=== PATIENT | male | born 1950 | race Caucasian/White ===

== ENCOUNTER 2022-12-23 10:35 | Outpatient (OUT) | payer OTHER, SELFPAY ==
--- NOTE | 2022-12-23 10:49 | XR_ITS ---
The [address] [address] Patient Name: PEDRO MENON MRN: [id number] date: 1950 Sex: M Assigned Patient Location: RAD Current Patient Location: [facility] Accession/Order Number: [id number] Exam Date: 12/23/2022 10:55 Report Date: 12/23/2022 15:23 At the request of: BILLY MILTON Procedure: XR lumbar spine 6V w bending EXAMINATION: XR lumbar spine 6V w bending HISTORY: Frequent falls R29.6, Leg weakness R29.898 COMPARISON: No relevant comparison available. FINDINGS: BONES: No fracture, bone lesion, or significant listhesis. Mild degenerative facet arthropathy L3-4 through L5-S1. No significant change in alignment during flexion and extension. DISC SPACES: Mild narrowing L3-4, L4-5, L5-S1. PARASPINOUS: Negative. No paraspinous abnormality is seen. OTHER: Negative. IMPRESSION: 1. Mild degenerative disc disease and degenerative facet arthropathy of lower lumbar spine. 2. No appreciable acute abnormality. Electronically authenticated by: BRAULIO GUZMAN Date: 12/23/2022 15:23
== END 2022-12-23 10:36 ==
LOC: RAD 10:41
PROVIDERS: PCP Physician Assistant; Visit Provider Physician Assistant
DX: R29.6 Repeated falls (principal); R29.898 Other symptoms and signs involving the musculoskeletal system; M51.36 Other intervertebral disc degeneration, lumbar region
CPT/HCPCS: 72114

== ENCOUNTER 2024-06-04 09:00 | Outpatient (OUT) | payer OTHER, SELFPAY ==
[2024-06-04 09:33] LABS: Basophils Absolute Auto 0.1 10^3/uL (0.0-0.1); Basophils Percent Auto 1.7 % (0.2-2.0); Eosinophils Absolute Auto 0.6 10^3/uL (0.0-0.7); Eosinophils Percent Auto 8.2 % (0.9-7.0); Hematocrit 35.7 % (42.0-54.0); Hemoglobin 12.3 g/dL (14.0-18.0); Immature Granulocytes Abs Auto 0.02 10^3/uL (0.00-0.03); Immature Granulocytes Pct Auto 0.3 % (0.0-0.5); Lymphocytes Absolute Auto 1.7 10^3/uL (1.2-3.8); Lymphocytes Percent Auto 24.7 % (20.5-60.0); Mean Corpuscular HGB Conc 34.5 g/dL (29.9-35.2); Mean Corpuscular Hemoglobin 30.3 pg (25.9-34.0); Mean Corpuscular Volume 87.9 fL (80.0-94.0); Mean Platelet Volume 10.7 fL (9.5-13.5); Monocytes Absolute Auto 0.6 10^3/uL (0.3-0.8); Monocytes Percent Auto 8.2 % (1.7-12.0); Neutrophils Percent Auto 56.9 % (43.0-75.0); Platelet Count 228 10^3/uL (150-450); Red Blood Count 4.06 10^6/uL (4.70-6.10); Red Cell Distribution Width 12.2 % (11.0-15.0)
[2024-06-04 10:05] LABS: Creatinine Urine Random 125.08 mg/dL (20.00-300.00); Microalbum Creatinine Ratio Ur 10.3 mg/g (0.0-29.9); Microalbumin Urine Random <1.3 mg/dL (<=30.0)
[2024-06-04 11:48] LABS: Alanine Aminotransferase 24 U/L (16-63); Alkaline Phosphatase 74 U/L (46-116); Anion Gap 17.8; Aspartate Amino Transferase 30 U/L (15-37); BUN Creatinine Ratio 15.6; Bilirubin Total 0.7 mg/dL (0.2-1.0); Calcium 8.2 mg/dL (8.5-10.1); Carbon Dioxide 19.8 mmol/L (21.0-32.0); Chloride 104 mmol/L (98-107); Chol HDL Ratio 2.1; Cholesterol 141 mg/dL (<=200); Estimated GFR (African America 57 (>=60 mL/min/1.73m^2); Estimated GFR (Non-African Ame 47 (>=60 mL/min/1.73m^2); Globulin 3.1 g/dL; Glucose 164 mg/dL (74-106); HDL Cholesterol 67 mg/dL (40-60); Sodium 137 mmol/L (136-145); Total Protein 6.1 g/dL (6.4-8.2); Triglycerides 113 mg/dL (<=150); VLDL CHOLESTEROL 22.6 mg/dL
[2024-06-04 11:59] LABS: Prostate Specific Antigen Scrn 0.96 ng/mL (<=4.00)
[2024-06-04 12:10] LABS: Potassium 4.6 mmol/L (3.5-5.1)
== END 2024-06-04 09:01 | disposition home or self-care (01) ==
LOC: LAB 06-07 11:08
PROVIDERS: PCP Nurse Practitioner Family; Visit Provider Nurse Practitioner Family
DX: E78.5 Hyperlipidemia, unspecified (principal); I10 Essential (primary) hypertension; E11.9 Type 2 diabetes mellitus without complications; Z12.5 Encounter for screening for malignant neoplasm of prostate
CPT/HCPCS: 36415; 80053; 80061; 82043; 82570; 85025; G0103

== ENCOUNTER 2024-09-01 19:46 | Emergency (ER) | payer OTHER, SELFPAY ==
[2024-09-01] VITALS (12 sets, daily range): BP systolic 189–220; BP diastolic 79–113; PULSE 67–73; TEMP 36.8; O2SAT 94–98; BMI 29.1
--- NOTE | 2024-09-01 20:00 | XR_ITS ---
The [address] [address] Patient Name: PEDRO MENON MRN: [id number] date: 1950 Sex: M Assigned Patient Location: ER Current Patient Location: ED.MAIN Accession/Order Number: [id number] Exam Date: 09/01/2024 20:15 Report Date: 09/01/2024 21:58 At the request of: GANESH MARQUEZ Procedure: XR chest 1V PORTABLE CHEST X-RAY. CLINICAL HISTORY: fell on ice onto left side COMPARISON: None. TECHNIQUE: Single AP portable chest radiograph. FINDINGS: TUBES AND LINES: None. LUNGS: Lungs are clear. PLEURA: No effusions or pneumothorax. HEART AND MEDIASTINUM: Within normal limits for portable technique. OSSEOUS STRUCTURES: No acute abnormality. XR/XR chest 1V IMPRESSION: No acute findings. Electronically authenticated by: PASTORA LEUNG Date: 09/01/2024 21:58
--- OUTSIDE RECORDS SUMMARY | 2024-09-01 20:00 | XMS_ITS | CCD ---
Author Organization [facility] Care Team Providers Care Security Architect Name Role Phone AIMEE, DR DOWLING Primary Care Unavailable AIMEE, DR BELKIS Orlando Attending Unavailable CHELSEA, DR ROEL Gomez Consulting Unavailable NADERER, DR BELKIS Orlando Admitting Unavailable NADERER, DR BELKIS Orlando Consulting Unavailable TAYLOR, DR ANTUNEZ Consulting Unavailable AIMEE, DR DOWLING Attending Unavailable AIMEE, DR DOWLING Consulting Unavailable AIMEE, DR DOWLING Primary Care Unavailable AIMEE, DR DOWLING Admitting Unavailable MD Jonathon Isbell Primary Care Provider MD Christian Montana Attending Provider Unavailable Primary Care Provider Unavailabl e PROVIDER, UNKNOWN Attending Unavailable PROVIDER, UNKNOWN Admitting Unavailable Christian Montana Attending Unavailable Jonathon Isbell Primary Care Unavailable Christian Montana Admitting Unavailable Christian Montana Attending Unavailable Jonathon Isbell Primary Care Unavailable Christian Montana Admitting Unavailable Ulisses Yu MD Primary Care Provider Jonathon Isbell MD Unavailable [phone] KAELA MILTON Attending Unavailable KAELA MILTON Attending Unavailable KAELA MILTON Attending Unavailable Ulisses Yu MD Unavailable Unavailable Primary Care Provider Unavailabl e Allergies Allergy Classification Reported Allergen(s) Allergy Type Date of Onset Reaction(s) Facility (4 sources) gabapentin Drug Allergy 06-24-2023 Diarrhea [facility] Work Phone: Medications Current Medications Medication Drug Class(es) Dates Sig (Normalized) Sig (Original) acetaminophen 325 mg / HYDROcodone bitartrate 5 mg oral tablet (2 sources) Opioid Agonist Start: 05-01-2021 take 1 tablet by mouth every six hours Hydrocodone-Acet aminophen Active 1 TAB PO Q6H 28 7 May 01, 2021 aspirin 81 mg delayed release oral tablet (6 sources) Platelet Aggregation Inhibitor, Nonsteroidal Anti-inflammatory Drug Start: 05-27-2023 End: 06-30-2024 take 1 tablet by mouth once daily aspirin 81 MG EC tablet Indications: Type 2 diabetes mellitus with diabetic neuropathy, without long-term current use of insulin (CMS/HCC) Take 1 tablet (81 mg) by mouth 1 (one) time each day at the same time. 100 tablet 3 05/27/2023 06/30/2024 Active Start: 03-28-2021 take 81 mg by mouth once daily Aspirin Active 81 MG PO Daily 365 365 March 28, 2021 12:00am atorvastatin 80 mg oral tablet (6 sources) HMG-CoA Reductase Inhibitor Start: 10-28-2023 take 1 tablet by mouth at bedtime atorvastatin (Lipitor) 80 MG tablet Indications: Mixed hyperlipidemia (CMS/HCC) Take 1 tablet (80 mg) by mouth at bedtime 100 tablet 3 10/28/2023 Active Start: 03-28-2021 take 80 mg by mouth once daily Atorvastatin Active 80 MG PO Daily March 28, 2021 12:00am carvedilol 12.5 mg oral tablet (6 sources) alpha-Adrenergic Elio, beta-Adrenergic Elio Start: 10-28-2023 take 1 tablet by mouth in the morning carvedilol (Coreg) 12.5 MG tablet Indications: Benign hypertension (CMS/HCC) Take 1 tablet (12.5 mg) by mouth in the morning and 1 tablet (12.5 mg) in the evening. Take with meals. 200 tablet 3 10/28/2023 Active Start: 03-28-2021 take 12.5 mg by mout h twice daily Carvedilol Active 12.5 MG PO Twice daily March 28, 2021 12:00am clopidogrel 75 mg oral tablet (6 sources) P2Y12 Platelet Inhibitor Start: 11-19-2023 take 1 tablet by mouth once daily clopidogrel (Plavix) 75 MG tablet Indications: Peripheral vascular disease, unspecified (CMS/HCC) TAKE 1 TABLET BY MOUTH EVERY DAY FOR 90 DAYS 90 tablet 3 11/19/2023 Active Start: 08-11-2023 take 1 tablet by mau th once daily clopidogrel (Plavix) 75 MG tablet Indications: Peripheral vascular disease, unspecified (CMS/HCC) TAKE 1 TABLET BY MOUTH EVERY DAY FOR 90 DAYS 90 tablet 3 08/11/2023 Active Start: 03-28-2021 take 75 mg by mouth once daily Clopidogrel Active 75 MG PO Daily 90 180 March 28, 2021 12:00am gabapentin 600 mg oral tablet (2 sources) Anti-epileptic Agent Start: 03-28-2021 take 600 mg by mouth three times daily Gabapentin Active 600 MG PO Three times daily March 28, 2021 12:00am glipiZIDE 10 mg oral tablet (6 sources) Sulfonylurea Start: 10-28-2023 take 1 tablet by mouth once daily glipiZIDE (Glucotrol) 10 MG tablet Indications: Type 2 diabetes mellitus with diabetic neuropathy, without long-term current use of insulin ([facility]) Take 1 tablet (10 mg) by mouth Daily 100 tablet 3 10/28/2023 Active Start: 03-28-2021 take 1 tablet by mau th in the morning glipiZIDE (Glucotrol) 10 MG tablet Indications: Type 2 diabetes mellitus with diabetic neuropathy, without long-term current use of insulin ([facility]) Take 1 tablet (10 mg) by mouth in the morning. 100 tablet 3 2023 Active 3 ml insulin glargine 100 unt/ml pen injector (2 sources) Insulin Analog Start: 10-28-2023 insulin glargi ne (Basaglar KwikPen) 100 UNIT/ML pen Indications: Type 2 diabetes mellitus with diabetic neuropathy, without long-term current use of insulin ([facility]) Inject 20 Units under the skin at bedtime 10/28/2023 Active insulin, regular, human 100 unt/ml injectable solution (2 sources) Insulin Start: 11-14-2023 End: 11-13-2024 insulin regular (NovoLIN R) 100 UNIT/ML injection Indications: Type 2 diabetes mellitus with other specified complication, without long-term current use of insulin ([facility]) Inject 0.1 mL (10 Units) under the skin in the morning and 0.1 mL (10 Units) at noon and 0.1 mL (10 Units) in the evening. Inject with meals. 27 mL 3 11/14/2023 11/13/2024 Active lisinopril 5 mg oral tablet (6 sources) Angiotensin Converting Enzyme Inhibitor Start: 05-27-2023 End: 06-30-2024 take 1 tablet by mouth in the morning lisinopril 5 MG tablet Indications: Benign hypertension (CMS/HCC) Take 1 tablet (5 mg) by mouth in the morning. 100 tablet 3 05/27/2023 06/30/2024 Active Start: 08-02-2021 take 1 tablet by mau th once daily Lisinopril (Zestril) 5 mg Tablet Active 5 MG PO Daily August 02, 2021 1:00am omeprazole 40 mg delayed release oral capsule (4 sources) Proton Pump Inhibitor Start: 03-28-2021 take 40 mg by mouth once daily Omeprazole Active 40 MG PO Daily March 28, 2021 12:00am ondansetron 8 mg oral tablet (2 sources) Serotonin-3 Receptor Antagonist Start: 07-04-2021 take 8 mg by mouth every eight hours Ondansetron Hcl Active 8 MG PO Q8H July 04, 2021 4:18pm pantoprazole 40 mg delayed release oral tablet (2 sources) Proton Pump Inhibitor Start: 10-28-2023 take 1 tablet by mouth before mealtime pantoprazole (Protonix) 40 MG EC tablet Indications: Gastroesophageal reflux disease without esophagitis Take 1 tablet (40 mg) by mouth in the morning. Take before meals. Do not crush, chew, or split.. 100 tablet 3 10/28/2023 Active pioglitazone 15 mg oral tablet (4 sources) Peroxisome Proliferator Receptor alpha Agonist, Peroxisome Proliferator Receptor gamma Agonist, Thiazolidinedione Start: 10-28-2023 take 1 tablet by mouth once daily pioglitazone (Actos) 15 MG tablet Indications: Type 2 diabetes mellitus with diabetic neuropathy, without long-term current use of insulin (CMS/HCC) Take 1 tablet (15 mg) by mouth Daily 100 tablet 3 10/28/2023 Active Start: 02-05-2023 take 1 tablet by mau th in the morning pioglitazone (Actos) 15 MG tablet Indications: Type 2 diabetes mellitus with diabetic neuropathy, without long-term current use of insulin (CMS/HCC) Take 1 tablet (15 mg) by mouth in the morning. 90 tablet 3 02/05/2023 Active SITagliptin 100 mg oral tablet (2 sources) Dipeptidyl Peptidase 4 Inhibitor Start: 03-28-2021 take 1 tablet by mouth once daily Sitagliptin Phosphate (Januvia) 100 mg Tablet Active 100 MG PO Daily March 28, 2021 12:00am Completed/Discontinued Medications Medication Drug Class(es) Dates Sig (Normalized) Sig (Original) capecitabine 500 mg oral tablet (6 sources) Nucleoside Metabolic Inhibitor Start: 05-31-2021 End: 01-31-2022 take 1 tablet by mouth twice daily Capecitabine (Xeloda) 500 mg Tablet Discontinued 2000 MG PO Twice daily 80 September 26, 2021 4:27pm January 31, 2022 10:08am Take only on M-F 2 weeks on one week off Problems Active Problems Problem Classification Problem Date Documented Da te Episodic/Chronic Acquired foot deformities (4 sources) Hammer toe; Translations: [Other hammer toe(s) (acquired), unspecified foot] Onset: 12-19-2022 12-19-2022 Chronic Alcohol-related disorders (8 sources) Nondependent alcohol abuse, continuous; Translations: [Alcohol abuse, uncomplicated] Onset: 12-19-2022 07-12-2021 Chronic Anxiety disorders (4 sources) Anxiety disorder; Translations: [Other specified anxiety disorders] Onset: 02-24-2020 01-28-2023 Chronic Cancer of colon (6 sources) Malignant tumor of sigmoid colon; Translations: [Malignant neoplasm of sigmoid colon] Onset: 12-19-2022 07-12-2021 Chronic Conditions associated with dizziness or vertigo (1 source) Dizziness; Translations: [Dizziness and giddiness] Episodic Diabetes mellitus with complications (17 sources) Type 2 diabetes mellitus with hyperglycemia; Translations: [Type 2 diabetes mellitus with diabetic neuropathy, unspecified] Onset: 02-21-2021 Resolved: 10-28-2023 12-19-2022 Chronic Diabetes mellitus without complication (2 sources) Diabetes mellitus; Translations: [Type 2 diabetes mellitus without complications] 05-12-2021 Chronic Diabetes mellitus without complication (1 source) Hyperglycemia; Translations: [Hyperglycemia, unspecified] Episodic Disorders of lipid metabolism (5 sources) Hyperlipidemia, unspecified; Translations: [Hyperlipidemia] Onset: 02-24-2020 01-28-2023 Chronic Esophageal disorders (5 sources) Gastro-esophageal reflux disease without esophagitis; Translations: [Gastroesophageal reflux disease] Onset: 02-06-2022 12-19-2022 Chronic Essential hypertension (7 sources) Hypertensive disorder; Translations: [Essential (primary) hypertension] Onset: 12-19-2022 09-27-2021 Chronic Intracranial injury (1 source) Personal history of traumatic brain injury; Translations: [PERSONAL HX TRAUMATIC BRAIN INJURY] Onset: 02-06-2022 Episodic Maintenance chemotherapy; radiotherapy (2 sources) Patient encounter status; Translations: [Encounter for antineoplastic chemotherapy] 07-12-2021 Chronic Osteoarthritis (8 sources) Osteoarthritis of right hip joint; Translations: [Unilateral primary osteoarthritis, right hip] Onset: 02-24-2020 Resolved: 05-12-2023 01-28-2023 Chronic Other aftercare (1 source) medical support assistant (current) use of oral hypoglycemic drugs; Translations: [STILL CLEANER TUBE USE ORAL HYPOGLYCEMIC DX] Onset: 02-06-2022 Episodic Other aftercare (1 source) Other hazardous waste material technician (current) drug therapy; Translations: [OTH STILL CLEANER TUBE CURRENT DRUG THERAPY] Onset: 02-06-2022 Episodic Other circulatory disease (1 source) Personal history of transient ischemic attack (TIA), and cerebral infarction without residual deficits; Translations: [PERS HX TIA AND CI NO RESID DEFICIT] Onset: 02-06-2022 Episodic Other connective tissue disease (4 sources) History of total hip arthroplasty; Translations: [Presence of right artificial hip joint] Onset: 12-19-2022 12-19-2022 Chronic Other male genital disorders (4 sources) Male erectile dysfunction, unspecified; Translations: [Impotence of organic origin] Onset: 12-19-2022 12-19-2022 Chronic Other nervous system disorders (4 sources) Spinal cord disease; Translations: [Disease of spinal cord, unspecified] Onset: 12-19-2022 12-19-2022 Chronic Other nervous system disorders (4 sources) Difficulty walking; Translations: [Difficulty in walking, not elsewhere classified] Onset: 02-24-2020 01-28-2023 Chronic Other screening for suspected conditions (not mental disorders or infectious disease) (1 source) Abnormal findings on diagnostic imaging of skull and head, not elsewhere classified; Translations: [ABNORM FIND DX IMAG SKULL HEAD NEC] Onset: 02-06-2022 Episodic Peripheral and visceral atherosclerosis (14 sources) Peripheral vascular disease, unspecified; Translations: [Intermittent claudication] Onset: 02-15-2021 Chronic Residual codes; unclassified (1 source) Obstructive sleep apnea (adult) (pediatric); Translations: [OBSTRUCTIVE SLEEP APNEA] Onset: 02-06-2022 Chronic Residual codes; unclassified (2 sources) Stopped drinking alcohol; Translations: [Personal history of other specified conditions] 09-12-2021 Episodic Unclassified (1 source) Encounter for follow-up examination after completed treatment for malignant neoplasm; Translations: [Encounter for follow-up examination after completed treatment for malignant neoplasm] Onset: 05-20-2022 Unclassified (1 source) Encounter for preprocedural laboratory examination; Translations: [Encounter for preprocedural laboratory examination] Onset: 05-16-2022 Viral infection (1 source) COVID-19; Translations: [COVID-19] Onset: 02-06-2022 Past or Other Problems Problem Classification Problem Date Documented Da te Episodic/Chronic Acute bronchitis (4 sources) Acute mycoplasmal bronchitis; Translations: [Acute bronchitis due to Mycoplasma pneumoniae] Onset: 02-24-2020 Resolved: 05-12-2023 05-12-2023 Episodic Administrative/social admission (4 sources) Literacy problems; Translations: [Illiteracy and low-level literacy] Onset: 02-24-2020 01-28-2023 Episodic Allergic reactions (6 sources) Acral erythema due to cytotoxic therapy; Translations: [Localized skin eruption due to drugs and medicaments taken internally] Onset: 02-24-2020 Resolved: 05-12-2023 09-12-2021 Episodic Deficiency and other anemia (4 sources) Anemia; Translations: [Anemia, unspecified] Onset: 12-19-2022 12-19-2022 Episodic Mood disorders (4 sources) Mood disorders Onset: 05-12-2023 05-12-2023 Other connective tissue disease (4 sources) Muscle weakness; Translations: [Muscle weakness (generalized)] Onset: 02-24-2020 01-28-2023 Episodic Other connective tissue disease (4 sources) Recurrent falls ; Translations: [Repeated falls] Onset: 05-01-2023 05-01-2023 Episodic Other gastrointestinal disorders (4 sources) Diarrhea due to drug; Translations: [Toxic gastroenteritis and colitis] Onset: 10-20-2023 Resolved: 10-20-2023 09-12-2021 Episodic Other gastrointestinal disorders (4 sources) Abnormal feces; Translations: [Other fecal abnormalities] Onset: 12-19-2022 3 Episodic Other gastrointestinal disorders (4 sources) Incontinence of feces; Translations: [Full incontinence of feces] Onset: 12-19-2022 12-19-2022 Episodic Other lower respiratory disease (4 sources) Solitary nodule of lung; Translations: [Solitary pulmonary nodule] Onset: 10-20-2023 07-12-2021 Episodic Other nervous system disorders (4 sources) Acute postoperative pain; Translations: [Other acute postprocedural pain] Onset: 10-20-2023 Resolved: 10-20-2023 05-11-2021 Episodic Other non-traumatic joint disorders (4 sources) Pain in right knee; Translations: [Pain in joint, lower leg] Onset: 02-22-2020 01-28-2023 Episodic Other non-traumatic joint disorders (3 sources) Pain in right hip joint; Translations: [Pain in right hip] Onset: 02-24-2020 01-28-2023 Episodic Other non-traumatic joint disorders (1 source) Hip pain; Translations: [Pain in right hip] Onset: 02-24-2020 01-28-2023 Episodic Other nutritional; endocrine; and metabolic disorders (4 sources) Overweight in adulthood with body mass index of 25 or more but less than 30; Translations: [Body mass index (BMI) 27.0-27.9, adult] Onset: 02-24-2020 Resolved: 05-12-2023 05-12-2023 Episodic Residual codes; unclassified (4 sources) History of colectomy; Translations: [Acquired absence of other specified parts of digestive tract] Onset: 10-20-2023 05-11-2021 Episodic Residual codes; unclassified (3 sources) Noncompliance with medication regimen; Translations: [Patient's other noncompliance with medication regimen] Onset: 02-24-2020 Episodic Residual codes; unclassified (4 sources) Insomnia; Translations: [Insomnia, unspecified] Onset: 02-24-2020 01-28-2023 Episodic Spondylosis; intervertebral disc disorders; other back problems (4 sources) Lumbago co-occurrent with right-side sciatica; Translations: [Lumbago with sciatica, right side] Onset: 02-24-2020 01-28-2023 Episodic Syncope (8 sources) Syncope and collapse; Translations: [Syncope and collapse] Onset: 02-24-2020 Resolved: 05-12-2023 Episodic Results Test Name Value Interpretation Reference Range Facility Progress Noteson 08-08-2022 Building Economist Authentication Interface Message Text EMERGENCY TRIAGE, TREAT AND TRANSPORT (ET3) DOCUMENTATION OF TELEHEALTH VISIT Date / Time: 08/08/2022 / 1199 Name: Mikhail Menon : 1950 SSN: (Not on file) EMS Agency: 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 Co-worker contacted 911 and requested an ambulance. Patient states by the time the ambulance arrived he was no longer dizzy he felt at his normal baseline. He states his only past medical history is diabetes, he does not take any medication including does not take any insulin. He does not check his blood sugars at home or at work. co-worker now state that the patient now appears at his normal baseline. The patient has no complaints and does not wish any further care from EMS. Patient denies any recent illness, change in medication, fall or head injury, or similar dizziness symptoms in the past. Denies any weakness or numbness in his arms or legs. Denies any change in vision. Additional pertinent PMHx, SocHx, FamHx: Past medical history: Diabetes Medications: Denies Social history: Denies tobacco. States he does drink but has not had any alcohol today Review of Systems: Denies the following: Headache, neck pain, back pain,lightheadednes s, chest pain, cough, difficulty breathing, fever, nausea/vomiting, dysuria, leg pain or swelling, weakness. No recent falls or injury. Exam: General: Awake, no distress. Patient is able to ambulate across the factory floor to the water fountain and back without any apparent difficulty. Patient denies dizziness when doing this. ENT: normocephalic, atraumatic Pulmonary: No respiratory distress Cardiovascular: Well perfused Neurologic: Oriented to person, place, time and events. Moving all extremities equally. Psychiatric: Appropriate. Good insight and judgement. Medical Decision Making: This is a pleasant 72-year-old male with transient dizziness of unclear etiology. It may be related to his hyperglycemia although it is difficult to gauge how acute or chronic his current readings are. His current glucose was 321. Patient denies any current pain, discomfort, or dizziness in his refusing any further intervention. Patient does not want to go to the hospital. I discussed potential causes of dizziness, including stroke, high blood sugar, unusual heart rate. The patient does not want to go to the hospital. I asked the patient to follow-up with his primary care doctor today and to specifically discuss how he should manage his high blood sugar. I asked patient to contact 911 if he started feeling further dizziness, chest pain, weakness, or any other things that are concerning to him. There were no further questions from the patient or the EMS team. Disposition Supported by Telehealth Assessment: ET3 transport decisions: Refused transport EMS Disposition Reported: Same ET3 Encounter Completed by: Lei Wolf MD Normal [employer] Glucose Poct Glucometerson 1 Commemt1 Glu2: Cleaned Meter Normal [facility] Comment on above: Result Comment: PERF ORMED BY: [facility] [address] [place] [address] PATHOLOGIST TRAINING DEVELOPER BULMARO HALL M.D. Performed By: #### G LULS #### Point of Care testing , Glucose [Mass/Vol] 179 mg/dL Normal [facility] Comment on above: Result Comment: [facility] Glucose Reference Range is dependent on time and content of last meal. Glucose of more than 200 mg/dL in a nonstressed, ambulatory subject supports the diagnosis of Diabetes Mellitus. Performed By: #### G LULS #### Point of Care testing , Glucose [Mass/Vol] 198 mg/dL Normal [facility] Comment on above: Result Comment: [facility] Glucose Reference Range is dependent on time and content of last meal. Glucose of more than 200 mg/dL in a nonstressed, ambulatory subject supports the diagnosis of Diabetes Mellitus. PERFORMED BY: [facility] [address] [place] [address] PATHOLOGIST TRAINING DEVELOPER BULMARO HALL M.D. Performed By: #### G BESSY #### Point of Care testing , COVID-19 Antigenon 2 COVID-19 Antigen Healthcare Worker?: N Reference Range: Negative Negative results, from patients with symptom onset beyond five days, should be treated as presumptive and confirmation with a molecular assay, if necessary, for patient management, may be performed. Negative results do not rule out COVID-19 and should not be used as the sole basis for treatment or patient management decisions, including infection control decisions. Negative results should be considered in the context of a patient's recent exposures, history and the presence of clinical signs and symptoms consistent with COVID-19. The Camila SARS Antigen DOROTHEA does not differentiate between SARS-CoV and SARS-CoV-2. This test was developed and its performance characteristic determined by [facility] and validated at [facility]. This test has not been FDA cleared or approved. This test has been authorized by FDA under an Emergency Use Authorization (EUA). This test has been validated in accordance with the FDA's Guidance Document (Policy for Diagnostics Testing in Laboratories Certified to Perform High Complexity Testing under CLIA prior to Emergency Use Authorization for Coronavirus Disease-2019 during the Public Health Emergency) issued on October 21, 2019. This test is only authorized for the duration of time the declaration that circumstances exist justifying the authorization of the emergency use of in vitro diagnostic tests for detection of SARS-CoV-2 virus and/or diagnosis of COVID-19 infection under section 564(b)(1) of the Act, 21 U.S.C. 360bbb-3(b)(1), unless the authorization is terminated or revoked sooner. SARS-CoV+SARS-CoV-2 (COVID-19) Ag [Presence] in Respiratory specimen by Rapid immunoassay Negative for SARS Antigen by DOROTHEA PERFORMED BY: [facility] [address] [place] [address] PATHOLOGIST TRAINING DEVELOPER BULMARO HALL M.D. [facility] Comment on above: Performed By: #### C OVID-19 CAMILA, SOFIANEG #### [facility] [address] COVID-19 SOFIAOrdered By: Byron Montana on 05-16-2022 SARS-CoV+SARS-CoV-2 (COVID-19) Ag IA.rapid Ql (Resp) Negative Negative [facility] Comment on above: This is a duplicate Camila SARS Antigen (DOROTHEA) result to be used for statistical tracking purpose only. No Panel InformationOrdered By: Christian Montana on 05-16-2022 SARS Antigen (LFIA) [facility] Camila Ag Negativeon 05-16-20 Camila Ag Negative Negative Normal Negative [facility] Comment on above: Result Comment: This is a duplicate Camila SARS Antigen (DOROTHEA) result to be used for statistical tracking purpose only. PERFORMED BY: [place] [address] PATHOLOGIST TRAINING DEVELOPER BULMARO HALL M.D. Performed By: #### C OVID-19 CAMILA, SOFIANEG #### [address] CBC AUTO DIFFon 02-02-2022 BASO # 0.1 103/ul Normal 0.0-0.1 [facility] Comment on above: Performed By: #### C BC #### [facility] [address] [place] [address] Dr. Bucky Gold Basophils/100 WBC (Bld) 1.3 % Normal 0.2-2.0 [facility] Comment on above: Performed By: #### C BC #### [facility] [address] [address] [address] Bucky Gold EO # 0.7 103/ul Normal 0.0-0.7 [facility] Comment on above: Performed By: #### C BC #### [facility] [address] [address] [address] Bucky Gold Eosinophils/100 WBC (Bld) 12.1 % Critically high 0.9-7.0 [facility] Comment on above: Performed By: #### C BC #### [facility] [address] [place] [address] Dr. Bucky Gold Erythrocyte distribution width (RBC) [Ratio] 12.1 % Normal 11.0-15.0 [facility] Comment on above: Performed By: #### C BC #### [facility] [address] [address] [address] Bucky Gold Hematocrit (Bld) [Volume fraction] 38.0 % Critically low 42.0-54.0 [facility] Comment on above: Performed By: #### C BC #### [facility] [address] [address] [address] Bucky Gold Hemoglobin (Bld) [Mass/Vol] 12.7 g/dL Critically low 14.0-18.0 [facility] Comment on above: Performed By: #### C BC #### [facility] [address] [place] [address] Dr. Bucky Gold IG # 0.01 10e3/ul Normal 0.00-0.03 [facility] Comment on above: Performed By: #### C BC #### [facility] [address] [place] [address] Dr. Bucky Gold IG % 0.2 % Normal 0.0-0.5 [facility] Comment on above: Performed By: #### C BC #### [facility] [address] [place] [address] Dr. Bucky Gold LYMPH # 1.0 103/ul Critically low 1.2-3.8 [facility] Comment on above: Performed By: #### C BC #### [facility] [address] [place] [address] Dr. Bucky Gold Lymphocytes/100 WBC (Bld) 18.4 % Critically low 20.5-60.0 [facility] Comment on above: Performed By: #### C BC #### [facility] [address] [address] [address] Bucky Gold MANUAL DIFF REQ NO Normal [facility] Comment on above: Performed By: #### C BC #### [facility] [address] [place] [address] Dr. Bucky Gold MCH (RBC) [Entitic mass] 32.8 pg Normal 25.9-34.0 [facility] Comment on above: Performed By: #### C BC #### [facility] [address] [address] [address] Bucky Gold MCHC (RBC) [Mass/Vol] 33.4 g/dL Normal 29.9-35.2 [facility] Comment on above: Performed By: #### C BC #### [facility] [address] [address] [address] Bucky Gold MCV (RBC) [Entitic vol] 98.2 fL Critically high 80.0-94.0 [facility] Comment on above: Performed By: #### C BC #### [facility] [address] [place] [address] Dr. Bucky Gold MONO # 0.4 103/ul Normal 0.3-0.8 [facility] Comment on above: Performed By: #### C BC #### [facility] [address] [place] [address] Dr. Bucky Gold Monocytes/100 WBC (Bld) 6.8 % Normal 1.7-12.0 [facility] Comment on above: Performed By: #### C BC #### [facility] [address] [place] [address] Dr. Bucky Gold NEUT # 3.4 103/ul Normal 1.4-6.5 [facility] Comment on above: Performed By: #### C BC #### [facility] [address] [place] [address] Dr. Bucky Gold Neutrophils/100 WBC (Bld) 61.2 % Normal 43.0-75.0 [facility] Comment on above: Performed By: #### C BC #### [facility] [address] [place] [address] Dr. Bucky Gold Platelet mean volume (Bld) [Entitic vol] 10.1 fL Normal 9.5-13.5 [facility] Comment on above: Performed By: #### C BC #### [facility] [address] [place] [address] Dr. Bucky Gold PLT 154 103/ul Normal 150-450 [facility] Comment on above: Performed By: #### C BC #### [facility] [address] [address] [address] Bucky Gold RBC 3.87 106/ul Critically low 4.70-6.10 [facility] Comment on above: Performed By: #### C BC #### [facility] [address] [address] [address] Bucky Gold WBC 5.6 103/ul Normal 4.0-11.0 [facility] Comment on above: Performed By: #### C BC #### [facility] [address] [place] [address] Dr. Bucky Gold POINT OF CARE GLUCOSEon 01-18 Glucose [Mass/Vol] 214 mg/dL Critically high 74-106 [facility] Comment on above: Performed By: #### P OCGLUC #### [facility] [address] [place] [address] Dr. Bucky Gold PROF CHEM 8 (BAS METB)on Anion gap [Moles/Vol] 10.4 mmol/L Normal [facility] Comment on above: Performed By: #### B MP #### [facility] [address] [place] [address] Dr. Bucky Gold Calcium [Mass/Vol] 8.3 mg/dL Critically low 8.5-10.1 [facility] Comment on above: Performed By: #### B MP #### [facility] [address] [place] [address] Dr. Bucky Gold Chloride [Moles/Vol] 104 mmol/L Normal 98-107 [facility] Comment on above: Performed By: #### B MP #### [facility] [address] [place] [address] Dr. Bucky Gold CO2 [Moles/Vol] 25.5 mmol/L Normal 21.0-32.0 [facility] Comment on above: Performed By: #### B MP #### [facility] [address] [place] [address] Dr. Bucky Gold Creatinine [Mass/Vol] 0.89 mg/dL Normal 0.70-1.30 [facility] Comment on above: Performed By: #### B MP #### [facility] [address] [address] [address] Bucky Gold EGFR-AF NIGERIAN >60 Normal >=60 [facility] Comment on above: Performed By: #### B MP #### [facility] [address] [address] [address] Bucky Gold EGFR-NON AF NIGERIAN >60 Normal >=60 [facility] Comment on above: Performed By: #### B MP #### [facility] [address] [address] [address] Bucky Gold Glucose [Mass/Vol] 138 mg/dL Critically high 74-106 [facility] Comment on above: Performed By: #### B MP #### [facility] [address] [address] [address] Bucky Gold Potassium [Moles/Vol] 3.9 mmol/L Normal 3.5-5.1 [facility] Comment on above: Performed By: #### B MP #### [facility] [address] [address] [address] Bucky Gold Sodium [Moles/Vol] 136 mmol/L Normal 136-145 [facility] Comment on above: Performed By: #### B MP #### [facility] [address] [address] [address] Bucky Gold Urea nitrogen [Mass/Vol] 12.0 mg/dL Normal 7.0-18.0 [facility] Comment on above: Performed By: #### B MP #### [facility] [address] [address] [address] Bucky Gold Urea nitrogen/Creatinine [Mass ratio] 13.5 mg/mg Normal [facility] Comment on above: Performed By: #### B MP #### [facility] [address] [address] [address] Bucky Gold CBC W MANUAL DIFFon 02-02-20 22 ATYPICAL LYMPH # Normal [facility] Comment on above: Performed By: #### C PRIYA #### [facility] [address] [address] [address] Bucky Gold ATYPICAL LYMPH % Normal [facility] Comment on above: Performed By: #### C BCMAN #### [facility] [address] [place] [address] Dr. Bucky Gold BAND # Normal 0.0-0.3 [facility] Comment on above: Performed By: #### C BCMAN #### [facility] [address] [place] [address] Dr. Bucky Godl BAND % Normal 0-5 [facility] Comment on above: Performed By: #### C BCMAN #### [facility] [address] [place] [address] Dr. Bucky Gold BASOM # 0.00 103/ul Normal 0.00-0.10 [facility] Comment on above: Performed By: #### C BCMAN #### [facility] [address] [place] [address] Dr. Bucky Gold BASOM % 0.0 % Critically low 0.2-2.0 [facility] Comment on above: Performed By: #### C BCJONATHAN #### [facility] [address] [place] [address] Dr. Bucky Gold BLAST # Normal [facility] Comment on above: Performed By: #### C BCMAN #### [facility] [address] [place] [address] Dr. Bucky Gold BLAST % Normal [facility] Comment on above: Performed By: #### C BCMAN #### [facility] [address] [place] [address] Dr. Bucky Gold CORRECTED WBC Normal 4.0-11.0 [facility] Comment on above: Performed By: #### C BCMAN #### [facility] [address] [place] [address] Dr. Bucky Gold EOS # 0.00 103/ul Normal 0.00-0.70 [facility] Comment on above: Performed By: #### C BCMAN #### [facility] [address] [place] [address] Dr. Bucky Gold EOS% 0.0 % Critically low 0.9-7.0 [facility] Comment on above: Performed By: #### C BCJONATHAN #### [facility] [address] [address] [address] Bucky Gold HCT 32.5 % Critically low 42.0-54.0 [facility] Comment on above: Performed By: #### C BCMAN #### [facility] [address] [address] [address] Bucky Gold HGB 10.8 g/dl Critically low 14.0-18.0 [facility] Comment on above: Performed By: #### C BCJONATHAN #### [facility] [address] [address] [address] Bucky Gold LYMPHM # 0.55 103/ul Critically low 1.20-3.80 [facility] Comment on above: Performed By: #### C PRIYA #### [facility] [address] [address] [address] Bucky Gold LYMPHM% 14.0 % Critically low 20.5-60.0 [facility] Comment on above: Performed By: #### C PRIYA #### [facility] [address] [address] [address] Bucky Gold MCH 33.0 pg Normal 25.9-34.0 [facility] Comment on above: Performed By: #### C PRIYA #### [facility] [address] [address] [address] Bucky Gold MCHC 33.2 g/dl Normal 29.9-35.2 [facility] Comment on above: Performed By: #### C BCJONATHAN #### [facility] [address] [address] [address] Bucky Gold MCV 99.4 fL Critically high 80.0-94.0 [facility] Comment on above: Performed By: #### C BCJONATHAN #### [facility] [address] [address] [address] Bucky Gold METAMYELOCYTE # Normal [facility] Comment on above: Performed By: #### C BCJONATHAN #### [facility] [address] [address] [address] Bucky Gold METAMYELOCYTE % Normal [facility] Comment on above: Performed By: #### C PRIYA #### [facility] [address] [address] [address] Bucky Gold MONOM# 0.12 103/ul Critically low 0.30-0.80 [facility] Comment on above: Performed By: #### C PRIYA #### [facility] [address] [address] [address] Bucky Gold MONOM% 3.0 % Normal 1.7-12.0 [facility] Comment on above: Performed By: #### C PRIYA #### [facility] [address] [place] [address] Dr. Bucky Gold MPV 10.5 fL Normal 9.5-13.5 [facility] Comment on above: Performed By: #### C PRIYA #### [facility] [address] [place] [address] Dr. Bucky Gold MYELOCYTE # Normal [facility] Comment on above: Performed By: #### C PRIYA #### [facility] [address] [place] [address] Dr. Bucky Gold MYELOCYTE % Normal [facility] Comment on above: Performed By: #### C PRIYA #### [facility] [address] [place] [address] Dr. Bucky Gold NRBC Normal [facility] Comment on above: Performed By: #### C PRIYA #### [facility] [address] [place] [address] Dr. Bucky Gold PLT 143 103/ul Critically low 150-450 [facility] Comment on above: Performed By: #### C PRIYA #### [facility] [address] [place] [address] Dr. Bucky Gold RBC 3.27 106/ul Critically low 4.70-6.10 [facility] Comment on above: Performed By: #### C PRIYA #### [facility] [address] [place], [place] [id number] Dr. Bucky Gold RDW 12.0 % Normal 11.0-15.0 [facility] Comment on above: Performed By: #### C PRIYA #### [facility] [address] [address] [address] Bucky Gold SEG # 3.24 103/ul Normal 1.40-6.50 [facility] Comment on above: Performed By: #### Heidi POWERS #### [facility] [address] [address] [address] Bucky Gold SEG % 83.0 % Critically high 43.0-75.0 [facility] Comment on above: Performed By: #### Heidi POWERS #### [facility] [address] [address] [address] Bucky Gold WBC 3.9 103/ul Critically low 4.0-11.0 [facility] Comment on above: Performed By: #### Heidi POWERS #### [facility] [address] [place] [address] HEAD WO CONon 02-01-2022 CT HEAD WO CON EXAMINATION: CT HEAD WO CON, 02/01/2022 10:26 AM EDT HISTORY: HEADACHE COMPARISON: None. TECHNIQUE: CT scan of the head was performed without IV contrast. CT dose reduction technique was used, including Automated Exposure Control. FINDINGS: BRAIN: 2.0 x 1.2 cm area of hypodensity in the left frontal subcortical white matter with no associated atrophy, indeterminate. Additional mild white matter hypoattenuation, chronic small vessel ischemic changes are favored no acute parenchymal hemorrhage. Mild generalized supratentorial atrophy. CSF SPACES: No hydrocephalus, subarachnoid hemorrhage, or mass. Appropriate for age. SKULL: No fracture, mass, or other significant visible lesion. SINUSES: No significant mucosal thickening or fluid on the limited views. ORBITS: No appreciable abnormality on the limited views. OTHER: Negative IMPRESSION: Indeterminate 2 cm hypodensity in the left frontal white matter, consider follow-up MRI without and with contrast for further evaluation Electronically authenticated by: ROEL TRAN Date: 2022-02-01 10:57 Normal [facility] Covid-19 PCR (CVDTBH)on 01-18 SARS-CoV-2 (COVID-19) RNA ROSIBEL+probe Ql (Unsp spec) Detected Critically abnormal NOT DETECTED [facility] Comment on above: Result Comment: This test is not yet approved or cleared by the [place] FDA. When there are no FDA-approved or cleared tests available, and other criteria are met, FDA can make tests available under an emergency access mechanism called an Emergency Use Authorization (EUA). The EUA for this test is supported by the [place] of Health and Human Service's declaration that circumstances exist to justify the emergency use of in vitro diagnostics for the detection and/or diagnosis of the virus that causes COVID-19. This EUA will remain in effect for the duration of the COVID-19 declaration justifying emergency of IVDs, unless it is terminated or revoked by the FDA (after which the test may no longer be used). Performed By: #### B MP, HSTROPN #### [facility] [address] [address] [address] Bucky Gold ECHO LIMITED STUDYon 022 ECHO LIMITED STUDY Patient: MIKHAIL MENON Exam Date: 02/01/2022 : 1950 Gender:M Ordering : DR BELKIS YU . Admission #: [id number] Family : DR ULISSES YU M.D. Order #: [id number] CLICK HERE TO VIEW EXAM ECHOCARDIOGRAM REPORT PROCEDURE: CARDIO PULMONARY ECHO LIMITED STUDY INDICATIONS: Syncope, Covid positive, hypertension, h/o TIA's, alcohol abuse, diabetes COMPARISON: None. DESCRIPTION: Limited ECHOCARDIOGRAM Real-time transthoracic echocardiography with 2D and M-mode performed. QUALITY: Technically difficult due to patients condition. Limited study preformed due to positive Covid. LEFT VENTRICLE: Normal chamber size. Mild concentric left ventricular hypertrophy. LV EF: Normal left ventricular ejection fraction, (>55%). DIASTOLIC: ATRIAL SEPTUM: Intact atrial septum. Agitated saline contrast does not reveal an intra-cardiac shunt. LEFT ATRIUM: Normal chamber size. RIGHT ATRIUM: Normal chamber size. RIGHT VENTRICLE: Normal chamber size. TRICUSPID VALVE: Normal mobility and thickness. MITRAL VALVE: Mildly thickened with normal mobility. Mild mitral annular calcification. AORTIC VALVE: No visible sclerosis. Normal leaflet mobility. AORTIC ROOT: Mildly enlarged, 3.9 cm. PULMONIC VALVE: Not well visualized. PERICARDIUM: No evidence of pericardial effusion. IVC: Not well visualized. PLEURA: CONCLUSION: 1. Normal ventricular systolic function. LVEF is 60-65%. 2. No pericardial effusion. 3. No evidence of intracardiac shunt by agitated saline study. 4. Limited study performed with no Doppler interrogation as requested. Dictated by: Ryan Amin M.D. on 02/01/2022 at 18:39 Approved by: Ryan Amin M.D. on 02/01/2022 at 18:43 Normal [facility] POINT OF CARE GLUCOSEon 01-18 Glucose [Mass/Vol] 209 mg/dL Critically high 74-106 [facility] Comment on above: Performed By: #### P OCGLUC #### [facility] [address] [address] [address] Bucky Gold PROF CHEM 8 (BAS METB)on Anion gap [Moles/Vol] 11.8 mmol/L Normal [facility] Comment on above: Performed By: #### B MP, HSTROPN #### [facility] [address] [address] [address] Bucky Gold Calcium [Mass/Vol] 7.8 mg/dL Critically low 8.5-10.1 [facility] Comment on above: Performed By: #### B MP, HSTROPN #### [facility] [address] [address] [address] Bucky Gold Chloride [Moles/Vol] 104 mmol/L Normal 98-107 [facility] Comment on above: Performed By: #### B MP, HSTROPN #### [facility] [address] [address] [address] Bucky Gold CO2 [Moles/Vol] 24.1 mmol/L Normal 21.0-32.0 [facility] Comment on above: Performed By: #### B MP, HSTROPN #### [facility] [address] [address] [address] Bucky Gold Creatinine [Mass/Vol] 1.36 mg/dL Critically high 0.70-1.30 [facility] Comment on above: Performed By: #### B MELLY, HSTROPN #### [facility] [address] [place] [address] Dr. Bucky Gold EGFR-AF NIGERIAN >60 Normal >=60 [facility] Comment on above: Performed By: #### B MELLY, HSTROPN #### [facility] [address] [address] [address] Bucky Gold EGFR-NON AF NIGERIAN 52 mL/min/1.73m2 Critically low >=60 [facility] Comment on above: Performed By: #### B MELLY, HSTROPN #### [facility] [address] [place] [address] Dr. Bucky Gold Glucose [Mass/Vol] 211 mg/dL Critically high 74-106 [facility] Comment on above: Performed By: #### B MELLY, HSTROPN #### [facility] [address] [place] [address] Dr. Bucky Gold Potassium [Moles/Vol] 3.9 mmol/L Normal 3.5-5.1 [facility] Comment on above: Performed By: #### B MELLY, HSTROPN #### [facility] [address] [place] [address] Dr. Bucky Gold Sodium [Moles/Vol] 136 mmol/L Normal 136-145 [facility] Comment on above: Performed By: #### B MELLY, HSTROPN #### [facility] [address] [place] [address] Dr. Bucky Gold Urea nitrogen [Mass/Vol] 16.0 mg/dL Normal 7.0-18.0 [facility] Comment on above: Performed By: #### B MELLY, HSTROPN #### [facility] [address] [place] [address] Dr. Bucky Gold Urea nitrogen/Creatinine [Mass ratio] 11.8 mg/mg Normal [facility] Comment on above: Performed By: #### B MELLY, HSTROPN #### [facility] [address] [place] [address] Dr. Bucky Gold TROPONIN, HIGH SENSITIVITYon 02-01-2022 HSTROP 12.5 pg/mL Normal 4.0-76.1 [facility] Comment on above: Result Comment: CUT- OFF POINTS HAVE BEEN ESTABLISHED BASED ON THE FOURTH UNIVERSAL DEFINITIONS OF MYOCARDIAL INFARCTION. THE UPPER REFERENCE LIMIT (URL) OF TROPONIN, DEFINED THE 99TH PERCENTILE OF cTnI DISTRIBUTION IN A REFERENCE POPULATION, HAS BEEN CONFIRMED THE DECISION THRESHOLD FOR MT DIAGNOSIS. Performed By: #### B MP, HSTROPN #### [facility] [address] [address] [address] Bucky Gold US CAROTID ART BILon 022 US CAROTID ART REGIS EXAMINATION: US CAROTID ART REGIS HISTORY: Syncope COMPARISON: No relevant comparison available. TECHNIQUE: Duplex Doppler ultrasound analysis of carotid and vertebral arteries. . Bilateral carotid arterial duplex examination was performed using B-mode, color flow and spectral analysis. Carotid stenosis is reported according to validated velocity parameters, similar to NASCET criteria. FINDINGS: RIGHT CAROTID ARTERY Mild to moderate atherosclerotic plaque with maximum area reduction 67% in the carotid bulb Subclavian: PSV: 232.6 cm/s cm/s EDV: 19.0 cm/s cm/s CCA: Prox: PSV: 78.8 cm/s cm/s EDV: 16.0 cm/s cm/s Mid: PSV: 77.4 cm/s cm/s EDV: 16.0 cm/s cm/s Distal: PSV: 93.5 cm/s cm/s EDV: 16.0 cm/s cm/s BULB: PSV: 101.6 cm/s cm/s EDV: 16.0 cm/s cm/s ICA: Prox: PSV: 175.3 cm/s cm/s EDV: 27.6 cm/s cm/s Mid: PSV: 125.1 cm/s cm/s EDV: 24.8 cm/s cm/s Distal: PSV: 97.2 cm/s cm/s EDV: 24.8 cm/s cm/s ECA: PSV: 127.8 cm/s cm/s EDV: 10.9 cm/s cm/s VERTEBRAL: PSV: 63.3 cm/s cm/s EDV: 15.4 cm/s cm/s ICA/CCA ratio: PSV: 1.9 EDV: 1.7 LEFT CAROTID ARTERY Mild atherosclerotic plaque Subclavian: PSV: 183.3 cm/s cm/s EDV: 16.0 cm/s CCA: Prox: PSV: 99.7 cm/s cm/s EDV: 18.4 cm/s Mid: PSV: 104.3 cm/s cm/s EDV: 18.4 cm/s Distal: PSV: 85.7 cm/s cm/s EDV: 16.0 cm/s BULB: PSV: 111.2 cm/s cm/s EDV: 9.1 cm/s ICA: Prox: PSV: 183.9 cm/s cm/s EDV: 25.5 cm/s Mid: PSV: 135.4 cm/s cm/s EDV: 19.1 cm/s Distal: PSV: 109.0 cm/s cm/s EDV: 18.4 cm/s ECA: PSV: 106.6 cm/s cm/s EDV: 11.4 cm/s VERTEBRAL: PSV: 62.0 cm/s cm/s EDV: 15.4 cm/s ICA/CCA ratio: PSV: 1.8 EDV: 1.4 IMPRESSION: 62% flow stenosis identified in the right carotid bulb 50-69% flow stenosis proximal right internal carotid artery 0-49% flow stenosis left internal carotid artery Spectral Doppler US Thresholds (Reference: Deshawn EG, et al. Radiology 2000; 214:247-252) Stenosis (%) PSV (cm/sec) VICA/VCCA 0-49 <150 <2.5 50-69 150-225 2.5-4.0 >70 >225 >4.0 Electronically authenticated by: ROEL TRAN Date: 2022-02-01 15:02 Normal [facility] Complete Blood Count with Au to Diffon 07-11-2021 Basophils (Bld) [#/Vol] 0.08 10*3/uL Normal 0.00-0.20 [facility] Comment on above: Performed By: #### C BCAD, CMP #### [facility] [address] [place], [place] [id number] Basophils/100 WBC (Bld) 1.6 % Normal [facility] Specialist Comment on above: Performed By: #### C BCAD, CMP #### [facility] [address] [place], [place] [id number] Eosinophils (Bld) [#/Vol] 0.28 10*3/uL Normal 0.02-0.50 [facility] Specialist Comment on above: Performed By: #### C BCAD, CMP #### [facility] [address], [place] [id number] Eosinophils/100 WBC (Bld) 5.8 % Normal [facility] Specialist Comment on above: Performed By: #### C BCAD, CMP #### [facility] [address], [place] [id number] Erythrocyte distribution width (RBC) [Ratio] 11.8 % Normal 11.0-15.0 [facility] Specialist Comment on above: Performed By: #### C BCAD, CMP #### [facility] [address], [place] [id number] Hematocrit (Bld) [Volume fraction] 41.4 % Normal 38.5-50.0 [facility] Specialist Comment on above: Performed By: #### C BCAD, CMP #### [facility] [address], [place] [id number] Hemoglobin (Bld) [Mass/Vol] 14.1 g/dL Normal 13.0-17.1 [facility] Specialist Comment on above: Performed By: #### C BCAD, CMP #### [facility] [address], [place] [id number] Lymphocytes (Bld) [#/Vol] 1.2 10*3/uL Normal 0.9-3.9 [facility] Specialist Comment on above: Performed By: #### C BCAD, CMP #### [facility] [address], [place] [id number] Lymphocytes/100 WBC (Bld) 24.3 % Normal [facility] Specialist Comment on above: Performed By: #### C BCAD, CMP #### [facility] [address], [place] [id number] MCH (RBC) [Entitic mass] 31.2 pg Normal 27.0-33.0 [place] [facility] Comment on above: Performed By: #### C BCAD, CMP #### [facility] [address], [place] [id number] MCHC (RBC) [Mass/Vol] 34.1 g/dL Normal 32.0-36.0 [facility] Comment on above: Performed By: #### C BCAD, CMP #### [facility] [address], [place] [id number] MCV (RBC) [Entitic vol] 92 fL Normal 80-100 [facility] Specialist Comment on above: Performed By: #### C BCAD, CMP #### [facility] [address], [place] [id number] Monocytes (Bld) [#/Vol] 0.3 10*3/uL Normal 0.2-0.9 [facility] Specialist Comment on above: Performed By: #### C BCAD, CMP #### [facility] [address], [place] [id number] Monocytes/100 WBC (Bld) 5.6 % Normal [place] Comment on above: Performed By: #### C BCAD, CMP #### [facility] [address], [place] [id number] Neutrophils (Bld) [#/Vol] 3.0 10*3/uL Normal 1.5-7.8 [place] Comment on above: Performed By: #### C BCAD, CMP #### [facility] [address], [place] [id number] Neutrophils/100 WBC (Bld) 62.5 % Normal [place] Comment on above: Performed By: #### C BCAD, CMP #### [facility] [address], [place] [id number] Platelet mean volume (Bld) [Entitic vol] 11.30 fL [facility] 7.50-12.50 [facility] Comment on above: Performed By: #### C BCAD, CMP #### [facility] [address], [place] [id number] Platelets (Bld) [#/Vol] 218 10*3/uL Normal 140-400 [facility] Specialist Comment on above: Performed By: #### C BCAD, CMP #### [facility] [address], [place] [id number] RBC (Bld) [#/Vol] 4.52 10*6/uL Normal 4.20-5.80 [facility] Specialist Comment on above: Performed By: #### C BCAD, CMP #### [facility] [address], [place] [id number] RDW-SD 39.6 fL Normal 37.0-50.0 [facility] Specialist Comment on above: Performed By: #### C BCAD, CMP #### [facility] [address], [place] [id number] WBC (Bld) [#/Vol] 4.9 10*3/uL Normal 3.8-11.0 [facility] Bob[employer]er Comment on above: Performed By: #### C BCAD, CMP #### [facility] [address], [place] [id number] Comprehensive Metabolic [facility] 07-11-2021 Albumin [Mass/Vol] 4.3 g/dL Normal 3.6-5.1 [facility] Comment on above: Performed By: #### C BCAD, CMP #### [facility] [address], [place] [id number] Albumin/Globulin [Mass ratio] 1.7 {ratio} Normal 1.0-2.5 [facility] Specialist Comment on above: Performed By: #### C BCAD, CMP #### [facility] [address], [place] [id number] ALP [Catalytic activity/Vol] 73 U/L Normal 40-129 [facility] Specialist Comment on above: Performed By: #### C BCAD, CMP #### [facility] [address], [place] [id number] ALT [Catalytic activity/Vol] 19 U/L Normal 9-46 [facility] Specialist Comment on above: Result Comment: 06/20 Female reference range changed. Performed By: #### C BCAD, CMP #### [facility] [address], [place] [id number] Anion gap [Moles/Vol] 18 mmol/L Normal 12-20 [facility] Comment on above: Result Comment: Effe ctive 07/26/2019 reference range changed. Performed By: #### C BCAD, CMP #### [facility] [address], [place] [id number] AST [Catalytic activity/Vol] 27 U/L Normal 10-40 [place] Comment on above: Result Comment: Spec imen is hemolyzed. Results may be affected. Performed By: #### C BCAD, CMP #### [facility] [address], [place] [id number] BUN/CREA 21 Ratio Normal 6-22 [place] Comment on above: Performed By: #### C BCAD, CMP #### [facility] [address], [place] [id number] Calcium [Mass/Vol] 9.4 mg/dL Normal 8.6-10.2 [facility] Comment on above: Performed By: #### C BCAD, CMP #### [facility] [address], [place] [id number] Chloride [Moles/Vol] 109 mmol/L High 98-107 [facility] Comment on above: Performed By: #### C BCAD, CMP #### [facility] [address], [place] [id number] CO2 [Moles/Vol] 18 mmol/L Low 20-31 [place] Comment on above: Performed By: #### C BCAD, CMP #### [facility] [address], [place] [id number] Creatinine [Mass/Vol] 0.9 mg/dL Normal 0.7-1.4 [facility] Comment on above: Performed By: #### C BCAD, CMP #### [facility] [address], [place] [id number] eGFRAA 96 mL/min/1.73m2 Normal >60 [facility] Specialist Comment on above: Performed By: #### C BCAD, CMP #### [facility] [address], [place] [id number] eGFRNAA 79 mL/min/1.73m2 Normal >60 [facility] Specialist Comment on above: Performed By: #### C BCAD, CMP #### [facility] [address], [place] [id number] Globulin (S) [Mass/Vol] 2.6 g/dL Normal 1.9-3.7 [facility] Specialist Comment on above: Performed By: #### C BCAD, CMP #### [facility] [address], [place] [id number] Glucose [Mass/Vol] 203 mg/dL High 65-[address] [facility] Specialist Comment on above: Result Comment: For FASTING Glucose --- ADA reference ranges: Normal 65-99 mg/dl Prediabetes 100-125 Diabetes >/= 126 Performed By: #### C BCAD, CMP #### [facility] [address], [place] [id number] Potassium [Moles/Vol] 4.5 mmol/L Normal 3.5-5.5 [facility] Comment on above: Result Comment: Spec imen is hemolyzed. Results may be affected. Performed By: #### C BCAD, CMP #### [facility] [address], [place] [id number] Protein [Mass/Vol] 6.9 g/dL Normal 6.1-8.1 [facility] Comment on above: Performed By: #### C BCAD, CMP #### [facility] [address], [place] [id number] Sodium [Moles/Vol] 140 mmol/L Normal 135-146 [facility] Comment on above: Performed By: #### C BCAD, CMP #### [facility] [address], [place] [id number] TBIL <0.3 Normal [facility] Specialist Comment on above: Performed By: #### C BCAD, CMP #### [facility] [address], [place] [id number] Urea nitrogen [Mass/Vol] 20 mg/dL Normal 7-25 [facility] Comment on above: Performed By: #### C BCAD, CMP #### [facility] [address], [place] [id number] Vital Signs Date Time Vital Sign Value Performing Clinician Faci lity 08-08-2022 12:00-0500 Diastolic blood pressure 69 mm[Hg] [facility] 08-08-2022 12:00-0500 Heart rate 91 /min [facility] 08-08-2022 12:00-0500 Respiratory rate 16 /min [facility] 08-08-2022 12:00-0500 SaO2% (BldA) [Mass fraction] 97 % [facility] 08-08-2022 12:00-0500 Systolic blood pressure 147 mm[Hg] [facility] Encounters Encounter Date Encounter Type Care Provider Facility Start: 06-12-2024 End: 06-12-2024 Refill Ulisses Yu MD Work Phone: [facility] Comment on above: Benign hypertension ([facility]) Start: 03-14-2024 End: 03-15-2024 Refill Kaela Milton PA Work Phone: [facility] Comment on above: Type 2 diabetes isaac itus with diabetic neuropathy, without long-term current use of insulin ([facility]) Start: 10-28-2023 End: 10-28-2023 ambulatory KAELA M HEMMER Not Available Start: 09-09-2023 End: 09-09-2023 ambulatory KAELA M HEMMER Not Available Start: 09-01-2023 Chart abstracting Kaela M Hemm er PA Work Phone: [facility] Start: 08-25-2023 Chart abstracting Kaela M Hemm er PA Work Phone: [facility] Start: 06-24-2023 End: 06-24-2023 ambulatory KAELA M HEMMER Not Available Start: 08-08-2022 End: 08-20-2022 ambulatory [facility] Treat [facility] Transport Start: 08-08-2022 End: 08-08-2022 Emergency department [facility] Comment on above: Arrived Start: 05-20-2022 End: 05-20-2022 ambulatory Christian Montana Facility:[facility] Start: 05-16-2022 End: 05-16-2022 ambulatory Christian Montana Facility:[facility] Start: 05-16-2022 End: 05-16-2022 ambulatory MD Jonahton Isbell Work Phone: [facility] Work Phone: Start: 05-16-2022 End: 05-16-2022 Patient encounter procedure MD Jonathon Isbell Work Phone: [facility] Start: 02-01-2022 End: 02-02-[address] ULISSES YU Facility:[facility] Start: 02-15-2021 End: 02-16-[address] ULISSES YU Facility:[facility] Procedures Date Procedure Procedure Detail Performing Clinician Start: 02-24-2020 H/O: artificial joint Aftercar e following joint replacement surgery Kaela CUTLER Work Phone: SARS Antigen (LFIA) MD Izaiah Isbell Work Phone: Plan of Treatment Date Care Activity Detail Author Start: 09-11-2025 Glaucoma screening Diabetes: R etinopathy Screening [facility] Start: 09-09-2024 Urine screening for protein Diabetes: Urine Protein Screening [facility] Start: 05-12-2024 Medicare Annual Well ness (AWV) Medicare Annual Wellness (AWV) [facility] Start: 05-12-2024 Pneumococcal Vaccine : 65+ Years (1 - PCV) Pneumococcal Vaccine: 65+ Years (1 - PCV) [facility] Comment on above: Postponed from 02/04 (Patient Refused) Start: 05-01-2024 Urine screening for protein Diabetes: Urine Protein Screening [facility] Start: 03-21-2024 Influenza vaccination Influenza Vacc ine (#1) [facility] Start: 01-18-2024 Influenza vaccination Influenza Vacc ine (#1) [facility] Comment on above: Postponed from 03/21 (Patient Refused) Start: 12-08-2023 Hemoglobin A1c measurement Diabetes: Hemoglobin A1C [facility] Start: 09-02-2023 End: 09-02-2023 Patient encounter procedure 09/02/2023 11:00 AM EST Office Visit [facility] [address] [place] [address] Kaela Milton PA [address] [facility] [address] [place] [address] [facility] Start: 08-26-2023 End: 08-26-2023 Patient encounter procedure 08/26/2023 10:30 AM EST Office Visit [facility] [address] [facility] [address] [place] [address] Kaela Milton PA [address] [facility] [address] [place] [address] [facility] Start: 08-12-2023 Hemoglobin A1c measurement Diabetes: Hemoglobin A1C [facility] Start: 04-20-2022 Influenza vaccination Influenza Vacc ine (#1) [facility] Start: 02-05-2016 Pneumococcal vaccination Pneum ococcal Vaccine(s) (65+ yrs) (1 - PCV) [facility] Start: 2001 Measurement of occul t blood in single stool specimen FIT [facility] Start: 2001 Screening for malign ant neoplasm of colon CRC Screening [facility] Start: 2001 Shingles (RZV) Vacci ne (1 of 2) Shingles (RZV) Vaccine (1 of 2) [facility] Start: 1986 [facility] Start: 1969 Hepatitis C screening Hepatitis C An tibody [facility] Start: 1969 Tetanus + diphtheria + acellular pertussis vaccine (product) Tdap Booster [facility] Start: 1961 Glaucoma screening Diabetes: R etinopathy Screening [facility] Start: 1957 Pneumococcal Vaccine : 65+ Years (1 of 2 - PCV) Pneumococcal Vaccine: 65+ Years (1 of 2 - PCV) [facility] Start: 1950 COVID-19 Vaccine (#1) COVID-19 Vacci ne (#1) [facility] Start: 1950 Screening for malign ant neoplasm of colon [facility] Payers Date Payer Category Payer Unknown [id number] 2022 Medicare (Managed Care) [employer] [id number] 2022 Unknown [employer] [facility] Cancer Genetics [id number] 2022-Present [address] [place] [id number] [id number] 2022 Self-pay [id number] 2020 Unknown [id number] 1950 Unknown [id number] 1950 Unknown [id number] 1950 Unknown [id number] 1950 Unknown [id number] 1951 Unknown [id number] [id number] 1950 Unknown [id number] Unknown HCAP/HFA/FAP Active [id number] Unknown [id number] [id number] Unknown [id number] Social History Date Type Detail Facility Start: 01-16-2022 End: 04-30-2023 Tobacco smoking status NHIS Ex-smoker (finding) [facility] Start: 1950 Sex Assigned At Male [facility] Tobacco smoking stat us [facility] Tobacco smoking consumption unknown [facility] Start: 1950 Sex Assigned At Not on file [facility] End: 07-21-2010 History of tobacco use Current smoker [facility] End: 07-21-2010 History of tobacco use Cigarette Smoker [facility] Start: 04-30-2023 Tobacco use and exposure Smokeless tobacco non-user [facility] Start: 06-24-2023 End: 10-28-2023 Alcohol intake Current drinker of alcohol (finding) [facility] Start: 04-29-2023 End: 06-24-2023 Alcohol intake [facility] Start: 04-29-2023 End: 05-12-2023 Humiliation, Afraid, Rape, and Kick questionnaire [HARK] [facility] Within the last year , have you been afraid of your partner or ex-partner? No [facility] Do you belong to any clubs or organizations such as faith groups, unions, fraternal or athletic groups, or school groups? Yes [facility] Are you now , , , , never or living with a partner? Refused [facility] How often to you hav e a drink containing alcohol? 4 or more times a week [facility] How many standard dr inks containing alcohol do you have on a typical day? 5 or 6 [facility] How often do you hav e 6 or more drinks on 1 occasion? Never [facility] How hard is it for y ou to pay for the very basics like food, housing, medical care, and heating Not hard at all [facility] Do you feel stress - tense, restless, nervous, or anxious, or unable to sleep at night because your mind is troubled all the time - these days [OSQ] Only a little [facility] (I/We) worried whelopez er (my/our) food would run out before (I/we) got money to buy more. Never true [facility] Start: 04-30-2023 Tobacco Comment Last smoked : > 10 years [facility] Start: 04-30-2023 Alcohol Comment 3 or 4 drinks 4 or more times/week. Caffeine intake : 1-2 cups per day coffee [facility] Start: 09-09-2023 Alcohol Comment Caffeine intake : 1-2 cups per day coffee [facility] Medical Equipment Procedure Code Equipment Code Equipment Origin al Text Equipment Identifier Dates Multiple periphe ral artery stent, bare-metal [id number] [facility] Start: 03-28-2021 [id number] Start: 05-16-2023 Use to inject 1- 4 times daily as directed. [id number] Start: 11-14-2023 End: 11-13-2024 Telephone encounter Note 03-15-2024 Telephone Encounter - HE Ramos - 03/15/2024 9:38 AM EDT Note Date & Type Note Facility 03-15-2024 Telephone encount er Note No longer our pt [facility] Note 03-15-2024 Telephone Encounter - HE Ramos - 03/15/2024 9:38 AM EDT Note Date & Type Note Facility 03-15-2024 Miscellaneous Notes Formattin g of this note might be different from the original. No longer our pt documented in this encounter [facility] History of Present illness Narrative 08-08-2022 Lei Wolf MD - 08/08/2022 12:24 PM EST Note Date & Type Note Facility 08-08-2022 History of Presen t illness Narrative Images from the original note were not included. EMERGENCY TRIAGE, TREAT AND TRANSPORT (ET3) DOCUMENTATION OF TELEHEALTH VISIT Date / Time: 08/08/2022 / 1199 Name: Mikhail Menon : 1950 SSN: (Not on file) EMS Agency: 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 Co-worker contacted 911 and requested an ambulance. Patient states by the time the ambulance arrived he was no longer dizzy he felt at his normal baseline. He states his only past medical history is diabetes, he does not take any medication including does not take any insulin. He does not check his blood sugars at home or at work. co-worker now state that the patient now appears at his normal baseline. The patient has no complaints and does not wish any further care from EMS. Patient denies any recent illness, change in medication, fall or head injury, or similar dizziness symptoms in the past. Denies any weakness or numbness in his arms or legs. Denies any change in vision. Additional pertinent PMHx, SocHx, FamHx: Past medical history: Diabetes Medications: Denies Social history: Denies tobacco. States he does drink but has not had any alcohol today Review of Systems: Denies the following: Headache, neck pain, back pain,lightheadedness, chest pain, cough, difficulty breathing, fever, nausea/vomiting, dysuria, leg pain or swelling, weakness. No recent falls or injury. Exam: General: Awake, no distress. Patient is able to ambulate across the factory floor to the water fountain and back without any apparent difficulty. Patient denies dizziness when doing this. ENT: normocephalic, atraumatic Pulmonary: No respiratory distress Cardiovascular: Well perfused Neurologic: Oriented to person, place, time and events. Moving all extremities equally. Psychiatric: Appropriate. Good insight and judgement. Medical Decision Making: This is a pleasant 72-year-old male with transient dizziness of unclear etiology. It may be related to his hyperglycemia although it is difficult to gauge how acute or chronic his current readings are. His current glucose was 321. Patient denies any current pain, discomfort, or dizziness in his refusing any further intervention. Patient does not want to go to the hospital. I discussed potential causes of dizziness, including stroke, high blood sugar, unusual heart rate. The patient does not want to go to the hospital. I asked the patient to follow-up with his primary care doctor today and to specifically discuss how he should manage his high blood sugar. I asked patient to contact 911 if he started feeling further dizziness, chest pain, weakness, or any other things that are concerning to him. There were no further questions from the patient or the EMS team. Disposition Supported by Telehealth Assessment: ET3 transport decisions: Refused transport EMS Disposition Reported: Same ET3 Encounter Completed by: Lei Wolf MD documented in this encounter [facility] Evaluation note Note Date & Type Note Facility Evaluation note [facility]: Evaluation note Note Date & Type Note Facility Evaluation note Diagnosis Dizziness- Primary Dizziness and giddiness Hyperglycemia Other abnormal glucose Noncompliance with medications Personal history of noncompliance with medical treatment, presenting hazards to health documented in this encounter [facility] Evaluation note Note Date & Type Note Facility Evaluation note Diagnosis Benign hypertension (CMS/HCC) Essential hypertension, benign documented in this encounter [facility] Evaluation note Note Date & Type Note Facility Evaluation note Diagnosis Type 2 diabetes mellitus with diabetic neuropathy, without long-term current use of insulin (CMS/[facility]) documented in this encounter [facility] Summary Purpose Family History Relationship Condition Age at Onset Recorded Date/T sadie Not Specified No pertinent family history Unknown Advance Directives Advance Directive Response Recorded Date/ Time Advance Directives No February 15 8:10pm Chief Complaint and Reason for Visit Chief Complaint Sigmoid Colon Cancer Additional Source Comments (unrecognized sect ion and content) No Status Records FoundNo Status Records FoundNo Status Records FoundNo Status Records FoundNo Status Records Found INFORMATION SOURCE (unrecogn ized section and content) DATE CREATED AUTHOR 07/12/2021 [facility] dical Specialist DATE CREATED AUTHOR AUTHOR'S ORGANIZ ATION 02/07/2022 [facility] DATE CREATED AUTHOR AUTHOR'S ORGANIZ ATION 08/22/2022 [employer] [facility] DATE CREATED AUTHOR AUTHOR'S ORGANIZ ATION 03/22/2023 [facility] DATE CREATED AUTHOR AUTHOR'S ORGANIZ ATION 10/29/2023 [facility] dical Specialists EPIC Care Teams (unrecognized sec tion and content) Team Status: Inactive Member Role Status Dates Jonathon Isbell MD Primary Care Provider Active Christian Montana MD Attending Provider Active Team Status: Active Member Role Status Dates Jonathon Isbell MD Primary Care Provider Active Security Architect Relationship Specialty Start Date End Date Ulisses Yu MD [address] [facility] [address] [place] [address] PCP - General Family Medicine 12/20/22 Jonathon Isbell MD [address] [place] [address] PCP - [employer] 12/19/22 Security Architect Relationship Specialty Start Date End Date Ulisses Yu MD [address] [facility] [address] [place] [address] PCP - [employer] 02/19/24 Goals (unrecognized section and content) Goals may be documented in a n alternate sectionGoals may be documented in an alternate section Reason for Visit (unrecogniz ed section and content) Reason Comments Dizziness Reason Comments Med Refill FOR RECORDS PERTAINING TO PATIENTS WHO ARE OR HAVE BEEN ENROLLED IN A CHEMICAL DEPENDENCY/SUBSTANCEABUSE PROGRAM, SOME INFORMATION MAY BE OMITTED. This clinical summary was aggregated from multiple sources. Caution should be exercised in using it in the provision of clinical care. This summary normalizes information from multiple sources, and as a consequence, information in this document may materially change the coding, format and clinical context of patient data. In addition, data may be omitted in some cases. CLINICAL DECISIONS SHOULD BE BASED ON THE PRIMARY CLINICAL RECORDS. [employer] provides no warranty or guarantee of the accuracy or completeness of information in this document.
--- NOTE | 2024-09-01 20:02 | ECG_ITS ---
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
--- NOTE | 2024-09-01 20:02 | ED_ITS ---
Review of Systems ROS Status of ROS 10 or more systems reviewed and unremark able except as noted in history and below HPI HPI - Trauma General Chief Complaint: Extremity Injury, Upper Stated Complaint: fell Time Seen by Provider: 09/01/24 19:50 Source: patient Mode of arrival: ambulance History of Present Illness HPI narrative: This 74-year-old male presents for evaluation of left anterior and lateral chest pain. The patient states he was outside going to the [employer] to have a drink when he slipped on the ice and fell onto his left chest. He denies striking his head. He has no neck pain. He has chronic back pain. This is unchanged. He has no hip pain. He was brought to the emergency department by EMS. He states he lives alone. He does not smoke. He denies any specific shortness of breath but has pain with movement of his torso. Related Data Home Medications ?Medication ?Instructions ?Recorded ?Confirmed atorvastatin 80 mg tablet 80 mg PO QPM 09/01/24 09/01/24 carvedilol 12.5 mg tablet 12.5 mg PO BID 09/01/24 09/01/24 pantoprazole 40 mg tablet,delayed 40 mg PO QAM 09/01/24 09/01/24 release pioglitazone 15 mg tablet 15 mg PO DAILY 09/01/24 09/01/24 Allergies Allergy/AdvReac Type Severity Reaction Status Date / Time No Known Drug Allergies Allergy Verified 09/01/24 19:51 Opioid HPI Opioid Management Most Recent Pain and Opioid Data: No Data to Display PFSH PFSH Social History Little interest or pleasure in doing things: not at all Feeling down, depressed, or hopeless: not at all Exam Narrative Exam Narrative: Vital signs and Nursing Notes reviewed: Patient is afebrile with a normal pulse, he is tachypneic with a respirate of 22 and blood pressure is elevated at 220/113 General: Awake, alert, oriented, mildly uncomfortable appearing adult male, GCS 15 HEENT: Normocephalic atraumatic, mucous membranes are moist and pink, eyes are clear, normal conjunctiva, vision is grossly intact Neck: Supple, no midline bony vertebral tenderness or step-off, trachea is midline Chest: Coarse breath sounds bilaterally without rhonchi or rales. Left anterior and lateral chest wall tenderness without crepitus ecchymosis or other notable abnormality CVS: Regular rate and rhythm S1-S2, no murmurs rubs or gallops, pulses are brisk and equal bilaterally ABD: Soft, nondistended, nontender, no rebound guarding or rigidity, bowel sounds are normal, no pulsatile masses appreciated Extremities: Moving all extremities, no lower extremity tenderness or swelling noted, negative Homans' sign, pulses are brisk and equal bilaterally, patient is able to flex and extend at both hips and knees Skin: Normal in appearance without rash,pallor, petechiae or purpura Neuro: No focal deficits, 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 Lower extremity strength and sensation is intact Constitutional Vital Signs, click to edit/add: Last Vital Signs Temp 98.2 F 09/01/24 19:48 Pulse 68 09/01/24 21:10 Resp 22 H 09/01/24 21:10 BP 207/86 H 09/01/24 21:30 Pulse Ox 95 09/01/24 21:50 Course Vital Signs Vital signs: Vital Signs Temperature 98.2 F 09/01/24 19:48 Pulse Rate 72 09/01/24 19:48 Respiratory Rate 22 H 09/01/24 19:48 Blood Pressure 220/113 H 09/01/24 19:48 Temperature 98.2 F 09/01/24 19:48 Pulse Rate 68 09/01/24 21:10 Respiratory Rate 22 H 09/01/24 21:10 Blood Pressure 207/86 H 09/01/24 21:30 Pulse Oximetry 95 09/01/24 21:50 MDM - Trauma MDM Narrative Medical decision making narrative: This 74-year-old male presents for evaluation of left anterior chest wall pain after falling. Unbeknownst to me the patient had locked himself out of his car while trying to go to the [employer] to have a beer and was trying to get back into his house to get his keys when he fell down approximately 2 stairs landing on his left chest. He denies striking his head. His neuroexam is normal. EKG ordered upon arrival was a normal sinus rhythm at 70 bpm with no acute changes. He is tender over his left chest wall without any ecchymosis crepitus or other notable abnormality. His lungs were clear and he denied any shortness of breath. He was medicated with a [place]. A 1 view chest x-ray was ordered to rule out pneumothorax initially which was negative for pneumothorax and otherwise did not show any acute fractures. Noncontrast CT scan of the chest shows acute nondisplaced fractures of ribs 9 and 10 with a background of COPD and no pneumothorax. His pain started to return and he was medicated with additional dose of [place]. He was given an incentive spirometer and a prescription for [place], Zofran and Colace to use at home until he can follow-up with his family physician. His blood pressure was notably elevated upon arrival but did come down somewhat. He states he takes his blood pressure medications at night. He was encouraged to take his blood pressures medications before going to bed tonight. His neighbor picked him up and agreed to help him get back into his house. Medical Records Medical records narrative: The [place] [id number] XRay Report Signed Patient: PEDRO MENON MR#: [id number] : 1950 Acct:[id number] Age/Sex: 74 / M ADM Date: 09/01/24 Loc: ER Attending Dr: Ordering Physician: Sherly Samaniego Date of Service: 09/01/24 Procedure(s): XR chest 1V Accession Number(s): [id number] cc: Sherly Samaniego; KAYLEY GUZMÁN The [address] [address] Patient Name: PEDRO MENON MRN: [id number] date: 1950 Sex: M Assigned Patient Location: ER Current Patient Location: ED.MAIN Accession/Order Number: [id number] Exam Date: 09/01/2024 20:15 Report Date: 09/01/2024 21:58 At the request of: SHERLY SAMANIEGO Procedure: XR chest 1V PORTABLE CHEST X-RAY. CLINICAL HISTORY: fell on ice onto left side COMPARISON: None. TECHNIQUE: Single AP portable chest radiograph. FINDINGS: TUBES AND LINES: None. LUNGS: Lungs are clear. PLEURA: No effusions or pneumothorax. HEART AND MEDIASTINUM: Within normal limits for portable technique. OSSEOUS STRUCTURES: No acute abnormality. XR/XR chest 1V IMPRESSION: No acute findings. Electronically authenticated by: PASTORA LEUNG Date: 09/01/2024 21:58 Lab Data Labs: The [address] [address] [address] Scan Report Signed Patient: PEDRO MENON MR#: [id number] : 1950 Acct:[id number] Age/Sex: 74 / M ADM Date: 09/01/24 Loc: ER Attending Dr: Ordering Physician: Sherly Samaniego Date of Service: 09/01/24 Procedure(s): CT chest wo con Accession Number(s): [id number] cc: KAYLEY GUZMÁN~ The [address] [address] Patient Name: PEDRO MENON MRN: [id number] date: 1950 Sex: M Assigned Patient Location: ER Current Patient Location: ER Accession/Order Number: [id number] Exam Date: 09/01/2024 20:38 Report Date: 09/01/2024 22:38 At the request of: SHERLY SAMANIEGO Procedure: CT chest wo con EXAMINATION: CT chest wo con, 09/01/2024 8:38 PM EST HISTORY: Fall onto left chest, R/O rib fx COMPARISON: Chest radiograph 09/01/2024 TECHNIQUE: Axial helical CT scan of the chest was performed without IV contrast. Coronal and sagittal reformations were generated and reviewed. CT dose reduction technique was used, including Automated Exposure Control. Tubes and lines: None. Lungs / Airways / Pleura: No focal consolidation. Mild paraseptal predominant emphysema. Patent central airways. No pneumothorax or pleural effusion. Neck base: No evidence of mass or adenopathy. Heart / Mediastinum: Normal cardiac size. Four-vessel coronary artery calcifications. No thoracic aortic aneurysm. Moderate atherosclerosis. Upper Abdomen: Moderate size hiatal hernia. Soft tissues: Infraspinatus muscle atrophy. Bones: Nondisplaced fractures of the left posterolateral ninth and 10th ribs. Healed right-sided rib fractures. Questionable regions of osteonecrosis of the humeral heads. IMPRESSIONS: 1. Nondisplaced fractures of the left posterolateral 9th and 10th ribs. No pneumothorax. 2. Moderate size hiatal hernia. 3. Coronary artery calcifications. Emphysema. Electronically authenticated by: BRAULIO HERNADEZ Date: 09/01/2024 22:38 ECG Data Attestation: I personally reviewed and interpreted this ECG as follows: (Sinus rhythm at 70 bpm, normal axis, normal intervals, no acute ST segment elevation or T wave inversion) Discharge Plan Discharge Chief Complaint: Extremity Injury, Upper Clinical Impression: Fall from standing, Left rib fracture Patient Disposition: Home, Self-Care Time of Disposition Decision: 23:26 Condition: Good Prescriptions / Home Meds: No Action carvedilol 12.5 mg tablet 12.5 mg PO BID pantoprazole 40 mg tablet,delayed release (DR/EC) 40 mg PO QAM pioglitazone 15 mg tablet 15 mg PO DAILY atorvastatin 80 mg tablet 80 mg PO QPM Print Language: Welsh Instructions: Rib Fracture (ED), Fall Prevention for Older Adults (ED) Referrals: KAYLEY GUZMÁN [Primary Care Provider] - 1 week Discharge Date/Time: 09/02/24 00:07
[2024-09-01] MEDS: HYDROCODONE/ACET 5-325 MG TABLET 1 TAB PO ×2 (20:14→23:38)
[2024-09-01] MEDS: ONDANSETRON 4 MG RAPDIS TABLET SL (20:14)
--- NOTE | 2024-09-01 20:28 | CT_ITS ---
[address] [address] Patient Name: PEDRO MENON MRN: [id number] date: 1950 Sex: M Assigned Patient Location: ER Current Patient Location: ER Accession/Order Number: [id number] Exam Date: 09/01/2024 20:38 Report Date: 09/01/2024 22:38 At the request of: GANESH MARKER Procedure: CT chest wo con EXAMINATION: CT chest wo con, 09/01/2024 8:38 PM EST HISTORY: Fall onto left chest, R/O rib fx COMPARISON: Chest radiograph 09/01/2024 TECHNIQUE: Axial helical CT scan of the chest was performed without IV contrast. Coronal and sagittal reformations were generated and reviewed. CT dose reduction technique was used, including Automated Exposure Control. Tubes and lines: None. Lungs / Airways / Pleura: No focal consolidation. Mild paraseptal predominant emphysema. Patent central airways. No pneumothorax or pleural effusion. Neck base: No evidence of mass or adenopathy. Heart / Mediastinum: Normal cardiac size. Four-vessel coronary artery calcifications. No thoracic aortic aneurysm. Moderate atherosclerosis. Upper Abdomen: Moderate size hiatal hernia. Soft tissues: Infraspinatus muscle atrophy. Bones: Nondisplaced fractures of the left posterolateral ninth and 10th ribs. Healed right-sided rib fractures. Questionable regions of osteonecrosis of the humeral heads. IMPRESSIONS: 1. Nondisplaced fractures of the left posterolateral 9th and 10th ribs. No pneumothorax. 2. Moderate size hiatal hernia. 3. Coronary artery calcifications. Emphysema. Electronically authenticated by: BRAULIO HERNADEZ Date: 09/01/2024 22:38
[2024-09-01] MEDS: HYDROCODONE/ACET 5-325 MG TABLET 2 TAB PO (23:39)
== END 2024-09-02 00:07 | disposition home or self-care (01) ==
PROVIDERS: Emergency Provider Emergency Medicine; PCP Nurse Practitioner Family
DX: S22.42XA Multiple fractures of ribs, left side, initial encounter for closed fracture (principal); W10.8XXA Fall (on) (from) other stairs and steps, initial encounter; J44.9 Chronic obstructive pulmonary disease, unspecified; K44.9 Diaphragmatic hernia without obstruction or gangrene
CPT/HCPCS: 71045; 71250; 93005; 94667; 99285; Q0162

== ENCOUNTER 2024-09-05 10:02 | Observation (INO) | payer OTHER, SELFPAY ==
[2024-09-05] VITALS (31 sets, daily range): BP systolic 91–194; BP diastolic 45–76; PULSE 58–77; TEMP 36.6–36.8; O2SAT 91–98; BMI 29.1; BMI 33.2
--- NOTE | 2024-09-05 10:10 | XR_ITS ---
The [address] [address] Patient Name: PEDRO MENON MRN: [id number] date: 1950 Sex: M Assigned Patient Location: ER Current Patient Location: ER Accession/Order Number: [id number] Exam Date: 09/05/2024 10:23 Report Date: 09/05/2024 10:52 At the request of: FALLON MUSE Procedure: XR chest 1V EXAM: XR chest 1V HISTORY: Pain, recent left ribs 9 and 10 fracture COMPARISON: Chest radiograph dated 09/01/[address] chest dated 09/01/2024. TECHNIQUE: AP erect portable chest radiograph performed. FINDINGS: The trachea is unremarkable. The heart size is upper limits normal and stable. Stable mild atheromatous calcification at the aortic arch. Stable hilar shadows which are unremarkable. There is no consolidation, pleural effusion or pulmonary vascular congestion. The bony structures are osteopenic. The fractures of the left ninth and 10th ribs seen on the previous CT chest examination are obscured on the portable chest radiograph. There are old fractures of the right sixth and seventh ribs. There is no pneumothorax. XR/XR chest 1V IMPRESSION: There is no acute cardiopulmonary process. The fractures of the left ninth and 10th ribs seen on the previous CT chest examination are obscured on the portable chest radiograph. There is no pneumothorax. Electronically authenticated by: DEVIN MASSEY Date: 09/05/2024 10:52
--- OUTSIDE RECORDS SUMMARY | 2024-09-05 10:12 | XMS_ITS | CCD ---
Author Organization [facility] Care Team Providers Care Strong Nitric Operator Name Role Phone AIMEE, DR DOWLING Primary [...] Unavailable Ulisses Yu MD Primary Care Provider [phone] Jonathon Isbell MD Unavailable [phone] KAELA MILTON Attending Unavailable KAELA MILTON Attending Unavailable KAELA MILTON Attending Unavailable Ulisses Yu MD Unavailable Unavailable Primary Care Provider Unavailabl e Allergies Allergy Classification Reported Allergen(s) Allergy Type Date of Onset Reaction(s) Facility (4 sources) gabapentin Drug Allergy 06-24-2023 Diarrhea [facility] Work Phone: Medications Current Medications [...] neuropathy, without long-term current use of insulin ([facility]) Take 1 tablet (10 mg) by mouth Daily 100 tablet 3 10/28/2023 Active Start: 03-28-2021 take 1 tablet by mau th in the morning glipiZIDE (Glucotrol) 10 MG tablet Indications: Type 2 diabetes mellitus with diabetic neuropathy, without long-term current use of insulin ([facility]) Take 1 tablet (10 mg) by mouth in the morning. 100 tablet 3 2023 Active 3 ml insulin glargine 100 unt/ml pen injector (2 sources) Insulin Analog Start: 10-28-2023 insulin glargi ne (Basaglar KwikPen) 100 UNIT/ML pen Indications: Type 2 diabetes mellitus with diabetic neuropathy, without long-term current use of insulin ([facility]) Inject 20 Units under the skin at bedtime 10/28/2023 Active insulin, regular, human 100 unt/ml injectable solution (2 sources) Insulin Start: 11-14-2023 End: 11-13-2024 insulin regular (NovoLIN R) 100 UNIT/ML injection Indications: Type 2 diabetes mellitus with other specified complication, without long-term current use of insulin ([facility]) Inject 0.1 mL (10 Units) under the [...] 05-12-2023 01-28-2023 Chronic Other aftercare (1 source) 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; Translations: [ALCOHOLIC COUNSELOR USE ORAL HYPOGLYCEMIC DX] Onset: 02-06-2022 Episodic Other aftercare (1 source) Other termite technician (current) drug therapy; Translations: [OTH ALCOHOLIC COUNSELOR CURRENT DRUG THERAPY] Onset: 02-06-2022 Episodic Other [...] Interpretation Reference Range Facility Progress Noteson 08-08-2022 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 [address] [facility] [place] [address] PATHOLOGIST SPAR MACHINE OPERATOR BULMARO HALL M.D. Performed By: #### G LULS #### Point of Care testing , Glucose [Mass/Vol] 179 mg/dL Normal [facility] Comment on above: Result Comment: [facility] Glucose Reference Range is dependent on time and content of last meal. Glucose of more than 200 mg/dL in a nonstressed, ambulatory subject supports the diagnosis of Diabetes Mellitus. Performed By: #### G LULS #### Point of Care testing , Glucose [Mass/Vol] 198 mg/dL Normal [facility] Comment on above: Result Comment: [facility] Glucose Reference Range is dependent on time and content of last meal. Glucose of more than 200 mg/dL in a nonstressed, ambulatory subject supports the diagnosis of Diabetes Mellitus. PERFORMED BY: [facility] [address] [address] PATHOLOGIST SPAR MACHINE OPERATOR BULMARO HALL M.D. Performed By: #### G [...] developed and its performance characteristic determined by [employer] and validated at [facility]. This test has not been FDA cleared [...] for SARS Antigen by DOROTHEA PERFORMED BY: [facility] [address] [place] [address] PATHOLOGIST SPAR MACHINE OPERATOR BULMARO HALL M.D. [facility] Comment on above: Performed By: #### C OVID-19 CAMILA, SOFIANEG #### [facility] [address] COVID-19 SOFIAOrdered By: Byron Montana on 05-16-2022 SARS-CoV+SARS-CoV-2 (COVID-19) Ag IA.rapid Ql (Resp) Negative Negative [facility] Comment on above: This is a duplicate Camila SARS Antigen (DOROTHEA) result to be used for statistical tracking purpose only. No Panel InformationOrdered By: Christian Montana on 05-16-2022 SARS Antigen (LFIA) [facility] Camila Ag Negativeon 05-16-20 Camila Ag Negative Negative Normal Negative [facility] Comment on above: Result Comment: This is a duplicate Camila SARS Antigen (DOROTHEA) result to be used for statistical tracking purpose only. PERFORMED BY: [place] [address] PATHOLOGIST SPAR MACHINE OPERATOR BULMARO HALL M.D. Performed By: #### C OVID-19 CAMILA, SOFIANEG #### [address] CBC AUTO DIFFon 02-02-2022 BASO # 0.1 103/ul Normal 0.0-0.1 [facility] Comment on above: Performed By: #### C BC #### [facility] [address] [place] [address] Dr. Bucky Gold Basophils/100 WBC (Bld) 1.3 % Normal 0.2-2.0 [facility] Comment on above: Performed By: #### C BC #### [facility] [address] [address] [address] Bucky Gold EO # 0.7 103/ul Normal 0.0-0.[address] [facility] Comment on above: Performed By: #### C BC #### [facility] [address] [address] [address] Bucky Gold Eosinophils/100 WBC (Bld) 12.1 % Critically high 0.9-7.[address] [facility] Comment on above: Performed By: #### C BC #### [facility] [address] [place] [address] Dr. Bucky Gold Erythrocyte distribution width (RBC) [Ratio] 12.1 % Normal 11.0-15.0 [facility] Comment on above: Performed By: #### C BC #### [facility] [address] [address] [address] Bucky Gold Hematocrit (Bld) [Volume fraction] 38.0 % Critically low 42.0-54.0 [facility] Comment on above: Performed By: #### C BC #### [facility] [address] [address] [address] Bucky Gold Hemoglobin (Bld) [Mass/Vol] 12.7 g/dL Critically low 14.0-18.0 [facility] Comment on above: Performed By: #### C BC #### [facility] [address] [place] [address] Dr. Bucky Gold IG # 0.01 10e3/ul Normal 0.00-0.03 [facility] Comment on above: Performed By: #### C BC #### [facility] [address] [place] [address] Dr. Bucky Gold IG % 0.2 % Normal 0.0-0.5 [facility] Comment on above: Performed By: #### C BC #### [facility] [address] [place] [address] Dr. Bucky Gold LYMPH # 1.0 103/ul Critically low 1.2-3.8 [facility] Comment on above: Performed By: #### C BC #### [facility] [address] [place] [address] Dr. Bucky Gold Lymphocytes/100 WBC (Bld) 18.4 % Critically low 20.5-60.0 [facility] Comment on above: Performed By: #### C BC #### [facility] [address] [address] [address] Bucky Gold MANUAL DIFF REQ NO Normal [facility] Comment on above: Performed By: #### C BC #### [facility] [address] [place] [address] Dr. Bucky Gold MCH (RBC) [Entitic mass] 32.8 pg Normal 25.9-34.0 [facility] Comment on above: Performed By: #### C BC #### [facility] [address] [address] [address] Bucky Gold MCHC (RBC) [Mass/Vol] 33.4 g/dL Normal 29.9-35.2 [facility] Comment on above: Performed By: #### C BC #### [facility] [address] [address] [address] Bucky Gold MCV (RBC) [Entitic vol] 98.2 fL Critically high 80.0-94.0 [facility] Comment on above: Performed By: #### C BC #### [facility] [address] [place] [address] Dr. Bucky Gold MONO # 0.4 103/ul Normal 0.3-0.8 [facility] Comment on above: Performed By: #### C BC #### [facility] [address] [place] [address] Dr. Bucky Gold Monocytes/100 WBC (Bld) 6.8 % Normal 1.7-12.0 [facility] Comment on above: Performed By: #### C BC #### [facility] [address] [place] [address] Dr. Bucky Gold NEUT # 3.4 103/ul Normal 1.4-6.5 [facility] Comment on above: Performed By: #### C BC #### [facility] [address] [place] [address] Dr. Bucky Gold Neutrophils/100 WBC (Bld) 61.2 % Normal 43.0-75.[address] [facility] Comment on above: Performed By: #### C BC #### [facility] [address] [place] [address] Dr. Bucky Gold Platelet mean volume (Bld) [Entitic vol] 10.1 fL Normal 9.5-13.[address] [facility] Comment on above: Performed By: #### C BC #### [facility] [address] [place] [address] Dr. Bucky Gold PLT 154 103/ul Normal 150-[address] [facility] Comment on above: Performed By: #### C BC #### [facility] [address] [address] [address] Bucky Gold RBC 3.87 106/ul Critically low 4.70-6.10 [facility] Comment on above: Performed By: #### C BC #### [facility] [address] [address] [address] Bucky Gold WBC 5.6 103/ul Normal 4.0-11.0 [facility] Comment on above: Performed By: #### C BC #### [facility] [address] [place] [address] Dr. Bucky Gold POINT OF CARE GLUCOSEon 01-18 Glucose [Mass/Vol] 214 mg/dL Critically high 74-106 [facility] Comment on above: Performed By: #### P OCGLUC #### [facility] [address] [place] [address] Dr. Bucky Gold PROF CHEM 8 (BAS METB)on Anion gap [Moles/Vol] 10.4 mmol/L Normal [facility] Comment on above: Performed By: #### B MP #### [facility] [address] [place] [address] Dr. Bucky Gold Calcium [Mass/Vol] 8.3 mg/dL Critically low 8.5-10.[address] [facility] Comment on above: Performed By: #### B MP #### [facility] [address] [place] [address] Dr. Bucky Gold Chloride [Moles/Vol] 104 mmol/L Normal 98-107 [facility] Comment on above: Performed By: #### B MP #### [facility] [address] [place] [address] Dr. Bucky Gold CO2 [Moles/Vol] 25.5 mmol/L Normal 21.0-32.0 [facility] Comment on above: Performed By: #### B MP #### [facility] [address] [place] [address] Dr. Bucky Gold Creatinine [Mass/Vol] 0.89 mg/dL Normal 0.70-1.30 [facility] Comment on above: Performed By: #### B MP #### [facility] [address] [address] [address] Bucky Gold EGFR-AF ISRAELI >60 Normal >=60 [facility] Comment on above: Performed By: #### B MP #### [facility] [address] [address] [address] Bucky Gold EGFR-NON AF ISRAELI >60 Normal >=60 [facility] Comment on above: Performed By: #### B MP #### [facility] [address] [address] [address] Bucky Gold Glucose [Mass/Vol] 138 mg/dL Critically high 74-106 [facility] Comment on above: Performed By: #### B MP #### [facility] [address] [address] [address] Bucky Gold Potassium [Moles/Vol] 3.9 mmol/L Normal 3.5-5.1 [facility] Comment on above: Performed By: #### B MP #### [facility] [address] [address] [address] Bucky Gold Sodium [Moles/Vol] 136 mmol/L Normal 136-145 [facility] Comment on above: Performed By: #### B MP #### [facility] [address] [address] [address] Bucky Gold Urea nitrogen [Mass/Vol] 12.0 mg/dL Normal 7.0-18.0 [facility] Comment on above: Performed By: #### B MP #### [facility] [address] [address] [address] Bucky Gold Urea nitrogen/Creatinine [Mass ratio] 13.5 mg/mg Normal [facility] Comment on above: Performed By: #### B MP #### [facility] [address] [address] [address] Bucky Gold CBC W MANUAL DIFFon 02-02-20 22 ATYPICAL LYMPH # Normal [facility] Comment on above: Performed By: #### C PRIYA #### [facility] [address] [address] [address] Bucky Gold ATYPICAL LYMPH % Normal [facility] Comment on above: Performed By: #### C BCMAN #### [facility] [address] [place] [address] Dr. Bucky Gold BAND # Normal 0.0-0.3 [facility] Comment on above: Performed By: #### C BCMAN #### [facility] [address] [place] [address] Dr. Bucky Gold BAND % Normal 0-5 [facility] Comment on above: Performed By: #### C BCMAN #### [facility] [address] [place] [address] Dr. Bucky Gold BASOM # 0.00 103/ul Normal 0.00-0.10 [facility] Comment on above: Performed By: #### C BCMAN #### [facility] [address] [place] [address] Dr. Bucky Gold BASOM % 0.0 % Critically low 0.2-2.0 [facility] Comment on above: Performed By: #### C BCJONATHAN #### [facility] [address] [place] [address] Dr. Bucky Gold BLAST # Normal [facility] Comment on above: Performed By: #### C BCMAN #### [facility] [address] [place] [address] Dr. Bucky Gold BLAST % Normal [facility] Comment on above: Performed By: #### C BCMAN #### [facility] [address] [place] [address] Dr. Bucky Gold CORRECTED WBC Normal 4.0-11.0 [facility] Comment on above: Performed By: #### C BCMAN #### [facility] [address] [place] [address] Dr. Bucky Gold EOS # 0.00 103/ul Normal 0.00-0.70 [facility] Comment on above: Performed By: #### C BCMAN #### [facility] [address] [place] [address] Dr. Bucky Gold EOS% 0.0 % Critically low 0.9-7.0 [facility] Comment on above: Performed By: #### C BCJONATHAN #### [facility] [address] [address] [address] Bucky Gold HCT 32.5 % Critically low 42.0-54.0 [facility] Comment on above: Performed By: #### C BCMAN #### [facility] [address] [address] [address] Bucky Gold HGB 10.8 g/dl Critically low 14.0-18.0 [facility] Comment on above: Performed By: #### C BCJONATHAN #### [facility] [address] [address] [address] Bucky Gold LYMPHM # 0.55 103/ul Critically low 1.20-3.80 [facility] Comment on above: Performed By: #### C PRIYA #### [facility] [address] [address] [address] Bucky Gold LYMPHM% 14.0 % Critically low 20.5-60.0 [facility] Comment on above: Performed By: #### C PRIYA #### [facility] [address] [address] [address] Bucky Gold MCH 33.0 pg Normal 25.9-34.0 [facility] Comment on above: Performed By: #### C PRIYA #### [facility] [address] [address] [address] Bucky Gold MCHC 33.2 g/dl Normal 29.9-35.2 [facility] Comment on above: Performed By: #### C BCJONATHAN #### [facility] [address] [address] [address] Bucky Gold MCV 99.4 fL Critically high 80.0-94.0 [facility] Comment on above: Performed By: #### C BCJONATHAN #### [facility] [address] [address] [address] Bucky Gold METAMYELOCYTE # Normal [facility] Comment on above: Performed By: #### C BCJONATHAN #### [facility] [address] [address] [address] Bucky Gold METAMYELOCYTE % Normal [facility] Comment on above: Performed By: #### C PRIYA #### [facility] [address] [address] [address] Bucky Gold MONOM# 0.12 103/ul Critically low 0.30-0.80 [facility] Comment on above: Performed By: #### C PRIYA #### [facility] [address] [address] [address] Bucky Gold MONOM% 3.0 % Normal 1.7-12.0 [facility] Comment on above: Performed By: #### C PRIYA #### [facility] [address] [place] [address] Dr. Bucky Gold MPV 10.5 fL Normal 9.5-13.5 [facility] Comment on above: Performed By: #### C PRIYA #### [facility] [address] [place] [address] Dr. Bucky Gold MYELOCYTE # Normal [facility] Comment on above: Performed By: #### C PRIYA #### [facility] [address] [place] [address] Dr. Bucky Gold MYELOCYTE % Normal [facility] Comment on above: Performed By: #### C PRIYA #### [facility] [address] [place] [address] Dr. Bucky Gold NRBC Normal [facility] Comment on above: Performed By: #### C PRIYA #### [facility] [address] [place] [address] Dr. Bucky Gold PLT 143 103/ul Critically low 150-450 [facility] Comment on above: Performed By: #### C PRIYA #### [facility] [address] [place] [address] Dr. Bucky Gold RBC 3.27 106/ul Critically low 4.70-6.10 [facility] Comment on above: Performed By: #### C PRIYA #### [facility] [address] [place], [place] [id number] Dr. Bucky Gold RDW 12.0 % Normal 11.0-15.0 [facility] Comment on above: Performed By: #### C PRIYA #### [facility] [address] [address] [address] Bucky Gold SEG # 3.24 103/ul Normal 1.40-6.50 [facility] Comment on above: Performed By: #### Heidi POWERS #### [facility] [address] [address] [address] Bucky Gold SEG % 83.0 % Critically high 43.0-75.0 [facility] Comment on above: Performed By: #### Heidi POWERS #### [facility] [address] [address] [address] Bucky Gold WBC 3.9 103/ul Critically low 4.0-11.0 [facility] Comment on above: Performed By: #### Heidi POWERS #### [facility] [address] [place] [address] HEAD WO CONon [...] ROEL TRAN Date: 2022-02-01 10:[address] [facility] Covid-19 PCR (CVDTBH)on 01-18 SARS-CoV-2 (COVID-19) RNA ROSIBEL+probe Ql (Unsp spec) Detected Critically abnormal NOT DETECTED [facility] Comment on above: Result Comment: This test is not yet approved or cleared by the [place] FDA. When there are no FDA-approved or cleared tests available, and other criteria are met, FDA can make tests available under an emergency access mechanism called an Emergency Use Authorization (EUA). The EUA for this test is supported by the [place] of Health and Human Service's declaration that [...] Performed By: #### B MP, HSTROPN #### [facility] [address] [address] [address] Bucky Gold ECHO LIMITED STUDYon 022 ECHO LIMITED STUDY Patient: MIKHAIL MENON Exam Date: 02/01/2022 : 1950 Gender:M Ordering : DR BELKIS YU . Admission #: [id number] Family : DR ULISSES YU M.D. Order #: [id number] CLICK HERE TO VIEW EXAM ECHOCARDIOGRAM REPORT [...] Amin M.D. on 02/01/2022 at 18:43 Normal [facility] POINT OF CARE GLUCOSEon 01-18 Glucose [Mass/Vol] 209 mg/dL Critically high 74-106 [facility] Comment on above: Performed By: #### P OCGLUC #### [facility] [address] [address] [address] Bucky Gold PROF CHEM 8 (BAS METB)on Anion gap [Moles/Vol] 11.8 mmol/L Normal [facility] Comment on above: Performed By: #### B MP, HSTROPN #### [facility] [address] [address] [address] Bucky Gold Calcium [Mass/Vol] 7.8 mg/dL Critically low 8.5-10.[address] [facility] Comment on above: Performed By: #### B MP, HSTROPN #### [facility] [address] [address] [address] Bucky Gold Chloride [Moles/Vol] 104 mmol/L Normal 98-107 [facility] Comment on above: Performed By: #### B MP, HSTROPN #### [facility] [address] [address] [address] Bucky Gold CO2 [Moles/Vol] 24.1 mmol/L Normal 21.0-32.0 [facility] Comment on above: Performed By: #### B MP, HSTROPN #### [facility] [address] [address] [address] Bucky Gold Creatinine [Mass/Vol] 1.36 mg/dL Critically high 0.70-1.30 [facility] Comment on above: Performed By: #### B MELLY, HSTROPN #### [facility] [address] [place] [address] Dr. Bucky Gold EGFR-AF ISRAELI >60 Normal >=60 [facility] Comment on above: Performed By: #### B MELLY, HSTROPN #### [facility] [address] [address] [address] Bucky Gold EGFR-NON AF ISRAELI 52 mL/min/1.73m2 Critically low >=60 [facility] Comment on above: Performed By: #### B MELLY, HSTROPN #### [facility] [address] [place] [address] Dr. Bucky Gold Glucose [Mass/Vol] 211 mg/dL Critically high 74-106 [facility] Comment on above: Performed By: #### B MELLY, HSTROPN #### [facility] [address] [place] [address] Dr. Bucky Gold Potassium [Moles/Vol] 3.9 mmol/L Normal 3.5-5.1 [facility] Comment on above: Performed By: #### B MELLY, HSTROPN #### [facility] [address] [place] [address] Dr. Bucky Gold Sodium [Moles/Vol] 136 mmol/L Normal 136-145 [facility] Comment on above: Performed By: #### B MELLY, HSTROPN #### [facility] [address] [place] [address] Dr. Bucky Gold Urea nitrogen [Mass/Vol] 16.0 mg/dL Normal 7.0-18.0 [facility] Comment on above: Performed By: #### B MELLY, HSTROPN #### [facility] [address] [place] [address] Dr. Bucky Gold Urea nitrogen/Creatinine [Mass ratio] 11.8 mg/mg Normal [facility] Comment on above: Performed By: #### B MELLY, HSTROPN #### [facility] [address] [place] [address] Dr. Bucky Gold TROPONIN, HIGH SENSITIVITYon 02-01-2022 HSTROP 12.5 pg/mL Normal 4.0-76.[address] [facility] Comment on above: Result Comment: CUT- OFF POINTS HAVE BEEN ESTABLISHED BASED ON THE FOURTH UNIVERSAL DEFINITIONS OF MYOCARDIAL INFARCTION. THE UPPER REFERENCE LIMIT (URL) OF TROPONIN, DEFINED THE 99TH PERCENTILE OF cTnI DISTRIBUTION IN A REFERENCE POPULATION, HAS BEEN CONFIRMED THE DECISION THRESHOLD FOR DC DIAGNOSIS. Performed By: #### B MP, HSTROPN #### [facility] [address] [address] [address] Bucky Gold US CAROTID ART BILon [...] ROEL TRAN Date: 2022-02-01 15:[address] [facility] Complete Blood Count with Au to Diffon 07-11-2021 Basophils (Bld) [#/Vol] 0.08 10*3/uL Normal 0.00-0.20 [facility] Business Controller Comment on above: Performed By: #### C BCAD, CMP #### [facility] [address] [place], [place] [id number] Basophils/100 WBC (Bld) 1.6 % Normal [facility] Comment on above: Performed By: #### C BCAD, CMP #### [facility] [address] [place], [place] [id number] Eosinophils (Bld) [#/Vol] 0.28 10*3/uL Normal 0.02-0.50 [facility] Comment on above: Performed By: #### C BCAD, CMP #### [facility] [address] [place], [place] [id number] Eosinophils/100 WBC (Bld) 5.8 % Normal [facility] Comment on above: Performed By: #### C BCAD, CMP #### [facility] [address] [place], [place] [id number] Erythrocyte distribution width (RBC) [Ratio] 11.8 % Normal 11.0-15.0 [facility] Comment on above: Performed By: #### C BCAD, CMP #### [facility] [address] [place], [place] [id number] Hematocrit (Bld) [Volume fraction] 41.4 % Normal 38.5-50.0 [facility] Specialist Comment on above: Performed By: #### C BCAD, CMP #### [facility] [address] [place], [place] [id number] Hemoglobin (Bld) [Mass/Vol] 14.1 g/dL Normal 13.0-17.1 [facility] Specialist Comment on above: Performed By: #### C BCAD, CMP #### [facility] [address] [place], [place] [id number] Lymphocytes (Bld) [#/Vol] 1.2 10*3/uL Normal 0.9-3.9 [facility] Specialist Comment on above: Performed By: #### C BCAD, CMP #### [facility] [address] [place], [place] [id number] Lymphocytes/100 WBC (Bld) 24.3 % Normal [facility] Specialist Comment on above: Performed By: #### C BCAD, CMP #### [facility] [address] [place], [place] [id number] MCH (RBC) [Entitic mass] 31.2 pg Normal 27.0-33.0 [place] Business Controller Comment on above: Performed By: #### C BCAD, CMP #### [facility] [address] [place], [place] [id number] MCHC (RBC) [Mass/Vol] 34.1 g/dL Normal 32.0-36.0 [facility] Comment on above: Performed By: #### C BCAD, CMP #### [facility] [address] [place], [place] [id number] MCV (RBC) [Entitic vol] 92 fL Normal 80-100 [facility] Specialist Comment on above: Performed By: #### C BCAD, CMP #### [facility] [address] [place], [place] [id number] Monocytes (Bld) [#/Vol] 0.3 10*3/uL Normal 0.2-0.9 [facility] Specialist Comment on above: Performed By: #### C BCAD, CMP #### [facility] [address] [place], [place] [id number] Monocytes/100 WBC (Bld) 5.6 % Normal [facility] Comment on above: Performed By: #### C BCAD, CMP #### [facility] [address] [place], [place] [id number] Neutrophils (Bld) [#/Vol] 3.0 10*3/uL Normal 1.5-7.[address] [facility] Comment on above: Performed By: #### C BCAD, CMP #### [facility] [address] [place], [place] [id number] Neutrophils/100 WBC (Bld) 62.5 % Normal [facility] Comment on above: Performed By: #### C BCAD, CMP #### [facility] [address] [place], [place] [id number] Platelet mean volume (Bld) [Entitic vol] 11.30 fL Normal 7.50-12.50 [facility] Comment on above: Performed By: #### C BCAD, CMP #### [facility] [address], [place] [id number] Platelets (Bld) [#/Vol] 218 10*3/uL Normal 140-400 [facility] Specialist Comment on above: Performed By: #### C BCAD, CMP #### [facility] [address] [place], [place] [id number] RBC (Bld) [#/Vol] 4.52 10*6/uL Normal 4.20-5.80 [facility] Specialist Comment on above: Performed By: #### C BCAD, CMP #### [facility] [address], [place] [id number] RDW-SD 39.6 fL Normal 37.0-50.0 [facility] Specialist Comment on above: Performed By: #### C BCAD, CMP #### [facility] [address] [place], [place] [id number] WBC (Bld) [#/Vol] 4.9 10*3/uL Normal 3.8-11.0 [facility] Business Controller Comment on above: Performed By: #### C BCAD, CMP #### [facility] [address] [place], [place] [id number] [facility] 07-11-2021 Albumin [Mass/Vol] 4.3 g/dL Normal 3.6-5.1 [facility] Business Controller Comment on above: Performed By: #### C BCAD, CMP #### [facility] [address] [place], [place] [id number] Albumin/Globulin [Mass ratio] 1.7 {ratio} Normal 1.0-2.5 [facility] Specialist Comment on above: Performed By: #### C BCAD, CMP #### [facility] [address] [place], [place] [id number] ALP [Catalytic activity/Vol] 73 U/L Normal 40-129 [facility] Specialist Comment on above: Performed By: #### C BCAD, CMP #### [facility] [address] [place], [place] [id number] ALT [Catalytic activity/Vol] 19 U/L Normal 9-46 [facility] Specialist Comment on above: Result Comment: 06/20 Female reference range changed. Performed By: #### C BCAD, CMP #### [facility] [address] [place], [place] [id number] Anion gap [Moles/Vol] 18 mmol/L Normal 12-20 [facility] Comment on above: Result Comment: Effe ctive 07/26/2019 reference range changed. Performed By: #### C BCAD, CMP #### [facility] [address] [place], [place] [id number] AST [Catalytic activity/Vol] 27 U/L Normal 10-[address] [facility] Comment on above: Result Comment: Spec imen is hemolyzed. Results may be affected. Performed By: #### C BCAD, CMP #### [facility] [address] [place], [place] [id number] BUN/CREA 21 Ratio Normal 6-[address] [facility] Comment on above: Performed By: #### C BCAD, CMP #### [facility] [address], [place] [id number] Calcium [Mass/Vol] 9.4 mg/dL Normal 8.6-10.2 [facility] Comment on above: Performed By: #### C BCAD, CMP #### [facility] [address] [place], [place] [id number] Chloride [Moles/Vol] 109 mmol/L High 98-[address] [facility] Comment on above: Performed By: #### C BCAD, CMP #### [facility] [address], [place] [id number] CO2 [Moles/Vol] 18 mmol/L Low 20-[address] [facility] Comment on above: Performed By: #### C BCAD, CMP #### [facility] [address] [place], [place] [id number] Creatinine [Mass/Vol] 0.9 mg/dL Normal 0.7-1.4 [facility] Comment on above: Performed By: #### C BCAD, CMP #### [facility] [address] [place], [place] [id number] eGFRAA 96 mL/min/1.73m2 Normal >60 [facility] Specialist Comment on above: Performed By: #### C BCAD, CMP #### [facility] [address] [place], [place] [id number] eGFRNAA 79 mL/min/1.73m2 Normal >60 [facility] Specialist Comment on above: Performed By: #### C BCAD, CMP #### [facility] [address] [place], [place] [id number] Globulin (S) [Mass/Vol] 2.6 g/dL Normal 1.9-3.7 [facility] Specialist Comment on above: Performed By: #### C BCAD, CMP #### [facility] [address] [place], [place] [id number] Glucose [Mass/Vol] 203 mg/dL High 65-99 [facility] Specialist Comment on above: Result Comment: For FASTING Glucose --- ADA reference ranges: Normal 65-99 mg/dl Prediabetes 100-125 Diabetes >/= 126 Performed By: #### C BCAD, CMP #### [facility] [address] [place], [place] [id number] Potassium [Moles/Vol] 4.5 mmol/L Normal 3.5-5.5 [facility] Comment on above: Result Comment: Spec imen is hemolyzed. Results may be affected. Performed By: #### C BCAD, CMP #### [facility] [address] [place], [place] [id number] Protein [Mass/Vol] 6.9 g/dL Normal 6.1-8.1 [facility] Business Controller Comment on above: Performed By: #### C BCAD, CMP #### [facility] [address] [place], [place] [id number] Sodium [Moles/Vol] 140 mmol/L Normal 135-146 [facility] Business Controller Comment on above: Performed By: #### C BCAD, CMP #### [facility] [address] [place], [place] [id number] TBIL <0.3 Normal [facility] Specialist Comment on above: Performed By: #### C BCAD, CMP #### [facility] [address] [place], [place] [id number] Urea nitrogen [Mass/Vol] 20 mg/dL Normal 7-25 [facility] Business Controller Comment on above: Performed By: #### C BCAD, CMP #### [facility] [address] [place], [place] [id number] Vital Signs Date Time Vital Sign Value Performing Clinician Faci lity 08-08-2022 12:00-0500 Diastolic blood pressure 69 mm[Hg] [facility] 08-08-2022 12:00-0500 Heart rate 91 /min [facility] 08-08-2022 12:00-0500 Respiratory rate 16 /min [facility] 08-08-2022 12:00-0500 SaO2% (BldA) [Mass fraction] 97 % [facility] 08-08-2022 12:00-0500 Systolic blood pressure 147 mm[Hg] [facility] Encounters Encounter Date Encounter Type Care Provider Facility Start: 06-12-2024 End: 06-12-2024 Refill Ulisses Yu MD Work Phone: [facility] Comment on above: Benign hypertension ([facility]) Start: 03-14-2024 End: 03-15-2024 Refill Kaela Milton PA Work Phone: [facility] Comment on above: Type 2 diabetes isaac itus with diabetic neuropathy, without long-term current use of insulin ([facility]) Start: 10-28-2023 End: 10-28-2023 ambulatory KAELA M [...] 08-08-2022 Emergency department patient visit [facility] Comment on above: Arrived Start: 05-20-2022 End: 05-20-2022 ambulatory Christian Montana Facility:[facility] Start: 05-16-2022 End: 05-16-2022 ambulatory Christian Montana Facility:[facility] Start: 05-16-2022 End: 05-16-2022 ambulatory MD Jonathon Isbell Work Phone: [facility] Work Phone: Start: 05-16-2022 End: 05-16-2022 Patient encounter procedure MD Jonathon Isbell Work Phone: [facility] Start: 02-01-2022 End: 02-02-[address] [...] [address] [place] [address] Kaela Milton PA [address] [facility] [address] [place] [address] [facility] Start: 08-26-2023 End: 08-26-2023 Patient encounter procedure 08/26/2023 10:30 AM EST Office Visit [facility] [address] [facility] [address] [place] [address] Kaela Milton PA [address] [facility] [address] [place] [address] [facility] Start: 08-12-2023 Hemoglobin A1c measurement Diabetes: Hemoglobin A1C [facility] Start: 04-20-2022 Influenza vaccination Influenza [...] 2) [facility] Start: 1986 Lipid panel [facility] Start: [facility] Hepatitis C screening Hepatitis C [...] for malign ant neoplasm of colon [facility] Payers Date Payer Category Payer Unknown [id number] 2022 Medicare (Managed Care) [employer] [id number] 2022 Unknown [employer] [facility] Yattos [id number] 2022-Present [address] [place] [id number] [id number] 2022 Self-pay [id number] 2020 Unknown [id number] 1950 Unknown [id number] [id number] 1950 Unknown [id number] [id number] 1950 Unknown [id number] [id number] 1950 Unknown [id number] [id number] 1950 Unknown [id number] [id number] 1950 Unknown [id number] [id number] Unknown HCAP/HFA/FAP Active [id number] Unknown [id number] [id number] Unknown [id number] [id number] Social History Date Type Detail Facility Start: 01-16-2022 End: 04-30-2023 Tobacco smoking status NHIS Ex-smoker (finding) [facility] Start: 1950 Sex Assigned At Male [facility] Tobacco smoking stat us [facility] Tobacco smoking consumption unknown [facility] Start: 1950 Sex Assigned At Not on file [facility] End: 07-21-2010 History of tobacco use [...] to any clubs or organizations such as alevism groups, unions, fraternal or athletic groups, or [...] Comment Last smoked : > 10 years [facility] Start: 04-30-2023 Alcohol Comment 3 or 4 drinks 4 or more times/week. Caffeine intake : 1-2 cups per day coffee [facility] Start: 09-09-2023 Alcohol Comment Caffeine intake : 1-[address] [facility] Medical Equipment Procedure Code Equipment Code Equipment Origin al Text Equipment Identifier Dates Multiple periphe ral artery stent, bare-metal [id number] [facility] Start: 03-28-2021 [id number] Start: 05-16-2023 Use to inject 1- 4 times daily as directed. [id number] Start: 11-14-2023 End: 11-13-2024 Telephone encounter Note 03-15-2024 Telephone Encounter - HE Ramos - 03/15/2024 9:38 AM EDT Note Date & Type Note Facility 03-15-2024 Telephone encount er Note No longer our pt [facility] Note 03-15-2024 Telephone Encounter - HE Ramos - 03/15/2024 9:38 AM EDT Note Date & Type Note Facility 03-15-2024 Miscellaneous Notes Formattin g of this note might be different from the original. No longer our pt documented in this encounter [facility] History of Present illness Narrative 08-08-2022 Lei Wolf MD - 08/08/2022 12:24 PM EST Note Date & Type Note Facility 08-08-2022 History of Presen t illness Narrative Images from the original note were not included. EMERGENCY TRIAGE, TREAT AND TRANSPORT (ET3) DOCUMENTATION OF TELEHEALTH VISIT Date / Time: 08/08/2022 / 1199 Name: Mikhail Menon : 1950 SSN: (Not on file) EMS Agency: [facility] [x] Verbal consent obtained [] Implied [...] Note Facility Evaluation note No assessment [facility] Work Phone: Evaluation note Note [...] Essential hypertension, benign documented in this encounter [facility] Evaluation note Note Date & Type Note Facility Evaluation note Diagnosis Type 2 diabetes mellitus with diabetic neuropathy, without long-term current use of insulin ([facility]) documented in this encounter [facility] Summary Purpose Family History Relationship [...] section and content) DATE CREATED AUTHOR 07/12/2021 [facility] dical Specialist DATE CREATED AUTHOR AUTHOR'S ORGANIZ ATION 02/07/2022 [facility] DATE CREATED AUTHOR AUTHOR'S ORGANIZ ATION 08/22/2022 [facility] DATE CREATED AUTHOR AUTHOR'S ORGANIZ ATION 03/22/2023 [facility] DATE CREATED AUTHOR AUTHOR'S ORGANIZ ATION 10/29/2023 [facility] dical Specialists EPIC Care Teams (unrecognized sec tion and content) Team Status: Inactive Member Role Status Dates Jonathon Isbell MD Primary Care Provider Active Christian Montana MD Attending Provider Active Team Status: Active Member Role Status Dates Jonathon Isbell MD Primary Care Provider Active Strong Nitric Operator Relationship Specialty Start Date End Date Ulisses Yu MD [address] [facility] [address] [place] [address] PCP - General Family Medicine 12/20/22 Jonathon Isbell MD [address] [place] [address] PCP - Devoted 12/19/22 Strong Nitric Operator Relationship Specialty Start Date End Date Ulisses uY MD [address] [facility] [address] [place] [address] PCP - [employer] 02/19/24 Goals (unrecognized section [...] BE BASED ON THE PRIMARY CLINICAL RECORDS. [employer] provides no warranty or guarantee of the accuracy or completeness of information in this document.
[2024-09-05] MEDS: MORPHINE SULFATE 4 MG/ML VIAL IV (10:17)
--- NOTE | 2024-09-05 10:24 | ED_ITS ---
HPI HPI - General Adult General Chief complaint: Back Pain/Injury Stated complaint: FALL TWO DAYS AGO/BACK PAIN Time Seen by Provider: 09/05/24 10:04 Mode of arrival: ambulance History of Present Illness HPI narrative: 74-year-old male presents by ambulance from his home for rib pain. He had fallen a few days ago and was seen here. He had a CAT scan that showed left ninth and 10th rib fractures without pneumothorax. He was prescribed pain medicine and states that the pain got worse when he awoke today. There is no subsequent injury. The pain is sharp and severe and worse in certain positions. Related Data Home Medications ?Medication ?Instructions ?Recorded ?Confirmed atorvastatin 80 mg tablet 80 mg PO QPM 09/01/24 09/05/24 carvedilol 12.5 mg tablet 12.5 mg PO BID 09/01/24 09/05/24 pantoprazole 40 mg tablet,delayed 40 mg PO QAM 09/01/24 09/05/24 release pioglitazone 15 mg tablet 15 mg PO DAILY 09/01/24 09/05/24 Allergies Allergy/AdvReac Type Severity Reaction Status Date / Time No Known Drug Allergies Allergy Verified 09/05/24 10:06 Opioid HPI Opioid Management Most Recent Opioid Data: Last Pain Scale 10 09/05/24 10:24 09/05/24 Last ED Pain Assessment 09/05/24 10:24 Last MAR Pain Assessment 09/05/24 10:17 Review of Systems ROS Narrative A ten point review of systems is negative except as noted above. PFSH PFSH Social History Little interest or pleasure in doing things: not at all Feeling down, depressed, or hopeless: not at all Exam Narrative Exam Narrative: Nurses note and vital signs reviewed and patient is not hypoxic. General: The patient appears in no apparent respiratory distress. Patient appears uncomfortable Skin: Warm, dry, no pallor noted. There is no rash noted. Head: Normocephalic, atraumatic Eye: Normal conjunctiva, no drainage Ears, Nose, Mouth, and Throat: oral mucosa is moist. Nares patent. Cardiovascular: Regular Rate and Rhythm Respiratory: Patient is in no distress, no accessory muscle use, lungs are clear to auscultation, no wheezing, rales or rhonchi; he has some tenderness in the left lateral rib area without crepitus Back: non-tender GI: Soft and nontender Musculoskeletal: The patient has no evidence of calf tenderness, no pitting edema, symmetrical pulses noted bilaterally Neurological: A&O, normal speech Psychiatric: Cooperative Constitutional Vital Signs, click to edit/add: Last Vital Signs Temp 97.8 F 09/05/24 10:07 Pulse 58 L 09/05/24 12:10 Resp 13 09/05/24 12:10 BP 117/45 L 09/05/24 12:01 Pulse Ox 96 09/05/24 12:10 O2 Del Method Room Air 09/05/24 10:07 Course Vital Signs Vital signs: Vital Signs Temperature 97.8 F 09/05/24 10:07 Pulse Rate 72 09/05/24 10:07 Respiratory Rate 18 09/05/24 10:07 Blood Pressure 194/72 H 09/05/24 10:07 Pulse Oximetry 97 09/05/24 10:07 Oxygen Delivery Method Room Air 09/05/24 10:07 Temperature 97.8 F 09/05/24 10:07 Pulse Rate 58 L 09/05/24 12:10 Respiratory Rate 13 09/05/24 12:10 Blood Pressure 117/45 L 09/05/24 12:01 Pulse Oximetry 96 09/05/24 12:10 Oxygen Delivery Method Room Air 09/05/24 10:07 Medical Decision Making MDM Narrative Medical decision making narrative: Repeat chest x-ray today shows no pneumothorax. His BUN and creatinine are 34 and 2.0, somewhat above his baseline. He was given IV fluids and IV morphine. We discussed admission versus discharge home and he feels that he does need to be admitted. I also brought up the subject of the rehab facility and he did not seem to have an opinion on that. He will be admitted for observation Differential Diagnosis Differential Diagnosis: Rib fracture, pneumothorax, intractable pain Lab Data Lab results reviewed: Yes I reviewed the patient's lab results Labs: Lab Results 09/05/24 Range/Units 10:39 WBC 5.9 (4.0-11.0) 10^3/uL RBC 4.61 L (4.70-6.10) 10^6/uL Hgb 14.2 (14.0-18.0) g/dL Hct 41.0 L (42.0-54.0) % MCV 88.9 (80.0-94.0) fL MCH 30.8 (25.9-34.0) pg MCHC 34.6 (29.9-35.2) g/dL RDW 12.0 (11.0-15.0) % Plt Count 258 (150-450) 10^3/uL MPV 10.9 (9.5-13.5) fL Neut % (Auto) 72.8 (43.0-75.0) % Lymph % (Auto) 15.0 L (20.5-60.0) % [place] % (Auto) 4.6 (1.7-12.0) % Eos % (Auto) 5.6 (0.9-7.0) % Baso % (Auto) 1.5 (0.2-2.0) % Neut # (Auto) 4.3 (1.4-6.5) 10^3/uL Lymph # (Auto) 0.9 L (1.2-3.8) 10^3/uL [place] # (Auto) 0.3 (0.3-0.8) 10^3/uL Eos # (Auto) 0.3 (0.0-0.7) 10^3/uL Baso # (Auto) 0.1 (0.0-0.1) 10^3/uL Abs Immat Gran (auto) 0.03 (0.00-0.03) 10^3/uL Imm/Tot Granulo (auto) 0.5 (0.0-0.5) % Sodium 135 L (136-145) mmol/L Potassium 4.2 (3.5-5.1) mmol/L Chloride 98 (98-107) mmol/L Carbon Dioxide 24.4 (21.0-32.0) mmol/L Anion Gap 16.8 BUN 34.0 H (7.0-18.0) mg/dL Creatinine 2.00 H (0.70-1.30) mg/dL Est GFR ( Amer) 40 L (>=60 mL/min/1.73m^2) Est GFR (Non-Af Amer) 33 L (>=60 mL/min/1.73m^2) BUN/Creatinine Ratio 17.0 Glucose 198 H (74-106) mg/dL Calcium 8.9 (8.5-10.1) mg/dL Imaging Data Chest x-ray: Radiologist's impression: ITS Impressions Chest X-Ray 09/05/24 10:10 IMPRESSION: There is no acute cardiopulmonary process. The fractures of the left ninth and 10th ribs seen on the previous CT chest examination are obscured on the portable chest radiograph. There is no pneumothorax. Electronically authenticated by: DEVIN MASSEY Date: 09/05/2024 10:52 ECG Data Attestation: I personally reviewed and interpreted this ECG as follows: (EKG on my interpretation shows sinus rhythm with a rate of 68 and some artifact.) Discharge Plan Discharge Chief Complaint: Back Pain/Injury Clinical Impression: Left rib fracture, Intractable pain, Dehydration Patient Disposition: Admitted as Observation Time of Disposition Decision: 12:27 Condition: Fair
--- NOTE | 2024-09-05 10:28 | ECG_ITS ---
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
[2024-09-05 11:03] LABS: Basophils Absolute Auto 0.1 10^3/uL (0.0-0.1); Basophils Percent Auto 1.5 % (0.2-2.0); Eosinophils Absolute Auto 0.3 10^3/uL (0.0-0.7); Eosinophils Percent Auto 5.6 % (0.9-7.0); Hemoglobin 14.2 g/dL (14.0-18.0); Immature Granulocytes Abs Auto 0.03 10^3/uL (0.00-0.03); Immature Granulocytes Pct Auto 0.5 % (0.0-0.5); Lymphocytes Absolute Auto 0.9 10^3/uL (1.2-3.8); Mean Corpuscular HGB Conc 34.6 g/dL (29.9-35.2); Mean Corpuscular Hemoglobin 30.8 pg (25.9-34.0); Mean Corpuscular Volume 88.9 fL (80.0-94.0); Mean Platelet Volume 10.9 fL (9.5-13.5); Monocytes Absolute Auto 0.3 10^3/uL (0.3-0.8); Monocytes Percent Auto 4.6 % (1.7-12.0); Neutrophils Absolute Auto 4.3 10^3/uL (1.4-6.5); Neutrophils Percent Auto 72.8 % (43.0-75.0); Platelet Count 258 10^3/uL (150-450); Red Blood Count 4.61 10^6/uL (4.70-6.10); White Blood Count 5.9 10^3/uL (4.0-11.0)
[2024-09-05 11:18] LABS: Anion Gap 16.8; Calcium 8.9 mg/dL (8.5-10.1); Carbon Dioxide 24.4 mmol/L (21.0-32.0); Chloride 98 mmol/L (98-107); Estimated GFR (African America 40 (>=60 mL/min/1.73m^2); Estimated GFR (Non-African Ame 33 (>=60 mL/min/1.73m^2); Glucose 198 mg/dL (74-106); Potassium 4.2 mmol/L (3.5-5.1); Sodium 135 mmol/L (136-145)
[2024-09-05] MEDS: 0.9 % SODIUM CHLORIDE 1,000 ML 100 ML IV ×2 (12:26→23:19)
--- OUTSIDE RECORDS SUMMARY | 2024-09-05 13:49 | XMS_ITS | CCD ---
Author Organization [facility] Care Team Providers Care Hardboard Supervisor Name Role Phone AIMEE, DR DOWLING Primary [...] Unavailable Ulisses Yu MD Primary Care Provider [phone] Jonathon Isbell MD Unavailable [phone] KAELA MILTON Attending Unavailable KAELA MILTON Attending Unavailable KAELA MILTON Attending Unavailable Ulisses Yu MD Unavailable Unavailable Primary Care Provider Unavailabl e Allergies Allergy Classification Reported Allergen(s) Allergy Type Date of Onset Reaction(s) Facility (4 sources) gabapentin Drug Allergy 06-24-2023 Diarrhea [facility] Healthcare Work Phone: Medications Current Medications [...] neuropathy, without long-term current use of insulin ([facility]) Take 1 tablet (10 mg) by mouth Daily 100 tablet 3 10/28/2023 Active Start: 03-28-2021 take 1 tablet by mau th in the morning glipiZIDE (Glucotrol) 10 MG tablet Indications: Type 2 diabetes mellitus with diabetic neuropathy, without long-term current use of insulin ([facility]) Take 1 tablet (10 mg) by mouth in the morning. 100 tablet 3 2023 Active 3 ml insulin glargine 100 unt/ml pen injector (2 sources) Insulin Analog Start: 10-28-2023 insulin glargi ne (Basaglar KwikPen) 100 UNIT/ML pen Indications: Type 2 diabetes mellitus with diabetic neuropathy, without long-term current use of insulin ([facility]) Inject 20 Units under the skin at bedtime 10/28/2023 Active insulin, regular, human 100 unt/ml injectable solution (2 sources) Insulin Start: 11-14-2023 End: 11-13-2024 insulin regular (NovoLIN R) 100 UNIT/ML injection Indications: Type 2 diabetes mellitus with other specified complication, without long-term current use of insulin ([facility]) Inject 0.1 mL (10 Units) [...] 05-12-2023 01-28-2023 Chronic Other 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 (1 source) 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; Translations: [TELEVISION CAMERAMAN USE ORAL HYPOGLYCEMIC DX] Onset: 02-06-2022 Episodic Other aftercare (1 source) 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; Translations: [OTH TELEVISION CAMERAMAN CURRENT DRUG THERAPY] Onset: 02-06-2022 Episodic Other [...] Interpretation Reference Range Facility Progress Noteson 08-08-2022 [employer] Authentication Interface Message Text EMERGENCY TRIAGE, TREAT AND TRANSPORT (ET3) DOCUMENTATION OF TELEHEALTH VISIT Date / Time: 08/08/2022 / 1199 Name: Mikhail Menon : 1950 SSN: (Not on file) EMS Agency: [facility] [x] Verbal consent obtained [] Implied [...] Completed by: Lei Wolf MD Normal [facility] Glucose Poct Glucometerson 1 Commemt1 Glu2: Cleaned Meter Normal [facility] Comment on above: Result Comment: PERF ORMED BY: [facility] [address] [place] [address] PATHOLOGIST UROLOGIST MD BULMARO HALL M.D. Performed By: #### G LULS #### Point of Care testing , Glucose [Mass/Vol] 179 mg/dL Normal [facility] Comment on above: Result Comment: [facility] Glucose Reference Range is dependent on time and content of last meal. Glucose of more than 200 mg/dL in a nonstressed, ambulatory subject supports the diagnosis of Diabetes Mellitus. Performed By: #### G LULS #### Point of Care testing , Glucose [Mass/Vol] 198 mg/dL Normal [facility] Comment on above: Result Comment: [facility] Glucose Reference Range is dependent on time and content of last meal. Glucose of more than 200 mg/dL in a nonstressed, ambulatory subject supports the diagnosis of Diabetes Mellitus. PERFORMED BY: [facility] [address] [place] [address] PATHOLOGIST UROLOGIST MD BULMARO HALL M.D. Performed By: #### G [...] developed and its performance characteristic determined by [employer] and validated at [facility]. This test has not been FDA [...] for SARS Antigen by DOROTHEA PERFORMED BY: [facility] [address] [place] [address] PATHOLOGIST UROLOGIST MD BULMARO HALL M.D. [facility] Comment on above: Performed By: #### C OVID-19 CAMILA, SOFIANEG #### [facility] [address] COVID-19 SOFIAOrdered By: Byron Montana on 05-16-2022 SARS-CoV+SARS-CoV-2 (COVID-19) Ag IA.rapid Ql (Resp) Negative Negative [facility] Comment on above: This is a duplicate Camila SARS Antigen (DOROTHEA) result to be used for statistical tracking purpose only. No Panel InformationOrdered By: Christian Montana on 05-16-2022 SARS Antigen (LFIA) [facility] Camila Ag Negativeon 05-16-20 Camila Ag Negative Negative Normal Negative [facility] Comment on above: Result Comment: This is a duplicate Camila SARS Antigen (DOROTHEA) result to be used for statistical tracking purpose only. PERFORMED BY: [place] [address] PATHOLOGIST UROLOGIST MD BULMARO HALL M.D. Performed By: #### C OVID-19 CAMILA, SOFIANEG #### [address] CBC AUTO DIFFon 02-02-2022 BASO # 0.1 103/ul Normal 0.0-0.1 [facility] Comment on above: Performed By: #### C BC #### [facility] [address] [place] [address] Dr. Bucky Gold Basophils/100 WBC (Bld) 1.3 % Normal 0.2-2.0 [facility] Comment on above: Performed By: #### C BC #### [facility] [address] [address] [address] Bucky Gold EO # 0.7 103/ul Normal 0.0-0.7 [facility] Comment on above: Performed By: #### C BC #### [facility] [address] [address] [address] Bucky Gold Eosinophils/100 WBC (Bld) 12.1 % Critically high 0.9-7.0 [facility] Comment on above: Performed By: #### C BC #### [facility] [address] [place] [address] Dr. Bucky Gold Erythrocyte distribution width (RBC) [Ratio] 12.1 % Normal 11.0-15.0 [facility] Comment on above: Performed By: #### C BC #### [facility] [address] [address] [address] Bucky Gold Hematocrit (Bld) [Volume fraction] 38.0 % Critically low 42.0-54.0 [facility] Comment on above: Performed By: #### C BC #### [facility] [address] [address] [address] Bucky Gold Hemoglobin (Bld) [Mass/Vol] 12.7 g/dL Critically low 14.0-18.0 [facility] Comment on above: Performed By: #### C BC #### [facility] [address] [place] [address] Dr. Bucky Gold IG # 0.01 10e3/ul Normal 0.00-0.03 [facility] Comment on above: Performed By: #### C BC #### [facility] [address] [place] [address] Dr. Bucky Gold IG % 0.2 % Normal 0.0-0.5 [facility] Comment on above: Performed By: #### C BC #### [facility] [address] [place] [address] Dr. Bucky Gold LYMPH # 1.0 103/ul Critically low 1.2-3.8 [facility] Comment on above: Performed By: #### C BC #### [facility] [address] [place] [address] Dr. Bucky Gold Lymphocytes/100 WBC (Bld) 18.4 % Critically low 20.5-60.0 [facility] Comment on above: Performed By: #### C BC #### [facility] [address] [address] [address] Bucky Gold MANUAL DIFF REQ NO Normal [facility] Comment on above: Performed By: #### C BC #### [facility] [address] [place] [address] Dr. Bucky Gold MCH (RBC) [Entitic mass] 32.8 pg Normal 25.9-34.0 [facility] Comment on above: Performed By: #### C BC #### [facility] [address] [address] [address] Bucky Gold MCHC (RBC) [Mass/Vol] 33.4 g/dL Normal 29.9-35.2 [facility] Comment on above: Performed By: #### C BC #### [facility] [address] [address] [address] Bucky Gold MCV (RBC) [Entitic vol] 98.2 fL Critically high 80.0-94.0 [facility] Comment on above: Performed By: #### C BC #### [facility] [address] [place] [address] Dr. Bucky Gold MONO # 0.4 103/ul Normal 0.3-0.8 [facility] Comment on above: Performed By: #### C BC #### [facility] [address] [place] [address] Dr. Bucky Gold Monocytes/100 WBC (Bld) 6.8 % Normal 1.7-12.0 [facility] Comment on above: Performed By: #### C BC #### [facility] [address] [place] [address] Dr. Bucky Gold NEUT # 3.4 103/ul Normal 1.4-6.5 [facility] Comment on above: Performed By: #### C BC #### [facility] [address] [place] [address] Dr. Bucky Gold Neutrophils/100 WBC (Bld) 61.2 % Normal 43.0-75.0 [facility] Comment on above: Performed By: #### C BC #### [facility] [address] [place] [address] Dr. Bucky Gold Platelet mean volume (Bld) [Entitic vol] 10.1 fL Normal 9.5-13.5 [facility] Comment on above: Performed By: #### C BC #### [facility] [address] [place] [address] Dr. Bucky Gold PLT 154 103/ul Normal 150-450 [facility] Comment on above: Performed By: #### C BC #### [facility] [address] [address] [address] Bucky Gold RBC 3.87 106/ul Critically low 4.70-6.10 [facility] Comment on above: Performed By: #### C BC #### [facility] [address] [address] [address] Bucky Gold WBC 5.6 103/ul Normal 4.0-11.0 [facility] Comment on above: Performed By: #### C BC #### [facility] [address] [place] [address] Dr. Bucky Gold POINT OF CARE GLUCOSEon 01-18 Glucose [Mass/Vol] 214 mg/dL Critically high 74-106 [facility] Comment on above: Performed By: #### P OCGLUC #### [facility] [address] [place] [address] Dr. Bucky Gold PROF CHEM 8 (BAS METB)on Anion gap [Moles/Vol] 10.4 mmol/L Normal [facility] Comment on above: Performed By: #### B MP #### [facility] [address] [place] [address] Dr. Bucky Gold Calcium [Mass/Vol] 8.3 mg/dL Critically low 8.5-10.1 [facility] Comment on above: Performed By: #### B MP #### [facility] [address] [place] [address] Dr. Bucky Gold Chloride [Moles/Vol] 104 mmol/L Normal 98-107 [facility] Comment on above: Performed By: #### B MP #### [facility] [address] [place] [address] Dr. Bucky Gold CO2 [Moles/Vol] 25.5 mmol/L Normal 21.0-32.0 [facility] Comment on above: Performed By: #### B MP #### [facility] [address] [place] [address] Dr. Bucky Gold Creatinine [Mass/Vol] 0.89 mg/dL Normal 0.70-1.30 [facility] Comment on above: Performed By: #### B MP #### [facility] [address] [address] [address] Bucky Gold EGFR-AF BAHRAINI >60 Normal >=60 [facility] Comment on above: Performed By: #### B MP #### [facility] [address] [address] [address] Bucky Gold EGFR-NON AF BAHRAINI >60 Normal >=60 [facility] Comment on above: Performed By: #### B MP #### [facility] [address] [address] [address] Bucky Gold Glucose [Mass/Vol] 138 mg/dL Critically high 74-106 [facility] Comment on above: Performed By: #### B MP #### [facility] [address] [address] [address] Bucky Gold Potassium [Moles/Vol] 3.9 mmol/L Normal 3.5-5.1 [facility] Comment on above: Performed By: #### B MP #### [facility] [address] [address] [address] Bucky Gold Sodium [Moles/Vol] 136 mmol/L Normal 136-145 [facility] Comment on above: Performed By: #### B MP #### [facility] [address] [address] [address] Bucky Gold Urea nitrogen [Mass/Vol] 12.0 mg/dL Normal 7.0-18.0 [facility] Comment on above: Performed By: #### B MP #### [facility] [address] [address] [address] Bucky Gold Urea nitrogen/Creatinine [Mass ratio] 13.5 mg/mg Normal [facility] Comment on above: Performed By: #### B MP #### [facility] [address] [address] [address] Bucky Gold CBC W MANUAL DIFFon 02-02-20 22 ATYPICAL LYMPH # Normal [facility] Comment on above: Performed By: #### C PRIYA #### [facility] [address] [address] [address] Bucky Gold ATYPICAL LYMPH % Normal [facility] Comment on above: Performed By: #### C BCMAN #### [facility] [address] [place] [address] Dr. Bucky Gold BAND # Normal 0.0-0.3 [facility] Comment on above: Performed By: #### C BCMAN #### [facility] [address] [place] [address] Dr. Bucky Gold BAND % Normal 0-5 [facility] Comment on above: Performed By: #### C BCMAN #### [facility] [address] [place] [address] Dr. Bucky Gold BASOM # 0.00 103/ul Normal 0.00-0.10 [facility] Comment on above: Performed By: #### C BCMAN #### [facility] [address] [place] [address] Dr. Bucky Gold BASOM % 0.0 % Critically low 0.2-2.0 [facility] Comment on above: Performed By: #### C BCJONATHAN #### [facility] [address] [place] [address] Dr. Bucky Gold BLAST # Normal [facility] Comment on above: Performed By: #### C BCMAN #### [facility] [address] [place] [address] Dr. Bucky Gold BLAST % Normal [facility] Comment on above: Performed By: #### C BCMAN #### [facility] [address] [place] [address] Dr. Bucky Gold CORRECTED WBC Normal 4.0-11.0 [facility] Comment on above: Performed By: #### C BCMAN #### [facility] [address] [place] [address] Dr. Bucky Gold EOS # 0.00 103/ul Normal 0.00-0.70 [facility] Comment on above: Performed By: #### C BCMAN #### [facility] [address] [place] [address] Dr. Bucky Gold EOS% 0.0 % Critically low 0.9-7.0 [facility] Comment on above: Performed By: #### C BCJONATHAN #### [facility] [address] [address] [address] Bucky Gold HCT 32.5 % Critically low 42.0-54.0 [facility] Comment on above: Performed By: #### C BCMAN #### [facility] [address] [address] [address] Bucky Gold HGB 10.8 g/dl Critically low 14.0-18.0 [facility] Comment on above: Performed By: #### C BCJONATHAN #### [facility] [address] [address] [address] Bucky Gold LYMPHM # 0.55 103/ul Critically low 1.20-3.80 [facility] Comment on above: Performed By: #### C PRIYA #### [facility] [address] [address] [address] Bucky Gold LYMPHM% 14.0 % Critically low 20.5-60.0 [facility] Comment on above: Performed By: #### C PRIYA #### [facility] [address] [address] [address] Bucky Gold MCH 33.0 pg Normal 25.9-34.0 [facility] Comment on above: Performed By: #### C PRIYA #### [facility] [address] [address] [address] Bucky Gold MCHC 33.2 g/dl Normal 29.9-35.2 [facility] Comment on above: Performed By: #### C BCJONATHAN #### [facility] [address] [address] [address] Bucky Gold MCV 99.4 fL Critically high 80.0-94.0 [facility] Comment on above: Performed By: #### C BCJONATHAN #### [facility] [address] [address] [address] Bucky Gold METAMYELOCYTE # Normal [facility] Comment on above: Performed By: #### C BCJONATHAN #### [facility] [address] [address] [address] Bucky Gold METAMYELOCYTE % Normal [facility] Comment on above: Performed By: #### C PRIYA #### [facility] [address] [address] [address] Bucky Gold MONOM# 0.12 103/ul Critically low 0.30-0.80 [facility] Comment on above: Performed By: #### C PRIYA #### [facility] [address] [address] [address] Bucky Gold MONOM% 3.0 % Normal 1.7-12.0 [facility] Comment on above: Performed By: #### C PRIYA #### [facility] [address] [place] [address] Dr. Bucky Gold MPV 10.5 fL Normal 9.5-13.5 [facility] Comment on above: Performed By: #### C PRIYA #### [facility] [address] [place] [address] Dr. Bucky Gold MYELOCYTE # Normal [facility] Comment on above: Performed By: #### C PRIYA #### [facility] [address] [place] [address] Dr. Bucky Gold MYELOCYTE % Normal [facility] Comment on above: Performed By: #### C PRIYA #### [facility] [address] [place] [address] Dr. Bucky Gold NRBC Normal [facility] Comment on above: Performed By: #### C PRIYA #### [facility] [address] [place] [address] Dr. Bucky Gold PLT 143 103/ul Critically low 150-450 [facility] Comment on above: Performed By: #### C PRIYA #### [facility] [address] [place] [address] Dr. Bucky Gold RBC 3.27 106/ul Critically low 4.70-6.10 [facility] Comment on above: Performed By: #### C PRIYA #### [facility] [address] [place], [place] [address] Dr. Bucky Gold RDW 12.0 % Normal 11.0-15.0 [facility] Comment on above: Performed By: #### C PRIYA #### [facility] [address] [address] [address] Bucky Gold SEG # 3.24 103/ul Normal 1.40-6.50 [facility] Comment on above: Performed By: #### Heidi POWERS #### [facility] [address] [address] [address] Bucky Gold SEG % 83.0 % Critically high 43.0-75.0 [facility] Comment on above: Performed By: #### Heidi POWERS #### [facility] [address] [address] [address] Bucky Gold WBC 3.9 103/ul Critically low 4.0-11.0 [facility] Comment on above: Performed By: #### Heidi POWERS #### [facility] [address] [place] [address] HEAD WO CONon [...] ROEL TRAN Date: 2022-02-01 10:57 Normal [facility] Covid-19 PCR (CVDTBH)on 01-18 SARS-CoV-2 (COVID-19) RNA ROSIBEL+probe Ql (Unsp spec) Detected Critically abnormal NOT DETECTED [facility] Comment on above: Result Comment: This test is not yet approved or cleared by the [place] FDA. When there are no FDA-approved or cleared tests available, and other criteria are met, FDA can make tests available under an emergency access mechanism called an Emergency Use Authorization (EUA). The EUA for this test is supported by the [place] of Health and Human Service's declaration that [...] Performed By: #### B MP, HSTROPN #### [facility] [address] [address] [address] Bucky Gold ECHO LIMITED STUDYon 022 ECHO LIMITED STUDY Patient: MIKHAIL MENON Exam Date: 02/01/2022 : 1950 Gender:M Ordering : DR BELKIS YU . Admission #: [id number] Family : DR ULISSES YU M.D. Order #: [id number] CLICK HERE TO VIEW EXAM ECHOCARDIOGRAM REPORT [...] Amin M.D. on 02/01/2022 at 18:43 Normal [facility] POINT OF CARE GLUCOSEon 01-18 Glucose [Mass/Vol] 209 mg/dL Critically high 74-106 [facility] Comment on above: Performed By: #### P OCGLUC #### [facility] [address] [address] [address] Bucky Gold PROF CHEM 8 (BAS METB)on Anion gap [Moles/Vol] 11.8 mmol/L Normal [facility] Comment on above: Performed By: #### B MP, HSTROPN #### [facility] [address] [address] [address] Bucky Gold Calcium [Mass/Vol] 7.8 mg/dL Critically low 8.5-10.1 [facility] Comment on above: Performed By: #### B MP, HSTROPN #### [facility] [address] [address] [address] Bucky Gold Chloride [Moles/Vol] 104 mmol/L Normal 98-107 [facility] Comment on above: Performed By: #### B MP, HSTROPN #### [facility] [address] [address] [address] Bucky Gold CO2 [Moles/Vol] 24.1 mmol/L Normal 21.0-32.0 [facility] Comment on above: Performed By: #### B MP, HSTROPN #### [facility] [address] [address] [address] Bucky Gold Creatinine [Mass/Vol] 1.36 mg/dL Critically high 0.70-1.30 [facility] Comment on above: Performed By: #### B MELLY, HSTROPN #### [facility] [address] [place] [address] Dr. Bucky Gold EGFR-AF BAHRAINI >60 Normal >=60 [facility] Comment on above: Performed By: #### B MELLY, HSTROPN #### [facility] [address] [address] [address] Bucky Gold EGFR-NON AF BAHRAINI 52 mL/min/1.73m2 Critically low >=60 [facility] Comment on above: Performed By: #### B MELLY, HSTROPN #### [facility] [address] [place] [address] Dr. Bucky Gold Glucose [Mass/Vol] 211 mg/dL Critically high 74-106 [facility] Comment on above: Performed By: #### B MELLY, HSTROPN #### [facility] [address] [place] [address] Dr. Bucky Gold Potassium [Moles/Vol] 3.9 mmol/L Normal 3.5-5.1 [facility] Comment on above: Performed By: #### B MELLY, HSTROPN #### [facility] [address] [place] [address] Dr. Bucky Gold Sodium [Moles/Vol] 136 mmol/L Normal 136-145 [facility] Comment on above: Performed By: #### B MELLY, HSTROPN #### [facility] [address] [place] [address] Dr. Bucky Gold Urea nitrogen [Mass/Vol] 16.0 mg/dL Normal 7.0-18.0 [facility] Comment on above: Performed By: #### B MELLY, HSTROPN #### [facility] [address] [place] [address] Dr. Bucky Gold Urea nitrogen/Creatinine [Mass ratio] 11.8 mg/mg Normal [facility] Comment on above: Performed By: #### B MELLY, HSTROPN #### [facility] [address] [place] [address] Dr. Bucky Gold TROPONIN, HIGH SENSITIVITYon 02-01-2022 HSTROP 12.5 pg/mL Normal 4.0-76.1 [facility] Comment on above: Result Comment: CUT- OFF POINTS HAVE BEEN ESTABLISHED BASED ON THE FOURTH UNIVERSAL DEFINITIONS OF MYOCARDIAL INFARCTION. THE UPPER REFERENCE LIMIT (URL) OF TROPONIN, DEFINED THE 99TH PERCENTILE OF cTnI DISTRIBUTION IN A REFERENCE POPULATION, HAS BEEN CONFIRMED THE DECISION THRESHOLD FOR LA DIAGNOSIS. Performed By: #### B MP, HSTROPN #### [facility] [address] [address] [address] Bucky Gold US CAROTID ART BILon [...] ROEL TRAN Date: 2022-02-01 15:02 Normal [facility] Complete Blood Count with Au to Diffon 07-11-2021 Basophils (Bld) [#/Vol] 0.08 10*3/uL Normal 0.00-0.20 [facility] Comment on above: Performed By: #### C BCAD, CMP #### [facility] [address] [place], [place] [id number] Basophils/100 WBC (Bld) 1.6 % Normal [facility] Specialist Comment on above: Performed By: #### C BCAD, CMP #### [facility] [address] [place], [place] [id number] Eosinophils (Bld) [#/Vol] 0.28 10*3/uL Normal 0.02-0.50 [facility] Specialist Comment on above: Performed By: #### C BCAD, CMP #### [facility] [address] [place], [place] [id number] Eosinophils/100 WBC (Bld) 5.8 % Normal [facility] Specialist Comment on above: Performed By: #### C BCAD, CMP #### [facility] [address], [place] [id number] Erythrocyte distribution width (RBC) [Ratio] 11.8 % Normal 11.0-15.0 [facility] Specialist Comment on above: Performed By: #### C BCAD, CMP #### [facility] [address], [place] [id number] Hematocrit (Bld) [Volume fraction] 41.4 % Normal 38.5-50.0 [facility] Specialist Comment on above: Performed By: #### C BCAD, CMP #### [facility] [address], [place] [id number] Hemoglobin (Bld) [Mass/Vol] 14.1 g/dL Normal 13.0-17.1 [facility] Specialist Comment on above: Performed By: #### C BCAD, CMP #### [facility] [address], [place] [id number] Lymphocytes (Bld) [#/Vol] 1.2 10*3/uL Normal 0.9-3.9 [facility] Specialist Comment on above: Performed By: #### C BCAD, CMP #### [facility] [address], [place] [id number] Lymphocytes/100 WBC (Bld) 24.3 % Normal [facility] Specialist Comment on above: Performed By: #### C BCAD, CMP #### [facility] [address], [place] [id number] MCH (RBC) [Entitic mass] 31.2 pg Normal 27.0-33.0 [place] [employer] Comment on above: Performed By: #### C BCAD, CMP #### [facility] [address], [place] [id number] MCHC (RBC) [Mass/Vol] 34.1 g/dL Normal 32.0-36.0 [facility] Comment on above: Performed By: #### C BCAD, CMP #### [facility] [address], [place] [id number] MCV (RBC) [Entitic vol] 92 fL Normal 80-100 [facility] Specialist Comment on above: Performed By: #### C BCAD, CMP #### [facility] [address], [place] [id number] Monocytes (Bld) [#/Vol] 0.3 10*3/uL Normal 0.2-0.9 [facility] Specialist Comment on above: Performed By: #### C BCAD, CMP #### [facility] [address], [place] [id number] Monocytes/100 WBC (Bld) 5.6 % Normal [facility] Comment on above: Performed By: #### C BCAD, CMP #### [facility] [address], [place] [id number] Neutrophils (Bld) [#/Vol] 3.0 10*3/uL Normal 1.5-7.8 [facility] Comment on above: Performed By: #### C BCAD, CMP #### [facility] [address], [place] [id number] Neutrophils/100 WBC (Bld) 62.5 % Normal [facility] Comment on above: Performed By: #### C BCAD, CMP #### [facility] [address], [place] [id number] Platelet mean volume (Bld) [Entitic vol] 11.30 fL Normal 7.50-12.50 [facility] Comment on above: Performed By: #### C BCAD, CMP #### [facility] [address], [place] [id number] Platelets (Bld) [#/Vol] 218 10*3/uL Normal 140-400 [facility] Specialist Comment on above: Performed By: #### C BCAD, CMP #### [facility] [address], [place] [id number] RBC (Bld) [#/Vol] 4.52 10*6/uL Normal 4.20-5.80 [facility] Specialist Comment on above: Performed By: #### C BCAD, CMP #### [facility] [address], [place] [id number] RDW-SD 39.6 fL Normal 37.0-50.0 [facility] Specialist Comment on above: Performed By: #### C BCAD, CMP #### [facility] [address], [place] [id number] WBC (Bld) [#/Vol] 4.9 10*3/uL Normal 3.8-11.0 [facility] Setter Comment on above: Performed By: #### C BCAD, CMP #### [facility] [address], [place] [id number] Comprehensive Metabolic Pane [facility] 07-11-2021 Albumin [Mass/Vol] 4.3 g/dL Normal 3.6-5.1 [facility] [employer] Setter Comment on above: Performed By: #### C BCAD, CMP #### [facility] [address], [place] [id number] Albumin/Globulin [Mass ratio] 1.7 {ratio} Normal 1.0-2.5 [facility] Specialist Comment on above: Performed By: #### C BCAD, CMP #### [facility] [address], [place] [id number] ALP [Catalytic activity/Vol] 73 U/L Normal 40-129 [facility] Specialist Comment on above: Performed By: #### C BCAD, CMP #### [facility] [address], [place] [id number] ALT [Catalytic activity/Vol] 19 U/L Normal 9-46 [facility] Specialist Comment on above: Result Comment: 06/20 Female reference range changed. Performed By: #### C BCAD, CMP #### [facility] [address], [place] [id number] Anion gap [Moles/Vol] 18 mmol/L Normal 12-20 [facility] Comment on above: Result Comment: Effe ctive 07/26/2019 reference range changed. Performed By: #### C BCAD, CMP #### [facility] [address], [place] [id number] AST [Catalytic activity/Vol] 27 U/L Normal 10-40 [facility] Comment on above: Result Comment: Spec imen is hemolyzed. Results may be affected. Performed By: #### C BCAD, CMP #### [facility] [address], [place] [id number] BUN/CREA 21 Ratio Normal 6-22 [facility] Comment on above: Performed By: #### C BCAD, CMP #### [facility] [address], [place] [id number] Calcium [Mass/Vol] 9.4 mg/dL Normal 8.6-10.2 [place] Comment on above: Performed By: #### C BCAD, CMP #### [facility] [address], [place] [id number] Chloride [Moles/Vol] 109 mmol/L High 98-107 [facility] Comment on above: Performed By: #### C BCAD, CMP #### [facility] [address], [place] [id number] CO2 [Moles/Vol] 18 mmol/L Low 20-31 [facility] Comment on above: Performed By: #### C BCAD, CMP #### [facility] [address], [place] [id number] Creatinine [Mass/Vol] 0.9 mg/dL Normal 0.7-1.4 [facility] Comment on above: Performed By: #### C BCAD, CMP #### [facility] [address], [place] [id number] eGFRAA 96 mL/min/1.73m2 Normal >60 [facility] Specialist Comment on above: Performed By: #### C BCAD, CMP #### [facility] [address], [place] [id number] eGFRNAA 79 mL/min/1.73m2 Normal >60 [facility] Specialist Comment on above: Performed By: #### C BCAD, CMP #### [facility] [address], [place] [id number] Globulin (S) [Mass/Vol] 2.6 g/dL Normal 1.9-3.7 [facility] Specialist Comment on above: Performed By: #### C BCAD, CMP #### [facility] [address], [place] [id number] Glucose [Mass/Vol] 203 mg/dL High 65-99 [facility] Specialist Comment on above: Result Comment: For FASTING Glucose --- ADA reference ranges: Normal 65-99 mg/dl Prediabetes 100-125 Diabetes >/= 126 Performed By: #### C BCAD, CMP #### [facility] [address], [place] [id number] Potassium [Moles/Vol] 4.5 mmol/L Normal 3.5-5.5 [facility] Comment on above: Result Comment: Spec imen is hemolyzed. Results may be affected. Performed By: #### C BCAD, CMP #### [facility] [address], [place] [id number] Protein [Mass/Vol] 6.9 g/dL Normal 6.1-8.1 [facility] Setter Comment on above: Performed By: #### C BCAD, CMP #### [facility] [address], [place] [id number] Sodium [Moles/Vol] 140 mmol/L Normal 135-146 [facility] Setter Comment on above: Performed By: #### C BCAD, CMP #### [facility] [address], [place] [id number] TBIL <0.3 Normal [facility] Specialist Comment on above: Performed By: #### C BCAD, CMP #### [facility] [address], [place] [id number] Urea nitrogen [Mass/Vol] 20 mg/dL Normal 7-25 [facility] Zipper Setter Comment on above: Performed By: #### C BCAD, CMP #### [facility] [address], [place] [id number] Vital Signs Date Time Vital Sign Value Performing Clinician Faci lity 08-08-2022 12:00-0500 Diastolic blood pressure 69 mm[Hg] [facility] 08-08-2022 12:00-0500 Heart rate 91 /min [facility] 08-08-2022 12:00-0500 Respiratory rate 16 /min [facility] 08-08-2022 12:00-0500 SaO2% (BldA) [Mass fraction] 97 % [facility] 08-08-2022 12:00-0500 Systolic blood pressure 147 mm[Hg] [facility] Encounters Encounter Date Encounter Type Care Provider Facility Start: 06-12-2024 End: 06-12-2024 Refill Ulisses Yu MD Work Phone: [facility] Comment on above: Benign hypertension ([facility]) Start: 03-14-2024 End: 03-15-2024 Refill Kaela Milton PA Work Phone: [facility] Comment on above: Type 2 diabetes isaac itus with diabetic neuropathy, without long-term current use of insulin ([facility]) Start: 10-28-2023 End: 10-28-2023 ambulatory [...] 08-08-2022 Emergency department patient visit [facility] Comment on above: Arrived Start: 05-20-2022 End: 05-20-2022 ambulatory Christian Montana Facility:[facility] Start: 05-16-2022 End: 05-16-2022 ambulatory Christian Montana Facility:[facility] Start: 05-16-2022 End: 05-16-2022 ambulatory MD Jonathon Isbell Work Phone: [facility] Work Phone: Start: 05-16-2022 End: 05-16-2022 Patient encounter procedure MD Jonathon Isbell Work Phone: [facility] Start: 02-01-2022 End: 02-02-[address] [...] [address] [place] [address] Kaela Milton PA [address] [facility] [address] [place] [address] [facility] Start: 08-26-2023 End: 08-26-2023 Patient encounter procedure 08/26/2023 10:30 AM EST Office Visit [facility] [address] [facility] [address] [place] [address] Kaela Milton PA [address] [facility] [address] [place] [address] [facility] Start: 08-12-2023 Hemoglobin A1c measurement Diabetes: Hemoglobin A1C [facility] Healthcare Start: 04-20-2022 Influenza vaccination Influenza [...] 2) [facility] Start: 1986 Lipid panel Cholesterol [facility] Start: 1969 Hepatitis C screening Hepatitis [...] for malign ant neoplasm of colon [facility] Payers Date Payer Category Payer Unknown [id number] 2022 Medicare (Managed Care) [employer] [id number] 2022 Unknown [facility] [facility] [employer] [id number] 2022-Present [address] [place] [id number] [id number] 2022 Self-pay [id number] 2020 Unknown [id number] 1950 Unknown [id number] 1950 Unknown [id number] [id number] 1950 Unknown [id number] [id number] 1950 Unknown [id number] [id number] 1950 Unknown [id number] [id number] 1950 Unknown [id number] [id number] Unknown HCAP/HFA/FAP Active [id number] Unknown [id number] [id number] Unknown [id number] [id number] Social History Date Type Detail Facility Start: 01-16-2022 End: 04-30-2023 Tobacco smoking status NHIS Ex-smoker (finding) [facility] Start: 1950 Sex Assigned At Male [facility] Tobacco smoking stat us [facility] Tobacco smoking consumption unknown [facility] Start: 1950 Sex Assigned At Not on file [facility] End: 07-21-2010 History of tobacco use Current [...] to any clubs or organizations such as tenriism groups, unions, fraternal or athletic groups, or [...] Comment Last smoked : > 10 years [facility] Start: 04-30-2023 Alcohol Comment 3 or 4 drinks 4 or more times/week. Caffeine intake : 1-2 cups per day coffee [facility] Start: 09-09-2023 Alcohol Comment Caffeine intake : 1-2 cups per day coffee [facility] Medical Equipment Procedure Code Equipment Code Equipment Origin al Text Equipment Identifier Dates Multiple periphe ral artery stent, bare-metal [id number] [facility] Start: 03-28-2021 [id number] Start: 05-16-2023 Use to inject 1- 4 times daily as directed. [id number] Start: 11-14-2023 End: 11-13-2024 Telephone encounter Note 03-15-2024 Telephone Encounter - HE Ramos - 03/15/2024 9:38 AM EDT Note Date & Type Note Facility 03-15-2024 Telephone encount er Note No longer our pt [facility] Healthcare Note 03-15-2024 Telephone Encounter - HE Ramos - 03/15/2024 9:38 AM EDT Note Date & Type Note Facility 03-15-2024 Miscellaneous Notes Formattin g of this note might be different from the original. No longer our pt documented in this encounter [facility] History of Present illness Narrative 08-08-2022 Lei Wolf MD - 08/08/2022 12:24 PM EST Note Date & Type Note Facility 08-08-2022 History of Presen t illness Narrative Images from the original note were not included. EMERGENCY TRIAGE, TREAT AND TRANSPORT (ET3) DOCUMENTATION OF TELEHEALTH VISIT Date / Time: 08/08/2022 / 1199 Name: Mikhail Menon : 1950 SSN: (Not on file) EMS Agency: [facility] [x] Verbal consent obtained [] Implied [...] Note Facility Evaluation note [facility]: Evaluation note Note [...] Essential hypertension, benign documented in this encounter [facility] Healthcare Evaluation note Note Date & Type Note Facility Evaluation note Diagnosis Type 2 diabetes mellitus with diabetic neuropathy, without long-term current use of insulin ([facility]) documented in this encounter [facility] Healthcare Summary Purpose Family History Relationship [...] section and content) DATE CREATED AUTHOR 07/12/2021 [facility] dical Specialist DATE CREATED AUTHOR AUTHOR'S ORGANIZ ATION 02/07/2022 [facility] DATE CREATED AUTHOR AUTHOR'S ORGANIZ ATION 08/22/2022 [facility] DATE CREATED AUTHOR AUTHOR'S ORGANIZ ATION 03/22/2023 [facility] DATE CREATED AUTHOR AUTHOR'S ORGANIZ ATION 10/29/2023 [facility] dical Specialists EPIC Care Teams (unrecognized sec tion and content) Team Status: Inactive Member Role Status Dates Jonathon Isbell MD Primary Care Provider Active Christian Montana MD Attending Provider Active Team Status: Active Member Role Status Dates Jonathon Isbell MD Primary Care Provider Active Hardboard Supervisor Relationship Specialty Start Date End Date Ulisses Yu MD [address] [facility] [address] [place] [address] PCP - General Family Medicine 12/20/22 Jonathon Isbell MD [address] [place] [address] PCP - [employer] 12/19/22 Hardboard Supervisor Relationship Specialty Start Date End Date Ulisses Yu MD [address] [facility] [address] [place] [address] PCP - [employer] 02/19/24 Goals (unrecognized section [...] BE BASED ON THE PRIMARY CLINICAL RECORDS. [employer] provides no warranty or guarantee of the accuracy or completeness of information in this document.
[2024-09-05] MEDS: OXYCODONE HCL/ACETAMINOPHEN 5MG/325MG 1 TAB PO ×2 (14:46→21:09)
[2024-09-05 16:22] LABS: Glucometer 166 mg/dL (74-106)
[2024-09-05 21:03] LABS: Glucometer 246 mg/dL (74-106)
[2024-09-05] MEDS: CARVEDILOL 12.5 MG TABLET PO (21:09)
[2024-09-05] MEDS: ATORVASTATIN CALCIUM 40 MG TABLET 80 MG PO (21:09)
[2024-09-05] MEDS: INSULIN ASPART 300 UNIT/3 ML PEN SUBQ (21:10)
[2024-09-05] MEDS: HYDRALAZINE HCL 20 MG/ML VIAL 10 MG IVP (23:25)
[2024-09-06] VITALS (7 sets, daily range): BP systolic 120–180; BP diastolic 65–82; PULSE 58–82; TEMP 36.4–36.8; O2SAT 90–95
[2024-09-06] MEDS: OXYCODONE HCL/ACETAMINOPHEN 5MG/325MG 1 TAB PO ×2 (02:30→08:41)
[2024-09-06] MEDS: HYDRALAZINE HCL 20 MG/ML VIAL 10 MG IVP (05:41)
[2024-09-06] MEDS: OMEPRAZOLE 40 MG CAPSULE.DR PO (05:42)
[2024-09-06 06:34] LABS: Anion Gap 12.7; BUN Creatinine Ratio 17.7; Calcium 8.6 mg/dL (8.5-10.1); Carbon Dioxide 26.2 mmol/L (21.0-32.0); Chloride 101 mmol/L (98-107); Estimated GFR (African America >60 (>=60 mL/min/1.73m^2); Estimated GFR (Non-African Ame 54 (>=60 mL/min/1.73m^2); Glucose 213 mg/dL (74-106); Potassium 3.9 mmol/L (3.5-5.1); Sodium 136 mmol/L (136-145)
[2024-09-06 07:46] LABS: Glucometer 201 mg/dL (74-106)
[2024-09-06] MEDS: CARVEDILOL 12.5 MG TABLET PO ×2 (08:41→21:01)
[2024-09-06] MEDS: PIOGLITAZONE 15 MG TABLET PO (08:41)
[2024-09-06] MEDS: 0.9 % SODIUM CHLORIDE 1,000 ML 100 ML IV (08:45)
[2024-09-06] MEDS: LISINOPRIL 5 MG TABLET PO (10:35)
[2024-09-06] MEDS: CLOPIDOGREL BISULFATE 75 MG TABLET PO (10:35)
[2024-09-06] MEDS: INSULIN ASPART 300 UNIT/3 ML PEN SUBQ ×3 (11:16→21:03)
[2024-09-06 11:18] LABS: Glucometer 200 mg/dL (74-106)
--- NOTE | 2024-09-06 11:25 | CM.NOTE ---
Rounds made with Dr. Goldstein, pt continues to c/o of pain to ribs. Pt states he was unable to get any sleep d/t pain. Dr. Goldstein discussed ordering Toradol around the clock and add a muscle relaxer. PT will evaluate pt today.
--- NOTE | 2024-09-06 11:27 | CM.NOTE ---
Medicare Outpatient Observation Notice discussed with pt, pt verbalizes understanding and signs paper. Original given to pt and copy placed on pt's chart.
--- NOTE | 2024-09-06 11:34 | P.HP_ITS ---
HPI H&P: HPI History of Present Illness Chief complaint: FALL TWO DAYS AGO/BACK PAIN Narrative: 74 y/o male to ER with rib pain. Fell / after slipped on ice and landed on left side. To ER and CT showed fractures of left ribs 9 and 10. Given norco and discharged. Am of admission c/o severe pain and woke up from sleep. Not able to get comfortable or control pain and to ER. Chest x-ray negative for pneumothorax. Labs showed CALEB and reports not drinking much at home. Continued pain and not tolerable with medication. Morphine helped and admitted. Started percocet and continues to have intractable pain. Very uncomfortable and not sleeping well. Opioid HPI Opioid Management Most Recent Pain and Opioid Data: Last Pain Scale 6 09/06/24 11:18 09/06/24 Last Pain Assessment 09/06/24 11:18 Last ED Pain Assessment 09/05/24 10:24 Last MAR Pain Assessment 09/06/24 10:36 Last ORT Total Score 3 09/05/24 13:50 09/05/24 Last ORT Risk Category Low Risk 09/05/24 13:50 09/05/24 Review of Systems ROS Constitutional Denies: fever, chills or fatigue Cardiovascular Denies: chest pain, palpitations or edema Respiratory Denies: shortness of breath, cough or wheezing Gastrointestinal Denies: abdominal pain, nausea or vomiting Genitourinary Denies: painful urination [facility] Medical History (Updated 09/06/24 @ 09:30 by Wood Goldstein MD) Fall from standing ?W19.XXXA - Unspecified fall, initial encounter (ICD-10) Colon cancer ?C18.9 - Malignant neoplasm of colon, unspecified (ICD-10) Surgical History (Updated 09/05/24 @ 14:18 by Wendy Saldivar) History of hip replacement ?Z96.649 - Presence of unspecified artificial hip joint (ICD-10) Social History (Updated 09/05/24 @ 14:14 by Wendy Saldivar) Within the past year, how often did you have a drink containing alcohol: 4 or more times a week Within the past year, how many standard drinks containing alcohol did you have on a typical day: 1 or 2 Within the past year, how often did you have six or more drinks on one occasion: never Total score: 0 Score interpretation: Questions 2 and 3 are 0. It can be assumed that the patient's drinking is below the recommended limits. However, please confirm the accuracy of the patient's alcohol intake over the last few months. 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 Highest level of school completed/degree received: 9th grade Are you now , , , , never or living with a partner: never In a typical week, how many times do you talk on the telephone with family, friends, or neighbors: twice per week How often do you get together with friends or relatives: twice per week How often do you attend yazidism or buddhist services: never Do you belong to any clubs or organizations such as yazidism groups unions, [employer] or athletic groups, or school groups: no Total score: 1 Score interpretation: A score of less than or equal to 1 indicates the most socially isolated. Little interest or pleasure in doing things: not at all Feeling down, depressed, or hopeless: not at all Meds Home Medications and Allergies Home Medications ?Medication ?Instructions ?Recorded ?Confirmed ?Type atorvastatin 80 mg tablet 80 mg PO QPM 09/01/24 09/05/24 History carvedilol 12.5 mg tablet 12.5 mg PO BID 09/01/24 09/05/24 History pantoprazole 40 mg tablet,delayed 40 mg PO QAM 09/01/24 09/05/24 History release pioglitazone 15 mg tablet 15 mg PO DAILY 09/01/24 09/05/24 History clopidogrel 75 mg tablet 75 mg PO DAILY 09/05/24 09/05/24 History docusate sodium 100 mg capsule 100 mg PO BID 09/05/24 09/05/24 History (Colace) hydrocodone 5 mg-acetaminophen 325 1 tab PO Q4H PRN pain 09/05/24 09/05/24 History mg tablet insulin regular human 100 unit/mL 10 unit subcut TIDWM 09/05/24 09/05/24 History injection solution (Novolin R Regular U-100 Insulin) lisinopril 5 mg tablet 5 mg PO DAILY 09/05/24 09/05/24 History ondansetron HCl 4 mg tablet 4 mg PO Q6H PRN nausea and vomiting 09/05/24 09/05/24 History Allergies Allergy/AdvReac Type Severity Reaction Status Date / Time No Known Drug Allergies Allergy Verified 09/05/24 10:06 Exam Constitutional Vital Signs, click to edit/add: Last Vital Signs Temp 98.0 F 09/06/24 07:45 Pulse 82 09/06/24 07:45 Resp 18 09/06/24 07:45 BP 153/70 H 09/06/24 07:45 Pulse Ox 92 L 09/06/24 07:45 O2 Del Method Room Air 09/06/24 07:45 Documenting provider has reviewed patient's vital signs: yes Common normals: no apparent distress, oriented x3 and alert HENMT Common normals: normocephalic Eye Common normals: PERRL and EOMs intact bilaterally Respiratory Common normals: normal respiratory effort and clear to auscultation bilaterally Cardio Common normals: regular rate, regular rhythm, no gallops, no murmurs and no rub GI Common normals: Normal to inspection, nondistended, normoactive bowel sounds present and non-tender Extremity Common normals: no pedal edema Results Labs Labs: [facility] 09/06/24 06:10 Sodium 136 Potassium 3.9 Chloride 101 Carbon Dioxide 26.2 BUN 23.0 H Creatinine 1.30 Glucose 213 H Calcium 8.6 Assessment and Plan Assessment and Plan (1) Left rib fracture: (2) Intractable pain: (3) Acute kidney injury: (4) Dehydration: (5) Diabetes: (6) Hypertension: Plan Presented with uncontrolled pain and CALEB due to dehydration. Labs improved with IV fluids. Continues to have uncontrolled pain. Start toradol and norflex. Increase percocet. Add PEP to encourage deep inspiration. Resume home medication. Saline lock IV.
[2024-09-06] MEDS: KETOROLAC TROMETHAMINE 30 MG/ML VIAL IVP ×3 (13:02→23:05)
[2024-09-06] MEDS: ORPHENADRINE CITRATE 100 MG TABLET.ER PO ×2 (13:03→23:05)
--- NOTE | 2024-09-06 16:28 | SWNOTE1 ---
SW met with pt to discuss dc needs. Pt lives at home alone. He has a few friends that check on him at home. Pt has a cane in the garage if needed. Pt does still drive and goes to grocery store. He voiced he may need help with this, SW recommended reaching out to his friends and also let him know that some grocery stores do deliver. He voiced understanding. JONATHAN let pt know that therapy did recommend HH. JONATHAN advised it may only be a few visits to help transition to home. Pt is agreeable and has no preference. He has had someone in past, but unsure of name. JONATHAN to send referral to [facility]. Referral sent to [facility]. Referral included face sheet, ED note, H&P, provider notes, PT notes.
[2024-09-06 16:44] LABS: Glucometer 272 mg/dL (74-106)
[2024-09-06] MEDS: DOCUSATE SODIUM 100 MG CAPSULE PO (21:01)
[2024-09-06] MEDS: ATORVASTATIN CALCIUM 40 MG TABLET 80 MG PO (21:01)
[2024-09-06 21:04] LABS: Glucometer 271 mg/dL (74-106)
[2024-09-07 03:30] VITALS: BP 152/80; PULSE 66; TEMP 36.6; O2SAT 95
[2024-09-07] MEDS: KETOROLAC TROMETHAMINE 30 MG/ML VIAL IVP (05:32)
[2024-09-07] MEDS: OMEPRAZOLE 40 MG CAPSULE.DR PO (05:32)
[2024-09-07 06:39] LABS: Anion Gap 13.7; BUN Creatinine Ratio 14.3; Calcium 8.3 mg/dL (8.5-10.1); Carbon Dioxide 23.1 mmol/L (21.0-32.0); Chloride 102 mmol/L (98-107); Estimated GFR (African America >60 (>=60 mL/min/1.73m^2); Estimated GFR (Non-African Ame 56 (>=60 mL/min/1.73m^2); Glucose 188 mg/dL (74-106); Potassium 3.8 mmol/L (3.5-5.1); Sodium 135 mmol/L (136-145)
[2024-09-07 07:35] VITALS: BP 156/78; PULSE 71; TEMP 36.7; O2SAT 94
[2024-09-07] MEDS: INSULIN ASPART 300 UNIT/3 ML PEN SUBQ (07:59)
[2024-09-07] MEDS: OXYCODONE HCL/ACETAMINOPHEN 5MG/325MG 2 TAB PO (08:00)
[2024-09-07] MEDS: CLOPIDOGREL BISULFATE 75 MG TABLET PO (08:00)
[2024-09-07] MEDS: ORPHENADRINE CITRATE 100 MG TABLET.ER PO (08:00)
[2024-09-07] MEDS: CARVEDILOL 12.5 MG TABLET PO (08:00)
[2024-09-07] MEDS: DOCUSATE SODIUM 100 MG CAPSULE PO (08:00)
[2024-09-07] MEDS: PIOGLITAZONE 15 MG TABLET PO (08:01)
[2024-09-07] MEDS: LISINOPRIL 5 MG TABLET PO (08:01)
[2024-09-07] MEDS: LIDOCAINE 5% PATCH 1 PATCH TOPICAL (08:06)
--- NOTE | 2024-09-07 10:57 | CM.NOTE ---
Rounds made with Dr. Longoria, pt very rude and not answering questions for evaluation. Pt states Just get the hell out of here. Dr. Longoria explains to pt about discharge to home today with HH services. Pt continues to yell out rude comments and not listen to instructions. RN aware of plan.
--- NOTE | 2024-09-07 11:18 | PM.DS1 ---
DS: Providers Provider Date of admission: 09/05/24 13:43 Primary care physician: TIKA URIOSTEGUI Admitting clinician: Wood Goldstein Attending physician on admission: Wood Goldstein Consults: 09/06/24 Physical Therapy Eval and Treat Routine Reason for consultation: fall Attending physician on discharge: Shaikh Swati Discharging clinician: Shaikh Swati Anticipated date of discharge: 09/07/24 DS: Diagnosis Discharge Diagnosis (1) Left rib fracture: Qualifiers: Encounter type: subsequent encounter Fracture healing: with routine healing Fracture type: closed Rib fracture type: multiple ribs Qualified Code(s): S22.42XD - Multiple fractures of ribs, left side, subsequent encounter for fracture with routine healing (2) Intractable pain: (3) Acute kidney injury: (4) Dehydration: (5) Diabetes: Qualifiers: Diabetes mellitus complication status: without complication Diabetes mellitus intermission coordinator insulin use: without intermission coordinator use Diabetes mellitus type: type 2 Qualified Code(s): E11.9 - Type 2 diabetes mellitus without complications (6) Hypertension: Qualifiers: Hypertension type: primary hypertension Qualified Code(s): I10 - Essential (primary) hypertension DS: Summary Hospital Course Hospital Course: 74-year-old male fell and slipped on ice and was seen in ER on 09/01 and was found to have left ninth and 10th rib fracture and discharged on oral narcotic. However, he returned back with intractable pain and was admitted for pain control. He was also found to have acute kidney injury from poor oral intake and dehydration. Patient was admitted for pain control and received combination of oral and IV narcotics. He was also hydrated with IV fluids. Patient is doing well today with pain reasonably controlled. We also added lidocaine patch that seems to have done the trick. Patient medically stable for discharge. He will need to follow-up with PCP in 1 to 2 weeks. Status at Discharge Functional status at discharge: independent ambulation Overall status at discharge: patient is back to baseline Time Spent with Patient Time attestation: Total time spent providing and/or coordinating discharge services: Time spent: greater than 30 minutes Exam Constitutional Vital Signs, click to edit/add: Last Vital Signs Temp 98.1 F 09/07/24 07:35 Pulse 71 09/07/24 07:35 Resp 18 09/07/24 07:35 BP 156/78 H 09/07/24 07:35 Pulse Ox 94 L 09/07/24 07:35 O2 Del Method Room Air 09/07/24 07:35 Documenting provider has reviewed patient's vital signs: yes Common normals: no apparent distress and oriented x3 General appearance: cooperative Chest Chest: tenderness rib (left lower ribs ) Respiratory Common normals: normal respiratory effort and clear to auscultation bilaterally Effort & inspection: able to speak in complete sentences Auscultation: clear to auscultation bilaterally Cardio Common normals: regular rate, S1 normal heart sound and S2 normal heart sound Rate: regular rate Heart sounds: S1 normal and S2 normal Extremity Common normals: no clubbing, cyanosis or edema Neuro Common normals: oriented x3, moves all extremities and no focal motor deficits Psych Common normals: mental status grossly normal, thought process normal, denies hallucinations, denies homicidal ideation and denies suicidal ideation DS: Data Data Completed and Pending Labs on day of discharge: Labs from last 24 hours 09/07/24 09/06/24 09/06/24 06:16 21:03 16:39 Sodium 135 L Potassium 3.8 Chloride 102 Carbon Dioxide 23.1 Anion Gap 13.7 BUN 18.0 Creatinine 1.26 Est GFR ( Amer) >60 Est GFR (Non-Af Amer) 56 L BUN/Creatinine Ratio 14.3 Glucose 188 H Calcium 8.3 L POC Glucose 271 H 272 H 09/06/24 11:14 Sodium Potassium Chloride Carbon Dioxide Anion Gap BUN Creatinine Est GFR ( Amer) Est GFR (Non-Af Amer) BUN/Creatinine Ratio Glucose Calcium POC Glucose 200 H Discharge Plan Discharge Disposition: Home Health Service Condition: Fair Discharge Medications: Continued carvedilol 12.5 mg tablet 12.5 mg PO BID pantoprazole 40 mg tablet,delayed release (DR/EC) 40 mg PO QAM pioglitazone 15 mg tablet 15 mg PO DAILY atorvastatin 80 mg tablet 80 mg PO QPM Novolin R Regular U100 Insulin 100 unit/mL solution 10 unit subcut TIDWM hydrocodone-acetaminophen 5-325 mg tablet 1 tab PO Q4H PRN (Reason: pain) clopidogrel 75 mg tablet 75 mg PO DAILY lisinopril 5 mg tablet 5 mg PO DAILY ondansetron HCl 4 mg tablet 4 mg PO Q6H PRN (Reason: nausea and vomiting) docusate sodium [Colace] 100 mg capsule 100 mg PO BID Activity: increase activity as tolerated Diet: advance to your usual diet Print Language: Pashto Forms: Portal Instructions Follow Up Appointments: @ 10am with Tika Uriostegui, [facility] [phone]
[2024-09-07 11:33] LABS: Glucometer 197 mg/dL (74-106)
[2024-09-07 12:06] VITALS: BP 150/75; PULSE 60; TEMP 36.6; O2SAT 96
--- NOTE | 2024-09-07 12:07 | SWNOTE1 ---
JONATHAN received a call from [facility] and they are able to accept. 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 JONATHAN faxed dc med rec, dc summary, and CRF to [facility]. JONATHAN to let Lukas know once he arrives that pt is set up with [facility].
--- NOTE | 2024-09-08 13:42 | CM.DCFOLLOWU ---
1st attempt 09/08/24, message stating subscriber is not in service
--- NOTE | 2024-09-09 12:52 | CM.DCFOLLOWU ---
2nd attempt 09/09/24, message stating subscriber not in service
--- NOTE | 2024-09-10 15:19 | CM.DCFOLLOWU ---
3rd attempt 09/10 - message stating subscriber not in service
== END 2024-09-07 14:32 | disposition home health service (06) ==
LOC: ER 12:27 → MS 13:47
PROVIDERS: Admitting Provider Family Medicine; Emergency Provider Emergency Medicine; PCP Nurse Practitioner Family; Visit Provider Internal Medicine
DX: E86.0 Dehydration (principal); N17.9 Acute kidney failure, unspecified; S22.42XA Multiple fractures of ribs, left side, initial encounter for closed fracture; E11.9 Type 2 diabetes mellitus without complications; I10 Essential (primary) hypertension; S22.42XD Multiple fractures of ribs, left side, subsequent encounter for fracture with routine healing; W00.0XXD Fall on same level due to ice and snow, subsequent encounter; Z79.4 Long term (current) use of insulin; Z79.84 Long term (current) use of oral hypoglycemic drugs
CPT/HCPCS: 36415; 71045; 80048; 82948; 85025; 93005; 94667; 94668; 96361; 96374; 96375; 96376; 97161; 99285; G0378; J0360; J1885; J2270

== ENCOUNTER 2025-03-26 18:48 | Emergency (ER) | payer OTHER, SELFPAY ==
[2025-03-26 18:51] VITALS: BP 116/80; PULSE 81; TEMP 36.5; O2SAT 98; BMI 29.1
--- OUTSIDE RECORDS SUMMARY | 2025-03-26 18:55 | XMS_ITS | CCD ---
Author Organization [facility] Care Team Providers Care Sharepoint Net Developer Name Role Phone AIMEE, DR DOWLING Primary [...] Unavailable MD Jonathon Isbell Primary Care Provider [phone] MD Christian Montana Attending Provider Unavailable Primary Care Provider Unavailmartinez e PROVIDER, UNKNOWN Attending Unavailable PROVIDER, UNKNOWN Admitting Unavailable Christian Montana Attending Unavailable Jonathon Isbell Primary Care Unavailable Christian Montana Admitting Unavailable Christian Montana Attending Unavailable Jonathon Isbell Primary Care Unavailable Christian Montana Admitting Unavailable Ulisses Yu MD Primary Care Provider [phone] Jonathon Isbell MD Unavailable [phone] KAELA MILTON Attending Unavailable KAELA MILTON Attending Unavailable KAELA MILTON Attending Unavailable Ulisses Yu MD Unavailable Unavailable Primary Care Provider Unavailmartinez montelongo Unallocatquoc HOLBROOK, Anas Provider Primary Care Provi martina Allergies Allergy Classification Reported Allergen(s) Allergy Type Date of Onset Reaction(s) Facility (5 sources) gabapentin Drug Allergy 06-24-[address] [facility] Work Phone: Medications Current Medications [...] 2021 12:00am atorvastatin 80 mg oral tablet (7 sources) HMG-CoA Reductase Inhibitor Start: 10-28-2023 take 1 tablet by mouth at bedtime atorvastatin (Lipitor) 80 MG tablet Indications: Mixed hyperlipidemia (CMS/HCC) Take 1 tablet (80 mg) by mouth at bedtime 100 tablet 3 10/28/2023 Active Start: 03-28-2021 take 80 mg by mouth once daily Atorvastatin Active 80 MG PO Daily March 28, 2021 12:00am carvedilol 12.5 mg oral tablet (7 sources) alpha-Adrenergic Elio, beta-Adrenergic Elio Start: 10-28-2023 [...] 2021 12:00am clopidogrel 75 mg oral tablet (7 sources) P2Y12 Platelet Inhibitor Start: 11-19-2023 take 1 tablet by mouth once daily clopidogrel (Plavix) 75 MG tablet Indications: Peripheral vascular disease, unspecified (CMS/HCC) TAKE 1 TABLET BY MOUTH EVERY DAY FOR 90 DAYS 90 tablet 3 11/19/2023 Active Start: 08-11-2023 take 1 tablet by mau th once daily clopidogrel (Plavix) 75 MG tablet Indications: Peripheral vascular disease, unspecified ([facility]) TAKE 1 TABLET BY MOUTH EVERY DAY [...] 2021 12:00am glipiZIDE 10 mg oral tablet (7 sources) Sulfonylurea Start: 10-28-2023 take 1 tablet by mouth once daily glipiZIDE (Glucotrol) 10 MG tablet Indications: Type 2 diabetes mellitus with diabetic neuropathy, without long-term current use of insulin ([facility]) Take 1 tablet (10 mg) by mouth Daily 100 tablet 3 10/28/2023 Active Start: 03-28-2021 take 1 tablet by mau th in the morning glipiZIDE (Glucotrol) 10 MG tablet Indications: Type 2 diabetes mellitus with diabetic neuropathy, without long-term current use of insulin ([facility]) Take 1 tablet (10 mg) by mouth in the morning. 100 tablet 3 2023 Active 3 ml insulin glargine 100 unt/ml pen injector (3 sources) Insulin Analog Start: 10-28-2023 insulin glargi ne (Basaglar KwikPen) 100 UNIT/ML pen Indications: Type 2 diabetes mellitus with diabetic neuropathy, without long-term current use of insulin ([facility]) Inject 20 Units under the skin at bedtime 10/28/2023 Active insulin, regular, human 100 unt/ml injectable solution (3 sources) Insulin Start: 11-14-2023 End: 11-13-2024 insulin regular (NovoLIN R) 100 UNIT/ML injection Indications: Type 2 diabetes mellitus with other specified complication, without long-term current use of insulin Inject 0.1 mL (10 Units) under the skin in the morning and 0.1 mL (10 Units) at noon and 0.1 mL (10 Units) in the evening. Inject with meals. 27 mL 3 11/14/2023 Active lisinopril 5 mg oral tablet (7 sources) Angiotensin Converting Enzyme Inhibitor Start: 05-27-2023 End: 06-30-2024 take 1 tablet by mouth in the morning lisinopril 5 MG tablet Indications: Benign hypertension (CMS/HCC) Take 1 tablet (5 mg) by mouth in the morning. 100 tablet 3 05/27/2023 Active Start: 08-02-2021 take 1 tablet by [...] pantoprazole 40 mg delayed release oral tablet (3 sources) Proton Pump Inhibitor Start: 10-28-2023 take 1 tablet by mouth before mealtime pantoprazole (Protonix) 40 MG EC tablet Indications: Gastroesophageal reflux disease without esophagitis Take 1 tablet (40 mg) by mouth in the morning. Take before meals. Do not crush, chew, or split.. 100 tablet 3 10/28/2023 Active pioglitazone 15 mg oral tablet (5 sources) Peroxisome Proliferator Receptor alpha Agonist, Peroxisome [...] Documented Da te Episodic/Chronic Acquired foot deformities (5 sources) Hammer toe; Translations: [Other hammer toe(s) (acquired), unspecified foot] Onset: 12-19-2022 12-19-2022 Chronic Alcohol-related disorders (10 sources) Nondependent alcohol abuse, continuous; Translations: [Alcohol abuse, uncomplicated] Onset: 12-19-2022 07-12-2021 Chronic Anxiety disorders (5 sources) Anxiety disorder; Translations: [Other specified anxiety disorders] Onset: 02-24-2020 01-28-2023 Chronic Cancer of colon (7 sources) Malignant tumor of sigmoid colon; Translations: [Malignant neoplasm of sigmoid colon] Onset: 12-19-2022 07-12-2021 Chronic Conditions associated with dizziness or vertigo (1 source) Dizziness; Translations: [Dizziness and giddiness] Episodic Diabetes mellitus with complications (20 sources) Type 2 diabetes mellitus with hyperglycemia; Translations: [Type 2 diabetes mellitus with diabetic neuropathy, unspecified] Onset: 02-21-2021 Resolved: 10-28-2023 12-19-2022 Chronic Diabetes mellitus without complication (2 sources) Diabetes mellitus; Translations: [Type 2 diabetes mellitus without complications] 05-12-2021 Chronic Diabetes mellitus without complication (1 source) Hyperglycemia; Translations: [Hyperglycemia, unspecified] Episodic Disorders of lipid metabolism (6 sources) Hyperlipidemia, unspecified; Translations: [Hyperlipidemia] Onset: 02-24-2020 01-28-2023 Chronic Esophageal disorders (6 sources) Gastro-esophageal reflux disease without esophagitis; Translations: [Gastroesophageal reflux disease] Onset: 02-06-2022 12-19-2022 Chronic Essential hypertension (8 sources) Hypertensive disorder; Translations: [Essential (primary) hypertension] Onset: 12-19-2022 09-27-2021 Chronic Intracranial injury (1 source) Personal history of traumatic brain injury; Translations: [PERSONAL HX TRAUMATIC BRAIN INJURY] Onset: 02-06-2022 Episodic Maintenance chemotherapy; radiotherapy (2 sources) Patient encounter status; Translations: [Encounter for antineoplastic chemotherapy] 07-12-2021 Chronic Osteoarthritis (10 sources) Osteoarthritis of right hip joint; Translations: [Unilateral primary osteoarthritis, right hip] Onset: 02-24-2020 Resolved: 05-12-2023 01-28-2023 Chronic Other aftercare (1 source) group home (current) use of oral hypoglycemic drugs; Translations: [[employer] MA[employer]GER USE ORAL HYPOGLYCEMIC DX] Onset: 02-06-2022 Episodic Other aftercare (1 source) 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; Translations: [OTH [facility] CURRENT DRUG THERAPY] Onset: 02-06-2022 Episodic Other circulatory disease (1 source) Personal history of transient ischemic attack (TIA), and cerebral infarction without residual deficits; Translations: [PERS HX TIA AND CI NO RESID DEFICIT] Onset: 02-06-2022 Episodic Other connective tissue disease (5 sources) History of total hip arthroplasty; Translations: [Presence of right artificial hip joint] Onset: 12-19-2022 12-19-2022 Chronic Other male genital disorders (5 sources) Male erectile dysfunction, unspecified; Translations: [Impotence of organic origin] Onset: 12-19-2022 12-19-2022 Chronic Other nervous system disorders (5 sources) Spinal cord disease; Translations: [Disease of spinal cord, unspecified] Onset: 12-19-2022 12-19-2022 Chronic Other nervous system disorders (5 sources) Difficulty walking; Translations: [Difficulty in walking, not elsewhere classified] Onset: 02-24-2020 01-28-2023 Chronic Other screening for suspected conditions (not mental disorders or infectious disease) (1 source) Abnormal findings on diagnostic imaging of skull and head, not elsewhere classified; Translations: [ABNORM FIND DX IMAG SKULL HEAD NEC] Onset: 02-06-2022 Episodic Peripheral and visceral atherosclerosis (16 sources) Peripheral vascular disease, unspecified; Translations: [Intermittent [...] Date Documented Da te Episodic/Chronic Acute bronchitis (5 sources) Acute mycoplasmal bronchitis; Translations: [Acute bronchitis due to Mycoplasma pneumoniae] Onset: 02-24-2020 Resolved: 05-12-2023 05-12-2023 Episodic Administrative/social admission (5 sources) Literacy problems; Translations: [Illiteracy and low-level literacy] Onset: 02-24-2020 01-28-2023 Episodic Allergic reactions (7 sources) Acral erythema due to cytotoxic therapy; Translations: [Localized skin eruption due to drugs and medicaments taken internally] Onset: 02-24-2020 Resolved: 05-12-2023 09-12-2021 Episodic Deficiency and other anemia (5 sources) Anemia; Translations: [Anemia, unspecified] Onset: 12-19-2022 12-19-2022 Episodic Mood disorders (5 sources) Mood disorders Onset: 05-12-2023 05-12-2023 Other connective tissue disease (5 sources) Muscle weakness; Translations: [Muscle weakness (generalized)] Onset: 02-24-2020 01-28-2023 Episodic Other connective tissue disease (5 sources) Recurrent falls ; Translations: [Repeated falls] Onset: 05-01-2023 05-01-2023 Episodic Other gastrointestinal disorders (5 sources) Diarrhea due to drug; Translations: [Toxic gastroenteritis and colitis] Onset: 10-20-2023 Resolved: 10-20-2023 09-12-2021 Episodic Other gastrointestinal disorders (5 sources) Abnormal feces; Translations: [Other fecal abnormalities] Onset: 12-19-2022 12-19-2022 Episodic Other gastrointestinal disorders (5 sources) Incontinence of feces; Translations: [Full incontinence of feces] Onset: 12-19-2022 12-19-2022 Episodic Other lower respiratory disease (5 sources) Solitary nodule of lung; Translations: [Solitary pulmonary nodule] Onset: 10-20-2023 07-12-2021 Episodic Other nervous system disorders (5 sources) Acute postoperative pain; Translations: [Other acute postprocedural pain] Onset: 10-20-2023 Resolved: 10-20-2023 05-11-2021 Episodic Other non-traumatic joint disorders (5 sources) Pain in right knee; Translations: [Pain in joint, lower leg] Onset: 02-22-2020 01-28-2023 Episodic Other non-traumatic joint disorders (3 sources) Pain in right hip joint; Translations: [Pain in right hip] Onset: 02-24-2020 01-28-2023 Episodic Other non-traumatic joint disorders (2 sources) Hip pain; Translations: [Pain in right hip] Onset: 02-24-2020 01-28-2023 Episodic Other nutritional; endocrine; and metabolic disorders (5 sources) Overweight in adulthood with body mass index of 25 or more but less than 30; Translations: [Body mass index (BMI) 27.0-27.9, adult] Onset: 02-24-2020 Resolved: 05-12-2023 05-12-2023 Episodic Residual codes; unclassified (5 sources) History of colectomy; Translations: [Acquired absence of other specified parts of digestive tract] Onset: 10-20-2023 05-11-2021 Episodic Residual codes; unclassified (4 sources) Noncompliance with medication regimen; Translations: [Patient's other noncompliance with medication regimen] Onset: 02-24-2020 Episodic Residual codes; unclassified (5 sources) Insomnia; Translations: [Insomnia, unspecified] Onset: 02-24-2020 01-28-2023 Episodic Spondylosis; intervertebral disc disorders; other back problems (5 sources) Lumbago co-occurrent with right-side sciatica; Translations: [Lumbago with sciatica, right side] Onset: 02-24-2020 01-28-2023 Episodic Syncope (9 sources) Syncope and collapse; Translations: [Syncope and collapse] Onset: 02-24-2020 Resolved: 05-12-2023 Episodic Results Test Name Value Interpretation Reference Range Facility Progress Noteson 08-08-2022 [employer] Authentication Interface Message Text EMERGENCY TRIAGE, TREAT AND TRANSPORT (ET3) DOCUMENTATION OF TELEHEALTH VISIT Date / Time: 08/08/2022 / 1199 Name: Mikhail Menon : 1950 SSN: (Not on file) EMS Agency: [facility] [x] Verbal consent obtained [] Implied [...] Completed by: Lei Wolf MD Normal [facility] Glucose Poct Glucometerson 1 Commemt1 Glu2: Cleaned Meter [facility] Comment on above: Result Comment: PERF ORMED BY: [facility] [address] [place] [address] PATHOLOGIST GRAVEL HAULER BULMARO HALL M.D. Performed By: #### G LULS #### Point of Care testing , Glucose [Mass/Vol] 179 mg/dL Normal [facility] Comment on above: Result Comment: [facility] Glucose Reference Range is dependent on time and content of last meal. Glucose of more than 200 mg/dL in a nonstressed, ambulatory subject supports the diagnosis of Diabetes Mellitus. Performed By: #### G LULS #### Point of Care testing , Glucose [Mass/Vol] 198 mg/dL Normal [facility] Comment on above: Result Comment: [facility] Glucose Reference Range is dependent on time and content of last meal. Glucose of more than 200 mg/dL in a nonstressed, ambulatory subject supports the diagnosis of Diabetes Mellitus. PERFORMED BY: [facility] [address] [place] [address] PATHOLOGIST GRAVEL HAULER BULMARO HALL M.D. Performed By: #### G [...] developed and its performance characteristic determined by [employer] and validated at [facility]. This test has not been FDA cleared [...] for SARS Antigen by DOROTHEA PERFORMED BY: [facility] [address] [place] [address] PATHOLOGIST GRAVEL HAULER BULMARO HALL M.D. [facility] Comment on above: Performed By: #### C OVID-19 CAMILA, SOFIANEG #### [address] COVID-19 SOFIAOrdered By: Byron Montana on 05-16-2022 SARS-CoV+SARS-CoV-2 (COVID-19) Ag IA.rapid Ql (Resp) Negative Negative [facility] Comment on above: This is a duplicate Camila SARS Antigen (DOROTHEA) result to be used for statistical tracking purpose only. No Panel InformationOrdered By: Christian Montana on 05-16-2022 SARS Antigen (LFIA) [facility] Camila Ag Negativeon 05-16-20 Camila Ag Negative Negative Normal Negative [place] Comment on above: Result Comment: This is a duplicate Camila SARS Antigen (DOROTHEA) result to be used for statistical tracking purpose only. PERFORMED BY: [facility] [address] [place] [address] PATHOLOGIST GRAVEL HAULER BULMARO HALL M.D. Performed By: #### C OVID-19 CAMILA, SOFIANEG #### [facility] [address] CBC AUTO DIFFon 02-02-2022 BASO # 0.1 103/ul Normal 0.0-0.1 [facility] Comment on above: Performed By: #### C BC #### [facility] [address] [address] [address] Bucky Gold Basophils/100 WBC (Bld) 1.3 % Normal 0.2-2.0 [facility] Comment on above: Performed By: #### C BC #### [facility] [address] [address] [address] Bucky Gold EO # 0.7 103/ul Normal 0.0-0.7 [facility] Comment on above: Performed By: #### C BC #### [facility] [address] [address] [address] Bucky Gold Eosinophils/100 WBC (Bld) 12.1 % Critically high 0.9-7.0 [facility] Comment on above: Performed By: #### C BC #### [facility] [address] [place] [address] Dr. Bucky Gold Erythrocyte distribution width (RBC) [Ratio] 12.1 % Normal 11.0-15.0 [facility] Comment on above: Performed By: #### C BC #### [facility] [address] [place] [address] Dr. Bucky Gold Hematocrit (Bld) [Volume fraction] 38.0 % Critically low 42.0-54.0 [facility] Comment on above: Performed By: #### C BC #### [facility] [address] [place] [address] Dr. Bucky Gold Hemoglobin (Bld) [Mass/Vol] 12.7 g/dL Critically low 14.0-18.0 [facility] Comment on above: Performed By: #### C BC #### [facility] [address] [place] [address] Dr. Bucky Gold IG # 0.01 10e3/ul Normal 0.00-0.03 [facility] Comment on above: Performed By: #### C BC #### [facility] [address] [place] [address] Dr. Bucky Gold IG % 0.2 % Normal 0.0-0.5 [facility] Comment on above: Performed By: #### C BC #### [facility] [address] [place] [address] Dr. Bucky Gold LYMPH # 1.0 103/ul Critically low 1.2-3.8 [facility] Comment on above: Performed By: #### C BC #### [facility] [address] [place] [address] Dr. Bucky Gold Lymphocytes/100 WBC (Bld) 18.4 % Critically low 20.5-60.0 [facility] Comment on above: Performed By: #### C BC #### [facility] [address] [place] [address] Dr. Bucky Gold MANUAL DIFF REQ NO Normal [facility] Comment on above: Performed By: #### C BC #### [facility] [address] [place] [address] Dr. Bucky Gold MCH (RBC) [Entitic mass] 32.8 pg Normal 25.9-34.0 [facility] Comment on above: Performed By: #### C BC #### [facility] [address] [address] [address] Bucky Gold MCHC (RBC) [Mass/Vol] 33.4 g/dL Normal 29.9-35.2 [facility] Comment on above: Performed By: #### C BC #### [facility] [address] [address] [address] Bucky Gold MCV (RBC) [Entitic vol] 98.2 fL Critically high 80.0-94.0 [facility] Comment on above: Performed By: #### C BC #### [facility] [address] [place] [address] Dr. Bucky Gold MONO # 0.4 103/ul Normal 0.3-0.8 [facility] Comment on above: Performed By: #### C BC #### [facility] [address] [place] [address] Dr. Bucky Gold Monocytes/100 WBC (Bld) 6.8 % Normal 1.7-12.0 [facility] Comment on above: Performed By: #### C BC #### [facility] [address] [place] [address] Dr. Bucky Gold NEUT # 3.4 103/ul Normal 1.4-6.5 [facility] Comment on above: Performed By: #### C BC #### [facility] [address] [place] [address] Dr. Bucky Gold Neutrophils/100 WBC (Bld) 61.2 % Normal 43.0-75.0 [facility] Comment on above: Performed By: #### C BC #### [facility] [address] [place] [address] Dr. Bucky Gold Platelet mean volume (Bld) [Entitic vol] 10.1 fL Normal 9.5-13.5 [facility] Comment on above: Performed By: #### C BC #### [facility] [address] [place] [address] Dr. Bucky Gold PLT 154 103/ul Normal 150-450 [facility] Comment on above: Performed By: #### C BC #### [facility] [address] [address] [address] Bucky Gold RBC 3.87 106/ul Critically low 4.70-6.10 [facility] Comment on above: Performed By: #### C BC #### [facility] [address] [address] [address] Bucky Gold WBC 5.6 103/ul Normal 4.0-11.0 [facility] Comment on above: Performed By: #### C BC #### [facility] [address] [address] [address] Bucky Gold POINT OF CARE GLUCOSEon 01-18 Glucose [Mass/Vol] 214 mg/dL Critically high 74-106 [facility] Comment on above: Performed By: #### P OCGLUC #### [facility] [address] [place] [address] Dr. Bucky Gold PROF CHEM 8 (BAS METB)on Anion gap [Moles/Vol] 10.4 mmol/L Normal [facility] Comment on above: Performed By: #### B MP #### [facility] [address] [place] [address] Dr. Bucky Gold Calcium [Mass/Vol] 8.3 mg/dL Critically low 8.5-10.1 [facility] Comment on above: Performed By: #### B MP #### [facility] [address] [place] [address] Dr. Bucky Gold Chloride [Moles/Vol] 104 mmol/L Normal 98-107 [facility] Comment on above: Performed By: #### B MP #### [facility] [address] [place] [address] Dr. Bucky Gold CO2 [Moles/Vol] 25.5 mmol/L Normal 21.0-32.0 [facility] Comment on above: Performed By: #### B MP #### [facility] [address] [place] [address] Dr. Bucky Gold Creatinine [Mass/Vol] 0.89 mg/dL Normal 0.70-1.30 [facility] Comment on above: Performed By: #### B MP #### [facility] [address] [address] [address] Bucky Gold EGFR-AF ERITREAN >60 Normal >=60 [facility] Comment on above: Performed By: #### B MP #### [facility] [address] [address] [address] Bucky Gold EGFR-NON AF ERITREAN >60 Normal >=60 [facility] Comment on above: Performed By: #### B MP #### [facility] [address] [address] [address] Bucky Gold Glucose [Mass/Vol] 138 mg/dL Critically high 74-106 [facility] Comment on above: Performed By: #### B MP #### [facility] [address] [place] [address] Dr. Bucky oGld Potassium [Moles/Vol] 3.9 mmol/L Normal 3.5-5.1 [facility] Comment on above: Performed By: #### B MP #### [facility] [address] [place] [address] Dr. Bucky Gold Sodium [Moles/Vol] 136 mmol/L Normal 136-145 [facility] Comment on above: Performed By: #### B MP #### [facility] [address] [place] [address] Dr. Bucky Gold Urea nitrogen [Mass/Vol] 12.0 mg/dL Normal 7.0-18.0 [facility] Comment on above: Performed By: #### B MP #### [facility] [address] [place] [address] Dr. Bucky Gold Urea nitrogen/Creatinine [Mass ratio] 13.5 mg/mg Normal [facility] Comment on above: Performed By: #### B MP #### [facility] [address] [place] [address] Dr. Bucky Gold CBC W MANUAL DIFFon 02-02-20 22 ATYPICAL LYMPH # Normal [facility] Comment on above: Performed By: #### C BCMAN #### [facility] [address] [address] [address] Bucky Gold ATYPICAL LYMPH % Normal [facility] Comment on above: Performed By: #### C BCMAN #### [facility] [address] [place] [address] Dr. Bucky Gold BAND # Normal 0.0-0.3 [facility] Comment on above: Performed By: #### C BCMAN #### [facility] [address] [place] [address] Dr. Bucky Gold BAND % Normal 0-5 [facility] Comment on above: Performed By: #### C BCMAN #### [facility] [address] [place] [address] Dr. Bucky Gold BASOM # 0.00 103/ul Normal 0.00-0.10 [facility] Comment on above: Performed By: #### C BCMAN #### [facility] [address] [place] [address] Dr. Bucky Gold BASOM % 0.0 % Critically low 0.2-2.0 [facility] Comment on above: Performed By: #### C BCMAN #### [facility] [address] [place] [address] Dr. Bucky Gold BLAST # Normal [facility] Comment on above: Performed By: #### C BCMAN #### [facility] [address] [place] [address] Dr. Bucky Gold BLAST % Normal [facility] Comment on above: Performed By: #### C BCMAN #### [facility] [address] [place] [address] Dr. Bucky Gold CORRECTED WBC Normal 4.0-11.0 [facility] Comment on above: Performed By: #### C BCMAN #### [facility] [address] [place] [address] Dr. Bucky Gold EOS # 0.00 103/ul Normal 0.00-0.70 [facility] Comment on above: Performed By: #### C BCMAN #### [facility] [address] [place] [address] Dr. Bucky Gold EOS% 0.0 % Critically low 0.9-7.0 [facility] Comment on above: Performed By: #### C PRIYA #### [facility] [address] [place] [address] Dr. Bucky Gold HCT 32.5 % Critically low 42.0-54.0 [facility] Comment on above: Performed By: #### C PRIYA #### [facility] [address] [address] [address] Bucky Gold HGB 10.8 g/dl Critically low 14.0-18.0 [facility] Comment on above: Performed By: #### C PRIYA #### [facility] [address] [place] [address] Dr. Bucky Gold LYMPHM # 0.55 103/ul Critically low 1.20-3.80 [facility] Comment on above: Performed By: #### C PRIYA #### [facility] [address] [place] [address] Dr. Bucky Gold LYMPHM% 14.0 % Critically low 20.5-60.0 [facility] Comment on above: Performed By: #### C PRIYA #### [facility] [address] [place] [address] Dr. Bucky Gold MCH 33.0 pg Normal 25.9-34.0 [facility] Comment on above: Performed By: #### C PRIYA #### [facility] [address] [place] [address] Dr. Bucky Gold MCHC 33.2 g/dl Normal 29.9-35.2 [facility] Comment on above: Performed By: #### C PRIYA #### [facility] [address] [place] [address] Dr. Bucky Gold MCV 99.4 fL Critically high 80.0-94.0 [facility] Comment on above: Performed By: #### C PRIYA #### [facility] [address] [place] [address] Dr. Bucky Gold METAMYELOCYTE # Normal [facility] Comment on above: Performed By: #### C PRIYA #### [facility] [address] [address] [address] Bucky Gold METAMYELOCYTE % Normal [facility] Comment on above: Performed By: #### C PRIYA #### [facility] [address] [place] [address] Dr. Bucky Gold MONOM# 0.12 103/ul Critically low 0.30-0.80 [facility] Comment on above: Performed By: #### C PRIYA #### [facility] [address] [place] [address] Dr. Bucky Gold MONOM% 3.0 % Normal 1.7-12.0 [facility] Comment on above: Performed By: #### C PRIYA #### [facility] [address] [place] [address] Dr. Bucky Gold MPV 10.5 fL Normal 9.5-13.5 [facility] Comment on above: Performed By: #### C PRIYA #### [facility] [address] [place] [address] Dr. Bucky Gold MYELOCYTE # Normal [facility] Comment on above: Performed By: #### C PRIYA #### [facility] [address] [place] [address] Dr. Bucky Gold MYELOCYTE % Normal [facility] Comment on above: Performed By: #### C PRIYA #### [facility] [address] [place] [address] Dr. Bucky Gold NRBC Normal [facility] Comment on above: Performed By: #### C PRIYA #### [facility] [address] [place] [address] Dr. Bucky Gold PLT 143 103/ul Critically low 150-450 [facility] Comment on above: Performed By: #### C PRIYA #### [facility] [address] [place] [address] Dr. Bucky Gold RBC 3.27 106/ul Critically low 4.70-6.10 [facility] Comment on above: Performed By: #### C PRIYA #### [facility] [address] [address] [address] Bucky Gold RDW 12.0 % Normal 11.0-15.0 [facility] Comment on above: Performed By: #### C PRIYA #### [facility] [address] [address] [address] Bucky Gold SEG # 3.24 103/ul Normal 1.40-6.50 [facility] Comment on above: Performed By: #### C PRIYA #### [facility] [address] [address] [address] Bucky Gold SEG % 83.0 % Critically high 43.0-75.0 [facility] Comment on above: Performed By: #### C PRIYA #### [facility] [address] [address] [address] Bucky Gold WBC 3.9 103/ul Critically low 4.0-11.0 [facility] Comment on above: Performed By: #### Heidi POWERS #### [facility] [address] [place] [address] HEAD WO CONon [...] ROEL TRAN Date: 2022-02-01 10:57 Normal [facility] Covid-19 PCR (CVDTBH)on 01-18 SARS-CoV-2 (COVID-19) RNA ROSIBEL+probe Ql (Unsp spec) Detected Critically abnormal NOT DETECTED [facility] Comment on above: Result Comment: This test is not yet approved or cleared by the [place] FDA. When there are no FDA-approved or cleared tests available, and other criteria are met, FDA can make tests available under an emergency access mechanism called an Emergency Use Authorization (EUA). The EUA for this test is supported by the [employer] Operator of Health and Human Service's declaration that [...] Performed By: #### B MP, HSTROPN #### [facility] [address] [place] [address] Dr. Bucky Gold ECHO LIMITED STUDYon 022 ECHO LIMITED STUDY Patient: MIKHAIL MENON Exam Date: 02/01/2022 : 1950 Gender:M Ordering : DR BELKIS YU . Admission #: [id number] Family : DR ULISSES YU M.D. Order #: [id number] CLICK HERE TO VIEW EXAM ECHOCARDIOGRAM REPORT [...] Amin M.D. on 02/01/2022 at 18:43 Normal [facility] POINT OF CARE GLUCOSEon 01-18 Glucose [Mass/Vol] 209 mg/dL Critically high 74-106 [facility] Comment on above: Performed By: #### P OCGLUC #### [facility] [address] [address] [address] Bucky Gold PROF CHEM 8 (BAS METB)on Anion gap [Moles/Vol] 11.8 mmol/L Normal [facility] Comment on above: Performed By: #### B MP, HSTROPN #### [facility] [address] [address] [address] Bucky Gold Calcium [Mass/Vol] 7.8 mg/dL Critically low 8.5-10.1 [facility] Comment on above: Performed By: #### B MP, HSTROPN #### [facility] [address] [address] [address] Bucky Gold Chloride [Moles/Vol] 104 mmol/L Normal 98-107 [facility] Comment on above: Performed By: #### B MP, HSTROPN #### [facility] [address] [address] [address] Bucky Gold CO2 [Moles/Vol] 24.1 mmol/L Normal 21.0-32.0 [facility] Comment on above: Performed By: #### B MP, HSTROPN #### [facility] [address] [address] [address] Bucky Gold Creatinine [Mass/Vol] 1.36 mg/dL Critically high 0.70-1.30 [facility] Comment on above: Performed By: #### B MELLY, HSTROPN #### [facility] [address] [place] [address] Dr. Bucky Gold EGFR-AF ERITREAN >60 Normal >=60 [facility] Comment on above: Performed By: #### B MELLY, HSTROPN #### [facility] [address] [place] [address] Dr. Bucky Gold EGFR-NON AF ERITREAN 52 mL/min/1.73m2 Critically low >=60 [facility] Comment on above: Performed By: #### B MELLY, HSTROPN #### [facility] [address] [place] [address] Dr. Bucky Gold Glucose [Mass/Vol] 211 mg/dL Critically high 74-106 [facility] Comment on above: Performed By: #### B MELLY, HSTROPN #### [facility] [address] [place] [address] Dr. Bucky Gold Potassium [Moles/Vol] 3.9 mmol/L Normal 3.5-5.1 [facility] Comment on above: Performed By: #### B MELLY, HSTROPN #### [facility] [address] [place] [address] Dr. Bucky Gold Sodium [Moles/Vol] 136 mmol/L Normal 136-145 [facility] Comment on above: Performed By: #### B MELLY, HSTROPN #### [facility] [address] [place] [address] Dr. Bucky Gold Urea nitrogen [Mass/Vol] 16.0 mg/dL Normal 7.0-18.0 [facility] Comment on above: Performed By: #### B MELLY, HSTROPN #### [facility] [address] [place] [address] Dr. Bucky Gold Urea nitrogen/Creatinine [Mass ratio] 11.8 mg/mg Normal [facility] Comment on above: Performed By: #### B MELLY, HSTROPN #### [facility] [address] [address] [address] Bucky Gold TROPONIN, HIGH SENSITIVITYon 02-01-2022 HSTROP 12.5 pg/mL Normal 4.0-76.1 [facility] Comment on above: Result Comment: CUT- OFF POINTS HAVE BEEN ESTABLISHED BASED ON THE FOURTH UNIVERSAL DEFINITIONS OF MYOCARDIAL INFARCTION. THE UPPER REFERENCE LIMIT (URL) OF TROPONIN, DEFINED THE 99TH PERCENTILE OF cTnI DISTRIBUTION IN A REFERENCE POPULATION, HAS BEEN CONFIRMED THE DECISION THRESHOLD FOR CA DIAGNOSIS. Performed By: #### B MP, HSTROPN #### [facility] [address] [id number] Bucky Gold US CAROTID ART BILon [...] ROEL TRAN Date: 2022-02-01 15:02 Normal [facility] Complete Blood Count with Au to Diffon 07-11-2021 Basophils (Bld) [#/Vol] 0.08 10*3/uL Normal 0.00-0.20 [facility] [employer] Comment on above: Performed By: #### C BCAD, CMP #### [facility] [address] [place], [place] [id number] Basophils/100 WBC (Bld) 1.6 % Normal [facility] Comment on above: Performed By: #### C BCAD, CMP #### [facility] [address], [place] [id number] Eosinophils (Bld) [#/Vol] 0.28 10*3/uL Normal 0.02-0.50 [facility] [employer] 1 [employer] 6 Home Teacher Comment on above: Performed By: #### C BCAD, CMP #### [facility] [address], [place] [id number] Eosinophils/100 WBC (Bld) 5.8 % Normal [facility] Comment on above: Performed By: #### C BCAD, CMP #### [facility] [address], [place] [id number] Erythrocyte distribution width (RBC) [Ratio] 11.8 % Normal 11.0-15.0 [facility] Comment on above: Performed By: #### C BCAD, CMP #### [facility] [address], [place] [id number] Hematocrit (Bld) [Volume fraction] 41.4 % Normal 38.5-50.0 [facility] Comment on above: Performed By: #### C BCAD, CMP #### [facility] [address], [place] [id number] Hemoglobin (Bld) [Mass/Vol] 14.1 g/dL Normal 13.0-17.1 [facility] Comment on above: Performed By: #### C BCAD, CMP #### [facility] [address], [place] [id number] Lymphocytes (Bld) [#/Vol] 1.2 10*3/uL Normal 0.9-3.9 [facility] Comment on above: Performed By: #### C BCAD, CMP #### [facility] [address], [place] [id number] Lymphocytes/100 WBC (Bld) 24.3 % Normal [facility] Comment on above: Performed By: #### C BCAD, CMP #### [facility] [address], [place] [id number] MCH (RBC) [Entitic mass] 31.2 pg Normal 27.0-33.0 [facility] Comment on above: Performed By: #### C BCAD, CMP #### [facility] [address], [place] [id number] MCHC (RBC) [Mass/Vol] 34.1 g/dL Normal 32.0-36.0 [facility] Comment on above: Performed By: #### C BCAD, CMP #### [facility] [address], [place] [id number] MCV (RBC) [Entitic vol] 92 fL Normal 80-100 [facility] Comment on above: Performed By: #### C BCAD, CMP #### [facility] [address], [place] [id number] Monocytes (Bld) [#/Vol] 0.3 10*3/uL Normal 0.2-0.9 [facility] Comment on above: Performed By: #### C BCAD, CMP #### [facility] [address], [place] [id number] Monocytes/100 WBC (Bld) 5.6 % Normal [facility] Comment on above: Performed By: #### C BCAD, CMP #### [facility] [address], [place] [id number] Neutrophils (Bld) [#/Vol] 3.0 10*3/uL Normal 1.5-7.8 [facility] Comment on above: Performed By: #### C BCAD, CMP #### [facility] [address], [place] [id number] Neutrophils/100 WBC (Bld) 62.5 % Normal [facility] Comment on above: Performed By: #### C BCAD, CMP #### [facility] [address], [place] [id number] Platelet mean volume (Bld) [Entitic vol] 11.30 fL Normal 7.50-12.50 [facility] Comment on above: Performed By: #### C BCAD, CMP #### [facility] [address], [place] [id number] Platelets (Bld) [#/Vol] 218 10*3/uL Normal 140-400 [employer] [place] [employer] 6 [employer] Teacher Comment on above: Performed By: #### C BCAD, CMP #### [facility] [address], [place] [id number] RBC (Bld) [#/Vol] 4.52 10*6/uL Normal 4.20-5.80 [facility] Comment on above: Performed By: #### C BCAD, CMP #### [facility] [address], [place] [id number] RDW-SD 39.6 fL Normal 37.0-50.0 [facility] [employer] 1 [employer] 6 Home Teacher Comment on above: Performed By: #### C BCAD, CMP #### [facility] [address], [place] [id number] WBC (Bld) [#/Vol] 4.9 10*3/uL Normal 3.8-11.0 [facility] [employer] 1 [employer]ru 6 Home Teacher Comment on above: Performed By: #### C BCAD, CMP #### [facility] [address], [place] [id number] Comprehensive Metabolic Pane [facility] 07-11-2021 Albumin [Mass/Vol] 4.3 g/dL Normal 3.6-5.1 [facility] [employer] 1 [employer]ru 6 Home Teacher Comment on above: Performed By: #### C BCAD, CMP #### [facility] [address], [place] [id number] Albumin/Globulin [Mass ratio] 1.7 {ratio} Normal 1.0-2.5 [facility] Comment on above: Performed By: #### C BCAD, CMP #### [facility] [address], [place] [id number] ALP [Catalytic activity/Vol] 73 U/L Normal 40-129 [facility] Comment on above: Performed By: #### C BCAD, CMP #### [facility] [address], [place] [id number] ALT [Catalytic activity/Vol] 19 U/L Normal 9-46 [facility] Comment on above: Result Comment: 06/20 Female reference range changed. Performed By: #### C BCAD, CMP #### [facility] [address], [place] [id number] Anion gap [Moles/Vol] 18 mmol/L Normal 12-20 [facility] Comment on above: Result Comment: Effe ctive 07/26/2019 reference range changed. Performed By: #### C BCAD, CMP #### [facility] [address], [place] [id number] AST [Catalytic activity/Vol] 27 U/L Normal 10-40 [facility] Comment on above: Result Comment: Spec imen is hemolyzed. Results may be affected. Performed By: #### C BCAD, CMP #### [facility] [address], [place] [id number] BUN/CREA 21 Ratio Normal 6-22 [facility] Comment on above: Performed By: #### C BCAD, CMP #### [facility] [address], [place] [id number] Calcium [Mass/Vol] 9.4 mg/dL Normal 8.6-10.2 [facility] Comment on above: Performed By: #### C BCAD, CMP #### [facility] [address], [place] [id number] Chloride [Moles/Vol] 109 mmol/L High 98-107 [facility] Comment on above: Performed By: #### C BCAD, CMP #### [facility] [address], [place] [id number] CO2 [Moles/Vol] 18 mmol/L Low 20-31 [facility] Comment on above: Performed By: #### C BCAD, CMP #### [facility] [address], [place] [id number] Creatinine [Mass/Vol] 0.9 mg/dL Normal 0.7-1.4 [facility] Comment on above: Performed By: #### C BCAD, CMP #### [facility] [address], [place] [id number] eGFRAA 96 mL/min/1.73m2 Normal >60 [facility] Comment on above: Performed By: #### C BCAD, CMP #### [facility] [address], [place] [id number] eGFRNAA 79 mL/min/1.73m2 Normal >60 [employer] [place] [employer] 6 [employer] Teacher Comment on above: Performed By: #### C BCAD, CMP #### [facility] [address], [place] [id number] Globulin (S) [Mass/Vol] 2.6 g/dL Normal 1.9-3.7 [facility] [employer] 1 [employer] 6 Home Teacher Comment on above: Performed By: #### C BCAD, CMP #### [facility] [address], [place] [id number] Glucose [Mass/Vol] 203 mg/dL High 65-99 [facility] [employer] 6 Home Teacher Comment on above: Result Comment: For FASTING Glucose --- ADA reference ranges: Normal 65-99 mg/dl Prediabetes 100-125 Diabetes >/= 126 Performed By: #### C BCAD, CMP #### [facility] [address], [place] [id number] Potassium [Moles/Vol] 4.5 mmol/L Normal 3.5-5.5 [facility] Comment on above: Result Comment: Spec imen is hemolyzed. Results may be affected. Performed By: #### C BCAD, CMP #### [facility] [address], [place] [id number] Protein [Mass/Vol] 6.9 g/dL Normal 6.1-8.1 [facility] [employer] 1 [employer] 6 Home Teacher Comment on above: Performed By: #### C BCAD, CMP #### [facility] [address], [place] [id number] Sodium [Moles/Vol] 140 mmol/L Normal 135-146 [facility] [employer] 1 [employer]ru 6 Home Teacher Comment on above: Performed By: #### C BCAD, CMP #### [facility] [address], [place] [id number] TBIL <0.3 Normal [facility] Comment on above: Performed By: #### C BCAD, CMP #### [facility] [address], [place] [id number] Urea nitrogen [Mass/Vol] 20 mg/dL Normal 7-25 [facility] [employer] 1 [employer] 6 Home Teacher Comment on above: Performed By: #### C BCAD, CMP #### [facility] [address], [place] [id number] Vital Signs Date Time Vital Sign Value Performing Clinician Rodrigo middleton 08-08-2022 12:00-0500 Diastolic blood pressure 69 mm[Hg] [facility] 08-08-2022 12:00-0500 Heart rate 91 /min [facility] 08-08-2022 12:00-0500 Respiratory rate 16 /min [facility] 08-08-2022 12:00-0500 SaO2% (BldA) [Mass fraction] 97 % [facility] 08-08-2022 12:00-0500 Systolic blood pressure 147 mm[Hg] [facility] Encounters Encounter Date Encounter Type Care Provider Facility Start: 12-18-2024 End: 12-18-2024 Refill Ulisses Yu MD Work Phone: [facility] Comment on above: Type 2 diabetes isaac itus with other specified complication, without long-term current use of insulin Start: 06-12-2024 End: 06-12-2024 Refill Ulisses Yu MD Work Phone: [facility] Comment on above: Benign hypertension (CMS/HCC) Start: 03-14-2024 End: 03-15-2024 Refill Kaela Milton PA Work Phone: [facility] Comment on above: Type 2 diabetes isaac itus with diabetic neuropathy, without long-term current use of insulin (CMS/HCC) Start: 10-28-2023 End: 10-28-2023 ambulatory KAELA M HEMMER Not Available Start: 09-09-2023 End: 09-09-2023 ambulatory KAELA M HEMMER Not Available Start: 09-01-2023 Chart abstracting Kaela Dempseym er PA Work Phone: [facility] Start: 08-25-2023 Chart abstracting Kaela M Hemm er PA Work Phone: [facility] Start: 06-24-2023 End: 06-24-2023 ambulatory KAELA M HEMMER Not Available Start: 08-08-2022 End: 08-20-2022 ambulatory [facility] Transport Start: 08-08-2022 End: 08-08-2022 Emergency department patient visit [facility] Emergency Triage, Treat and Transport Comment on above: Arrived Start: 05-20-2022 End: 05-20-2022 ambulatory [place] Facility:[facility] Start: 05-16-2022 End: 05-16-2022 ambulatory [place] Facility:[facility] Start: 05-16-2022 End: 05-16-2022 ambulatory MD Jonathon Isbell Work Phone: [facility] Work Phone: Start: 05-16-2022 End: 05-16-2022 Patient encounter procedure MD Jonathon Isbell Work Phone: [id number] Start: 02-01-2022 End: 02-02-[address] [...] 09-11-2025 Glaucoma screening Diabetes: R etinopathy Screening [facility] Start: 03-21-2025 Influenza vaccination Influenz a Vaccine (Season Ended) [facility] Start: 09-09-2024 Urine screening for protein Diabetes: Urine Protein Screening [facility] Start: 05-12-2024 Medicare Annual Well ness (AWV) Medicare Annual Wellness (AWV) [facility] Start: 05-12-2024 Pneumococcal Vaccine : 65+ Years (1 - PCV) Pneumococcal Vaccine: 65+ Years (1 - PCV) [facility] Comment on above: Postponed from 02/04 (Patient Refused) Start: 05-01-2024 Urine screening for protein Diabetes: Urine Protein Screening [facility] Start: 03-21-2024 Influenza vaccination Influenza Vacc ine (#1) [facility] Start: 01-18-2024 Influenza vaccination Influenza Vacc ine (#1) [facility] Comment on above: Postponed from 03/21 (Patient Refused) Start: 12-08-2023 Hemoglobin A1c measurement Diabetes: Hemoglobin A1C [facility] Start: 09-02-2023 End: 09-02-2023 Patient encounter procedure 09/02/2023 11:00 AM EST Office Visit [facility] [address] [place] [address] Kaela Milton PA [address] [place] [address] [facility] Start: 08-26-2023 End: 08-26-2023 Patient encounter procedure 08/26/2023 10:30 AM EST Office Visit [facility] [address] [place] [address] Kaela Milton PA [address] [place] [address] [facility] Start: 08-12-2023 Hemoglobin A1c measurement Diabetes: Hemoglobin A1C [facility] Start: 04-20-2022 Influenza vaccination Influenza Vacc [...] 2) [facility] Start: 1986 Lipid panel Cholesterol [facility] Start: 1970 Pneumococcal Vaccine : 65+ Years (1 of 2 - PCV) Pneumococcal Vaccine: 65+ Years (1 of 2 - PCV) [facility] Start: 1969 Hepatitis C screening Hepatitis C An tibody [facility] Start: 1969 Tetanus + diphtheria + acellular pertussis vaccine (product) Tdap Booster [facility] Start: 1961 Glaucoma screening Diabetes: R etinopathy Screening [facility] Start: 1957 Pneumococcal Vaccine : 65+ Years (1 of 2 - PCV) Pneumococcal Vaccine: 65+ Years (1 of 2 - PCV) [facility] Start: 1950 COVID-19 Vaccine (#1) COVID-19 Vacci ne (#1) [facility] Start: 1950 Screening for malign ant neoplasm of colon Colonoscopy [facility] Payers Date Payer Category Payer Private Health Insurance [facility] [id number] 2022 Unknown [id number] 2022 Medicare (Managed Care) [facility] [id number] 2022 Unknown [employer] [id number] 2022-Present [address] [place] [id number] 2022 Self-pay [id number] 2020 Unknown [id number] 1950 Unknown [id number] [id number] 1950 Unknown [id number] [id number] 1950 Unknown [id number] [id number] 1950 Unknown [id number] [id number] 1950 Unknown [id number] 2.1259 1950 Unknown [id number] [id number] Unknown HCAP/HFA/FAP Active [id number] Unknown [id number] [id number] Unknown [id number] [id number] Social History Date Type Detail Facility Start: 01-16-2022 End: 04-30-2023 Tobacco smoking status VTIS Ex-smoker (finding) [facility] Start: 1950 Sex Assigned At Male [facility] Tobacco smoking stat us [facility] Tobacco smoking consumption unknown [facility] Start: 1950 Sex Assigned At Not on file [facility] End: 07-21-2010 History of tobacco use [...] to any clubs or organizations such as hindu groups, unions, fraternal or athletic groups, or [...] Only a little [facility] (I/We) worried wheth er (my/our) food would run out before (I/we) got money to buy more. Never true [facility] Start: 04-30-2023 Tobacco Comment Last smoked : > 10 years [facility] Start: 04-30-2023 Alcohol Comment 3 or 4 drinks 4 or more times/week. Caffeine intake : 1-2 cups per day coffee [facility] Start: 09-09-2023 Alcohol Comment Caffeine intake : 1-2 cups per day coffee [facility] Medical Equipment Procedure Code Equipment Code Equipment Origin al Text Equipment Identifier Dates Multiple periphe ral artery stent, bare-metal [id number] [facility] Start: 03-28-2021 [id number] Start: 05-16-2023 Use to inject 1- 4 times daily as directed. [id number] Start: 11-14-2023 End: 11-13-2024 Telephone encounter Note 03-15-2024 Telephone Encounter - HE Ramos - 03/15/2024 9:38 AM EDT Note Date & Type Note Facility 03-15-2024 Telephone encount er Note No longer our pt [facility] Note 03-15-2024 Telephone Encounter - HE Ramos - 03/15/2024 9:38 AM EDT Note Date & Type Note Facility 03-15-2024 Miscellaneous Notes Formattin g of this note might be different from the original. No longer our pt documented in this encounter [facility] History of Present illness Narrative 08-08-2022 Lei Wolf MD - 08/08/2022 12:24 PM EST Note Date & Type Note Facility 08-08-2022 History of Presen t illness Narrative Images from the original note were not included. EMERGENCY TRIAGE, TREAT AND TRANSPORT (ET3) DOCUMENTATION OF TELEHEALTH VISIT Date / Time: 08/08/2022 / 1199 Name: Mikhail Menon : 1950 SSN: (Not on file) EMS Agency: [facility] [x] Verbal consent obtained [] Implied [...] Facility Evaluation note [facility]: Evaluation note Note Date & Type Note Facility Evaluation note Diagnosis Dizziness- Primary Dizziness and giddiness Hyperglycemia Other abnormal glucose Noncompliance with medications Personal history of noncompliance with medical treatment, presenting hazards to health documented in this encounter [facility] Evaluation note Note Date & Type Note Facility Evaluation note Diagnosis Benign hypertension (CMS/[facility]) Essential hypertension, benign documented in this encounter [facility] Evaluation note Note Date & Type Note Facility Evaluation note Diagnosis Type 2 diabetes mellitus with diabetic neuropathy, without long-term current use of insulin ([facility]/HCC) documented in this encounter [facility] Evaluation note Note Date & Type Note Facility Evaluation note Diagnosis Type 2 diabetes mellitus with other specified complication, without long-term current use of insulin documented in this encounter [facility] Summary Purpose Family History Relationship Condition [...] section and content) DATE CREATED AUTHOR 07/12/2021 [facility] dical Specialist DATE CREATED AUTHOR AUTHOR'S ORGANIZ ATION 02/07/2022 [facility] DATE CREATED AUTHOR AUTHOR'S ORGANIZ ATION 08/22/2022 [facility] DATE CREATED AUTHOR AUTHOR'S ORGANIZ ATION 03/22/2023 [facility] DATE CREATED AUTHOR AUTHOR'S ORGANIZ ATION 10/29/2023 [facility] dical Specialists EPIC Care Teams (unrecognized sec tion and content) Team Status: Inactive Member Role Status Dates Jonathon Isbell MD Primary Care Provider Active Christian Montana MD Attending Provider Active Team Status: Active Member Role Status Dates Jonathon Isbell MD Primary Care Provider Active Sharepoint Net Developer Relationship Specialty Start Date End Date Ulisses Yu MD [address] [address] PCP - General Family Medicine 12/20/22 Jonathon Isbell MD [address] [place] [address] PCP - Devoted 12/19/22 Sharepoint Net Developer Relationship Specialty Start Date End Date Ulisses Yu MD [address] [address] PCP - Aettrista 02/19/24 Sharepoint Net Developer Relationship Specialty Start Date End Date Unallocated, [facility] Provider, [address] [place] [address] PCP - General Family Medicine 10/05/24 Goals (unrecognized section and content) Goals may [...] BE BASED ON THE PRIMARY CLINICAL RECORDS. [employer] provides no warranty or guarantee of the accuracy or completeness of information in this document.
--- NOTE | 2025-03-26 19:18 | ED.GENADUL1 ---
HPI HPI - General Adult General Chief complaint: Recheck/Abnormal Lab/Rx Stated complaint: sugar levels high Time Seen by Provider: 03/26/25 19:10 Source: patient Mode of arrival: Wheelchair History of Present Illness HPI narrative: patient brought in by his family because of hyperglycemia. family states his BS is always high. States today it was 500. gave himself 15U Novolin R before coming in and now it is mid 300s. No nausea or vomiting. No chest pain or dyspnea. Family is trying to move him into a senior facility where rent is income based. States about the time he pays his bills he does not have any money. He likes to drink milk and also drinks beer. No beer for a couple of days. No withdrawal. He does have diabetic neuropathy and has a shuffling gait which they contribute to past bilat hip surgeries. The neuropathy makes him feel like his right leg is swollen when it isn't Related Data Home Medications ?Medication ?Instructions ?Recorded ?Confirmed atorvastatin 80 mg tablet 80 mg PO QPM 09/01/24 03/26/25 carvedilol 12.5 mg tablet 12.5 mg PO BID 09/01/24 03/26/25 pantoprazole 40 mg tablet,delayed 40 mg PO QAM 09/01/24 03/26/25 release pioglitazone 15 mg tablet 15 mg PO DAILY 09/01/24 03/26/25 clopidogrel 75 mg tablet 75 mg PO DAILY 09/05/24 09/05/24 insulin regular human 100 unit/mL 10 unit subcut TIDWM 09/05/24 03/26/25 injection solution (Novolin R Regular U-100 Insulin) lisinopril 5 mg tablet 5 mg PO DAILY 09/05/24 09/05/24 Allergies Allergy/AdvReac Type Severity Reaction Status Date / Time No Known Drug Allergies Allergy Verified 09/05/24 10:06 Opioid HPI Opioid Management Most Recent Opioid Data: Last Pain Scale 0 09/07/24, 12:13 Last ORT Total Score 3 09/05/24, 13:50 Last ORT Risk Category Low Risk 09/05/24, 13:50 Review of Systems ROS Status of ROS 10 or more systems reviewed and unremarkable except as noted in history and below [facility] Medical History (Updated 03/26/25 @ 21:19 by Raul Hooper MD) Diabetes ?E11.9 - Type 2 diabetes mellitus without complications (ICD-10) Hypertension ?I10 - Essential (primary) hypertension (ICD-10) Left rib fracture ?S22.32XA - Fracture of one rib, left side, initial encounter for closed fracture (ICD-10) Fall from standing ?W19.XXXA - Unspecified fall, initial encounter (ICD-10) Colon cancer ?C18.9 - Malignant neoplasm of colon, unspecified (ICD-10) Surgical History (Updated 09/05/24 @ 14:18 by Wendy Saldivar) History of hip replacement ?Z96.649 - Presence of unspecified artificial hip joint (ICD-10) Social History (Updated 09/05/24 @ 14:14 by Wendy Saldivar) Within the past year, how often did you have a drink containing alcohol: 4 or more times a week Within the past year, how many standard drinks containing alcohol did you have on a typical day: 1 or 2 Within the past year, how often did you have six or more drinks on one occasion: never Total score: 0 Score interpretation: Questions 2 and 3 are 0. It can be assumed that the patient's drinking is below the recommended limits. However, please confirm the accuracy of the patient's alcohol intake over the last few months. 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 Highest level of school completed/degree received: 9th grade Are you now , , , , never or living with a partner: never In a typical week, how many times do you talk on the telephone with family, friends, or neighbors: twice per week How often do you get together with friends or relatives: twice per week How often do you attend evangelical or bahai services: never Do you belong to any clubs or organizations such as evangelical groups unions, fraternal or athletic groups, or school groups: no Total score: 1 Score interpretation: A score of less than or equal to 1 indicates the most socially isolated. Little interest or pleasure in doing things: not at all Feeling down, depressed, or hopeless: not at all Exam Constitutional Vital Signs, click to edit/add: Last Vital Signs Temp 97.7 F 03/26/25 18:51 Pulse 65 03/26/25 20:46 Resp 16 03/26/25 20:46 BP 183/83 H 03/26/25 20:46 Pulse Ox 97 03/26/25 20:46 O2 Del Method Room Air 03/26/25 20:46 Common normals: no apparent distress, average body habitus, oriented x3, no limitations, healthy appearing, alert and well nourished [facility] Common normals: normocephalic and head/scalp atraumatic Eye Common normals: PERRL and EOMs intact bilaterally Respiratory Common normals: normal respiratory effort, no retractions, no use of accessory muscles and clear to auscultation bilaterally Cardio Common normals: regular rate, regular rhythm, S1 normal heart sound and S2 normal heart sound GI Common normals: Normal to inspection, nondistended, normoactive bowel sounds present, soft to palpation and non-tender Extremity Common normals: normal to inspection and full ROM Neuro Common normals: oriented x3, CN's II-XII intact bilaterally, moves all extremities and no focal motor deficits Psych Appearance: grossly normal Course Vital Signs Vital signs: Vital Signs Temperature 97.7 F 03/26/25 18:51 Pulse Rate 81 03/26/25 18:51 Respiratory Rate 18 03/26/25 18:51 Blood Pressure 116/80 03/26/25 18:51 Pulse Oximetry 98 03/26/25 18:51 Oxygen Delivery Method Room Air 03/26/25 18:51 Temperature 97.7 F 03/26/25 18:51 Pulse Rate 65 03/26/25 20:46 Respiratory Rate 16 03/26/25 20:46 Blood Pressure 183/83 H 03/26/25 20:46 Pulse Oximetry 97 03/26/25 20:46 Oxygen Delivery Method Room Air 03/26/25 20:46 Medical Decision Making MDM Narrative Medical decision making narrative: patient brought to ER by family members due to hyperglycemia. BS reported in 500s before he came in. He took 15 units of Novolin R before coming in and his BS decreased to 259. Lab work in the department acceptable. Patient also hydrated. UA unremarkable except for glucosuria. Patient looks good. FAmily provided a sliding scale to follow and recommended to followup with PCP Lab Data Labs: Lab Results 03/26/25 03/26/25 03/26/25 Range/Units 18:58 19:36 20:42 WBC 6.2 (4.0-11.0) 10^3/uL RBC 4.59 L (4.70-6.10) 10^6/uL Hgb 14.0 (14.0-18.0) g/dL Hct 39.8 L (42.0-54.0) % MCV 86.7 (80.0-94.0) fL MCH 30.5 (25.9-34.0) pg MCHC 35.2 (29.9-35.2) g/dL RDW 12.3 (11.0-15.0) % Plt Count 246 (150-450) 10^3/uL MPV 10.9 (9.5-13.5) fL Neut % (Auto) 61.9 (43.0-75.0) % Lymph % (Auto) 20.1 L (20.5-60.0) % [place] % (Auto) 9.0 (1.7-12.0) % Eos % (Auto) 6.9 (0.9-7.0) % Baso % (Auto) 1.8 (0.2-2.0) % Neut # (Auto) 3.9 (1.4-6.5) 10^3/uL Lymph # (Auto) 1.3 (1.2-3.8) 10^3/uL [place] # (Auto) 0.6 (0.3-0.8) 10^3/uL Eos # (Auto) 0.4 (0.0-0.7) 10^3/uL Baso # (Auto) 0.1 (0.0-0.1) 10^3/uL Abs Immat Gran (auto) 0.02 (0.00-0.03) 10^3/uL Imm/Tot Granulo (auto) 0.3 (0.0-0.5) % Sodium 135 L (136-145) mmol/L Potassium 4.2 (3.5-5.1) mmol/L Chloride 100 (98-107) mmol/L Carbon Dioxide 25.5 (21.0-32.0) mmol/L Anion Gap 13.7 BUN 28.0 H (7.0-18.0) mg/dL Creatinine 1.16 (0.70-1.30) mg/dL Est GFR ( Amer) >60 (>=60 mL/min/1.73m^2) Est GFR (Non-Af Amer) >60 (>=60 mL/min/1.73m^2) BUN/Creatinine Ratio 24.1 Glucose 338 H (74-106) mg/dL Calcium 9.7 (8.5-10.1) mg/dL Total Bilirubin 0.5 (0.2-1.0) mg/dL AST 19 (15-37) U/L ALT 28 (16-63) U/L Alkaline Phosphatase 92 (46-116) U/L Total Protein 7.4 (6.4-8.2) g/dL Albumin 3.2 L (3.4-5.0) g/dL Globulin 4.2 g/dL Albumin/Globulin Ratio 0.8 Urine Color (YELLOW) Urine Clarity (CLEAR) Urine pH (5.0-9.0) Ur Specific [place] (1.005-1.025) Urine Protein (NEG/TRACE) mg/dL Urine Glucose (UA) (NEGATIVE) mg/dL Urine Ketones (NEGATIVE) mg/dL Urine Occult Blood (NEGATIVE) Urine Nitrite (NEGATIVE) Urine Bilirubin (NEGATIVE) Urine Urobilinogen (0.2-1.0) EU/dL Ur Leukocyte Esterase (NEGATIVE) Urine RBC (0-2) #/HPF Urine WBC (NONE SEEN) #/HPF Ur Squamous Epith Cells (NONE/RARE) #/LPF Urine Crystals (None Seen) #/HPF Urine Bacteria (NONE SEEN) #/HPF Urine Casts (NONE SEEN) #/LPF Urine Mucus (NONE SEEN) Ur Culture Indicated? POC Glucose 361 H 259 H (74-106) mg/dL 03/26/25 Range/Units 20:52 WBC (4.0-11.0) 10^3/uL RBC (4.70-6.10) 10^6/uL Hgb (14.0-18.0) g/dL Hct (42.0-54.0) % MCV (80.0-94.0) fL MCH (25.9-34.0) pg MCHC (29.9-35.2) g/dL RDW (11.0-15.0) % Plt Count (150-450) 10^3/uL MPV (9.5-13.5) fL Neut % (Auto) (43.0-75.0) % Lymph % (Auto) (20.5-60.0) % [place] % (Auto) (1.7-12.0) % Eos % (Auto) (0.9-7.0) % Baso % (Auto) (0.2-2.0) % Neut # (Auto) (1.4-6.5) 10^3/uL Lymph # (Auto) (1.2-3.8) 10^3/uL [place] # (Auto) (0.3-0.8) 10^3/uL Eos # (Auto) (0.0-0.7) 10^3/uL Baso # (Auto) (0.0-0.1) 10^3/uL Abs Immat Gran (auto) (0.00-0.03) 10^3/uL Imm/Tot Granulo (auto) (0.0-0.5) % Sodium (136-145) mmol/L Potassium (3.5-5.1) mmol/L Chloride (98-107) mmol/L Carbon Dioxide (21.0-32.0) mmol/L Anion Gap BUN (7.0-18.0) mg/dL Creatinine (0.70-1.30) mg/dL Est GFR ( Amer) (>=60 mL/min/1.73m^2) Est GFR (Non-Af Amer) (>=60 mL/min/1.73m^2) BUN/Creatinine Ratio Glucose (74-106) mg/dL Calcium (8.5-10.1) mg/dL Total Bilirubin (0.2-1.0) mg/dL AST (15-37) U/L ALT (16-63) U/L Alkaline Phosphatase (46-116) U/L Total Protein (6.4-8.2) g/dL Albumin (3.4-5.0) g/dL Globulin g/dL Albumin/Globulin Ratio Urine Color Lt. yellow (YELLOW) Urine Clarity Clear (CLEAR) Urine pH 5.5 (5.0-9.0) Ur Specific [place] 1.015 (1.005-1.025) Urine Protein Negative (NEG/TRACE) mg/dL Urine Glucose (UA) >=1000 A (NEGATIVE) mg/dL Urine Ketones Negative (NEGATIVE) mg/dL Urine Occult Blood Negative (NEGATIVE) Urine Nitrite Negative (NEGATIVE) Urine Bilirubin Negative (NEGATIVE) Urine Urobilinogen 0.2 (0.2-1.0) EU/dL Ur Leukocyte Esterase Negative (NEGATIVE) Urine RBC None seen (0-2) #/HPF Urine WBC 0-2 A (NONE SEEN) #/HPF Ur Squamous Epith Cells Rare (NONE/RARE) #/LPF Urine Crystals None seen (None Seen) #/HPF Urine Bacteria Trace A (NONE SEEN) #/HPF Urine Casts None seen (NONE SEEN) #/LPF Urine Mucus None seen (NONE SEEN) Ur Culture Indicated? No POC Glucose (74-106) mg/dL Discharge Plan Discharge Chief Complaint: Recheck/Abnormal Lab/Rx Clinical Impression: Hyperglycemia Patient Disposition: Home, Self-Care Prescriptions / Home Meds: No Action carvedilol 12.5 mg tablet 12.5 mg PO BID pantoprazole 40 mg tablet,delayed release (DR/EC) 40 mg PO QAM pioglitazone 15 mg tablet 15 mg PO DAILY atorvastatin 80 mg tablet 80 mg PO QPM Novolin R Regular U100 Insulin 100 unit/mL solution 10 unit subcut TIDWM clopidogrel 75 mg tablet 75 mg PO DAILY lisinopril 5 mg tablet 5 mg PO DAILY Print Language: Setswana Instructions: Diabetic Hyperglycemia (ED) Additional Instructions: follow up with Dr Dean next week Referrals: KAYLEY GUZMÁN [Primary Care Provider, Unknown] - 1 week
[2025-03-26 19:47] LABS: Hematocrit 39.8 % (42.0-54.0); Hemoglobin 14.0 g/dL (14.0-18.0); Immature Granulocytes Abs Auto 0.02 10^3/uL (0.00-0.03); Immature Granulocytes Pct Auto 0.3 % (0.0-0.5); Lymphocytes Absolute Auto 1.3 10^3/uL (1.2-3.8); Mean Corpuscular HGB Conc 35.2 g/dL (29.9-35.2); Mean Corpuscular Hemoglobin 30.5 pg (25.9-34.0); Mean Corpuscular Volume 86.7 fL (80.0-94.0); Platelet Count 246 10^3/uL (150-450); Red Blood Count 4.59 10^6/uL (4.70-6.10); White Blood Count 6.2 10^3/uL (4.0-11.0)
[2025-03-26] MEDS: 0.9 % SODIUM CHLORIDE 1,000 ML 999 ML IV (19:51)
[2025-03-26 20:00] LABS: Alanine Aminotransferase 28 U/L (16-63); Albumin Globulin Ratio 0.8; Albumin Level 3.2 g/dL (3.4-5.0); Alkaline Phosphatase 92 U/L (46-116); Anion Gap 13.7; Aspartate Amino Transferase 19 U/L (15-37); Blood Urea Nitrogen 28.0 mg/dL (7.0-18.0); Calcium 9.7 mg/dL (8.5-10.1); Carbon Dioxide 25.5 mmol/L (21.0-32.0); Chloride 100 mmol/L (98-107); Estimated GFR (African America >60 (>=60 mL/min/1.73m^2); Estimated GFR (Non-African Ame >60 (>=60 mL/min/1.73m^2); Globulin 4.2 g/dL; Glucose 338 mg/dL (74-106); Potassium 4.2 mmol/L (3.5-5.1); Sodium 135 mmol/L (136-145); Total Protein 7.4 g/dL (6.4-8.2)
[2025-03-26 20:46] VITALS: BP 183/83; PULSE 65; O2SAT 97
[2025-03-26 20:58] LABS: Glucose Urine UA >=1000 mg/dL (NEGATIVE)
[2025-03-26 21:04] LABS: Cast Seen? NONE SEEN #/LPF (NONE SEEN); Crystals Seen? None Seen #/HPF (None Seen); Urine Culture Indicated NO
--- NOTE | 2025-03-28 09:01 | SWNOTE1 ---
JONATHAN had a message from ED nurse, Andreina, from the weekend in regards to this patient. Pt was brought in by neighbors and they had concerns about pt not being able to afford his insulin. SW to call pt.
--- NOTE | 2025-03-28 11:18 | SWNOTE1 ---
SW attempted to call pt, phone is stating the subscriber is not in service and to try the call again later. SW attempted to call again later in the morning around 11:15pm, same message. SW to keep trying. SW not able to call other contacts without permissin from patient.
--- NOTE | 2025-03-28 12:19 | SWNOTE1 ---
SW attempted to call pt again in regards to his insulin and the cost of medication, no answer. Phone was not able to receive calls at this time.
== END 2025-03-26 21:44 | disposition home or self-care (01) ==
PROVIDERS: Emergency Provider Internal Medicine; PCP Nurse Practitioner Family
DX: E11.65 Type 2 diabetes mellitus with hyperglycemia (principal); E11.40 Type 2 diabetes mellitus with diabetic neuropathy, unspecified; Z79.84 Long term (current) use of oral hypoglycemic drugs; Z79.4 Long term (current) use of insulin; Z96.649 Presence of unspecified artificial hip joint
CPT/HCPCS: 36415; 80053; 81001; 85025; 99284

== ENCOUNTER 2025-05-08 14:21 | Emergency (ER) | payer OTHER, SELFPAY ==
--- OUTSIDE RECORDS SUMMARY | 2024-02-26 08:45 | XMS_ITS ---
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 * Medical History: Objective: * Vitals: Assessment: Plan: * Treatment: * Billing Information: * Visit Code: * Procedure Codes: * Electronic signature of VIRIDIANA Graica on 05/08/2025 at 02:32 PM EDT Sign off status: Pending * Provider: VIRIDIANA Currie Date: 0 02/26/2024 Generated for Mesfin [email or web address] on: 02:32 PM EDT
[2025-05-08] VITALS (12 sets, daily range): BP systolic 84–136; BP diastolic 40–64; PULSE 54–62; TEMP 36.4; O2SAT 91–98; BMI 28.2
--- NOTE | 2025-05-08 14:26 | XR_ITS ---
The [place] [id number] Patient Name: PEDRO MENON MRN: [id number] date: 1950 Sex: M Assigned Patient Location: ED.MAIN Current Patient Location: ED.MAIN Accession/Order Number: [id number] Exam Date: 05/08/2025 15:03 Report Date: 05/08/2025 16:01 At the request of: FALLON MUSE MD Procedure: XR chest 1V XR chest 1V 05/08/2025 3:13 PM SIGNS AND SYMPTOMS: ^Syncope ^Y PROTOCOL: Frontal radiograph of the chest COMPARISON: 09/05/2024 FINDINGS: The trachea is midline. Atherosclerotic changes are present in the thoracic aorta. The heart and mediastinal structures are within normal limits. The lung parenchyma is clear. The bony thorax is intact. Degenerative changes are noted in the shoulders and thoracic spine. XR/XR chest 1V IMPRESSION: No acute cardiopulmonary pathology. Impression dictated by: Lukas Bah M.D. 05/08/2025 4:01 PM Dictation [facility] Electronically authenticated by: [id number] Y Date: 05/08/2025 16:01
--- NOTE | 2025-05-08 14:26 | ECG_ITS ---
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
--- NOTE | 2025-05-08 14:27 | CT_ITS ---
The [address] [address] Patient Name: PEDRO MENON MRN: [id number] date: 1950 Sex: M Assigned Patient Location: ED.MAIN Current Patient Location: ED.MAIN Accession/Order Number: [id number] Exam Date: 05/08/2025 15:03 Report Date: 05/08/2025 16:07 At the request of: FALLON MUSE MD Procedure: CT cervical spine wo con CT cervical spine wo con 05/08/2025 3:13 PM SIGN AND SYMPTOMS: Syncope, fall TECHNIQUE: Multi detector CT axial slices of the cervical spine were obtained without IV contrast. Volumetric acquisition sagittal, coronal, and 3-D reconstructions were performed and reviewed. CT was performed with one or more of the following dose reduction techniques: Automated exposure control, adjustment of the mA and/or kV according to patient size, or use of iterative reconstruction technique. COMPARISON: None. FINDINGS: There is preservation of the vertebral body heights and intervertebral discs. Facet degenerative changes are present. No fractures or dislocations are seen. The alignment of the cervical spine is normal. The craniocervical junction and atlantoaxial joint are within normal limits. The prevertebral soft tissues are within normal limits. The paraspinous soft tissues are within normal limits. Emphysematous changes are noted in the lung apices. Atherosclerotic changes are noted in the carotid bifurcations. Atherosclerotic changes are noted in the aortic arch. CT/CT cervical spine wo con IMPRESSION: No fracture or subluxation. Impression dictated by: Lukas Bah M.D. 05/08/2025 4:07 PM Dictation Location: [place] [address] Electronically authenticated by: [id number] Y Date: 05/08/2025 16:07
[2025-05-08] MEDS: 0.9 % SODIUM CHLORIDE 1,000 ML 1000 ML IV (14:32)
--- OUTSIDE RECORDS SUMMARY | 2025-05-08 14:32 | XMS_ITS | Clinical Summary ---
Author Organization [facility] Address [address] [place] [address] Care Team Providers Care Adjunct Psychology Professor Name Role Phone Unavailable Primary Care Provider Unavailabl e Social History Tobacco Use Types Packs/Day Years Used Date Smoking Tobacco: Never Assessed [place] Safety & Environment Answer Date Rec orded Fear of Current or Ex-Partner Not on file Emotionally Abused Not on file 09/11/2023 Physically Abused Not on file 09/11/2023 Sexually Abused Not on file 09/11/2023 Physically or Sexually Abused Not on file Sex and Gender Information Value Date Recorded Sex Assigned at Not on file Legal Sex Male 8:50 AM EDT Gender Identity Not on file Sexual Orientation Not on file Plan of Treatment Not on file
--- OUTSIDE RECORDS SUMMARY | 2025-05-08 14:32 | XMS_ITS | Encounter Summary ---
Author Organization [facility] Address [address] [place] [address] Care Team Providers Care Cardiopulmonary Technologist Chief Name Role Phone Ulisses Montalvo MD Primary Care Provider [phone] Jonathon Isbell MD Unavailable [phone] Tika Vazquez MD Unavailable [phone] Tika Vazquez MD Unavailable [phone] Jonathon Isbell MD Unavailable [phone] Jonathon Isbell MD Primary Care Provider + [phone] Unallocated, [place] Provider Primary Care Provi martina Jonathon Isbell MD Unavailable [phone] Encounter Details Date Type Department Care Team (Late st Contact Info) Description 12/31/2022 Abstract [facility] [address] [facility] [address] [place] [address] Idris Vazquez, PT Social History Tobacco Use Types Packs/Day Years Used Date Smoking Tobacco: Former Cigarettes Q uit: 2010 Smokeless Tobacco: Never Tobacco Cessation:Counseling Given: Not Answered Alcohol Use Standard Drinks/Week Comments Yes 0 (1 standard drink = 0.6 oz pure alcohol) 3 or 4 drinks 4 or more times/week. Coffee 1-2 cups per day Sex and Gender Information Value Date Recorded Sex Assigned at Not on file Legal Sex Male 6:43 PM EDT Gender Identity Not on file Sexual Orientation Not on file documented as of this encounter Plan of Treatment Upcoming Encounters Date Type Department Care Team (Late st Contact Info) Description 05/12/2025 1:00 PM EDT Office Visit [facility] [address] [place] [address] Pati Bales MD [address] [place] [address] documented as of this encounter Visit Diagnoses Not on filedocumented in this encounter Care Teams Cardiopulmonary Technologist Chief Relationship Specialty Start Date End Date Ulisses Montalvo MD [address] [place] [address] PCP - General Family Medicine 12/20/22 12/08/23 Jonathon Isbell MD [address] [place] [address] PCP - Devoted 12/19/22 10/19/23 Tika Vazquez MD [address] [place] [address] PCP - Devoted 10/20/23 12/19/23 Tika Vazquez MD [address] [place] [address] PCP - Devoted 01/19/24 02/18/24 Jonathon Isbell MD [address] [place] [address] PCP - Devoted 07/21/24 09/17/24 Jonathon Isbell MD [address] [place] [address] PCP - General Family Medicine 10/04/24 10/04/24 Unallocated, [facility] Provider, [address] [place] [address] PCP - General Family Medicine 10/05/24 Jonathon Isbell MD [address] [place] [address] PCP - [employer] 02/19/24 10/18/24 documented as of this encounter
--- OUTSIDE RECORDS SUMMARY | 2025-05-08 14:32 | XMS_ITS | Clinical Summary ---
Author Organization [facility] Address [address] [facility] [place] [address] Care Team Providers Care Consulting Services Project Manager Name Role Phone Unavailable Primary Care Provider Unavailabl e Source Comments The following information is NOT included in Care Everywhere downloads:Psychiatric notes, ECG results, Cardiac Rehab notes, Pulmonary Function notes, data from Smart[employer] (includes but not limited toPregnancy data,audiograms, eye exams, pre-surgical evaluation notes, well-child exam data).[facility] Social History Tobacco Use Types Packs/Day Years Used Date Smoking Tobacco: Never Assessed Sex and Gender Information Value Date Recorded Sex Assigned at Not on file Legal Sex Male 12:22 PM EST Gender Identity Not on file Sexual Orientation Not on file Last Filed Vital Signs Vital Sign Reading Time Taken Comments Blood Pressure 147/69 08/08/2022 12:00 PM EST Pulse 91 08/08/2022 12:00 PM EST Temperature - - Respiratory Rate 16 08/08/2022 12:00 PM EST Oxygen Saturation 97% 08/08/2022 12:00 PM EST Inhaled Oxygen Concentration - - Weight - - Height - - Body Mass Index - - Plan of Treatment Health Maintenance Due Date Last Done Comments Colonoscopy 1950 Hepatitis C Antibody 1969 Tdap Booster 1969 Hepatitis A (HAV) Vaccine (optional start 19+ years) 0 1970 Cholesterol 1986 CRC Screening 02/05/1996 Cologuard (Stool DNA) 02/05/1996 FIT 02/05/1996 Pneumococcal Vaccine(s) (50+ yrs) (1 of 1 - PCV) 02/04 Shingles (RZV) Vaccine (1 of 2) 2001 Hepatitis B (HBV) Vaccine (optional start 60+ years) 0 2011 COVID-19 Vaccine (1 - 2023-25 season) 2025 Influenza Vaccine (#1) 2025 RSV vaccine (adult) (1 - 1-dose 75+ series) 2026
--- OUTSIDE RECORDS SUMMARY | 2025-05-08 14:32 | XMS_ITS | Encounter Summary ---
Author Organization [facility] Address [address] [place] [address] Care Team Providers Care Political Reporter Name Role Phone Ulisses Montalvo MD Primary Care Provider [phone] Jonathon Isbell MD Unavailable [phone] Tika Vazquez MD Unavailable [phone] Tika Vazquez MD Unavailable [phone] Jonathon Isbell MD Unavailable [phone] Jonathon Isbell MD Primary Care Provider + [phone] Unallocated, Noms Provider Primary Care Provi martina Jonathon Isbell MD Unavailable [phone] Encounter Details Date Type Department Care Team (Late st Contact Info) Description 12/19/[address] [facility] [address] [place] [address] Mirella Villavicencio LPN [address] [place] [address] Social History Tobacco Use Types Packs/Day Years Used Date Smoking Tobacco: Former Cigarettes Q uit: 2011 Smokeless Tobacco: Never Tobacco Cessation:Counseling Given: Not Answered Sex and Gender Information Value Date Recorded Sex Assigned at Not on file Legal Sex Male 6:43 PM EDT Gender Identity Not on file Sexual Orientation Not on file documented as of this encounter Plan of Treatment Upcoming Encounters Date Type Department Care Team (Late st Contact Info) Description 05/12/2025 1:00 PM EDT Office Visit [facility] [place] [facility] [address] [place] [address] Pait Bales MD [address] [place] [address] documented as of this encounter Visit Diagnoses Not on filedocumented in this encounter Care Teams Political Reporter Relationship Specialty Start Date End Date Ulisses Montalvo MD [address] [place] [address] PCP - General Family Medicine 12/20/22 12/08/23 Jonathon Isbell MD [address] [place] [address] PCP - [employer] 12/19/22 10/19/23 Tika Vazquez MD [address] [place] [address] PCP - [employer] 10/20/23 12/19/23 Tika Vazquez MD [address] [place] [facility] [place] [address] PCP - [employer] 01/19/24 02/18/24 Jonathon Isbell MD [address] [place] [address] PCP - [employer] 07/21/24 09/17/24 Jonathon Isbell MD [address] [place] [address] PCP - General Family Medicine 10/04/24 10/04/24 Unallocated, Noms Provider, [address] [place] [address] PCP - General Family Medicine 10/05/24 Jonathon Isbell MD [address] [place] [address] [address] [place] [address] PCP - [employer] 02/19/24 10/18/24 documented as of this encounter
--- OUTSIDE RECORDS SUMMARY | 2025-05-08 14:32 | XMS_ITS | Encounter Summary ---
Author Organization [facility] Address [address] [place] [address] Care Team Providers Care Tool Planer Set Up Operator Name Role Phone Unallocated, Noms Provider Primary Care Provi martina Encounter Details Date Type Department Care Team (Late st Contact Info) Description 11/09/2024 Abstract MARAH Rojas [facility] [address] [place] [id number] Unallocated, Noms Provider, [address] [place] [address] Social History Tobacco Use Types Packs/Day Years Used Date Smoking Tobacco: Former Cigarettes Q uit: 2010 Smokeless Tobacco: Never Comments:Last smoked : > 10 years Alcohol Use Standard Drinks/Week Comments Yes 14 (1 standard drink = 0.6 oz pure alcohol) Caffeine intake : 1-2 cups per day coffee Humiliation, Afraid, Rape, and Kick questionnair e Answer Date Recorded Within the last year, have y ou been afraid of your partner or ex-partner? No 04/29/2023 Within the last year, have y ou been humiliated or emotionally abused in other ways by your partner or ex-partner? No Within the last year, have y ou been kicked, hit, slapped, or otherwise physically hurt by your partner or ex-partner? No 04/29/2023 Within the last year, have y ou been raped or forced to have any kind of sexual activity by your partner or ex-partner? No 04/29/2023 Social Connection and Isolation Panel Answer Date Recorded In a typical week, how many times do you talk on the phone with family, friends, or neighbors? Once a week 04/29/2023 How often do you get togethe r with friends or relatives? Once a week 04/29/2023 How often do you attend chur ch or presybeterian services? Never 04/29/2023 Do you belong to any clubs o r organizations such as catholic groups, unions, fraternal or athletic groups, or school groups? Yes 04/29/2023 How often do you attend meet ings of the clubs or organizations you belong to? More than 4 times per year 04/29/2023 Are you , , di vorced, , never , or living with a partner? Patient declined 04/29/2023 AUDIT-C Answer Date Recorded Q1: How often do you have a drink containing alcohol? 4 or more times a week 04/29/2023 Q2: How many drinks containi ng alcohol do you have on a typical day when you are drinking? 5 or 6 Q3: How often do you have si x or more drinks on one occasion? Never 04/29/2023 Overall Financial Resource Strain (CARDIA) Answe r Date Recorded How hard is it for you to pa y for the very basics like food, housing, medical care, and heating? Not hard at all 04/29/2023 PHQ-2 Answer Date Recorded Patient Health Questionnaire-2 Score 0 05/12/2023 [facility] - Occupational Stress Questionnaire Answer Date Recorded Do you feel stress - tense, restless, nervous, or anxious, or unable to sleep at night because your mind is troubled all the time - these days? Only a little 04/29/2023 Exercise Vital Sign Answer Date Recorde d On average, how many days pe r week do you engage in moderate to strenuous exercise (like a brisk walk)? 7 days 04/29/2023 On average, how many minutes do you engage in exercise at this level? 20 min 04/29/2023 Hunger Vital Sign Answer Date Recorded Within the past 12 months, y ou worried that your food would run out before you got the money to buy more. Never true 10/10/20 23 Within the past 12 months, t he food you bought just didn't last and you didn't have money to get more. Never true 04/29/2023 PRAPARE - Transportation Answer Date Re corded In the past 12 months, has l ack of transportation kept you from medical appointments or from getting medications? No 04/20 In the past 12 months, has l ack of transportation kept you from meetings, work, or from getting things needed for daily living? No 04/29/2023 Housing Stability Vital Sign Answer Sterling e Recorded In the last 12 months, was t here a time when you were not able to pay the mortgage or rent on time? No 04/29/2023 In the last 12 months, how many places have you lived? 1 04/29/2023 In the last 12 months, was t here a time when you did not have a steady place to sleep or slept in a fpc (including now)? No 04/29/2023 Sex and Gender Information Value Date Recorded Sex Assigned at Not on file Legal Sex Male 6:43 PM EDT Gender Identity Not on file Sexual Orientation Not on file documented as of this encounter Plan of Treatment Upcoming Encounters Date Type Department Care Team (Late st Contact Info) Description 05/12/2025 1:00 PM EDT Office Visit [facility] [address] [place] [address] Pati Bales MD [address] [place] [address] documented as of this encounter Visit Diagnoses Not on filedocumented in this encounter Additional Health Concerns Assessment Noted Time PHQ-9 Depression Total Score: 0 05/12/20 4:00 PM EDT documented as of this encounter Care Teams Tool Planer Set Up Operator Relationship Specialty Start Date End Date Unallocated, Marah Gallardo MD [address] [place], [place] [id number] PCP - General Family Medicine 10/05/24 documented as of this encounter
--- OUTSIDE RECORDS SUMMARY | 2025-05-08 14:32 | XMS_ITS | Clinical Summary ---
Author Organization [employer] Address [id number] [address] [place] [address] Care Team Providers Care Drywall Stripper Name Role Phone Betsey Mays WASTE HAND-FORESTRY CREW CHIEF Primary Care Provider Allergies No known active allergies Medications aspirin 81 mg Take 81 mg by mouth daily. Active omeprazole (PriLOSEC) 20 mg capsule Take 40 mg by mouth daily. Active lisinopril (PRINIVIL,ZESTRI L) 2.5 mg tablet Take 2.5 mg by mouth daily. Active carvedilol (COREG) 3.125 mg tablet Take 3.125 mg by mouth 2 (two) times a day with meals. Active atorvastatin (LIPITOR) 80 mg tablet Take 80 mg by mouth daily. Active glipiZIDE (GLUCOTROL) 10 mg tablet Take 10 mg by mouth 2 (two) times a day before meals. Active SITagliptin (JANUVIA) 100 mg tablet Take 100 mg by mouth daily. Active gabapentin (NEURONTIN) 600 mg tablet Take 600 mg by mouth 3 (three) times a day. Active ferrous sulfate 325 (65 FE) mg tablet Take 325 mg by mouth daily with breakfast. Active Active Problems Problem Noted Date Diagnosed Date Right knee pain 02/22/2020 Family History Medical History Relation Name Comments No Known Problems Father Heart disease Mother ' maker Relation Name Status Comments Father Mother Social History Tobacco Use Types Packs/Day Years Used Date Smoking Tobacco: Former Smokeless Tobacco: Never Comments:quit at age 44 Alcohol Use Standard Drinks/Week Comments Yes 0 (1 standard drink = 0.6 oz pure alcohol) 6 beers and 4 shots of liquor daily, sometimes more Overall Financial Resource Strain (CARDIA) Answe r Date Recorded How hard is it for you to pa y for the very basics like food, housing, medical care, and heating? Somewhat hard 02/22/2020 PHQ-2 Answer Date Recorded Total Score 0 02/22/2020 PRAPARE - Transportation Answer Date Re corded In the past 12 months, has l ack of transportation kept you from medical appointments or from getting medications? No 10/2019 In the past 12 months, has l ack of transportation kept you from meetings, work, or from getting things needed for daily living? No 02/22/2020 Childcare Answer Date Recorded Childcare Unknown 12/30/2018 Employment Answer Date Recorded Employment Unknown 12/30/2018 Purpose - Life Answer Date Recorded Purpose and direction in life Unknown Sex and Gender Information Value Date Recorded Sex Assigned at Not on file Legal Sex Male 12:14 PM EDT Gender Identity Not on file Sexual Orientation Not on file Last Filed Vital Signs Vital Sign Reading Time Taken Comments Blood Pressure 115/54 02/24/2020 9:04 AM EDT Pulse 64 02/24/2020 9:04 AM EDT Temperature 36.7 C (98 F) 02/24/2020 6:41 AM EDT Respiratory Rate 20 02/24/2020 6:41 AM EDT Oxygen Saturation 96% 02/24/2020 6:41 AM EDT Inhaled Oxygen Concentration - - Weight 86.4 kg (190 lb 7.6 oz) 02/23/2020 6:00 A M EDT Height 170.2 cm (5' 7.01 ) 02/22/2020 12:52 PM E DT Body Mass Index 29.83 02/22/2020 12:52 PM EDT Plan of Treatment Health Maintenance Due Date Last Done Comments Depression Screening 1963 Tobacco Screening 1963 Adult BMI Screening 1969 DTaP,Tdap and Td Vaccines (1 - Tdap) 1970 Zoster (Shingles) Vaccine (1 of 2) 2001 Fall Risk Screening 02/05/2016 Influenza Vaccine 03/21/2025 Goals Goal Patient Goal Type Associated Problems Recent Progress Patient-Stated? Author DC to SNF for short term rehab & then home General Yes Lauren Edgar LSW Note: Evaluation of progress towards goal: had PT evaluation & was up & out of bed Medical Devices Implanted Type Area Court Stenographer Device Identifier Shelf Expiration Date Model / Serial / Lot Cup Actb 52mm Pncl Sect Hip - [id number] - [id number] Implanted:Qt y: 1 on 02/22/2020 by Ryan Persaud Jr., DO at [facility] Orthopedic Implant Right: Hip ORTHOPAEDICS 07/20/2029 [id number] / [id number] / [id number] Corail2 Std Size 11 - [id number] - [id number] Implanted:Qt y: 1 on 02/22/2020 by Ryan Persaud Jr., DO at [facility] Orthopedic Implant Right: Hip ORTHOPAEDICS 10/19/2023 [id number] / [id number] / [id number] Linr Actb 52mm 36mm Altrx Hip - [id number] - [id number] Implanted:Qt y: 1 on 02/22/2020 by Ryan Persaud Jr., DO at [facility] Orthopedic Implant Right: Hip ORTHOPAEDICS 08/20/2024 [id number] / [id number] / [id number] Hd Fem 36mm -2mm 07/03 Tpr - [id number] - [id number] Implanted:Qt y: 1 on 02/22/2020 by Ryan Persaud Jr., DO at [facility] Orthopedic Implant Right: Hip ORTHOPAEDICS 10/18/2024 [id number] / [id number] / [id number] Hl Drlc Pncl Hip Mrthn - [id number] - [id number] Implanted:Qt y: 1 on 02/22/2020 by Ryan Persaud Jr., DO at [facility] Other Implant Right: Hip ORTHOPAEDICS 09/17/2029 [id number] / [id number] / [id number] Scr Canc Hip Cnn Gription 20mm - [id number] - [id number] Implanted:Qt y: 1 on 02/22/2020 by Ryan Persaud Jr., DO at [facility] Screw Right: Hip J [employer] 08/20/2030 [id number] / [id number] / [id number] Explanted Type Area Court Stenographer Device Identifier Shelf Expiration Date Model / Serial / Lot Impl Hip Mop All Sz Construct Rpl [id number] - Sna - [id number] Explanted:Qty : 1 on 02/22/2020 at [facility] Orthopedic Implant Right: Hip JJ [employer] [id number] / NA / NA Insurance [employer] MEDICARE Advance Directives * Full Code (Latest Code Status on File) Date Activated Date Inactivated Comments 02/23/2020 8:13 AM 02/24/2020 6:28 PM Care Teams Drywall Stripper Relationship Specialty Start Date End Date Betsey Mays, RHETT-FORESTRY CREW CHIEF PCP - General Nurse Practitioner 08/24/19
--- OUTSIDE RECORDS SUMMARY | 2025-05-08 14:32 | XMS_ITS | Encounter Summary ---
Author Organization [facility] Address [address] [place] [address] Care Team Providers Care Job Placement Specialist Name Role Phone Ulisses Montalvo MD Primary Care Provider [phone] Jonathon Isbell MD Unavailable [phone] Tika Vazquez MD Unavailable [phone] Tika Vazquez MD Unavailable [phone] Jonathon Isbell MD Unavailable [phone] Jonathon Isbell MD Primary Care Provider + [phone] Unallocated, Noms Provider Primary Care Provi martina Jonathon Isbell MD Unavailable [phone] Encounter Details Date Type Department Care Team (Late st Contact Info) Description 12/25/2022 Orders Only [facility] [address] [place] [address] Kaela Vazquez PA [address] [place] [address] Social History Tobacco Use Types Packs/Day Years Used Date Smoking Tobacco: Former Cigarettes Q uit: 2011 Smokeless Tobacco: Never Sex and Gender Information Value Date Recorded Sex Assigned at Not on file Legal Sex Male 6:43 PM EDT Gender Identity Not on file Sexual Orientation Not on file documented as of this encounter Plan of Treatment Upcoming Encounters Date Type Department Care Team (Late st Contact Info) Description 05/12/2025 1:00 PM EDT Office Visit [facility] [place] [facility] [address] [place] [address] Pati Bales MD [address] [place] [address] documented as of this encounter Procedures Procedure Name Priority Date/Time Associated Diagnosis Comments XR LUMBAR SPINE 6+ VIEWS INCLUDING OBLIQUE FLEXION EXTENSION Routine 12/23/2022 11:12 AM EDT documented in this encounter Results * XR lumbar spine 6+ views including oblique flexion extension (12/23/2022 11:12 AM EDT) Anatomical Region Laterality Modality Spine, L-spine Radiographic Jeanine ging us Kaela CUTLER IMG XR PROCEDURES Final Result documented in this encounter Visit Diagnoses Not on filedocumented in this encounter Care Teams Job Placement Specialist Relationship Specialty Start Date End Date Ulisses Montalvo MD [address] [facility] [address] [place] [address] PCP - General Family Medicine 12/20/22 12/08/23 Jontahon Isbell MD [address] [facility] [address] [place] [address] PCP - [employer] 12/19/22 10/19/23 Tika Vazquez MD [address] [place] [address] PCP - [employer] 10/20/23 12/19/23 Tika Vazquez MD [address] [place] [address] PCP - [employer] 01/19/24 02/18/24 Jonathon Isbell MD [address] [facility] [address] [place] [address] PCP - [employer] 07/21/24 09/17/24 Jonathon Isbell MD [address] [address] PCP - General Family Medicine 10/04/24 10/04/24 Unallocated, Noms MD Paulina [address] [place] [address] PCP - General Family Medicine 10/05/24 Jonathon Isbell MD [address] [address] PCP - [employer] 02/19/24 10/18/24 documented as of this encounter
--- OUTSIDE RECORDS SUMMARY | 2025-05-08 14:32 | XMS_ITS | Patient Health Record ---
Author Organization [facility] Address [address] [place] [phone] Support Name Relationship Address Phone Mikhail Wilson Guarantor Unknown [phone] Reason For Referral No Information Plan Of Treatment No Information
--- OUTSIDE RECORDS SUMMARY | 2025-05-08 14:32 | XMS_ITS | Clinical Summary ---
Author Organization [facility] Address [address] [place] [address] Care Team Providers Care Furnace Installer Name Role Phone Unallocated, Noms Provider Primary Care Provi martina Allergies Active Allergy Reactions Criticality Noted Date Comments Gabapentin Diarrhea 06/24/2023 Medications lisinopril 5 MG tabletIndications: Benign hypertension Take 1 tablet (5 mg) by mouth in the morning. 100 tablet 3 05/27/20 23 Active BD Pen Needle Micro U/F 32G X 6 MM misc Inject 1 each under the skin Daily Use with Basaglar 09/17/19 24 Active glipiZIDE (Glucotrol) 10 MG tabletIndications: Type 2 diabetes mellitus with diabetic neuropathy, without long-term current use of insulin (HCC) Take 1 tablet (10 mg) by mouth Daily 100 tablet 3 10/28/19 24 Active insulin glargine (Basaglar KwikPen) 100 UNIT/ML penIndications:Typ e 2 diabetes mellitus with diabetic neuropathy, without long-term current use of insulin (HCC) Inject 20 Units under the skin at bedtime 10/28/19 24 Active carvedilol (Coreg) 12.5 MG tabletIndications: Benign hypertension Take 1 tablet (12.5 mg) by mouth in the morning and 1 tablet (12.5 mg) in the evening. Take with meals. 200 tablet 3 10/28/19 24 Active insulin regular (NovoLIN R) 100 UNIT/ML injectionIndicatio ns:Type 2 diabetes mellitus with other specified complication, without long-term current use of insulin (HCC) Inject 0.1 mL (10 Units) under the skin in the morning and 0.1 mL (10 Units) at noon and 0.1 mL (10 Units) in the evening. Inject with meals. 27 mL 3 11/14/19 24 Active clopidogrel (Plavix) 75 MG tabletIndications: Peripheral vascular disease, unspecified TAKE 1 TABLET BY MOUTH EVERY DAY FOR 90 DAYS 90 tablet 3 11/19/19 24 Active pantoprazole (ProtoNix) 40 MG EC tabletIndications: Gastroesophageal reflux disease without esophagitis Take 1 tablet (40 mg) by mouth in the morning. Patient needs an appointment before next refill. 30 tablet 01/15/20 25 Active pioglitazone (Actos) 15 MG tabletIndications: Type 2 diabetes mellitus with diabetic neuropathy, without long-term current use of insulin ([facility]) Take 1 tablet (15 mg) by mouth Daily Patient needs an appointment before next vist 30 tablet 01/15/20 25 Active atorvastatin (Lipitor) 80 MG tabletIndications: Mixed hyperlipidemia Take 1 tablet (80 mg) by mouth at bedtime 30 tablet 01/15/20 25 Active Active Problems Problem Noted Date Diagnosed Date Diabetic polyneuropathy asso ciated with type 2 diabetes mellitus 10/28/2023 Claudication of lower extremity 10/20/2023 Status post colectomy 10/20/2023 Alcohol abuse, daily use 10/20/2023 Solitary pulmonary nodule on lung CT 10/20/2023 Frequent falls 05/01/2023 Alcohol abuse 12/19/2022 Anemia 12/19/2022 Abnormal feces 12/19/2022 Benign hypertension 12/19/2022 Erectile dysfunction 12/19/2022 Gastroesophageal reflux disease 12/19/2022 Hammer toe 12/19/2022 Incontinence of feces 12/19/2022 Malignant neoplasm of sigmoid colon 12/19/2022 PAD (peripheral artery disease) 12/19/2022 Status post total hip replacement, right 023 Type 2 diabetes mellitus with other specified co mplication 12/19/2022 Spinal cord disorder 12/19/2022 Unilateral primary osteoarthritis, right hip 01/2020 Other specified anxiety disorders 02/24/2020 Aftercare following joint replacement surgery Difficulty in walking, not elsewhere classified 02/24/2020 Pain in right hip 02/24/2020 Muscle weakness (generalized) 02/24/2020 Lumbago with sciatica, right side 02/24/2020 Insomnia, unspecified 02/24/2020 Illiteracy and low-level literacy 02/24/2020 Hyperlipidemia, unspecified 02/24/2020 Patient's other noncomplianc e with medication regimen for other reason 02/24/2020 Right knee pain 02/22/2020 Resolved Problems Problem Noted Date Diagnosed Date Resolved Date Chemotherapy-induced diarrhea 10/20/2023 10/20/2023 Other acute postprocedural pain 10/20/2023 10/20/2023 Diabetic neuropathy 12/19/2022 05/12/20 23 Type 2 diabetes mellitus wit h diabetic neuropathy, without long-term current use of insulin 12/19/2022 10/28/2023 Syncope and collapse 02/24/2020 023 Body mass index (BMI) 27.0-27.9, adult 02/24/2020 05/12/2023 Acute bronchitis due to Mycoplasma pneumoniae 02/24/2005/12/2023 Dermatitis, unspecified 02/24/202004/21 Unspecified osteoarthritis, unspecified site 0 05/12/2023 Family History Relation Name Status Comments Father Mother Social [...] often do you attend chur ch or advent services? Never 04/29/2023 Do you belong to any clubs o r organizations such as congregation groups, unions, fraternal or athletic groups, or [...] Recorded Patient Health Questionnaire-2 Score 0 05/12/2023 [facility] - Occupational Stress [...] the money to buy more. Never true 04/29/20 23 Within the past 12 months, t [...] place to sleep or slept in a halfway (including now)? No 04/29/2023 Sex and Gender Information Value Date Recorded Sex Assigned at Not on file Legal Sex Male 6:43 PM EDT Gender Identity Not on file Sexual Orientation Not on file Last Filed Vital Signs Vital Sign Reading Time Taken Comments Blood Pressure 114/76 10/28/2023 3:11 PM EDT Pulse 88 10/28/2023 3:11 PM EDT Temperature - - Respiratory Rate 16 10/28/2023 3:11 PM EDT Oxygen Saturation 95% 10/28/2023 3:11 PM EDT Inhaled Oxygen Concentration - - Weight 86.1 kg (189 lb 12.8 oz) 10/28/2023 3:11 PM EDT Height 170.2 cm (5' 7 ) 05/12/2023 4:24 PM EDT Body Mass Index 29.73 05/12/2023 4:24 PM EDT Plan of Treatment Upcoming Encounters Date Type Department Care Team (Late st Contact Info) Description 05/12/2025 1:00 PM EDT Office Visit [facility] [address] [place] [id number] Pati Bales MD [address] [place] [address] Health Maintenance Due Date Last Done Comments Pneumococcal Vaccine: 65+ Ye ars (1 of 2 - PCV) 1969 Diabetes: Hemoglobin A1C 12/08/2023 024, 05/12/2023, 2023, Additional history exists Diabetes: Urine Protein Screening 05/01/2024 023 Influenza Vaccine (#1) 2025 Diabetes: Retinopathy Screening 09/11/2025 FIT-DNA Discontinued 11/17/2020, 11/04/2020 Colonoscopy Discontinued 05/20/2022, 04/22, 03/21/2021 Colorectal Cancer Screening Discontinued CT Colonography Discontinued FIT Discontinued FOBT Discontinued Sigmoidoscopy Discontinued Procedures Procedure Name Priority Date/Time Associated Diagnosis Comments DIABETIC RETINOPATHY SCREENING - OU - BOTH EYES Routine 09/11/2023 POCT GLYCATED HEMOGLOBIN, TOTAL Routine 09/09/2023 2:05 PM EST Type 2 diabetes mellitus with diabetic neuropathy, without long-term current use of insulin (HCC) MICROALBUMIN / CREATININE URINE RATIO Routine 05/01/2023 1:24 PM EDT Type 2 diabetes mellitus with other specified complication, without long-term current use of insulin (HCC) Benign hypertension COLONOSCOPY Routine 05/20/2022 12:00 PM EDT LAB COLOGUARD COLON CANCER SCREEN Routine 11/17/2020 from Last 3 Months or Most Recently Relevant to Health Maintenance Results * Diabetic Retinopathy Screening - OU - Both Eyes (09/11/2023) RESULTS normal Anatomical Region Laterality Modality Head Other 09/11/2023 Narrative 09/11/2023 3:03 PM EST normal Ulisses Montalvo MD OPHTH PHOTOGRAPHY Final Result * (ABNORMAL) POCT Glycated hemoglobin, total (09/09/2023 2:05 PM EST) Hemoglobin A1C 9.6 Blood 09/09/2023 2:05 PM EST Kaela CUTLER POINT OF CARE TEST ENTER/EDIT ORDERABLES Final Result * Microalbumin / creatinine, urine ratio (05/01/2023 1:24 PM EDT) CREATININE, RANDOM URINE 44 20 - 320 mg/dL [facility] ALBUMIN, URINE 0.3 See Note: mg/dL [facility] Comment: Reference Range: Reference Range Not established ALBUMIN/CREATININE RATIO, RANDOM URINE 7 <30 mcg/mg creat [facility] Comment: The ADA defines abnormalities in albumin excretion as follows: Albuminuria Category Result (mcg/mg creatinine) Normal to Mildly increased <30 Moderately increased 30-299 Severely increased > OR = 300 The ADA recommends that at least two of three specimens collected within a 3-6 month period be abnormal before considering a patient to be within a diagnostic category. Urine Urine specimen obtained by clean catch procedure / Unknown 05/01/2023 1:24 PM EDT 05/01/2023 1:24 PM EDT Narrative Resulting Agency Comment Performing Organization Information Site ID: QPT Name: [facility] Address: [address] [place] [address], [address] [place] [id number] Director: Eliezer Shah MD Kaela CUTLER LAB URINE ORDERABLES Final Res ult [facility] * Colonoscopy (05/20/2022 12:00 PM EDT) Anatomical Region Laterality Modality Endoscopy 05/20/2022 12:0 0 PM EDT Narrative 05/20/2022 12:00 PM EDT PERFORMED AT [facility] LOCATION:[id number] Normal Procedure Note CONVERSION, GENERIC - 12/04/2022 PERFORMED AT [facility] LOCATION:[id number] Normal Ulisses Montalvo MD ENDOSCOPY PROCEDURE ORDERABLES F inal Result * (ABNORMAL) Cologuard?? colon cancer screening (11/17/2020) Pathologist [facility] COLOGUARD RESULT REPORTABLE Positive( A) Not Applicable [facility] Comment: It is recommended that a positive Cologuard screen be clinically correlated and followed-up with a structural examination of the colon such as diagnostic colonoscopy. Colonoscopies performed for a positive Cologuard may find as the most clinically significant lesion: colorectal cancer [4.0%], advanced adenoma (including sessile serrated polyps greater than or equal to 1cm diameter) [20%] or non- advanced adenoma [31%]; or no colorectal neoplasia [45%]. These estimates are derived from a prospective cross-sectional screening study of 10,000 individuals at average risk for colorectal cancer who were screened with both Cologuard and colonoscopy. (Table 3, Oralia Boyd. et al, N Engl J Med 2014;370(14):9797-2791.) The normal value (reference range) for this assay is negative. TEST TYPE: Composite algorithmic analysis of stool DNA-biomarkers with hemoglobin immunoassay. Quantitative values of individual biomarkers are not reportable and are not associated with individual biomarker result reference ranges. PRECAUTIONS AND LIMITATIONS: Cologuard is intended for colorectal cancer screening of adults of either sex, 45 years or older, who are at average-risk for colorectal cancer (CRC). Cologuard has been approved for use by the U.S. FDA. Cologuard may produce a false negative or false positive result. A negative Cologuard test result does not guarantee the absence of CRC or advanced adenoma (pre-cancer). Patients with a negative Cologuard test result should be advised to continue participating in a colorectal cancer screening program. The screening interval for Cologuard is currently recommended at an interval of every 3 years by the [employer] and U.S. Multi-Society Task Force. A false positive result occurs when Cologuard produces a positive result, even though a colonoscopy may not find colorectal cancer or precancerous polyps. The performance of Cologuard has been established in a cross sectional study (i.e., single point in time) of average-risk adults aged 50-84. Cologuard performance in patients ages 45 to 49 years was estimated by sub-group analysis of near-age groups. Cologuard performance data in a 10,000 patient pivotal study using colonoscopy as the reference method can be accessed at the following location: www.exactlabs.com/results. Additional description of the Cologuard test process, warnings and precautions can be found at www.cologuardtest.com. Rx only. 11/17/2020 us Ulisses Montalvo MD LAB MOLECULAR DIAGNOSTICS ORDERA BLES Final Result [facility] from Last 3 Months or Most Recently Relevant to Health Maintenance Insurance [facility] Care Teams Furnace Installer Relationship Specialty Start Date End Date Unallocated, Noms Provider, [address] [place], [place] [id number] PCP - General Family Medicine 10/05/24
--- OUTSIDE RECORDS SUMMARY | 2025-05-08 14:32 | XMS_ITS | Encounter Summary ---
Author Organization [facility] Address [address] [place] [address] Care Team Providers Care Milk Condenser Name Role Phone Ulisses Montalvo MD Primary Care Provider [phone] Jonathon Isbell MD Unavailable [phone] Tika Vazquez MD Unavailable [phone] Tika Vazquez MD Unavailable [phone] Jonathon Isbell MD Unavailable [phone] Jonathon Isbell MD Primary Care Provider + [phone] Unallocated, Noms Provider Primary Care Provi martina Jonathon Isbell MD Unavailable [phone] Encounter Details Date Type Department Care Team (Late st Contact Info) Description 05/13/2023 Abstract [facility] [address] [facility] [address] [place] [address] Ulisess Montalvo MD [address] [facility] [address] [place] [address] Social History Tobacco Use Types Packs/Day Years Used Date Smoking Tobacco: Former Cigarettes Q uit: 2011 Smokeless Tobacco: Never Comments:Last smoked : > 10 years Alcohol Use Standard Drinks/Week Comments Yes 4 (1 standard drink = 0.6 oz pure [...] week 04/29/2023 How often do you attend [facility] or hindu services? Never 04/29/2023 Do you belong to any clubs o r organizations such as confucianism groups, unions, fraternal or athletic groups, or [...] Recorded Patient Health Questionnaire-2 Score 0 05/12/2023 [facility] - Occupational Stress [...] money to buy more. Never true 04/29/20 Within the past 12 months, t he [...] place to sleep or slept in a longterm (including now)? No 04/29/2023 Sex and Gender [...] Visit [facility] [address] [place] [address] Pati Bales MD [address] [place] [address] documented as of this encounter Visit Diagnoses Not on filedocumented in this encounter Additional Health Concerns Assessment Noted Time PHQ-9 Depression Total Score: 0 05/12/20 4:00 PM EDT documented as of this encounter Care Teams Milk Condenser Relationship Specialty Start Date End Date Ulisses Montalvo MD [address] [place] [address] PCP - General Family Medicine 12/20/22 12/08/23 Jonathon Isbell MD [address] [place] [address] PCP - [employer] 12/19/22 10/19/23 Tika Vazquez MD [address] [place] [address] PCP - [employer] 10/20/23 12/19/23 Tika Vazquez MD [address] [place] [address] PCP - [employer] 01/19/24 02/18/24 Jonathon Isbell MD [address] [facility] [address] [place] [address] (Fax) PCP - [employer] 07/21/24 09/17/24 Jonathon Isbell MD [address] [facility] [address] [place] [address] (Fax) PCP - General Family Medicine 10/04/24 10/04/24 Unallocated, Galina Gallardo MD [address] [facility] [place] [address] PCP - General Family Medicine 10/05/24 Jonathon Isbell MD [address] [place] [address] PCP - [employer] 02/19/24 10/18/24 documented as of this encounter
--- OUTSIDE RECORDS SUMMARY | 2025-05-08 14:33 | XMS_ITS | CCD ---
Author Organization [facility] Care Team Providers Care Bi Data Architect Name Role Phone AIMEE, DR DOWLING Primary Care Unavailable NADERER, DR BELKIS Orlando Attending Unavailable CHELSEA, DR ROEL Gomez Consulting Unavailable NADERER, DR BELKIS Orlando Admitting Unavailable NADERER, DR BELKIS Orlando Consulting Unavailable TAYLOR, DR ANTUNEZ Consulting Unavailable AIMEE, DR DOWLING Attending Unavailable AIMEE, DR DOWLING Consulting Unavailable AIMEE, DR DOWLING Primary Care Unavailable AIMEE, DR DOWLING Admitting Unavailable MD Jonathon Isbell Primary Care Provider [phone] MD Christian Montana Attending Provider Unavailable Primary Care Provider Unavailabl e PROVIDER, UNKNOWN Attending Unavailable PROVIDER, UNKNOWN Admitting Unavailable Christian Montana Attending Unavailable Jonathon Isbell Primary Care Unavailable Christian Montana Admitting Unavailable Christian Montana Attending Unavailable Jonathon Isbell Primary Care Unavailable Christian Montana Admitting Unavailable Ulisses Yu MD Primary Care Provider [phone] Jonathon Isbell MD Unavailable KAELA MILTON Attending Unavailable KAELA MILTON Attending Unavailable KAELA MILTON Attending Unavailable Ulisses Yu MD Unavailable Unavailable Primary Care Provider Unavailabl e Unallocatquoc HOLBROOK, N[place] Provider Primary Care Provi martina Tika Uriostegui APRN Primary Care Provider Raul Hooper MD Attending Provider Kalina Sosa CMA Attending Provider UnavailTika Bright APRN Attending Provider Allergies Allergy Classification Reported Allergen(s) Allergy Type Date of Onset Reaction(s) Facility (5 sources) gabapentin Drug Allergy 06-24-2023 Diarrhea [facility] Work Phone: Medications Current Medications Medication Drug Class(es) Dates Sig (Normalized) Sig (Original) aspirin 81 mg delayed release oral tablet (7 sources) Platelet Aggregation Inhibitor, Nonsteroidal Anti-inflammatory Drug Start: 03-28-2021 End: 06-30-2024 take 1 tablet by mouth once daily aspirin 81 MG EC tablet Indications: Type 2 diabetes mellitus with diabetic neuropathy, without long-term current use of insulin (CMS/HCC) Take 1 tablet (81 mg) by mouth 1 (one) time each day at the same time. 100 tablet 3 05/27/2023 06/30/2024 Active atorvastatin 80 mg oral tablet (9 sources) HMG-CoA Reductase Inhibitor Start: 02-03-2025 take 1 tablet by mouth once daily Atorvastatin 80 mg tablet Active 80 MG PO Daily 90 February 03, 2025 9:22am Complies with drug therapy Start: 03-28-2021 End: 02-03-2025 take 1 tablet by mouth at bedtime atorvastatin (Lipitor) 80 MG tablet Indications: Mixed hyperlipidemia (CMS/HCC) Take 1 tablet (80 mg) by mouth at bedtime 100 tablet 3 10/28/2023 Active Blood-Glucose Meter kit (1 source) Start: 06-01-2024 Blood-Glucose Meter kit Active 0 .Route 1 June 01, 2024 1:00am As directed carvedilol 12.5 mg oral tablet (9 sources) alpha-Adrenerg ic Elio, beta-Adrenergi c Elio Start: 02-03-2025 take 1 tablet by mouth twice daily at mealtime Carvedilol 12.5 mg tablet Active 12.5 MG PO Twice daily 180 February 03, 2025 12:00am must administer with a meal/food Complies with drug therapy Start: 03-28-2021 End: 06-01-2024 take 1 tablet by mouth in the morning carvedilol (Coreg) 12.5 MG tablet Indications: Benign hypertension (CMS/HCC) Take 1 tablet (12.5 mg) by mouth in the morning and 1 tablet (12.5 mg) in the evening. Take with meals. 200 tablet 3 10/28/2023 Active clopidogrel 75 mg oral tablet (8 sources) P2Y12 Platelet Inhibitor Start: 11-19-2023 take 1 tablet by mouth once daily clopidogrel (Plavix) 75 MG tablet Indications: Peripheral vascular disease, unspecified (CMS/HCC) TAKE 1 TABLET BY MOUTH EVERY DAY FOR 90 DAYS 90 tablet 3 11/19/2023 Active Start: 03-28-2021 take 1 tablet by mau th once daily clopidogrel (Plavix) 75 MG tablet Indications: Peripheral vascular disease, unspecified (CMS/HCC) TAKE 1 TABLET BY MOUTH EVERY DAY FOR 90 DAYS 90 tablet 3 08/11/2023 Active gabapentin 100 mg oral capsule (4 sources) Anti-epileptic Agent Start: 03-31-2025 take 1 capsule by mouth three times daily Gabapentin 100 mg capsule Active 100 MG PO Three times daily 90 March 31, 2025 12:00am Complies with drug therapy Start: 03-28-2021 End: 06-01-2024 take 1 tablet by mouth three times daily Gabapentin 600 mg tablet Discontinued 600 MG PO Three times daily March 28, 2021 12:00am June 01, 2024 12:56pm glipiZIDE 10 mg oral tablet (8 sources) Sulfonylurea Start: 10-28-2023 take 1 tablet by mouth once daily glipiZIDE (Glucotrol) 10 MG tablet Indications: Type 2 diabetes mellitus with diabetic neuropathy, without long-term current use of insulin ([facility]) Take 1 tablet (10 mg) by mouth Daily 100 tablet 3 10/28/2023 Active Start: 03-28-2021 End: 06-01-2024 take 1 tablet by mouth twice daily Glipizide 10 mg tablet Discontinued 10 MG PO Twice daily March 28, 2021 12:00am June 01, 2024 12:56pm 3 ml insulin glargine 100 unt/ml pen injector (4 sources) Insulin Analog Start: 03-31-2025 inject 10 [IU] by subcutaneous injection once daily in the evening Insulin Glargine (Lantus Solostar U-100 Insulin) 100 unit/mL (3 mL) insulin pen Active 10 UNIT SUBCUT Every evening March 31, 2025 12:00am Complies with drug therapy Start: 10-28-2023 insulin glargi ne (Basaglar KwikPen) 100 UNIT/ML pen Indications: Type 2 diabetes mellitus with diabetic neuropathy, without long-term current use of insulin ([facility]) Inject 20 Units under the skin at bedtime 10/28/2023 Active 3 ml insulin, regular, human 100 unt/ml pen injector (5 sources) Insulin Start: 03-31-2025 Insulin Regula r Human (Novolin R Flexpen) 100 unit/mL (3 mL) insulin pen Active 1 sliding scale dose SUBCUT Use as Directed March 31, 2025 12:00am 0-150 - No insulin 151-200 - 2 units 201-250 -- 4 units 251-300- 6 units 301 -350 - 8 units 351-400 - 10 units 401-500-- 15 units >500 - call doctor Complies with drug therapy Start: 02-03-2025 inject 10 [IU] by michael bcutaneous injection three times daily Insulin Regular Human (Novolin R Regular U100 Insulin) 100 unit/mL solution Active 10 UNIT SUBCUT Three times daily February 03, 2025 12:00am Complies with drug therapy Start: 11-14-2023 End: 11-13-2024 insulin regular (NovoLIN R) 100 UNIT/ML injection Indications: Type 2 diabetes mellitus with other specified complication, without long-term current use of insulin Inject 0.1 mL (10 Units) under the skin in the morning and 0.1 mL (10 Units) at noon and 0.1 mL (10 Units) in the evening. Inject with meals. 27 mL 3 11/14/2023 Active lisinopril 10 mg oral tablet (9 sources) Angiotensin Converting Enzyme Inhibitor Start: 09-17-2024 take 1 tablet by mouth once daily Lisinopril 10 mg tablet Active 10 MG PO Daily September 17, 2024 1:52pm Complies with drug therapy Start: 08-02-2021 End: 09-17-2024 take 1 tablet by mouth in the morning lisinopril 5 MG tablet Indications: Benign hypertension (CMS/HCC) Take 1 tablet (5 mg) by mouth in the morning. 100 tablet 3 05/27/2023 Active pantoprazole 40 mg delayed release oral tablet (5 sources) Proton Pump Inhibitor Start: 10-28-2023 End: 02-03-2025 take 1 tablet by mouth once daily Pantoprazole 40 mg tablet,delayed release (DR/EC) Active 40 MG PO Daily February 03, 2025 9:21am Complies with drug therapy pioglitazone 15 mg oral tablet (7 sources) Peroxisome Proliferator Receptor alpha Agonist, Peroxisome Proliferator Receptor gamma Agonist, Thiazolidinedione Start: 10-28-2023 End: 02-03-2025 take 1 tablet by mouth once daily Pioglitazone 15 mg tablet Active 15 MG PO Daily 90 February 03, 2025 9:22am Complies with drug therapy Start: 02-05-2023 take 1 tablet by mau th in the morning pioglitazone (Actos) 15 MG tablet Indications: Type 2 diabetes mellitus with diabetic neuropathy, without long-term current use of insulin (CMS/HCC) Take 1 tablet (15 mg) by mouth in the morning. 90 tablet 3 02/05/2023 Active triamcinolone acetonide 1 mg/ml topical cream (1 source) Corticosteroid Start: 06-01-2024 Triamcinolone Acetonide 0.1 % cream Active 1 APPLIC TOPICAL Twice daily 80 June 01, 2024 1:00am Complies with drug therapy Completed/Discontinued Medications Medication Drug Class(es) Dates Sig (Normalized) Sig (Original) acetaminophen 325 mg / HYDROcodone bitartrate 5 mg oral tablet (3 sources) Opioid Agonist Start: 05-01-2021 End: 06-01-2024 take 1 tablet by mouth every six hours as needed for pain Hydrocodone-Acetam inophen 5-325 mg Tablet Discontinued 1 TAB PO Q6H as needed for Pain 28 May 01, 2021 June 01, 2024 12:39pm capecitabine 500 mg oral tablet (9 sources) Nucleoside Metabolic Inhibitor Start: 05-31-2021 End: 01-31-2022 take 1 tablet by mouth twice daily Capecitabine (Xeloda) 500 mg Tablet Discontinued 2000 MG PO Twice daily 80 September 26, 2021 4:27pm January 31, 2022 10:08am Take only on M-F 2 weeks on one week off Insulin Regular Human 150 unit/1.5 mL syringe (1 source) Start: 06-01-2024 End: 02-03-2025 Insulin Regular Human 150 unit/1.5 mL syringe Discontinued 10 UNIT .Route Three times daily June 01, 2024 1:00am February 03, 2025 9:42am Inject 10 units every morning, at noon, and evening with meals. lidocaine 0.05 mg/mg medicated patch (1 source) Antiarrhythmic, Amide Local Anesthetic Start: 09-15-2024 End: 03-31-2025 apply 1 dose topically once daily Lidocaine (Lidoderm) 5 % adhesive patch,medicated Discontinued 1 PATCH TOPICAL Daily September 15, 2024 1:00am March 31, 2025 3:24pm leave on most painful area for up to 12 hrs omeprazole 40 mg delayed release oral capsule (5 sources) Proton Pump Inhibitor Start: 03-28-2021 End: 06-01-2024 take 1 capsule by mouth once daily Omeprazole 40 mg capsule,delayed release(DR/EC) Discontinued 40 MG PO Daily March 28, 2021 12:00am June 01, 2024 12:55pm ondansetron 8 mg oral tablet (3 sources) Serotonin-3 Receptor Antagonist Start: 07-04-2021 End: 06-01-2024 take 1 tablet by mouth every eight hours as needed for nausea Ondansetron Hcl 8 mg Tablet Discontinued 8 MG PO Q8H as needed for Nausea July 04, 2021 4:18pm June 01, 2024 12:56pm SITagliptin 100 mg oral tablet (3 sources) Dipeptidyl Peptidase 4 Inhibitor Start: 03-28-2021 End: 06-01-2024 take 1 tablet by mouth once daily Sitagliptin Phosphate (Januvia) 100 mg Tablet Discontinued 100 MG PO Daily March 28, 2021 12:00am June 01, 2024 12:56pm Problems Active Problems Problem Classification Problem Date Documented Da te Episodic/Chronic Acquired foot deformities (5 sources) Hammer toe; Translations: [Other hammer toe(s) (acquired), unspecified foot] Onset: 12-19-2022 12-19-2022 Chronic Alcohol-related disorders (11 sources) Nondependent alcohol abuse, continuous; Translations: [Alcohol abuse, uncomplicated] Onset: 12-19-2022 07-12-2021 Chronic Allergic reactions (8 sources) Acral erythema due to cytotoxic therapy; Translations: [Localized skin eruption due to drugs and medicaments taken internally] Onset: 02-24-2020 Resolved: 05-12-2023 09-12-2021 Episodic Anxiety disorders (5 sources) Anxiety disorder; Translations: [Other specified anxiety disorders] Onset: 02-24-2020 01-28-2023 Chronic Cancer of colon (8 sources) Malignant tumor of sigmoid colon; Translations: [Malignant neoplasm of sigmoid colon] Onset: 12-19-2022 1 Chronic Cancer of colon (1 source) History of malignant neoplasm of colon; Translations: [Personal history of other malignant neoplasm of large intestine] 06-02-2024 Episodic Conditions associated with dizziness or vertigo (1 source) Dizziness; Translations: [Dizziness and giddiness] Episodic Diabetes mellitus with complications (20 sources) Type 2 diabetes mellitus with hyperglycemia; Translations: [Type 2 diabetes mellitus with diabetic neuropathy, unspecified] Onset: 02-21-2021 Resolved: 10-28-2023 12-19-2022 Chronic Diabetes mellitus without complication (6 sources) Diabetes mellitus; Translations: [Type 2 diabetes mellitus without complications] 05-12-2021 Chronic Diabetes mellitus without complication (1 source) Hyperglycemia; Translations: [Hyperglycemia, unspecified] Episodic Disorders of lipid metabolism (8 sources) Hyperlipidemia, unspecified; Translations: [Hyperlipidemia] Onset: 02-24-2020 01-28-2023 Chronic Esophageal disorders (6 sources) Gastro-esophageal reflux disease without esophagitis; Translations: [Gastroesophageal reflux disease] Onset: 02-06-2022 12-19-2022 Chronic Essential hypertension (11 sources) Hypertensive disorder; Translations: [Essential (primary) hypertension] Onset: 12-19-2022 09-27-2021 Chronic Intracranial injury (1 source) Personal history of traumatic brain injury; Translations: [PERSONAL HX TRAUMATIC BRAIN INJURY] Onset: 02-06-2022 Episodic Maintenance chemotherapy; radiotherapy (3 sources) Patient encounter status; Translations: [Encounter for antineoplastic chemotherapy] 07-12-2021 Chronic Osteoarthritis (10 sources) Osteoarthritis of right hip joint; Translations: [Unilateral primary osteoarthritis, right hip] Onset: 02-24-2020 Resolved: 05-12-2023 01-28-2023 Chronic Other aftercare (1 source) 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 hypoglycemic drugs; Translations: [LONG-TERM USE ORAL HYPOGLYCEMIC DX] Onset: 02-06-2022 Episodic Other aftercare (1 source) Other 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 system 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 (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) drug therapy; Translations: [OTH PATTERN FITTER CURRENT DRUG THERAPY] Onset: 02-06-2022 Episodic Other circulatory disease (1 source) Personal history of transient ischemic attack (TIA), and cerebral infarction without residual deficits; Translations: [PERS HX TIA AND CI NO RESID DEFICIT] Onset: 02-06-2022 Episodic Other connective tissue disease (5 sources) History of total hip arthroplasty; Translations: [Presence of right artificial hip joint] Onset: 12-19-2022 12-19-2022 Chronic Other fractures (1 source) Fracture of left rib; Translations: [Fracture of one rib, left side, initial encounter for closed fracture] 09-15-2024 Episodic Other gastrointestinal disorders (6 sources) Diarrhea due to drug; Translations: [Toxic gastroenteritis and colitis] Onset: 10-20-2023 Resolved: 10-20-2023 09-12-2021 Episodic Other lower respiratory disease (6 sources) Solitary nodule of lung; Translations: [Solitary pulmonary nodule] Onset: 10-20-2023 07-12-2021 Episodic Other male genital disorders (5 sources) Male erectile dysfunction, unspecified; Translations: [Impotence of organic origin] Onset: 12-19-2022 12-19-2022 Chronic Other nervous system disorders (5 sources) Spinal cord disease; Translations: [Disease of spinal cord, unspecified] Onset: 12-19-2022 12-19-2022 Chronic Other nervous system disorders (5 sources) Difficulty walking; Translations: [Difficulty in walking, not elsewhere classified] Onset: 02-24-2020 01-28-2023 Chronic Other nervous system disorders (2 sources) Neuropathy; Translations: [Polyneuropathy, unspecified] 03-31-2025 Chronic Other nervous system disorders (6 sources) Acute postoperative pain; Translations: [Other acute postprocedural pain] Onset: 10-20-2023 Resolved: 10-20-2023 05-11-2021 Episodic Other screening for suspected conditions (not mental disorders or infectious disease) (3 sources) Abnormal findings on diagnostic imaging of skull and head, not elsewhere classified; Translations: [Patient encounter status] Onset: 02-06-2022 06-01-2024 Episodic Other skin disorders (1 source) Eruption; Translations: [Rash and other nonspecific skin eruption] 06-01-2024 Episodic Peripheral and visceral atherosclerosis (17 sources) Peripheral vascular disease, unspecified; Translations: [Intermittent claudication] Onset: 02-15-2021 Chronic Residual codes; unclassified (1 source) Obstructive sleep apnea (adult) (pediatric); Translations: [OBSTRUCTIVE SLEEP APNEA] Onset: 07-20-2022 Chronic Residual codes; unclassified (6 sources) History of colectomy; Translations: [Acquired absence of other specified parts of digestive tract] Onset: 10-20-2023 05-11-2021 Episodic Residual codes; unclassified (3 sources) Stopped drinking alcohol; Translations: [Personal history of other specified conditions] 09-12-2021 Episodic Unclassified (1 source) Encounter for follow-up examination after completed treatment for malignant neoplasm; Translations: [Encounter for follow-up examination after completed treatment for malignant neoplasm] Onset: 05-20-2022 Unclassified (1 source) Encounter for preprocedural laboratory examination; Translations: [Encounter for preprocedural laboratory examination] Onset: 05-16-2022 Unclassified (1 source) E11.9 - Type 2 diabetes mellitus without complications Viral infection (1 source) COVID-19; Translations: [COVID-19] Onset: 02-06-2022 Past or Other Problems Problem Classification Problem Date Documented Da te Episodic/Chronic Acute bronchitis (5 sources) Acute mycoplasmal bronchitis; Translations: [Acute bronchitis due to Mycoplasma pneumoniae] Onset: 02-24-2020 Resolved: 05-12-2023 05-12-2023 Episodic Administrative/social admission (5 sources) Literacy problems; Translations: [Illiteracy and low-level literacy] Onset: 02-24-2020 01-28-2023 Episodic Deficiency and other anemia (5 sources) Anemia; Translations: [Anemia, unspecified] Onset: 12-19-2022 12-19-2022 Episodic Mood disorders (5 sources) Mood disorders Onset: 05-12-2023 05-12-2023 Other connective tissue disease (5 sources) Muscle weakness; Translations: [Muscle weakness (generalized)] Onset: 02-24-2020 01-28-2023 Episodic Other connective tissue disease (5 sources) Recurrent falls ; Translations: [Repeated falls] Onset: 05-01-2023 05-01-2023 Episodic Other gastrointestinal disorders (5 sources) Abnormal feces; Translations: [Other fecal abnormalities] Onset: 12-19-2022 12-19-2022 Episodic Other gastrointestinal disorders (5 sources) Incontinence of feces; Translations: [Full incontinence of feces] Onset: 12-19-2022 12-19-2022 Episodic Other non-traumatic joint disorders (5 sources) [...] 05-12-2023 Episodic Residual codes; unclassified (4 sources) Noncompliance [...] Test Name Value Interpretation Reference Range Facility Basophils Auto (Bld) [#/Vol] Ordered By: Raul Hooper on 03-26-2025 Basophils (Bld) [#/Vol] 0.1 10 3/uL 0.0-0.1 [facility] Basophils/100 WBC Auto (Bld) Ordered By: Raul Hooper on 03-26-2025 Basophils/100 WBC (Bld) 1.8 % 0.2-2.0 [facility] Eosinophils/100 WBC Auto (Bl d)Ordered By: Raul Hooper on 03-26-2025 Eosinophils/100 WBC (Bld) 6.9 % 0.9-7.0 [facility] Erythrocyte distribution wid th Auto (RBC) [Ratio]Ordered By: Raul Hooper on 03-26-2025 Erythrocyte distribution width (RBC) [Ratio] 12.3 % 11.0-15.0 [facility] Globulin Calc (S) [Mass/Vol] Ordered By: Tika Uriostegui on 03-26-2025 Globulin (S) [Mass/Vol] 4.2 g/dL [facility] Glomerular filtration rate ( GFR) estimation in non- AmericanOrdered By: Tika Uriostegui on 03-26-2025 GFR/1.73 sq M.predicted among non-blacks MDRD (S/P/Bld) [Vol rate/Area] mL/min/{1.73_m2} >=60 mL/min/1.73m 2 [facility] Hematocrit Auto (Bld) [Volum e fraction]Ordered By: Raul Hooper on 03-26-2025 Hematocrit (Bld) [Volume fraction] 39.8 % Low 42.0-54.0 [facility] Hemoglobin [Mass/volume] in BloodOrdered By: Raul Hooper on 03-26-2025 Hemoglobin (Bld) [Mass/Vol] 14.0 g/dL 14.0-18.0 [facility] - Chemistry and C hemistry - challengeOrdered By: Raul Hooper on 03-26-2025 Bilirubin Ql (U) Negative NEGATIVE [facility] Glucose (U) [Mass/Vol] mg/dL Abnormal NEGATIVE [facility] Ketones Ql (U) Negative NEGATIVE [facility] pH (U) 5.5 [pH] 5.0-9.0 [facility] Specific gravity (U) [Rel density] 1.015 1.005-1.025 [facility] Urobilinogen Qn (U) 0.2 {Cynthia'U}/dL 0.2-1.0 [facility] - Chemistry and C hemistry - challengeOrdered By: Tika Uriostegui on 03-26-2025 Albumin [Mass/Vol] 3.2 g/dL Low 3.4-5.0 [facility] ALP [Catalytic activity/Vol] 92 U/L 46-116 [facility] ALT [Catalytic activity/Vol] 28 U/L 16-63 [facility] AST [Catalytic activity/Vol] 19 U/L 15-37 [facility] Bilirubin [Mass/Vol] 0.5 mg/dL 0.2-1.0 [facility] Calcium [Mass/Vol] 9.7 mg/dL 8.5-10.1 [facility] Chloride [Moles/Vol] 100 mmol/L 98-107 [facility] CO2 [Moles/Vol] 25.5 mmol/L 21.0-32.0 [facility] Creatinine [Mass/Vol] 1.16 mg/dL 0.70-1.30 [facility] GFR/1.73 sq M.predicted MDRD (S/P/Bld) [Vol rate/Area] mL/min/{1.73_m2} >=60 mL/min/1.73m 2 [facility] Glucose [Mass/Vol] 338 mg/dL High 74-106 [facility] Potassium [Moles/Vol] 4.2 mmol/L 3.5-5.1 [facility] Protein [Mass/Vol] 7.4 g/dL 6.4-8.2 [facility] Sodium [Moles/Vol] 135 mmol/L Low 136-145 [facility] Urea nitrogen [Mass/Vol] 28.0 mg/dL High 7.0-18.0 [facility] Urea nitrogen/Creatinine [Mass ratio] 24.1 mg/mg [facility] - Hematology and Cell countsOrdered By: Raul Hooper on 03-26-2025 Immature granulocytes/100 WBC (Bld) 0.3 % 0.0-0.5 [facility] - Specimen inform ationOrdered By: Raul Hooper on 03-26-2025 Appearance (U) CLEAR CLEAR [facility] Color (U) LT. YELLOW YELLOW [facility] - UrinalysisOrder ed By: Raul Hooper on 03-26-2025 Leukocyte esterase Test strip Ql (U) Negative NEGATIVE [facility] Mucus Ql (Urine sed) NONE SEEN NONE SEEN [facility] Nitrite Ql (U) Negative NEGATIVE [facility] Protein Ql (U) Negative NEG/TRACE [facility] Leukocytes [#/volume] correc pricilla for nucleated erythrocytes in Blood by Automated counOrdered By: Raul Hooper on 03-26-2025 WBC corrected for nucl RBC Auto (Bld) [#/Vol] 6.2 10 3/uL 4.0-11.0 [facility] Lymphocytes Auto (Bld) [#/Vo l]Ordered By: Raul Hooper on 03-26-2025 Lymphocytes (Bld) [#/Vol] 1.3 10 3/uL 1.2-3.8 [facility] Lymphocytes/100 WBC Auto (Bl d)Ordered By: Raul Hooper on 03-26-2025 Lymphocytes/100 WBC (Bld) 20.1 % Low 20.5-60.0 [facility] MCH Auto (RBC) [Entitic mass ]Ordered By: Raul Hooper on 03-26-2025 MCH (RBC) [Entitic mass] 30.5 pg 25.9-34.0 [facility] MCHC Auto (RBC) [Mass/Vol]Or dered By: Raul Hooper on 03-26-2025 MCHC (RBC) [Mass/Vol] 35.2 g/dL 29.9-35.2 [facility] MCV Auto (RBC) [Entitic vol] Ordered By: Raul Hooper on 03-26-2025 MCV (RBC) [Entitic vol] 86.7 fL 80.0-94.0 [facility] Monocytes Auto (Bld) [#/Vol] Ordered By: Raul Hooper on 03-26-2025 Monocytes (Bld) [#/Vol] 0.6 10 3/uL 0.3-0.8 [facility] Monocytes/100 WBC Auto (Bld) Ordered By: Raul Hooper on 03-26-2025 Monocytes/100 WBC (Bld) 9.0 % 1.7-12.0 [facility] Neutrophils Auto (Bld) [#/Vo l]Ordered By: Raul Hooper on 03-26-2025 Neutrophils (Bld) [#/Vol] 3.9 10 3/uL 1.4-6.5 [facility] Neutrophils/100 WBC Auto (Bl d)Ordered By: Raul Hooper on 03-26-2025 Neutrophils/100 WBC (Bld) 61.9 % 43.0-75.0 [facility] No Panel InformationOrdered By: Raul Hooper on 03-26-2025 Urine Bacteria TRACE #/HPF Abnormal NONE SEEN [facility] Urine Culture Reflexed NO [facility] Urine Occult Blood Negative NEGATIVE [facility] Urine Other Casts NONE SEEN #/LPF NONE SEEN [facility] Urine Other Crystals None Seen #/HPF None Seen [facility] Urine RBC NONE SEEN #/HPF 0-2 [facility] Urine Squamous Epithelial Cells RARE #/LPF NONE/RARE [facility] Urine WBC 0-2 #/HPF Abnormal NONE SEEN [facility] Eosinophils # (Auto) 0.4 10 3/uL 0.0-0.7 [facility] Immature Granulocyte # (Auto) 0.02 10 3/uL 0.00-0.03 [facility] Platelet mean volume Auto (B ld) [Entitic vol]Ordered By: Raul Hooper on 03-26-2025 Platelet mean volume (Bld) [Entitic vol] 10.9 fL 9.5-13.5 [facility] Platelets Auto (Bld) [#/Vol] Ordered By: Raul Hooper on 03-26-2025 Platelets (Bld) [#/Vol] 246 10 3/uL 150-450 [facility] RBC Auto (Bld) [#/Vol]Ordere d By: Raul Hooper on 03-26-2025 RBC (Bld) [#/Vol] 4.59 10 6/uL Low 4.70-6.10 [facility] Serum or plasma albumin/glob ulin mass ratioOrdered By: Tika Uriostegui on 03-26-2025 Albumin/Globulin [Mass ratio] 0.8 {ratio} [facility] Serum or plasma anion gap de terminationOrdered By: Tika Uriostegui on 03-26-2025 Anion gap [Moles/Vol] 13.7 mmol/L [facility] Progress Noteson 08-08-2022 Siding Mechanic Authentication Interface Message Text EMERGENCY TRIAGE, TREAT AND TRANSPORT (ET3) DOCUMENTATION OF TELEHEALTH VISIT Date / Time: 08/08/2022 / 1200 Name: Mikhail Menon : 1950 SSN: (Not on file) EMS Agency: [facility] [x] Verbal consent obtained [] Implied consent - patient with potential emergency medical condition requiring assessment of capacity to refuse treatment and/or transport VITAL SIGNS: see flowsheet documentation Reason for Telehealth Visit: Chief Complaint Patient presents with Dizziness History of Present Illness: This is a pleasant 72-year-old male who was working at a [employer] when he complained to a co-worker that [...] Denies the following: Headache, neck pain, back pain,lightheadedne ss, chest pain, cough, difficulty breathing, fever, nausea/vomiting, [...] Completed by: Lei Wolf MD Normal [employer] [facility] Glucose Poct Glucometerson 1 Commemt1 Glu2: Cleaned Meter Normal [facility] Comment on above: Result Comment: PERF ORMED BY: [facility] [address] [place] [address] PATHOLOGIST MAJOR GIFTS MANAGER BULMARO HALL M.D. Performed By: #### G LULS #### Point of Care testing , Glucose [Mass/Vol] 179 mg/dL Normal [facility] Comment on above: Result Comment: [facility] Glucose Reference Range is dependent on time and content of last meal. Glucose of more than 200 mg/dL in a nonstressed, ambulatory subject supports the diagnosis of Diabetes Mellitus. Performed By: #### G LULS #### Point of Care testing , Glucose [Mass/Vol] 198 mg/dL Normal [facility] Comment on above: Result Comment: [facility] Glucose Reference Range is dependent on time and content of last meal. Glucose of more than 200 mg/dL in a nonstressed, ambulatory subject supports the diagnosis of Diabetes Mellitus. PERFORMED BY: [facility] [address] [place] [address] PATHOLOGIST MAJOR GIFTS MANAGER BULMARO HALL M.D. Performed By: #### G LULS #### Point of Care testing , COVID-19 [...] developed and its performance characteristic determined by [employer] and validated at [facility]. This test has not been FDA cleared [...] the authorization is terminated or revoked sooner. SARS-CoV+SARS-CoV- 2 (COVID-19) Ag [Presence] in Respiratory specimen by Rapid immunoassay Negative for SARS Antigen by DOROTHEA PERFORMED BY: [place] [address] PATHOLOGIST MAJOR GIFTS MANAGER BULMARO HALL M.D. [facility] Comment on above: Performed By: #### C OVID-19 CAMILA, SOFIANEG #### [address] COVID-19 SOFIAOrdered By: Byron Montana on 05-16-2022 SARS-CoV+SARS-CoV-2 (COVID-19) Ag IA.rapid Ql (Resp) Negative Negative [facility] Comment on above: This is a duplicate Camila SARS Antigen (DOROTHEA) result to be used for statistical tracking purpose only. No Panel InformationOrdered By: Christian Montana on 05-16-2022 SARS Antigen (LFIA) [facility] Camila Ag Negativeon 05-16-20 Camila Ag Negative Negative Normal Negative [facility] Comment on above: Result Comment: This is a duplicate Camila SARS Antigen (DOROTHEA) result to be used for statistical tracking purpose only. PERFORMED BY: [facility] [address] [place] [address] PATHOLOGIST MAJOR GIFTS MANAGER BULMARO HALL M.D. Performed By: #### C OVID-19 CAMILA, SOFIANEG #### [facility] [address] CBC AUTO DIFFon 02-02-2022 BASO # 0.1 103/ul Normal 0.0-0.1 [facility] Comment on above: Performed By: #### C BC #### [facility] [address] [address] [address] Bucky Gold Basophils/100 WBC (Bld) 1.3 % Normal 0.2-2.0 [facility] Comment on above: Performed By: #### C BC #### [facility] [address] [address] [address] Bucky Gold EO # 0.7 103/ul Normal 0.0-0.7 [facility] Comment on above: Performed By: #### C BC #### [facility] [address] [address] [address] Bucky Gold Eosinophils/100 WBC (Bld) 12.1 % Critically high 0.9-7.0 [facility] Comment on above: Performed By: #### C BC #### [facility] [address] [address] [address] Bucky Gold Erythrocyte distribution width (RBC) [Ratio] 12.1 % Normal 11.0-15.0 [facility] Comment on above: Performed By: #### C BC #### [facility] [address] [address] [address] Bucky Gold Hematocrit (Bld) [Volume fraction] 38.0 % Critically low 42.0-54.0 [facility] Comment on above: Performed By: #### C BC #### [facility] [address] [address] [address] Bucky Gold Hemoglobin (Bld) [Mass/Vol] 12.7 g/dL Critically low 14.0-18.0 [facility] Comment on above: Performed By: #### C BC #### [facility] [address] [address] [address] Bucky Gold IG # 0.01 10e3/ul Normal 0.00-0.03 [facility] Comment on above: Performed By: #### C BC #### [facility] [address] [address] [address] Bucky Gold IG % 0.2 % Normal 0.0-0.5 [facility] Comment on above: Performed By: #### C BC #### [facility] [address] [place] [address] Dr. Bucky Gold LYMPH # 1.0 103/ul Critically low 1.2-3.8 [facility] Comment on above: Performed By: #### C BC #### [facility] [address] [address] [address] Bucky Gold Lymphocytes/100 WBC (Bld) 18.4 % Critically low 20.5-60.0 [facility] Comment on above: Performed By: #### C BC #### [facility] [address] [place] [address] Dr. Bucky Gold MANUAL DIFF REQ NO Normal [facility] Comment on above: Performed By: #### C BC #### [facility] [address] [address] [address] Bucky Gold MCH (RBC) [Entitic mass] 32.8 pg Normal 25.9-34.0 [facility] Comment on above: Performed By: #### C BC #### [facility] [address] [place] [address] Dr. Bucky Gold MCHC (RBC) [Mass/Vol] 33.4 g/dL Normal 29.9-35.2 [facility] Comment on above: Performed By: #### C BC #### [facility] [address] [address] [address] Bucky Gold MCV (RBC) [Entitic vol] 98.2 fL Critically high 80.0-94 .0 [facility] Comment on above: Performed By: #### C BC #### [facility] [address] [address] [address] Bucky Gold MONO # 0.4 103/ul Normal 0.3-0.8 [facility] Comment on above: Performed By: #### C BC #### [facility] [address] [address] [address] Bucky Gold Monocytes/100 WBC (Bld) 6.8 % Normal 1.7-12.0 [facility] Comment on above: Performed By: #### C BC #### [facility] [address] [address] [address] Bucky Gold NEUT # 3.4 103/ul Normal 1.4-6.5 [facility] Comment on above: Performed By: #### C BC #### [facility] [address] [address] [address] Bucky Gold Neutrophils/100 WBC (Bld) 61.2 % Normal 43.0-75.0 [facility] Comment on above: Performed By: #### C BC #### [facility] [address] [address] [address] Bucky Gold Platelet mean volume (Bld) [Entitic vol] 10.1 fL Normal 9.5-13.5 [facility] Comment on above: Performed By: #### C BC #### [facility] [address] [address] [address] Bucky Gold PLT 154 103/ul Normal 150-450 [facility] Comment on above: Performed By: #### C BC #### [facility] [address] [address] [address] Bucky Gold RBC 3.87 106/ul Critically low 4.70-6.10 [facility] Comment on above: Performed By: #### C BC #### [facility] [address] [address] [address] Bucky Gold WBC 5.6 103/ul Normal 4.0-11.0 [facility] Comment on above: Performed By: #### C BC #### [facility] [address] [address] [address] Bucky Gold POINT OF CARE GLUCOSEon 01-18 Glucose [Mass/Vol] 214 mg/dL Critically high 74-106 [facility] Comment on above: Performed By: #### P OCGLUC #### [facility] [address] [address] [address] Bucky Gold PROF CHEM 8 (BAS METB)on Anion gap [Moles/Vol] 10.4 mmol/L Normal [facility] Comment on above: Performed By: #### B MP #### [facility] [address] [place] [address] Dr. Bucky Gold Calcium [Mass/Vol] 8.3 mg/dL Critically low 8.5-10.1 [facility] Comment on above: Performed By: #### B MP #### [facility] [address] [place] [address] Dr. Bucky Gold Chloride [Moles/Vol] 104 mmol/L Normal 98-107 [facility] Comment on above: Performed By: #### B MP #### [facility] [address] [place] [address] Dr. Bucky Gold CO2 [Moles/Vol] 25.5 mmol/L Normal 21.0-32.0 [facility] Comment on above: Performed By: #### B MP #### [facility] [address] [place] [address] Dr. Bucky Gold Creatinine [Mass/Vol] 0.89 mg/dL Normal 0.70-1.30 [facility] Comment on above: Performed By: #### B MP #### [facility] [address] [place] [address] Dr. Bucky Gold EGFR-AF QATARI >60 Normal >=60 [facility] Comment on above: Performed By: #### B MP #### [facility] [address] [place] [address] Dr. Bucky Gold EGFR-NON AF QATARI >60 Normal >=60 [facility] Comment on above: Performed By: #### B MP #### [facility] [address] [address] [address] Bucky Gold Glucose [Mass/Vol] 138 mg/dL Critically high 74-106 T [facility] Comment on above: Performed By: #### B MP #### [facility] [address] [place] [address] Dr. Bucky Gold Potassium [Moles/Vol] 3.9 mmol/L Normal 3.5-5.1 [facility] Comment on above: Performed By: #### B MP #### [facility] [address] [place] [address] Dr. Bucky Gold Sodium [Moles/Vol] 136 mmol/L Normal 136-145 [facility] Comment on above: Performed By: #### B MP #### [facility] [address] [place] [address] Dr. Bucky Gold Urea nitrogen [Mass/Vol] 12.0 mg/dL Normal 7.0-18.0 [facility] Comment on above: Performed By: #### B MP #### [facility] [address] [place] [address] Dr. Bucky Gold Urea nitrogen/Creatinine [Mass ratio] 13.5 mg/mg Normal [facility] Comment on above: Performed By: #### B MP #### [facility] [address] [place] [address] Dr. Bucky Gold CBC W MANUAL DIFFon 02-02-20 22 ATYPICAL LYMPH # Normal [facility] Comment on above: Performed By: #### C BCMAN #### [facility] [address] [place] [address] Dr. Bucky Gold ATYPICAL LYMPH % Normal [facility] Comment on above: Performed By: #### C BCMAN #### [facility] [address] [place] [address] Dr. Bucky Gold BAND # Normal 0.0-0.3 [facility] Comment on above: Performed By: #### C BCMAN #### [facility] [address] [place] [address] Dr. Bucky Gold BAND % Normal 0-5 [facility] Comment on above: Performed By: #### C BCMAN #### [facility] [address] [place] [address] Dr. Bucky Gold BASOM # 0.00 103/ul Normal 0.00-0.10 [facility] Comment on above: Performed By: #### C BCMAN #### [facility] [address] [place] [address] Dr. Bucky Gold BASOM % 0.0 % Critically low 0.2-2.0 [facility] Comment on above: Performed By: #### C PRIYA #### [facility] [address] [place] [address] Dr. Bucky Gold BLAST # Normal [facility] Comment on above: Performed By: #### C BCJONATHAN #### [facility] [address] [place] [address] Dr. Bucky Gold BLAST % Normal [facility] Comment on above: Performed By: #### C BCJONATHAN #### [facility] [address] [place] [address] Dr. Bucky Gold CORRECTED WBC Normal 4.0-11.0 [facility] Comment on above: Performed By: #### C BCJONATHAN #### [facility] [address] [place] [address] Dr. Bucky Gold EOS # 0.00 103/ul Normal 0.00-0.70 [facility] Comment on above: Performed By: #### C BCJONATHAN #### [facility] [address] [place] [address] Dr. Bucky Gold EOS% 0.0 % Critically low 0.9-7.0 [facility] Comment on above: Performed By: #### C BCJONATHAN #### [facility] [address] [place] [address] Dr. Bucky Gold HCT 32.5 % Critically low 42.0-54.0 [facility] Comment on above: Performed By: #### C BCMAN #### [facility] [address] [address] [address] Bucky Gold HGB 10.8 g/dl Critically low 14.0-18.0 [facility] Comment on above: Performed By: #### C BCMAN #### [facility] [address] [address] [address] Bucky Gold LYMPHM # 0.55 103/ul Critically low 1.20-3.80 [facility] Comment on above: Performed By: #### C BCJONATHAN #### [facility] [address] [address] [address] Bucky Gold LYMPHM% 14.0 % Critically low 20.5-60.0 [facility] Comment on above: Performed By: #### C BCJONATHAN #### [facility] [address] [address] [address] Bucky Gold MCH 33.0 pg Normal 25.9-34.0 [facility] Comment on above: Performed By: #### C BCJONATHAN #### [facility] [address] [address] [address] Bucky Gold MCHC 33.2 g/dl Normal 29.9-35.2 [facility] Comment on above: Performed By: #### C BCJONATHAN #### [facility] [address] [address] [address] Bucky Gold MCV 99.4 fL Critically high 80.0-94.0 [facility] Comment on above: Performed By: #### C BCJONATHAN #### [facility] [address] [address] [address] Bucky Gold METAMYELOCYTE # Normal [facility] Comment on above: Performed By: #### C BCJONATHAN #### [facility] [address] [place] [address] Dr. Bucky Gold METAMYELOCYTE % Normal [facility] Comment on above: Performed By: #### C BCJONATHAN #### [facility] [address] [address] [address] Bucky Gold MONOM# 0.12 103/ul Critically low 0.30-0.80 [facility] Comment on above: Performed By: #### C PRIYA #### [facility] [address] [place] [address] Dr. Bucky Gold MONOM% 3.0 % Normal 1.7-12.0 [facility] Comment on above: Performed By: #### C PRIYA #### [facility] [address] [place] [address] Dr. Bucky Gold MPV 10.5 fL Normal 9.5-13.5 [facility] Comment on above: Performed By: #### C PRIYA #### [facility] [address] [place] [address] Dr. Bucky Gold MYELOCYTE # Normal [facility] Comment on above: Performed By: #### C PRIYA #### [facility] [address] [place] [address] Dr. Bucky Gold MYELOCYTE % Normal [facility] Comment on above: Performed By: #### C PRIYA #### [facility] [address] [place] [address] Dr. Bucky Gold NRBC Normal [facility] Comment on above: Performed By: #### C PRIYA #### [facility] [address] [place] [address] Dr. Bucky Gold PLT 143 103/ul Critically low 150-450 [facility] Comment on above: Performed By: #### C PRIYA #### [facility] [address] [place] [address] Dr. Bucky Gold RBC 3.27 106/ul Critically low 4.70-6.10 [facility] Comment on above: Performed By: #### C PRIYA #### [facility] [address] [place] [address] Dr. Bucky Gold RDW 12.0 % Normal 11.0-15.0 [facility] Comment on above: Performed By: #### C PRIYA #### [facility] [address] [place] [address] Dr. Bucky Gold SEG # 3.24 103/ul Normal 1.40-6.50 [facility] Comment on above: Performed By: #### C PRIYA #### [facility] [address] [address] [address] Bucky Gold SEG % 83.0 % Critically high 43.0-75.0 [facility] Comment on above: Performed By: #### Heidi POWERS #### [facility] [address] [address] [address] Bucky Gold WBC 3.9 103/ul Critically low 4.0-11.0 [facility] Comment on above: Performed By: #### C PRIYA #### [facility] [address] HEAD WO CONon [...] ROEL TRAN Date: 2022-02-01 10:57 Normal [facility] Covid-19 PCR (CVDTBH)on 01-18 SARS-CoV-2 (COVID-19) RNA ROSIBEL+probe Ql (Unsp spec) Detected Critically abnormal NOT DETECTED [facility] Comment on above: Result Comment: This test is not yet approved or cleared by the [place] FDA. When there are no FDA-approved or cleared tests available, and other criteria are met, FDA can make tests available under an emergency access mechanism called an Emergency Use Authorization (EUA). The EUA for this test is supported by the Lasting Room Supervisor of Health and Human Service's declaration that [...] Performed By: #### B MP, HSTROPN #### [facility] [address] [place] [address] Dr. Bcuky Gold ECHO LIMITED STUDYon 022 ECHO LIMITED STUDY Patient: MIKHAIL MENON Exam Date: 02/01/2022 : 1950 Gender:M Ordering : DR BELKIS YU . Admission #: [id number] Family : DR ULISSES YU M.D. Order #: [id number] CLICK HERE TO VIEW EXAM ECHOCARDIOGRAM REPORT [...] on 02/01/2022 at 18:39 Approved by: Ryan Amni M.D. on 02/01/2022 at 18:43 Normal [facility] POINT OF CARE GLUCOSEon 01-18 Glucose [Mass/Vol] 209 mg/dL Critically high 74-106 [facility] Comment on above: Performed By: #### P OCGLUC #### [facility] [address] [address] [address] Bucky Gold PROF CHEM 8 (BAS METB)on Anion gap [Moles/Vol] 11.8 mmol/L Normal [facility] Comment on above: Performed By: #### B MP, HSTROPN #### [facility] [address] [place] [address] Dr. Bucky Gold Calcium [Mass/Vol] 7.8 mg/dL Critically low 8.5-10.1 [facility] Comment on above: Performed By: #### B MP, HSTROPN #### [facility] [address] [address] [address] Bucky Gold Chloride [Moles/Vol] 104 mmol/L Normal 98-107 [facility] Comment on above: Performed By: #### B MP, HSTROPN #### [facility] [address] [address] [address] Bucky Gold CO2 [Moles/Vol] 24.1 mmol/L Normal 21.0-32.0 [facility] Comment on above: Performed By: #### B MP, HSTROPN #### [facility] [address] [address] [address] Bucky Gold Creatinine [Mass/Vol] 1.36 mg/dL Critically high 0.70-1.30 [facility] Comment on above: Performed By: #### B MP, HSTROPN #### [facility] [address] [address] [address] Bucky Gold EGFR-AF QATARI >60 Normal >=60 [facility] Comment on above: Performed By: #### B MP, HSTROPN #### [facility] [address] [address] [address] Bucky Gold EGFR-NON AF QATARI 52 mL/min/1.73m2 Critically low >=60 [facility] Comment on above: Performed By: #### B MP, HSTROPN #### [facility] [address] [address] [address] Bucky Gold Glucose [Mass/Vol] 211 mg/dL Critically high 74-106 T [facility] Comment on above: Performed By: #### B MELLY, HSTROPN #### [facility] [address] [place] [address] Dr. Bucky Gold Potassium [Moles/Vol] 3.9 mmol/L Normal 3.5-5.1 [facility] Comment on above: Performed By: #### B MELLY, HSTROPN #### [facility] [address] [address] [address] Bucky Gold Sodium [Moles/Vol] 136 mmol/L Normal 136-145 [facility] Comment on above: Performed By: #### B MELLY, HSTROPN #### [facility] [address] [place] [address] Dr. Bucky Gold Urea nitrogen [Mass/Vol] 16.0 mg/dL Normal 7.0-18.0 [facility] Comment on above: Performed By: #### B MP, HSTROPN #### [facility] [address] [place] [address] Dr. Bucky Gold Urea nitrogen/Creatinine [Mass ratio] 11.8 mg/mg Normal [facility] Comment on above: Performed By: #### B MELLY, HSTROPN #### [facility] [address] [place] [address] Dr. Bucky Gold TROPONIN, HIGH SENSITIVITYon 02-01-2022 HSTROP 12.5 pg/mL Normal 4.0-76.1 [facility] Comment on above: Result Comment: CUT- OFF POINTS HAVE BEEN ESTABLISHED BASED ON THE FOURTH UNIVERSAL DEFINITIONS OF MYOCARDIAL INFARCTION. THE UPPER REFERENCE LIMIT (URL) OF TROPONIN, DEFINED THE 99TH PERCENTILE OF cTnI DISTRIBUTION IN A REFERENCE POPULATION, HAS BEEN CONFIRMED THE DECISION THRESHOLD FOR AR DIAGNOSIS. Performed By: #### B MP, HSTROPN #### [facility] [address] [address] [address] Bucky Gold US CAROTID ART BILon 15-2 022 US CAROTID ART REGIS EXAMINATION: US [...] ROEL TRAN Date: 2022-02-01 15:02 Normal [facility] Complete Blood Count with Au to Diffon 07-11-2021 Basophils (Bld) [#/Vol] 0.08 10*3/uL Normal 0.00-0.[address] [facility] Specialist Comment on above: Performed By: #### C BCAD, CMP #### [facility] [address] [place], [place] [id number] Basophils/100 WBC (Bld) 1.6 % Normal [facility] Comment on above: Performed By: #### C BCAD, CMP #### [facility] [address] [place], [place] [id number] Eosinophils (Bld) [#/Vol] 0.28 10*3/uL Normal 0.02-0.[address] [facility] Specialist Comment on above: Performed By: #### C BCAD, CMP #### [facility] [address] [place], [place] [id number] Eosinophils/100 WBC (Bld) 5.8 % Normal [facility] Specialist Comment on above: Performed By: #### C BCAD, CMP #### [facility] [address] [place], [place] [id number] Erythrocyte distribution width (RBC) [Ratio] 11.8 % Normal 11.0-15.0 [facility] Specialist Comment on above: Performed By: #### C BCAD, CMP #### [facility] [address] [place], [place] [id number] Hematocrit (Bld) [Volume fraction] 41.4 % Normal 38.5-50.[address] [facility] Specialist Comment on above: Performed By: #### C BCAD, CMP #### [facility] [address] [place], [place] [id number] Hemoglobin (Bld) [Mass/Vol] 14.1 g/dL Normal 13.0-17.[address] [facility] Specialist Comment on above: Performed By: #### C BCAD, CMP #### [facility] [address] [place], [place] [id number] Lymphocytes (Bld) [#/Vol] 1.2 10*3/uL Normal 0.9-3.[address] [facility] Specialist Comment on above: Performed By: #### C BCAD, CMP #### [facility] [address] [place], [place] [id number] Lymphocytes/100 WBC (Bld) 24.3 % Normal [facility] Specialist Comment on above: Performed By: #### C BCAD, CMP #### [facility] [address] [place] [id number] MCH (RBC) [Entitic mass] 31.2 pg Normal 27.0-33.[address] [facility] Specialist Comment on above: Performed By: #### C BCAD, CMP #### [facility] [address], [place] [id number] MCHC (RBC) [Mass/Vol] 34.1 g/dL Normal 32.0-36.0 [facility] Comment on above: Performed By: #### C BCAD, CMP #### [facility] [address], [place] [id number] MCV (RBC) [Entitic vol] 92 fL Normal 80-100 [facility] Comment on above: Performed By: #### C BCAD, CMP #### [facility] [address], [place] [id number] Monocytes (Bld) [#/Vol] 0.3 10*3/uL Normal 0.2-0.9 [facility] Comment on above: Performed By: #### C BCAD, CMP #### [facility] [address], [place] [id number] Monocytes/100 WBC (Bld) 5.6 % Normal [facility] Comment on above: Performed By: #### C BCAD, CMP #### [facility] [address], [place] [id number] Neutrophils (Bld) [#/Vol] 3.0 10*3/uL Normal 1.5-7.8 [facility] Comment on above: Performed By: #### C BCAD, CMP #### [facility] [address], [place] [id number] Neutrophils/100 WBC (Bld) 62.5 % Normal [facility] Comment on above: Performed By: #### C BCAD, CMP #### [facility] [address], [place] [id number] Platelet mean volume (Bld) [Entitic vol] 11.30 fL Normal 7.50-12.50 [facility] Comment on above: Performed By: #### C BCAD, CMP #### [facility] [address], [place] [id number] Platelets (Bld) [#/Vol] 218 10*3/uL Normal 140-[address] [facility] Specialist Comment on above: Performed By: #### C BCAD, CMP #### [facility] [address], [place] [id number] RBC (Bld) [#/Vol] 4.52 10*6/uL Normal 4.20-5.80 [facility] Specialist Comment on above: Performed By: #### C BCAD, CMP #### [facility] [address], [place] [id number] RDW-SD 39.6 fL Normal 37.0-50.0 [facility] [employer] Patrol Lieutenant Comment on above: Performed By: #### C BCAD, CMP #### [facility] [address], [place] [id number] WBC (Bld) [#/Vol] 4.9 10*3/uL Normal 3.8-11.0 [facility] [employer] Patrol Lieutenant Comment on above: Performed By: #### C BCAD, CMP #### [facility] [address], [place] [id number] Comprehensive Metabolic Pane [facility] 07-11-2021 Albumin [Mass/Vol] 4.3 g/dL Normal 3.6-5.1 [facility] [employer] Patrol Lieutenant Comment on above: Performed By: #### C BCAD, CMP #### [facility] [address], [place] [id number] Albumin/Globulin [Mass ratio] 1.7 {ratio} Normal 1.0-2.[address] [facility] Specialist Comment on above: Performed By: #### C BCAD, CMP #### [facility] [address], [place] [id number] ALP [Catalytic activity/Vol] 73 U/L Normal 40-[address] [facility] Specialist Comment on above: Performed By: #### C BCAD, CMP #### [facility] [address], [place] [id number] ALT [Catalytic activity/Vol] 19 U/L Normal 9-[address] [facility] Specialist Comment on above: Result Comment: 06/20 Female reference range changed. Performed By: #### C BCAD, CMP #### [facility] [address], [place] [id number] Anion gap [Moles/Vol] 18 mmol/L Normal 12-20 [facility] Specialist Comment on above: Result Comment: Effe ctive 07/26/2019 reference range changed. Performed By: #### C BCAD, CMP #### [facility] [address], [place] [id number] AST [Catalytic activity/Vol] 27 U/L Normal 10-40 [facility] Comment on above: Result Comment: Spec jhonathan is hemolyzed. Results may be affected. Performed By: #### C BCAD, CMP #### [facility] [address], [place] [id number] BUN/CREA 21 Ratio Normal 6-22 [facility] Comment on above: Performed By: #### C BCAD, CMP #### [facility] [address], [place] [id number] Calcium [Mass/Vol] 9.4 mg/dL Normal 8.6-10.2 [facility] Comment on above: Performed By: #### C BCAD, CMP #### [facility] [address], [place] [id number] Chloride [Moles/Vol] 109 mmol/L High 98-107 [facility] Comment on above: Performed By: #### C BCAD, CMP #### [facility] [address], [place] [id number] CO2 [Moles/Vol] 18 mmol/L Low 20-31 [facility] Comment on above: Performed By: #### C BCAD, CMP #### [facility] [address], [place] [id number] Creatinine [Mass/Vol] 0.9 mg/dL Normal 0.7-1.4 [facility] Comment on above: Performed By: #### C BCAD, CMP #### [facility] [address], [place] [id number] eGFRAA 96 mL/min/1.73m2 Normal >60 [facility] Comment on above: Performed By: #### C BCAD, CMP #### [facility] [address], [place] [id number] eGFRNAA 79 mL/min/1.73m2 Normal >60 [facility] Comment on above: Performed By: #### C BCAD, CMP #### [facility] [address], [place] [id number] Globulin (S) [Mass/Vol] 2.6 g/dL Normal 1.9-3.7 N arun [place] [employer] Lieutenant Comment on above: Performed By: #### C BCAD, CMP #### [facility] [address], [place] [id number] Glucose [Mass/Vol] 203 mg/dL High 65-99 Lawrence maya [place] [employer] Lieutenant Comment on above: Result Comment: For FASTING Glucose --- ADA reference ranges: Normal 65-99 mg/dl Prediabetes 100-125 Diabetes >/= 126 Performed By: #### C BCAD, CMP #### [facility] [address], [place] [id number] Potassium [Moles/Vol] 4.5 mmol/L Normal 3.5-5.5 Piedad bravo [place] [employer] Lieutenant Comment on above: Result Comment: Spec imen is hemolyzed. Results may be affected. Performed By: #### C BCAD, CMP #### [facility] [address], [place] [id number] Protein [Mass/Vol] 6.9 g/dL Normal 6.1-8.1 Lawrence maya [place] [employer] Lieutenant Comment on above: Performed By: #### C BCAD, CMP #### [facility] [address], [place] [id number] Sodium [Moles/Vol] 140 mmol/L Normal 135-146 Lawrence maya [place] [employer] Lieutenant Comment on above: Performed By: #### C BCAD, CMP #### [facility] [address], [place] [id number] TBIL <0.3 Normal [facility] [employer] Lieutenant Comment on above: Performed By: #### C BCAD, CMP #### [facility] [address], [place] [id number] Urea nitrogen [Mass/Vol] 20 mg/dL Normal 7-25 [facility] [employer] Lieutenant Comment on above: Performed By: #### C BCAD, CMP #### [facility] [address], [place] [id number] Vital Signs Date Time Vital Sign Value Performing Clinician Facility 03-31-2025 14:51-0400 Body height 167.64 cm Tika Uriostegui APRN Work Phone: [facility] 03-31-2025 14:51-0400 Body mass index (BMI) [Ratio] 27.7 kg/m2 Tika Uriostegui APRN Work Phone: [facility] 03-31-2025 14:51-0400 Body temperature 98.4 [degF] Tika Gila DELANEY Work Phone: [facility] 03-31-2025 14:51-0400 Body weight 78.01 kg Tika Gila DELANEY Work Phone: [facility] 03-31-2025 14:51-0400 Diastolic blood pressure 80 mm[Hg] Tika Uriostegui APRN Work Phone: [facility] 03-31-2025 14:51-0400 Heart rate 84 /min Tika Uriostegui APRN Work Phone: [facility] 03-31-2025 14:51-0400 SaO2% (BldA) [Mass fraction] 95 % Tika Uriostegui APRN Work Phone: [facility] 03-31-2025 14:51-0400 Systolic blood pressure 128 mm[Hg] Tika Uriostegui APRN Work Phone: [facility] 08-08-2022 12:00-0500 Diastolic blood pressure 69 mm[Hg] [facility]-08-[facility] 12:00-0500 Heart rate 91 /min [facility] 08-08-2022 12:00-0500 Respiratory rate 16 /min [facility] 08-08-2022 12:00-0500 SaO2% (BldA) [Mass fraction] 97 % [facility] 08-08-2022 12:00-0500 Systolic blood pressure 147 mm[Hg] [facility] Encounters Encounter Date Encounter Type Care Provider Facility Start: 03-31-2025 End: 03-31-2025 ambulatory Tika Uriostegui APRN Work Phone: [facility] Work Phone: Start: 03-31-2025 End: 03-31-2025 Patient encounter procedure Tika Gila DELANEY [facility] Work Phone: Start: 03-28-2025 Non-patient / Non-visit Kalina Gee imelda [facility] Work Phone: Start: 03-26-2025 Non-patient / Non-visit Raul josé MD -[facility] Work Phone: Start: 12-18-2024 End: 12-18-2024 Refill Ulisses Yu MD Work Phone: [facility] Comment on above: Type 2 diabetes isaac itus with other specified complication, without long-term current use of insulin Start: 06-12-2024 End: 06-12-2024 Refill Ulisses Yu MD Work Phone: [facility] Comment on above: Benign hypertension ([facility]/HCC) Start: 03-14-2024 End: 03-15-2024 Refill Kaela M Hemmer PA Work Phone: [facility] Comment on above: Type 2 [...] 08-08-2022 Emergency department patient visit [facility] Triage[facility] Treat [facility] Transport Comment on above: Arrived Start: 05-20-2022 End: 05-20-2022 ambulatory [facility] Facility:[facility] Start: 05-16-2022 End: 05-16-2022 ambulatory [facility] Facility:[facility] Start: 05-16-2022 End: 05-16-2022 ambulatory MD Jonathon Isbell Work Phone: [facility] Work Phone: Start: 05-16-2022 End: 05-16-2022 Patient encounter procedure MD Jonathon Isbell Work Phone: [facility] Start: 02-01-2022 End: 02-02-[address] [...] 09-11-2025 Glaucoma screening Diabetes: R etinopathy Screening [facility] Start: 03-31-2025 Patient referral [facility] Work Phone: Start: 03-21-2025 Influenza vaccination Influenz a Vaccine (Season Ended) [facility] Start: 09-09-2024 Urine screening for protein Diabetes: Urine Protein Screening [facility] Start: 05-12-2024 Medicare Annual Wellness (AWV) Medicare Annual Wellness (AWV) [facility] Start: 05-12-2024 Pneumococcal Vaccine : 65+ Years (1 - PCV) Pneumococcal Vaccine: 65+ Years (1 - PCV) [facility] Comment on above: Postponed from 02/04 (Patient Refused) Start: 05-01-2024 Urine screening for protein Diabetes: Urine Protein Screening [facility] Start: 03-21-2024 Influenza vaccination Influenza Vacc ine (#1) [facility] Start: 01-18-2024 Influenza vaccination Influenza Vacc ine (#1) [facility] Comment on above: Postponed from 03/21 (Patient Refused) Start: 12-08-2023 Hemoglobin A1c measurement Diabetes: Hemoglobin A1C [facility] Start: 09-02-2023 End: 09-02-2023 Patient encounter procedure 09/02/2023 11:00 AM EST Office Visit [facility] [address] [place] [address] Kaela Milton PA [address] [place] [address] [facility] Start: 08-26-2023 End: 08-26-2023 Patient encounter procedure 08/26/2023 10:30 AM EST Office Visit [facility] [address] [place] [address] Kaela Milton PA [address] [place] [address] [facility] Start: 08-12-2023 Hemoglobin A1c measurement Diabetes: Hemoglobin A1C [facility] Start: 04-20-2022 Influenza vaccination Influenza Vacc onelia (#1) [facility] Start: 02-05-2016 Pneumococcal vaccination Pneumococcal Vaccine(s) (65+ yrs) (1 - PCV) [facility] [...] 1961 Glaucoma screening Diabetes: R etinopathy Screening [facility] Start: 1957 Pneumococcal Vaccine : 65+ Years (1 of 2 - PCV) Pneumococcal Vaccine: 65+ Years (1 of 2 - PCV) [facility] Start: 1950 COVID-19 Vaccine (#1) COVID-19 Vacci ne (#1) [facility] Start: 1950 Screening for malign ant neoplasm of colon Colonoscopy [facility] Patient referral [facility] Work Phone: [facility] Payers Date Payer Category Payer Private Health Insurance [facility] [id number] 2022 Unknown [id number] 2022 Medicare (Managed Care) [employer] [id number] 2022 Unknown [employer] D itembase [id number] 2022-Present [address] [place] [id number] 2022 Self-pay [id number] 2020 Unknown [id number] 1950 Unknown [id number] 1950 Unknown [id number] 1950 Unknown [id number] 1950 Unknown [id number] 1259 1950 Unknown [id number] 1259 1950 Unknown [id number] 1259 Medicare Medicare [id number] Private Health Insurance [employer] MCR PFFS 1 [id number] Unknown HCAP/HFA/FAP Active [id number] Unknown [id number] Unknown [id number] Social History Date Type Detail Facility Start: 01-16-2022 End: 05-20-2022 Tobacco smoking status WYIS Ex-smoker (finding) [facility] Start: 1950 Sex Assigned At Male [facility] Tobacco smoking stat us [facility] Tobacco smoking consumption unknown [facility] Start: 1950 Sex Assigned At Not on file [facility] End: 07-21-2010 History of tobacco use Current [...] to any clubs or organizations such as holiness groups, unions, fraternal or athletic groups, or [...] 1-2 cups per day coffee [facility] Sex Male (finding) [facility] Medical Equipment Procedure Code Equipment Code Equipment Origin al Text Equipment Identifier Dates Multiple periphe ral artery stent, bare-metal [id number] FDA Start: 03-28-2021 [id number] Start: 05-16-2023 Use to inject 1- 4 times daily as directed. [id number] Start: 11-14-2023 End: 11-13-2024 Blood Sugar Diagnostic strip Start: 02-03-2025 Insulin Syringe-Needle U-100 (Advocate Syringes) 0.3 mL 30 gauge x 5/16 syringe Start: 03-25-2025 Lancets (Onetouc h Delica Plus Lancet) 30 gauge misc Start: 02-09-2025 Lancets misc Start: 06-04-2024 Blood Sugar Diagnostic strip Start: 06-03-2024 End: 02-03-2025 Pen Needle, Diab etic (Sure-Fine Pen Loa) 29 gauge x 1/2 needle Start: 06-02-2024 End: 06-02-2024 Pen Needle, Diab etic (Sure-Fine Pen Loa) 29 gauge x 1/2 needle Start: 06-02-2024 End: 06-03-2024 Pen Needle, Diab etic (Sure-Fine Pen Loa) 29 gauge x 1/2 needle Start: 06-03-2024 End: 02-03-2025 Pen Needle, Diab etic (Sure-Fine Pen Loa) 29 gauge x 1/2 needle Start: 02-03-2025 End: 02-09-2025 Telephone encounter Note 03-15-2024 Telephone Encounter - [...] TELEHEALTH VISIT Date / Time: 08/08/2022 / 1200 Name: Mikhail Menon : 1950 SSN: (Not on file) EMS Agency: [facility] [x] Verbal consent obtained [] [...] Note Facility Evaluation note No assessment information [facility] Work Phone: Evaluation note Note Date & Type Note Facility Evaluation note Diagnosis Dizziness- Primary Dizziness and giddiness Hyperglycemia Other abnormal glucose Noncompliance with medications Personal history of noncompliance with medical treatment, presenting hazards to health documented in this encounter [facility] Evaluation note Note Date & Type Note Facility Evaluation note Diagnosis Benign hypertension (CMS/HCC) Essential hypertension, benign documented in this encounter [facility] Evaluation note Note Date & Type Note Facility Evaluation note Diagnosis Type 2 diabetes mellitus with diabetic neuropathy, without long-term current use of insulin (CMS/HCC) documented in this encounter [facility] Evaluation note Note Date & Type Note Facility Evaluation note Diagnosis Type 2 diabetes mellitus with other specified complication, without long-term current use of insulin documented in this encounter [facility] Evaluation note Note Date & Type Note Facility Evaluation note Diagnosis Onset Date Resolution HTN (hypertension) acute Sept2024 2:49pm Hyperlipidemia acute March 31, 2025 2:49pm Neuropathy acute March 2:49pm Screening for prostate cancer acute March 31, 2025 2:49pm Diabetes mellitus chronic Septemb er 2024 2:49pm [facility] Work Phone: Hospital Discharge instructions Note Date & Type Note Facility Hospital Discharge instructions Ambulatory OrdersReferral to Endocrinology Location: None Selected [facility] Work Phone: Summary Purpose Family History Relationship Condition Age at Onset Recorded Date/T sadie Not Specified No pertinent family history Unknown Advance Directives Advance Directive Response Recorded Date/ Time Advance Directives No February 15 8:10pm Chief Complaint and Reason for Visit Chief Complaint Sigmoid Colon Cancer Chief Complaint Admit Date Amb Documentation March 28, 2025 3:17pm BS Issues March 31, 2025 2:49pm Reason for Visit Admit Date HTN (hypertension) March 31, 2025 2:49pm Hyperlipidemia March 31, 2025 2:49pm Neuropathy March 31, 2025 2:49pm Screening for prostate cancer March 31, 2025 2:49pm Diabetes mellitus March 31, 2025 2:49pm Additional Source Comments (unrecognized sect ion and content) No Status Records FoundNo Status Records FoundNo Status Records FoundNo Status Records FoundNo Status Records Found INFORMATION SOURCE (unrecogn ized section and content) DATE CREATED AUTHOR 07/12/2021 [facility] dical Specialist DATE CREATED AUTHOR AUTHOR'S ORGANIZ ATION 02/07/2022 [facility] DATE CREATED AUTHOR AUTHOR'S ORGANIZ ATION 08/22/2022 [facility] DATE CREATED AUTHOR AUTHOR'S ORGANIZ ATION 03/22/2023 [facility] DATE CREATED AUTHOR AUTHOR'S ORGANIZ ATION 10/29/2023 [facility] dical Specialists EPIC Care Teams (unrecognized sec tion and content) Team Status: Inactive Member Role Status Dates Jonathon Isbell MD Primary Care Provider Active Christian Montana MD Attending Provider Active Team Status: Active Member Role Status Dates Jonathon Isbell MD Primary Care Provider Active Bi Data Architect Relationship Specialty Start Date End Date Ulisses Yu MD [address] [place] [address] [place] [address] PCP - General Family Medicine 12/20/22 Jonathon Isbell MD [address] [facility] [place] [address] PCP - Devoted 12/19/22 Bi Data Architect Relationship Specialty Start Date End Date Ulisses Yu MD [address] [facility] [address] [place] [address] PCP - [employer] 02/19/24 Bi Data Architect Relationship Specialty Start Date End Date Unallocated, Galina Gallardo MD [address] [place], [place] [id number] PCP - General Family Medicine 10/05/24 Team Status: Active Member Role Status Dates Tika Uriostegui APRN [employer] CHLORIDE HELPER-C Primary Care Provider Active Team Status: Active Member Role Status Dates Tika Uriostegui APRN [employer] CHLORIDE HELPER-C Primary Care Provider Active Start: March 262024 Raul Hooper MD Attending Provider Active St art: March 26, 2025 Team Status: Active Member Role Status Dates Tika Uriostegui APRN CUPROUS CHLORIDE HELPER-Heidi Primary Care Provider Active Start: March 282024 Kalina Sosa CMA Attending Provider Active Start: March 28, 2025 Team Status: Inactive Member Role Status Dates Tika Uriostegui APRN [employer] CHLORIDE HELPER-C Primary Care Provider Active Start: March 212024 End: March 31, 2025 Tika Uriostegui APRN NP-Heidi Attending Provider Active Start: March End: March 31, 2025 Goals (unrecognized section and content) Goals may be documented in a n alternate sectionGoals may be documented in an alternate sectionGoals may be documented in an [...] BE BASED ON THE PRIMARY CLINICAL RECORDS. [employer] [facility]. provides no warranty or guarantee of the accuracy or completeness of information in this document.
[2025-05-08 14:55] LABS: Hematocrit 32.2 % (42.0-54.0); Hemoglobin 10.9 g/dL (14.0-18.0); Immature Granulocytes Abs Auto 0.04 10^3/uL (0.00-0.03); Immature Granulocytes Pct Auto 0.7 % (0.0-0.5); Lymphocytes Absolute Auto 1.4 10^3/uL (1.2-3.8); Mean Corpuscular HGB Conc 33.9 g/dL (29.9-35.2); Mean Corpuscular Hemoglobin 31.3 pg (25.9-34.0); Mean Corpuscular Volume 92.5 fL (80.0-94.0); Platelet Count 236 10^3/uL (150-450); Red Blood Count 3.48 10^6/uL (4.70-6.10); White Blood Count 5.9 10^3/uL (4.0-11.0)
[2025-05-08 15:11] LABS: Anion Gap 17.3; Blood Urea Nitrogen 28.0 mg/dL (7.0-18.0); Calcium 7.6 mg/dL (8.5-10.1); Carbon Dioxide 21.9 mmol/L (21.0-32.0); Chloride 104 mmol/L (98-107); Estimated GFR (African America 49 (>=60 mL/min/1.73m^2); Estimated GFR (Non-African Ame 40 (>=60 mL/min/1.73m^2); Glucose 94 mg/dL (74-106); Potassium 3.2 mmol/L (3.5-5.1); Sodium 140 mmol/L (136-145)
--- NOTE | 2025-05-08 15:13 | CT_ITS ---
The [address] [address] Patient Name: PEDRO MENON MRN: [id number] date: 1950 Sex: M Assigned Patient Location: ED.MAIN Current Patient Location: ED.MAIN Accession/Order Number: [id number] Exam Date: 05/08/2025 15:03 Report Date: 05/08/2025 16:04 At the request of: FALLON MUSE MD Procedure: CT head/brain wo con CT head/brain wo con 05/08/2025 3:13 PM SIGNS AND SYMPTOMS: ^Syncope TECHNIQUE:Multi-detector CT axial slices of the brain were obtained without IV contrast. CT was performed with one or more of the following dose reduction techniques: Automated exposure control, adjustment of the mA and/or kV according to patient size, or use of iterative reconstruction technique. COMPARISON: 02/01/2022 FINDINGS: There is no shift of the midline structures, acute intracranial bleeding, mass effects, or evidence of acute ischemia. Atherosclerotic changes are noted in the intracranial segments of the internal carotid arteries. There is age-related cortical atrophy. There is periventricular white matter hypoattenuation. 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 These are new when compared to the prior exam. The ventricular system is normal in size. The brainstem and the cerebellum are unremarkable. The visualized intraorbital contents, the visualized paranasal sinuses, and the infratemporal soft tissues show no acute abnormality. The osseous structures in the skull base and the calvarium show no abnormality. CT/CT head/brain wo con IMPRESSION: No acute intracranial pathology. 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 These are new when compared to the prior exam. Chronic age-related neurodegenerative changes are noted as above. Impression dictated by: Lukas Bah M.D. 05/08/2025 4:04 PM Dictation Location: [place] [address] Electronically authenticated by: [id number] Y Date: 05/08/2025 16:04
--- NOTE | 2025-05-08 15:30 | ED.GENADUL1 ---
HPI HPI - General Adult General Chief complaint: Weakness Stated complaint: UNRESPONSIVE Time Seen by Provider: 05/08/25 14:22 Source: patient and other Source information: EMS Mode of arrival: ambulance History of Present Illness HPI narrative: 75-year-old male presenting for weakness. He was sitting on a chair at a social club and apparently slipped off of the chair and landed on his buttocks. It is not clear whether he passed out or not. He does not think he hit his head but does not fully remember what happened. He reports that he had drink 2 beers. This happened just before coming into the emergency department and paramedics transported him here. Related Data Home Medications ?Medication ?Instructions ?Recorded ?Confirmed atorvastatin 80 mg tablet 80 mg PO QPM 09/01/24 03/26/25 carvedilol 12.5 mg tablet 12.5 mg PO BID 09/01/24 03/26/25 pantoprazole 40 mg tablet,delayed 40 mg PO QAM 09/01/24 03/26/25 release pioglitazone 15 mg tablet 15 mg PO DAILY 09/01/24 03/26/25 clopidogrel 75 mg tablet 75 mg PO DAILY 09/05/24 09/05/24 insulin regular human 100 unit/mL 10 unit subcut TIDWM 09/05/24 03/26/25 injection solution (Novolin R Regular U-100 Insulin) lisinopril 5 mg tablet 5 mg PO DAILY 09/05/24 09/05/24 Allergies Allergy/AdvReac Type Severity Reaction Status Date / Time No Known Drug Allergies Allergy Verified 09/05/24 10:06 Opioid HPI Opioid Management Most Recent Opioid Data: Last Pain Scale 0 09/07/24, 12:13 Last ORT Total Score 3 09/05/24, 13:50 Last ORT Risk Category Low Risk 09/05/24, 13:50 Review of Systems ROS Narrative A ten point review of systems is negative except as noted above. [facility] Medical History (Updated 05/08/25 @ 16:32 by Isma Orellana MD) Diabetes ?E11.9 - Type 2 diabetes mellitus without complications (ICD-10) Hypertension ?I10 - Essential (primary) hypertension (ICD-10) Left rib fracture ?S22.32XA - Fracture of one rib, left side, initial encounter for closed fracture (ICD-10) Fall from standing ?W19.XXXA - Unspecified fall, initial encounter (ICD-10) Colon cancer ?C18.9 - Malignant neoplasm of colon, unspecified (ICD-10) Surgical History (Updated 09/05/24 @ 14:18 by Wendy Saldivar) History of hip replacement ?Z96.649 - Presence of unspecified artificial hip joint (ICD-10) Social History (Updated 09/05/24 @ 14:14 by Wendy Saldivar) Within the past year, how often did you have a drink containing alcohol: 4 or more times a week Within the past year, how many standard drinks containing alcohol did you have on a typical day: 1 or 2 Within the past year, how often did you have six or more drinks on one occasion: never Total score: 0 Score interpretation: Questions 2 and 3 are 0. It can be assumed that the patient's drinking is below the recommended limits. However, please confirm the accuracy of the patient's alcohol intake over the last few months. 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 Little interest or pleasure in doing things: not at all Feeling down, depressed, or hopeless: not at all Exam Narrative Exam Narrative: Nurses note and vital signs reviewed General:The patient is in no acute distress. Skin:Warm, dry, no pallor noted.There is no rash noted. Head:Normocephalic, atraumatic Eye: Normal conjunctiva, no drainage Ears, Nose, Mouth, and Throat: oral mucosa is moist. Nares patent. Cardiovascular:Regular Rate and Rhythm Respiratory:Patient is in no distress, no accessory muscle use, lungs are clear to auscultation, no wheezing, rales or rhonchi Back:non-tender GI:Normal bowel sounds, no tenderness to palpation, no masses appreciated.No rebound, guarding, or rigidity noted. Musculoskeletal: No palpable tenderness to all 4 extremities and all joints have full range of motion. No hip tenderness. Neurological: He is awake and alert. He knows his name but was not sure what year it is. He knows he is in the hospital. He knows why he is here. Psychiatric:Cooperative Constitutional Vital Signs, click to edit/add: Last Vital Signs Temp 97.5 F L 05/08/25 14:25 Pulse 61 05/08/25 15:30 Resp 15 05/08/25 15:30 BP 109/51 05/08/25 15:30 Pulse Ox 97 05/08/25 15:30 O2 Del Method Room Air 05/08/25 14:25 Course Vital Signs Vital signs: Vital Signs Temperature 97.5 F L 05/08/25 14:25 Pulse Rate 60 05/08/25 14:25 Respiratory Rate 22 H 05/08/25 14:25 Blood Pressure 84/40 L 05/08/25 14:25 Pulse Oximetry 92 L 05/08/25 14:25 Oxygen Delivery Method Room Air 05/08/25 14:25 Temperature 97.5 F L 05/08/25 14:25 Pulse Rate 61 05/08/25 15:30 Respiratory Rate 15 05/08/25 15:30 Blood Pressure 109/51 05/08/25 15:30 Pulse Oximetry 97 05/08/25 15:30 Oxygen Delivery Method Room Air 05/08/25 14:25 Medical Decision Making MDM Narrative Medical decision making narrative: His workup is negative. This includes CT brain and CT C-spine. He was able to ambulate without any difficulty. Initially his blood pressure was low but after IV fluids it is normalized and he has no symptoms. His neighbor will be taking him home. Findings were discussed with the patient. Differential Diagnosis Differential Diagnosis: Syncope, near syncope, dehydration, hypotension, head injury Lab Data Lab results reviewed: Yes I reviewed the patient's lab results Labs: Lab Results 05/08/25 Range/Units 14:42 WBC 5.9 (4.0-11.0) 10^3/uL RBC 3.48 L (4.70-6.10) 10^6/uL Hgb 10.9 L (14.0-18.0) g/dL Hct 32.2 L (42.0-54.0) % MCV 92.5 (80.0-94.0) fL MCH 31.3 (25.9-34.0) pg MCHC 33.9 (29.9-35.2) g/dL RDW 12.6 (11.0-15.0) % Plt Count 236 (150-450) 10^3/uL MPV 10.7 (9.5-13.5) fL Neut % (Auto) 56.5 (43.0-75.0) % Lymph % (Auto) 23.1 (20.5-60.0) % Treasure % (Auto) 11.1 (1.7-12.0) % Eos % (Auto) 6.9 (0.9-7.0) % Baso % (Auto) 1.7 (0.2-2.0) % Neut # (Auto) 3.3 (1.4-6.5) 10^3/uL Lymph # (Auto) 1.4 (1.2-3.8) 10^3/uL Treasure # (Auto) 0.7 (0.3-0.8) 10^3/uL Eos # (Auto) 0.4 (0.0-0.7) 10^3/uL Baso # (Auto) 0.1 (0.0-0.1) 10^3/uL Abs Immat Gran (auto) 0.04 H (0.00-0.03) 10^3/uL Imm/Tot Granulo (auto) 0.7 H (0.0-0.5) % Sodium 140 (136-145) mmol/L Potassium 3.2 L (3.5-5.1) mmol/L Chloride 104 (98-107) mmol/L Carbon Dioxide 21.9 (21.0-32.0) mmol/L Anion Gap 17.3 BUN 28.0 H (7.0-18.0) mg/dL Creatinine 1.67 H (0.70-1.30) mg/dL Est GFR ( Amer) 49 L (>=60 mL/min/1.73m^2) Est GFR (Non-Af Amer) 40 L (>=60 mL/min/1.73m^2) BUN/Creatinine Ratio 16.8 Glucose 94 (74-106) mg/dL Calcium 7.6 L (8.5-10.1) mg/dL Troponin I High Sens 7.2 (4.0-76.1) pg/mL Ethanol Quant 4 mg/dL Imaging Data Chest x-ray: Radiologist's impression: ITS Impressions Chest X-Ray 05/08/25 14:26 IMPRESSION: No acute cardiopulmonary pathology. Impression dictated by: Lukas Bah M.D. 05/08/2025 4:01 PM Dictation Location: [employer] Electronically authenticated by: [id number] Y Date: 05/08/2025 16:[address] 05/08/25 14:27 IMPRESSION: No fracture or subluxation. Impression dictated by: Lukas Bah M.D. 05/08/2025 4:07 PM Dictation Location: [facility] [employer] Electronically authenticated by: [id number] Y Date: 05/08/2025 16:[address] 05/08/25 15:13 IMPRESSION: No acute intracranial pathology. 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 These are new when compared to the prior exam. Chronic age-related neurodegenerative changes are noted as above. Impression dictated by: Lukas Bah M.D. 05/08/2025 4:04 PM Dictation Location: [employer] Electronically authenticated by: [id number] Y Date: 05/08/2025 16:04 ECG Data Attestation: I personally reviewed and interpreted this ECG as follows: (EKG on my interpretation shows normal sinus rhythm with a rate of 55 and no acute change.) Discharge Plan Discharge Chief Complaint: Weakness Clinical Impression: Fall Patient Disposition: Home, Self-Care Time of Disposition Decision: 16:29 Condition: Good Mode of Transportation: Private Vehicle Prescriptions / Home Meds: No Action carvedilol 12.5 mg tablet 12.5 mg PO BID pantoprazole 40 mg tablet,delayed release (DR/EC) 40 mg PO QAM pioglitazone 15 mg tablet 15 mg PO DAILY atorvastatin 80 mg tablet 80 mg PO QPM Novolin R Regular U100 Insulin 100 unit/mL solution 10 unit subcut TIDWM clopidogrel 75 mg tablet 75 mg PO DAILY lisinopril 5 mg tablet 5 mg PO DAILY Print Language: Tamazight Instructions: Fall Prevention for Older Adults (ED) Referrals: KAYLEY GUZMÁN [Primary Care Provider, Unknown] - 1 week
[2025-05-08] MEDS: 0.9 % SODIUM CHLORIDE 500 ML IV (15:50)
== END 2025-05-08 17:20 | disposition home or self-care (01) ==
PROVIDERS: Emergency Provider Emergency Medicine; PCP Nurse Practitioner Family
DX: Z04.3 Encounter for examination and observation following other accident (principal); Z79.899 Other long term (current) drug therapy
CPT/HCPCS: 36415; 70450; 71045; 72125; 76376; 80048; 80320; 81001; 84484; 85025; 93005; 99285

== ENCOUNTER 2025-06-09 08:22 | Outpatient (OUT) | payer OTHER, SELFPAY ==
--- OUTSIDE RECORDS SUMMARY | 2025-06-08 04:30 | XMS_ITS ---
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 fired by his physician, Patient doesn't read and write- Lou helps him with his bills and such at home, Needs his medications figured out- he has been taking his meds from previous doctor, Discuss possibly Neuropathy, Cough- previous smoker, stopped 30 years, Patient doesn't know medications- phoned up to [facility] to get recent meds being filled Medications Medication SIG (Take, Route, Frequency, Duration) Notes Start Date End Date Status One Touch Ultra Test Strips - 5ActivePantoprazole Sodium 40 MG1 tablet 1/2 to 1 hour before morning meal Orally Once a day5ActivePlavix 75 MG1 tablet Orally Once a day ActivePen Crawford 32G X 4 MMas fwvvpafw31/19/2025ActivePioglitazone HCl 15 MG1 tablet Orally Once a day5ActiveNovoLIN R FlexPen 100 UNIT/MLInject subQ per sliding scaleActiveOne Touch Delica LancetsActiveLisinopril 10 MG1 tablet Orally Once a day5ActiveCarvedilol 12.5 MG1 tablet with food Orally Twice a day5ActiveLantus SoloStar 100 UNIT/MLInject 10 units Subcutaneous at /19/2025ActiveGabapentin 300 MG1 capsule Orally qhs; Duration: 30 days5ActiveAtorvastatin Calcium 80 MG1 tablet Orally Once a day5Active Social History Tobacco Use: Social History Observation Description Date Details (start date - stop date) Former Smoker 05/21/1967 - 05/21/1995 Tobacco Control (Standard) Question Answer Notes Tobacco use: Former smoker When did you start smoking?05/21/1967When did you stop smoking?05/21/1995How long has it been since you last smoked?Greater than 10 yearsAdditional Findings: Tobacco wcc-ddbcPd-xgqmcbzk cigarette smoker (10-/day)AUDIT-C (Standard) Question Answer Notes Did you have a drink containing alcohol in the p ast year? Yes How often did you have a drink containing alcohol in the past year?Daily or almost daily (4 points)How many drinks did you have on a typical day when you were drinking in the past year?3 or 4 drinks (1 point)How often did you have six or more drinks on one occasion in the past year?2 to 4 times a month (2 points) Aqdavz1EmdttwsugxnzukKtocouvw Problems Problem Type SNOMED Code ICD Code Onset Dates Problem Status W/U Status Risk Notes Problem Anxiety (32837196) Anxiety (F41.9) ActiveconfirmedProblemType II diabetes mellitus without complication (260605007) Diabetes (E11.9)ActiveconfirmedProblemGastroesophageal reflux disease (389201549)GERD (gastroesophageal reflux disease) (K21.9)ActiveconfirmedProblem Hypertension (39900478)Hypertension (I10)ActiveconfirmedProblemIrritable bowel syndrome (14189737)IBS (irritable bowel syndrome) (K58.9)ActiveconfirmedProblem Malignant tumor of colon (158931313)Colon cancer (C18.9)ActiveconfirmedProblem Peripheral arterial disease (767400115)Peripheral arterial disease (I73.9)Active confirmed Vital Signs Weight 176.4 lbs 06/08/2025 Height 67 in 06/08/2025 Blood pressure systolic 134 mm Hg 06/08/20 25 Blood pressure diastolic 66 mm Hg 025 BMI 27.63 kg/m2 06/08/2025 Procedures Procedure Date Ordered Date Performed Result Body Sit e BEKAH Segmental Pressure Study of Lower Extremity 06/08/2025 N/A Encounters Encounter Location Date Provider Diagnosis [facility] [address] [place] [address] 06/08/2025 José Dean Hypertension I10 ; G ERD (gastroesophageal reflux disease) K21.9 ; Colon cancer C18.9 ; Diabetes E11.9 and Peripheral arterial disease I73.9 Assessments Encounter Date Diagnosis (ICD Code) Assessment Notes Treatment Notes Treatment Clinical Notes Section Notes 06/08/2025 Hypertension (ICD-10 - I10) 06/08/2025GERD (gastroesophageal reflux disease) (ICD-10 - K21.9)06/08/2025olon cancer (ICD-10 - C18.9)06/08/2025Diabetes (ICD-10 - E11.9)06/08/2025Peripheral arterial disease (ICD-10 - I73.9) Plan Of Treatment Medication Medication Name Sig Start Date Stop Date Notes Gabapentin 300 MG 1 capsule Orally qhs; Duration: 30 d ays 06/08/2025 Pending Test Test Name Order Date HEMOGLOBIN A1C (GLYCO) 06/08/2025 INSULIN, TOTAL 06/08/2025 LIPID PANEL (CHOL/TRIG/HDL/LDL) 06/08/20 25 URIC ACID 06/08/2025 PT - INR 06/08/2025 AMMONIA 06/08/2025 PTT 06/08/2025 XR CHEST 2 V 06/08/2025 THYROID PANEL (T4/TSH/FREE T3) 5 PSA, SCREENING 06/08/2025 BEKAH Segmental Pressure Study of Lower Ex tremity 06/08/2025 CMP (COMP MET EDEN) w/eGFR CKD-EPI 2024 CBC WITH DIFF 06/08/2025 Progress Notes * Ryan MENONinDOB:1950 ( 75 yo M)Acc No.[id number]:06/08/2025 UNLOCKED PROGRESS NOTE New Patient Patient: Mikhail HAMPTON :?Maikel MKeven Dean ([facility]), MDDOB:1950???Age: 75 Y???Sex:MaleDate:06/08/2025Phone:[phone]:[address] [place] [id number] In:09:21 AM Moni Out:10:41 AM SANTHOSH Subjective: * Chief Complaints: * 1 . Establish OK per Dr Dean- was recently fired by his physician. 2. Patient doesn't read and write- Lou helps him with his bills and such at home. 3. Needs his medications figured out- he has been taking his meds from previous doctor. 4. Discuss possibly Neuropathy. 5. Cough- previous smoker, stopped 30 years. 6. Patient doesn't know medications- phoned up to [facility] to get recent meds being filled. * HPI: ???Depression Screening:?PHQ-9?Little interest or pleasure in doing things Several days ?Feeling down, depressed, or hopeless?Nearly every day ?Trouble falling or staying asleep, or sleeping too much?Nearly every day ?Feeling tired or having little energy?Nearly every day ?Poor appetite or overeating?Not at all ?Feeling bad about yourself or that you are a failure, or have let yourself or your family down?Several days ?Trouble concentrating on things, such as reading the newspaper or watching television?Not at all ?Moving or speaking so slowly that other people could have noticed; or the opposite, being so fidgety or restless that you have been moving arounda lot more than usual?More than half the days ?Thoughts that you would be better off orof hurting yourself in some way?Not at all ?Total Score?13 ?Interpretation?Moderate Depression ? DM - Neuropathy - sugars are stable R leg Pain adn foot cold at times -? worrse with ambulation - intermittant? laudi ation Disucssed ETOH use HTN - stable? here. * ROS: ???EENT:?hearing changes?denies.?visual changes?denies. non-healing mouth sores?denies.?swollen glands or neck lumps?denies.?hoarseness?denies.?sore throat?denies.?difficulty swallowing?denies.?nose bleeds?denies.?nasal congestion?denies.?ear ache?denies.?ear discharge denies.?ringing in ears?denies.?light sensitivity?denies.?eye pain?denies.?blurring?denies.?eye irritation?denies.?double vision?denies. vision loss?denies.?General/Constitutional:?Sweats:?Denies.?Fatigue?denies.?Sleep proble ms?denies.?Anorexia?denies.?Malaise?denies.?Weight loss?denies. Fatigue or Weakness?denies.?Fever or Chills?denies.?Cardiovascular:?Shortness of Breath w/lying flat?denies.?Lightheadedne ss/dizziness?denies.?Chest tightness/ heavy pressure?denies.?Swelling of legs, a nkles, or feet?denies.?Waking up with shortness of breath?denies.?Chest pain&#16 0;denies.?Palpitations?denies.?Weight gain?denies.?Respiratory:?Chronic or frequent cough?denies.?Coughing up blood&#1 60;denies.?Difficulty breathing?denies.?Productive cough?denies.?Snoring&#1 60;denies.?Shortness of breath that awakens from sleep (PND)?denies.?Chest pain? denies.?Sputum production?denies.?Wheezing?denies.?Musculoskeletal:?Joint pain?denies.?Joint Fluid?denies.?Backpain?denies.?Knee pain?denies.?Neck pain?denies.?Joint Stiffness?denies.?Muscle cramps?denies.?Weakness of muscles?denies.?Arthritis?denies.?Muscle aches?denies.?Pain in shoulder(s)?denies.?Swollen joints?denies.? * Medical History: A nxiety, Depression, Diabetes, GERD (gastroesophageal reflux disease), Hypertension, IBS (irritable bowel syndrome), Colon cancer. * Surgical History: C olon Cancer- resection . * Hospitalization/Major Diagno stic Procedure: C oloncancer , Cracked Rib- Fall on Ice 2023. * Family History: F ather: . M other: . B rother(s): unknown. S ister(s): unknown.?1 brother(s) , 1 sister(s) . . Silbings unknown- doesnst speak to them. * Social History: ???Tobacco Use:?Tobacco Control (Standard)?Tobacco use:?Former smoker ?When did you start smoking??05/21/1967 ?When did you stop smoking??05/21/1995 ?How long has it been since you last smoked? Greater than 10 years ?Additional Findings: Tobacco non-user?Ex-moderate cigarette smoker (10-19/day) ???Drug/Alcohol:?AUDIT-C (Standard)?Did you have a drink containing alcohol in the past year??Yes ?How often did you have a drink containing alcohol in the past year?? Daily or almost daily (4 points) ?How many drinks did you have on a typical daywhen you were drinking in the past year??3 or 4 drinks (1 point) ?How often did you have six or more drinks on one occasion in the past year??2 to 4 times a month (2 points) ?Points?7 ?Interpretation?Positive * Medications: T aking Atorvastatin Calcium 80 MG Tablet 1 tablet Orally Once a day , Taking Carvedilol 12.5 MG Tablet 1 tablet with food Orally Twice a day , Taking Lantus SoloStar(Insulin Glargine) 100 UNIT/ML Solution Pen-injector Inject 10 units Subcutaneous at bedtime , Taking Lisinopril 10 MG Tablet 1 tablet Orally Once a day , Taking NovoLIN R FlexPen(Insulin Regular Human) 100 UNIT/ML Solution Pen- injector Inject subQ per sliding scale , Taking One Touch Delica Lancets , Taking One Touch Ultra Test Strips - Miscellaneous , Taking Pantoprazole Sodium 40 MG Tablet Delayed Release 1 tablet 1/2 to 1 hour before morning meal Orally Once a day , Taking Pen Crawford 32G X 4 MM Miscellaneous as directed , Taking Pioglitazone HCl 15 MG Tablet 1 tablet Orally Once a day , Taking Plavix(Clopidogrel Bisulfate) 75 MG Tablet 1 tablet Orally Once a day , Medication List reviewed and reconciled with the patient * Allergies: N .K.D.A. Objective: * Vitals: W t:176.4lbs, Ht: 67 in, BP:134/66mm Hg, BMI:27.63Index, Ht-cm: 170.18 cm, Wt-k.01 kg. * Examination: ???Physical Exam: ?GENERAL:?well developed, well nourished, in no acute distress.?HEAD:?normocephalic/atraumatic.?EYES:?pupils equal, round and reactive to light, conjunctivae and sclerae normal.?EARS:?no deformity or lesion of external ear, canals and TM appear normal bilaterally, TM's intact, not inflamed with normal light reflex, hearing grossly normal to conversational speech.?NOSE:?no deformity, discharge, inflammation, or lesions. ?MOUTH:?mucous membranes moist, normal oropharynx and posterior pharynx without lesions or exudates, tongue normal, dentition normal.?NECK:?neck supple, no masses or palpable cervical nodes, trachea midline, thyroid without nodules, masses, tenderness, or enlargement.?CHEST:?no chest wall deformity, no chest wall tenderness. ?LUNGS:?normal respiratory effort and clear to auscultation, no wheezes, rales, or rhonchi, good air exchange.?CARDIO:?regular rate and rhythm, normal S1 and S2, nor murmur, rub, or gallop.?PULSES:?normal capillary refill.?ABDOMEN:?soft, non-distended, non-tender, no masses.?MUSCULOSKELETAL:?no deformity or scoliosis noted, normal range of motion, joints normal, no erythema, edema, effusion, or ecchymosis.?EXTREMITY:?no clubbing, cyanosis, edema, or deformity withnormal ROM in both upper and lower bilateral extremities.?NEUROLOGIC:?grossly normal.?SKIN:?no rashes, ulcerations, or suspicious lesions.?LYMPH NODES:?no cervical adenopathy, nodes normal.?MENTAL STATUS:?alert and oriented x3, normal mood and affect.? Assessment: * Assessment: 1.?Hypertension - I10 (Primary)???2.?GERD (gastroesophageal reflux disease) - K21.9???3.?Colon cancer - C18.9???4.?Diabetes - E11.9 ??5.?Peripheral arterial disease - I73.9??? Plan: * Treatment: Start Gabapentin Capsule, 300 MG, 1 capsule, Orally, qhs, 30 days, 30, Refills 3.?LAB: HEMOGLOBIN A1C (GLYCO) ?LAB: INSULIN, TOTAL ?LAB: LIPID PANEL (CHOL/TRIG/HDL/LDL) ?LAB: URIC ACID ?LAB: PT - INR ?LAB: AMMONIA ?LAB: PTT ?LAB: THYROID PANEL (T4/TSH/FREE T3) ?LAB: PSA, SCREENING ?LAB: CMP (COMP MET EDEN) w/eGFR CKD-EPI ?LAB: CBC WITH DIFF ?Imaging: XR CHEST 2 V2.?GERD (gastroesophageal reflux disease)?LAB: HEMOGLOBIN A1C (GLYCO) ?LAB: INSULIN, TOTAL ?LAB: LIPID PANEL (CHOL/TRIG/HDL/LDL) ?LAB: URIC ACID ?LAB: THYROID PANEL (T4/TSH/FREE T3) ?LAB: PSA, SCREENING ?LAB: CMP (COMP MET EDEN) w/eGFR CKD-EPI ?LAB: CBC WITH DIFF3.?Colon cancer?LAB: HEMOGLOBIN A1C (GLYCO) ?LAB: INSULIN, TOTAL ?LAB: LIPID PANEL (CHOL/TRIG/HDL/LDL) ?LAB: URIC ACID ?LAB: THYROID PANEL (T4/TSH/FREE T3) ?LAB: PSA, SCREENING ?LAB: CMP (COMP MET EDEN) w/eGFR CKD-EPI ?LAB: CBC WITH DIFF4.?Diabetes?LAB: HEMOGLOBIN A1C (GLYCO) ?LAB: INSULIN, TOTAL ?LAB: LIPID PANEL (CHOL/TRIG/HDL/LDL) ?LAB: URIC ACID ?LAB: THYROID PANEL (T4/TSH/FREE T3) ?LAB: PSA, SCREENING ?LAB: CMP (COMP MET EDEN) w/eGFR CKD-EPI ?LAB: CBC WITH DIFF5.?Peripheral arterial disease?Procedure: BEKAH Segmental Pressure Study of Lower Extremity * Preventive Medicine: ??Screenings/Counseling:?BMI ACTION PLAN?Above Normal BMI Follow-up?Dietary management education, guidance, and counseling ?FALL RISK SCREENING?Fall Risk Assessment:?Two or more falls with injury in the past year * * Electronic signature of José Dean MD, [phone] on 06/09/2025 at 08:32 AM EST Sign off status: PendingVisit Status:?CHK (Check Out) * Provider: Buddy Dean (MD LUPE Date: 08/08/2024 Generated for Printing/Faxing/eTransmitting on:?06/09/2025 08:32 AM EST History and Physical Notes * HPI (History of Present Illness) CategorySub-CategoryDetailNotesCategory NotesDepression ScreeningPHQ-9Little interest or pleasure in doing things: Several days DM - Neuropathy - sugars are stable R leg Pain adn foot cold at times - worrse with ambulation - intermittant laudi ation Disucssed ETOH use HTN - stable here Feeling down, depressed, or hopeless: Nearly every dayTrouble falling or staying asleep, or sleeping too much: Nearly every dayFeeling tired or having little energy: Nearly every dayPoor appetite or overeating: Not at allFeeling bad about yourself or that you are a failure, or have let yourself or your family down: Several daysTrouble concentrating on things, such as reading the newspaper or watching television: Not at allMoving or speaking so slowly that other people could have noticed; or the opposite, being so fidgety or restless that you have been moving around a lot more than usual: More than half the daysThoughts that you would be better off or of hurting yourself in some way: Not at allTotal Score: 13Interpretation: Moderate Depression Examination CategorySub-CategoryDetailNotesCategory NotesPhysical ExamGENERAL:well developed, well nourished, in no acute distressHEAD:normocephalic/atraumatic EYES:pupils equal, round and reactive to light, conjunctivae and sclerae normal EARS:no deformity or lesion of external ear, canals and TM appear normal bilaterally, TM's intact, not inflamed with normal light reflex, hearing grossly normal to conversational speechNOSE:no deformity, discharge, inflammation, or lesionsMOUTH:mucous membranes moist, normal oropharynx and posterior pharynx without lesions or exudates, tonguenormal, dentition normalNECK:neck supple, no masses or palpable cervical nodes, trachea midline, thyroid without nodules, masses, tenderness, or enlargementCHEST:no chest wall deformity, no chest wall tendernessLUNGS:normal respiratory effort and clear to auscultation, no wheezes, rales, or rhonchi, good air exchangeCARDIO:regular rate and rhythm, normal S1 and S2, nor murmur, rub, or gallopPULSES:normal capillary refillABDOMEN:soft, non-distended, non-tender, no massesRECTAL:MUSCULOSKELETAL:no deformity or scoliosis noted, normal range of motion, joints normal, no erythema, edema, effusion, or ecchymosisEXTREMITY:no clubbing, cyanosis, edema, or deformity with normal ROM in both upper and lower bilateral extremitiesNEUROLOGIC:grossly normalSKIN:no rashes, ulcerations, or suspicious lesionsLYMPH NODES:no cervical adenopathy, nodes normalMENTAL STATUS:alert and oriented x3, normal mood and affect
--- OUTSIDE RECORDS SUMMARY | 2025-06-09 08:31 | XMS_ITS | CCD ---
Author Organization [facility] Care Team Providers Care Steel Analyst Name Role Phone AIMEE, DR DOWLING Primary Care Unavailable NADERER, DR BELKIS Orlando Attending Unavailable CHELSEA, DR ROEL Gomez Consulting Unavailable NADERER, DR BELKIS Orlando Admitting Unavailable NADERER, DR BELKIS Orlando Consulting Unavailable TAYOLR, DR ANTUNEZ Consulting Unavailable AIMEE, DR DOWLING Attending Unavailable AIMEE, DR DOWLING Consulting Unavailable AIMEE, DR DOWLING Primary Care Unavailable AIMEE, DR DOWLING Admitting Unavailable MD Jonathon Isbell Primary Care Provider MD Christian Montana Attending Provider [phone] Unavailable Primary Care Provider Unavailabl e PROVIDER, UNKNOWN Attending Unavailable PROVIDER, UNKNOWN Admitting Unavailable Christian Montana Attending Unavailable Jonathon Isbell Primary Care Unavailable Christian Montana Admitting Unavailable Christian Montana Attending Unavailable Jonathon Isbell Primary Care Unavailable Christian Montana Admitting Unavailable Ulisses Yu MD Primary Care Provider Jonathon Isbell MD Unavailable KAELA MILTON Attending Unavailable KAELA MILTON Attending Unavailable KAELA MILTON Attending Unavailable Ulisses Yu MD Unavailable Unavailable Primary Care Provider Unavailabl e Unallocatquoc HOLBROOK, N[place] Provider Primary Care Provi martina Tika Uriostegui APRN Primary Care Provider Raul Hooper MD Attending Provider Kalina Sosa CMA Attending Provider UnavailTika Bright APRN Attending Provider Allergies Allergy ClassificationReported Allergen(s)Allergy TypeDate of OnsetReaction(s) Facility (5 sources)gabapentinDrug Qtyrbti10-48-2537HdghrtycIFGT [facility] Work Phone: Medications Current Medications MedicationDrug Class(es)DatesSig (Normalized)Sig (Original)aspirin 81 mg delayed release oral tablet (7 sources)Platelet Aggregation Inhibitor, Nonsteroidal Anti-inflammatory Drug Start: 03-28-2021 End: 51-87-0260blhk 1 tablet by mouth once dailyaspirin 81 MG EC tablet Indications: Type 2 diabetes mellitus with diabetic neuropathy, without long- term current use of insulin (CMS/HCC) Take 1 tablet (81 mg) by mouth 1 (one) time each day at the same time. 100 tablet 3 05/27/2023 06/30/2024 Active atorvastatin 80 mg oral tablet (9 sources)HMG-CoA Reductase InhibitorStart: 46-37-9366htov 1 tablet by mouth once dailyAtorvastatin 80 mg tablet Active 80 MG PO Daily 90 February 03, 2025 9:22am Complies with drug therapyStart: 03-28-2021 End: 07-94-2018oofi 1 tablet by mouth at bedtimeatorvastatin (Lipitor) 80 MG tablet Indications: Mixed hyperlipidemia (CMS/HCC) Take 1 tablet (80 mg) by mouth at bedtime 100 tablet 3 10/28/2023 ActiveBlood-Glucose Meter kit (1 source)Start: 39-99-5348Hitnd-Glucose Meter kit Active 0 .Route 1 June 01, 2024 1:00am As directedcarvedilol 12.5 mg oral tablet (9 sources)alpha-Adrenergic Elio, beta-Adrenergic BlockerStart: 02-03-2025 take 1 tablet by mouth twice daily at mealtimeCarvedilol 12.5 mg tablet Active 12.5 MG PO Twice daily 180 February 03, 2025 12:00am must administerwith a meal/food Complies with drug therapyStart: 03-28-2021 End: 75-53-8220zxix 1 tablet by mouth in the morningcarvedilol (Coreg) 12.5 MG tablet Indications: Benign hypertension (CMS/HCC) Take 1 tablet (12.5 mg) by mouth in the morning and 1 tablet (12.5 mg) in the evening. Take with meals. 200 tablet 3 10/28/2023 Activeclopidogrel 75 mg oral tablet (8 sources)P2Y12 Platelet InhibitorStart: 51-63-7826tzaa 1 tablet by mouth once dailyclopidogrel (Plavix) 75 MG tablet Indications: Peripheral vascular disease, unspecified (CMS/HCC) TAKE 1 TABLET BY MOUTH EVERY DAY FOR 90 DAYS 90 tablet 3 11/19/2023 ActiveStart: 49-27-3624hqvr 1 tablet by mouth once dailyclopidogrel (Plavix) 75 MG tablet Indications: Peripheral vascular disease, unspecified (CMS/HCC) TAKE 1 TABLET BY MOUTH EVERY DAY FOR 90 DAYS 90 tablet 3 08/11/2023 Activegabapentin 100 mg oral capsule (4 sources)Anti-epileptic AgentStart: 98-46-8563gwwg 1 capsule by mouth three times dailyGabapentin 100 mg capsule Active 100 MG PO Three times daily 90 30 March 31, 2025 12:00am Complies with drug therapyStart: 03-28-2021 End: 66-33-5773ytmw 1 tablet by mouth three times dailyGabapentin 600 mg tablet Discontinued 600 MG PO Three times daily March 28, 2021 12:00am June 01, 2024 12:56pmglipiZIDE 10 mg oral tablet (8 sources)SulfonylureaStart: 81-93-2401plng 1 tablet by mouth once daily glipiZIDE (Glucotrol) 10 MG tablet Indications: Type 2 diabetes mellitus with diabetic neuropathy, without long-term current use of insulin ([facility]) Take 1 tablet (10 mg) by mouth Daily 100 tablet ActiveStart: 03-28-2021 End: 68-21-8273ykuj 1 tablet by mouth twice dailyGlipizide 10 mg tablet Discontinued 10 MG PO Twice daily March 28, 2021 12:00am May 12:56pm3 ml insulin glargine 100 unt/ml pen injector (4 sources)Insulin AnalogStart: 35-75-3761tgpooa 10 [IU] by subcutaneous injection once daily in the eveningInsulin Glargine (Lantus Solostar U-100 Insulin) 100 unit/mL (3 mL) insulin pen Active 10 UNIT SUBCUT Every evening March 31, 2025 12:00am Complies with drug therapyStart: 03-72-0738sfmxmsq glargine (Basaglar KwikPen) 100 UNIT/ML pen Indications: Type 2 diabetes mellitus with diabetic neuropathy, without long-term current use of insulin ([facility]) Inject 20 Units under the skin at bedtime 10/28/2023 Active3 ml insulin, regular, human 100 unt/ml pen injector (5 sources)InsulinStart: 82-30-4775Xbcrvwd Regular Human (Novolin R Flexpen) 100 unit/mL (3 mL) insulin pen Active 1 sliding scale dose SUBCUT Use as Directed March 31, 2025 12:00am 0-150 - No insulin 151-200 - 2 units 201-250 -- 4 units 251-300- 6 units 301 -350 - 8 units 351-400 - 10 units 401-500-- 15 units >500 - call doctor Complies with drug therapyStart: 03-05-0549euzccs 10 [IU] by subcutaneous injection three times dailyInsulin Regular Human (Novolin R Regular U100 Insulin) 100 unit/mL solution Active 10 UNIT SUBCUT Three times daily February 03, 2025 12:00am Complies with drug therapyStart: 11-14-2023 End: 06-55-2380rtgsiga regular (NovoLIN R) 100 UNIT/ML injection Indications: Type 2 diabetes mellitus with other specified complication, without long-term current use of insulin Inject 0.1 mL (10 Units) under the skin in the morning and 0.1 mL (10 Units) at noon and 0.1 mL (10 Units) in the evening. Inject with meals. 27 mL 3 11/14/2023 Activelisinopril 10 mg oral tablet (9 sources)Angiotensin Converting Enzyme InhibitorStart: 74-73-5769azus 1 tablet by mouth once dailyLisinopril 10 mg tablet Active 10 MG PO Daily September 17, 2024 1:52pm Complies with drug therapyStart: 08-02-2021 End: 68-36-9265hzvg 1 tablet by mouth in the morninglisinopril 5 MG tablet Indications: Benign hypertension (CMS/[facility]) Take 1 tablet (5 mg) by mouth in the morning. 100 tablet 3 05/27/2023 Activepantoprazole 40 mg delayed release oral tablet (5 sources)Proton Pump InhibitorStart: 10-28-2023 End: 34-08-5226zbdi 1 tablet by mouth once dailyPantoprazole 40 mg tablet,delayed release (DR/EC) Active 40 MG PO Daily 90 February 03, 2025 9:21am Complies with drug therapypioglitazone 15 mg oral tablet (7 sources)Peroxisome Proliferator Receptor alpha Agonist, Peroxisome Proliferator Receptor gamma Agonist, ThiazolidinedioneStart: 10-28-2023 End: 02-81-3380rmlt 1 tablet by mouth once dailyPioglitazone 15 mg tablet Active 15 MG PO Daily 90 February 03, 2025 9:22am Complies with drug therapyStart: 33-51-2300cuxf 1 tablet by mouth in the morningpioglitazone (Actos) 15 MG tablet Indications: Type 2 diabetes mellitus with diabetic neuropathy, without long- term current use of insulin (CMS/[facility]) Take 1 tablet (15 mg) by mouth in the morning. 90 tablet 3 02/05/2023 Activetriamcinolone acetonide 1 mg/ml topical cream (1 source)CorticosteroidStart: 33-62-7413Axwqvduhaxefw Acetonide 0.1 % cream Active 1 APPLIC TOPICAL Twice daily 80 June 01, 2024 1:00am Complies with drug therapy Completed/Discontinued Medications MedicationDrug Class(es)DatesSig (Normalized)Sig (Original)acetaminophen 325 mg / HYDROcodone bitartrate 5 mg oral tablet (3 sources)Opioid AgonistStart: 05-01-2021 End: 38-50-7948cidp 1 tablet by mouth every six hours as needed for pain Hydrocodone-Acetaminophen 5-325 mg Tablet Discontinued 1 TAB PO Q6H as needed for Pain 28 7 2020June 01, 2024 12:39pmcapecitabine 500 mg oral tablet (9 sources)Nucleoside Metabolic InhibitorStart: 05-31-2021 End: 09-66-7365jirz 1 tablet by mouth twice dailyCapecitabine (Xeloda) 500 mg Tablet Discontinued 2000 MG PO Twice daily 80 September 26, 2021 4:27pm January 31, 2022 10:08am Take only on M-F 2 weeks on one week offInsulin Regular Human 150 unit/1.5 mL syringe (1 source)Start: 06-01-2024 End: 83-07-5415Bdatifi Regular Human 150 unit/1.5 mL syringe Discontinued 10 UNIT .Route Three times daily June 01, 2024 1:00am February 03, 2025 9:42am Inject 10 units every morning, at noon, and evening with meals.lidocaine 0.05 mg/mg medicated patch (1 source)Antiarrhythmic, Amide Local AnestheticStart: 09-15-2024 End: 55-07-1371knxqv 1 dose topically once dailyLidocaine (Lidoderm) 5 % adhesive patch,medicated Discontinued 1 PATCH TOPICAL Daily September 15, 2024 1:00am March 31, 2025 3:24pm leave on most painful area for up to 12 hrsomeprazole 40 mg delayed release oral capsule (5 sources)Proton Pump InhibitorStart: 03-28-2021 End: 21-91-5561garw 1 capsule by mouth once dailyOmeprazole 40 mg capsule,delayed release(DR/EC) Discontinued 40 MG PO Daily March 28, 2021 12:00am June 01, 2024 12:55pmondansetron 8 mg oral tablet (3 sources)Serotonin-3 Receptor AntagonistStart: 07-04-2021 End: 66-27-2961ddnj 1 tablet by mouth every eight hours as needed for nausea Ondansetron Hcl 8 mg Tablet Discontinued 8 MG PO Q8H as needed for Nausea July 04, 2021 4:18pm June 01, 2024 12:56pmSITagliptin 100 mg oral tablet (3 sources)Dipeptidyl Peptidase 4 InhibitorStart: 03-28-2021 End: 17-78-0024hpmi 1 tablet by mouth once dailySitagliptin Phosphate (Januvia) 100 mg Tablet Discontinued 100 MG PO Daily March 28, 2021 12:00am June 01, 2024 12:56pm Problems Active Problems Problem ClassificationProblemDateDocumented DateEpisodic/ChronicAcquired foot deformities (5 sources)Hammer toe; Translations: [Other hammer toe(s) (acquired), unspecified foot]Onset: 481444-72-2879IuayplaHdxbgcj-qezjihh disorders (11 sources)Nondependent alcohol abuse, continuous; Translations: [Alcohol abuse, uncomplicated]Onset: 916861-82-0075TvobhtxEpjpullt reactions (8 sources)Acral erythema due to cytotoxic therapy; Translations: [Localized skin eruption due to drugs and medicaments taken internally]Onset: 02-24-2020 Resolved: 255099-20-9318VsuukxfiAnmbjag disorders (5 sources)Anxiety disorder; Translations: [Other specified anxiety disorders] Onset: 878968-72-5898VclsmnqNfuhgx of colon (8 sources)Malignant tumor of sigmoid colon; Translations: [Malignant neoplasm of sigmoid colon]Onset: 569328-10-8604ZwixztgGxkeit of colon (1 source)History of malignant neoplasm of colon; Translations: [Personal history of other malignant neoplasmof large intestine]87-98-3323Snoqssdb Conditions associated with dizziness or vertigo (1 source)Dizziness; Translations: [Dizziness and giddiness]EpisodicDiabetes mellitus with complications (20 sources)Type 2 diabetes mellitus with hyperglycemia; Translations: [Type 2 diabetes mellitus with diabetic neuropathy, unspecified]Onset: 02-21-2021 Resolved: 736626-39-4430XntkzxvUefnghjk mellitus without complication (6 sources)Diabetes mellitus; Translations: [Type 2 diabetes mellitus without complications]99-35-2838GgpnznzNowgmzbw mellitus without complication (1 source)Hyperglycemia; Translations: [Hyperglycemia, unspecified]Episodic Disorders of lipid metabolism (8 sources)Hyperlipidemia, unspecified; Translations: [Hyperlipidemia]Onset: 812649-30-0283WhfvzwhFuvtngnojf disorders (6 sources)Gastro-esophageal reflux disease without esophagitis; Translations: [Gastroesophageal reflux disease]Onset: 538976-16-2542FyrxespPwntdbwsl hypertension (11 sources)Hypertensive disorder; Translations: [Essential (primary) hypertension]Onset: 524482-73-6509KoksohnNqtxwxtmsrhe injury (1 source)Personal history of traumatic brain injury; Translations: [PERSONAL HX TRAUMATIC BRAIN INJURY]Onset: 45-99-1478XfxfemycCgksaotfznc chemotherapy; radiotherapy (3 sources)Patient encounter status; Translations: [Encounter for antineoplastic chemotherapy]91-14-2007HestywcNovmavgdrkjrrz (10 sources)Osteoarthritis of right hip joint; Translations: [Unilateral primary osteoarthritis, right hip]Onset: 02-24-2020 Resolved: 356516-70-3093GdhfqzbGlier aftercare (1 source)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; Translations: [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 LAMINATOR USE ORAL HYPOGLYCEMIC DX]Onset: 96-67-9573WgmjtxbeXpjka aftercare (1 source)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; Translations: [OTH FIBREGLASS LAMINATOR CURRENT DRUG THERAPY]Onset: 26-61-9112VgaqhmsaZwsoy circulatory disease (1 source)Personal history of transient ischemic attack (TIA), and cerebral infarction without residual deficits; Translations: [PERS HX TIA AND CI NO RESID DEFICIT]Onset: 06-88-1598ZukjowbbKlvir connective tissue disease (5 sources)History of total hip arthroplasty; Translations: [Presence of right artificial hip joint]Onset: 626283-97-7866CraiciwLldom fractures (1 source)Fracture of left rib; Translations: [Fracture of one rib, left side, initial encounter for closed fracture]10-25-4996FvkgnjmuUalri gastrointestinal disorders (6 sources)Diarrhea due to drug; Translations: [Toxic gastroenteritis and colitis]Onset: 10-20-2023 Resolved: 310559-98-0455LmhphpisIwbrg lower respiratory disease (6 sources)Solitary nodule of lung; Translations: [Solitary pulmonary nodule] Onset: 033460-97-0235QndnuikzAprfs male genital disorders (5 sources)Male erectile dysfunction, unspecified; Translations: [Impotence of organic origin]Onset: 217133-99-4921CxbebwsKdxrg nervous system disorders (5 sources)Spinal cord disease; Translations: [Disease of spinal cord, unspecified]Onset: 178643-13-1265BizojpyKasng nervous system disorders (5 sources)Difficulty walking; Translations: [Difficulty in walking, not elsewhere classified]Onset: 334009-52-3266OttwnkvKhlve nervous system disorders (2 sources)Neuropathy; Translations: [Polyneuropathy, unspecified]03-31-2025 ChronicOther nervous system disorders (6 sources)Acute postoperative pain; Translations: [Other acute postprocedural pain]Onset: 10-20-2023 Resolved: 707714-59-9595ByqbdqvsKymus screening for suspected conditions (not mental disorders or infectious disease) (3 sources)Abnormal findings on diagnostic imaging of skull and head, not elsewhere classified; Translations: [Patient encounter status]Onset: 02-06-2022 78-50-9416BgymzwgaUxuyv skin disorders (1 source)Eruption; Translations: [Rash and other nonspecific skin eruption] 32-54-0001UpcvsvuxIricunpxxe and visceral atherosclerosis (17 sources)Peripheral vascular disease, unspecified; Translations: [Intermittent claudication]Onset: 94-25-6822HtuhfvqYhnrlrah codes; unclassified (1 source)Obstructive sleep apnea (adult) (pediatric); Translations: [OBSTRUCTIVE SLEEP APNEA]Onset: 04-57-6394ZhihcyvLsgcwrvx codes; unclassified (6 sources)History of colectomy; Translations: [Acquired absence of other specified parts of digestive tract]Onset: 538780-19-0987HkyqukrgHhkmapll codes; unclassified (3 sources)Stopped drinking alcohol; Translations: [Personal history of other specified conditions]00-17-4488MzyurrbrTdlyoxonwoaj (1 source)Encounter for follow-up examination after completed treatment for malignant neoplasm; Translations:[Encounter for follow-up examination after completed treatment for malignant neoplasm]Onset: 03-40-4681Uwvkeehumhff (1 source)Encounter for preprocedural laboratory examination; Translations: [Encounter for preprocedural laboratory examination]Onset: 05-16-2022 Unclassified (1 source)E11.9 - Type 2 diabetes mellitus without complicationsViral infection (1 source)COVID-19; Translations: [COVID-19]Onset: 02-06-2022 Past or Other Problems Problem ClassificationProblemDateDocumented DateEpisodic/ChronicAcute bronchitis (5 sources)Acute mycoplasmal bronchitis; Translations: [Acute bronchitis due to Mycoplasma pneumoniae]Onset: 02-24-2020 Resolved: 555932-11-1974TypwxfbqEimkcqtkvsaduw/social admission (5 sources)Literacy problems; Translations: [Illiteracy and low-level literacy] Onset: 300682-95-7426VyrzbfhxFebzgvdjuj and other anemia (5 sources)Anemia; Translations: [Anemia, unspecified]Onset: 12-19-2022 21-66-9738PbjxfgjhFpln disorders (5 sources)Mood disordersOnset: Other connective tissue disease (5 sources)Muscle weakness; Translations: [Muscle weakness (generalized)]Onset: 760656-58-6788DlwguhtiDdiak connective tissue disease (5 sources)Recurrent falls ; Translations: [Repeated falls]Onset: 05-01-2023 17-96-1636BvmzpplxUvyxj gastrointestinal disorders (5 sources)Abnormal feces; Translations: [Other fecal abnormalities]Onset: 778808-90-9104DpylctilQgnrd gastrointestinal disorders (5 sources)Incontinence of feces; Translations: [Full incontinence of feces] Onset: 215140-12-8551FcnzkqbzXhuba non-traumatic joint disorders (5 sources)Pain in right knee; Translations: [Pain in joint, lower leg]Onset: 261986-93-0184BqtgixcaQccjc non-traumatic joint disorders (3 sources)Pain in right hip joint; Translations: [Pain in right hip]Onset: 674529-62-9269QqkzhnuaXbtyc non-traumatic joint disorders (2 sources)Hip pain; Translations: [Pain in right hip]Onset: 02-24-2020 71-48-0958ExfhjgzxZqrwy nutritional; endocrine; and metabolic disorders (5 sources)Overweight in adulthood with body mass index of 25 or more but less than 30; Translations: [Body mass index (BMI) 27.0-27.9, adult]Onset: 02-24-2020 Resolved: 148517-65-1827OicsjmwsXomatzff codes; unclassified (4 sources)Noncompliance with medication regimen; Translations: [Patient's other noncompliance with medicationregimen]Onset: 02-50-7774DphfsvqjYeeqhklt codes; unclassified (5 sources)Insomnia; Translations: [Insomnia, unspecified]Onset: 02-24-2020 45-36-0071TbnnbwfqDjomifcyiuk; intervertebral disc disorders; other back problems (5 sources)Lumbago co-occurrent with right-side sciatica; Translations: [Lumbago with sciatica, right side]Onset: 240727-77-5734YvnykipsSdqyegq (9 sources)Syncope and collapse; Translations: [Syncope and collapse]Onset: 02-24-2020 Resolved: 02-87-9651Bhuqxrip Results Test NameValueInterpretationReference RangeFacilityBasophils Auto (Bld) [#/Vol] Ordered By: Raul Hooper on 07-89-0446Xxweseigd (Bld) [#/Vol]0.1 10 3/uL0.0-0.1 [facility] HospitalBasophils/100 WBC Auto (Bld)Ordered By: Raul Hooper on 70-23-1379Hkwgegzxf/100 WBC (Bld)1.8 %0.2-2.0[facility] HospitalEosinophils/100 WBC Auto (Bld)Ordered By: Raul Hooper on 56-01-6630Sajscklgqsm/100 WBC (Bld)6.9 %0.9-7.0[facility] Erythrocyte distribution width Auto (RBC) [Ratio]Ordered By: Raul Hooper on 91-67-1814Bsrlnawqmrv distribution width (RBC) [Ratio]12.3 %11.0-15.0[facility] HospitalGlobulin Calc (S) [Mass/Vol]Ordered By: Tika Uriostegui on 94-48-4050Uqnegoci (S) [Mass/Vol]4.2 g/dLAultman Alliance Community HospitalGlomerular filtration rate (GFR) estimation in non- AmericanOrdered By: Tika Uriostegui on 35-30-3918SJL/1.73 sq M.predicted among non-blacks MDRD (S/P/Bld) [Vol rate/Area]mL/min/{1.73_m2}>=60 mL/min/1.73m 2FOhioHealth Shelby HospitalHematocrit Auto (Bld) [Volume fraction]Ordered By: Raul Hooper on 66-71-4563Taraqbegcb (Bld) [Volume fraction]39.8 %Low 42.0-54.0[facility] HospitalHemoglobin [Mass/volume] in Blood Ordered By: Raul Hooper on 44-62-7108Yndwzihgub (Bld) [Mass/Vol]14.0 g/dL 14.0-18.0[facility] HospitalLaboratory - Chemistry and Chemistry - challengeOrdered By: Raul Hooper on 53-21-0066Lozvyxnsg Ql (U)NegativeNEGATIVE [facility] HospitalGlucose (U) [Mass/Vol]mg/dLAbnormalNEGATIVE [facility] HospitalKetones Ql (U)NegativeNEGATIVEAultman Alliance Community HospitalpH (U)5.5 [pH]5.0-9.0[facility] Specific gravity (U) [Rel density]1.0151.005-1.025[facility] HospitalUrobilinogen Qn (U)0.2 {Cynthia'U}/dL0.2-1.0[facility] HospitalLaboratory - Chemistry and Chemistry - challengeOrdered By: Tika Uriostegui on 09-94-3041Uycmgvk [Mass/Vol]3.2 g/dLLow3.4-5.0[facility] HospitalALP [Catalytic activity/Vol]92 U/C24-166HrvybqhnuAultman Alliance Community HospitalALT [Catalytic activity/Vol]28 U/Q82-35AkbctbopaAultman Alliance [facility] Hospital AST [Catalytic activity/Vol]19 U/G45-11OggwzssazAultman Alliance Community Hospital Bilirubin [Mass/Vol]0.5 mg/dL0.2-1.0[facility] HospitalCalcium [Mass/Vol]9.7 mg/dL8.5-10.1FOhioHealth Shelby HospitalChloride [Moles/Vol] 100 mmol/X08-272AcipcdyzuAultman Alliance Community HospitalCO2 [Moles/Vol]25.5 mmol/L 21.0-32.0[facility] HospitalCreatinine [Mass/Vol]1.16 mg/dL 0.70-1.30[facility] HospitalGFR/1.73 sq M.predicted MDRD (S/P/Bld) [Vol rate/Area]mL/min/{1.73_m2}>=60 mL/min/1.73m 2FOhioHealth Shelby HospitalGlucose [Mass/Vol]338 mg/mZEwft57-884XdaihnfgaAultman Alliance Community Hospital Potassium [Moles/Vol]4.2 mmol/L3.5-5.1FOhioHealth Shelby HospitalProtein [Mass/Vol]7.4 g/dL6.4-8.2FCleveland Clinic Union Hospitalodium [Moles/Vol]135 mmol/OZcg632-333KrtmukizwAultman Alliance Community HospitalUrea nitrogen [Mass/Vol]28.0 mg/dLHigh7.0-18.0[facility] HospitalUrea nitrogen/Creatinine [Mass ratio]24.1 mg/mgAultman Alliance Community HospitalLaboratory - Hematology and Cell countsOrdered By: Raul Hooper on 22-09-2837Kiuisixe granulocytes/100 WBC (Bld)0.3 %0.0-0.5FOhioHealth Shelby HospitalLaboratory - Specimen informationOrdered By: Raul Hooper on 41-02-2050Lgrbqkphbt (U)CLEARCLEAR [facility] HospitalColor (U)LT. YELLOWYELLOWAultman Alliance Community HospitalLaboratory - UrinalysisOrdered By: Raul Hooepr on 03-26-2025 Leukocyte esterase Test strip Ql (U)NegativeNEGCleveland Clinic Hillcrest HospitalMucus Ql (Urine sed)NONE SEENNONE SEENAultman Alliance Community Hospital Nitrite Ql (U)NegativeNEGATIVEAultman Alliance Community HospitalProtein Ql (U) NegativeNEG/TRACEAultman Alliance Community HospitalLeukocytes [#/volume] corrected for nucleated erythrocytes in Blood by Automated counOrdered By: Raul Hooper on 24-01-7821EPQ corrected for nucl RBC Auto (Bld) [#/Vol]6.2 10 3/uL 4.0-11.0[facility] HospitalLymphocytes Auto (Bld) [#/Vol]Ordered By: Raul Hooper on 45-12-6507Oofgtlpwpyo (Bld) [#/Vol]1.3 10 3/uL1.2-3.8 [facility] HospitalLymphocytes/100 WBC Auto (Bld)Ordered By: Raul Hooper on 73-31-5020Lhuogguncpn/100 WBC (Bld)20.1 %Low20.5-60.0[facility] Auto (RBC) [Entitic mass]Ordered By: Raul Hooper on 47-10-0761JXH (RBC) [Entitic mass]30.5 pg25.9-34.0[facility] HospitalMCHC Auto (RBC) [Mass/Vol]Ordered By: Raul Hooper on 30-13-2744GZMQ (RBC) [Mass/Vol]35.2 g/dL29.9-35.2FOhioHealth Shelby HospitalMCV Auto (RBC) [Entitic vol]Ordered By: Raul Hooper on 12-00-7154KYZ (RBC) [Entitic vol]86.7 fL80.0-94.0[facility] HospitalMonocytes Auto (Bld) [#/Vol]Ordered By: Raul Hooper on 16-35-5865Hklwyhiam (Bld) [#/Vol]0.6 10 3/uL0.3-0.8[facility] HospitalMonocytes/100 WBC Auto (Bld)Ordered By: Raul Hooper on 12-19-3407Iccnnhzte/100 WBC (Bld)9.0 %1.7-12.0[facility] Neutrophils Auto (Bld) [#/Vol]Ordered By: Raul Hooper on 27-78-0593Ixpqatzuqjo (Bld) [#/Vol]3.9 10 3/uL1.4-6.5FOhioHealth Shelby HospitalNeutrophils/100 WBC Auto (Bld)Ordered By: Raul Hooper on 16-26-3441Jumdomcnaje/100 WBC (Bld) 61.9 %43.0-75.0[facility] HospitalNo Panel InformationOrdered By: Raul Hooper on 73-77-3832Tbvvw BacteriaTRACE #/HPFAbnormalNONE [facility] SouthwoodsUrine Culture ReflexedNOAultman Alliance Community Hospital Urine Occult BloodNegativeNEGATIVEAultman Alliance Community HospitalUrine Other CastsNONE SEEN #/LPFNONE [facility] SouthwoodsUrine Other CrystalsNone Seen #/HPFNone [facility] HospitalUrine RBCNONE SEEN #/HPF0-2FOhioHealth Shelby HospitalUrine Squamous Epithelial Cells RARE #/LPFNONE/RAREAultman Alliance Community HospitalUrine WBC0-2 #/HPFAbnormal NONE SEENAultman Alliance Community HospitalEosinophils # (Auto)0.4 10 3/uL0.0-0.7 [facility] HospitalImmature Granulocyte # (Auto)0.02 10 3/uL 0.00-0.03[facility] HospitalPlatelet mean volume Auto (Bld) [Entitic vol]Ordered By: Raul Hooper on 78-54-5717Mtyquifu mean volume (Bld) [Entitic vol]10.9 fL9.5-13.5FOhioHealth Shelby HospitalPlatelets Auto (Bld) [#/Vol]Ordered By: Raul Hooper on 66-87-9213Eihnthbfa (Bld) [#/Vol]246 10 3/yL534-173IljgpfxbrAultman Alliance Community HospitalRBC Auto (Bld) [#/Vol]Ordered By: Raul Hooper on 37-21-4798TVE (Bld) [#/Vol]4.59 10 6/uLLow4.70-6.10[facility] Memorial Hospitalerum or plasma albumin/globulin mass ratioOrdered By: Tika Uriostegui on 53-41-8918Dagpmic/Globulin [Mass ratio]0.8 {ratio} [facility] Memorial Hospitalerum or plasma anion gap determinationOrdered By: Tika Uriostegui on 01-46-3561Onvij gap [Moles/Vol]13.7 mmol/LFOhioHealth Shelby HospitalProgress Noteson 86-58-5150Pmtrdnjqxcqdt Authentication Interface Message TextEMERGENCY TRIAGE, TREAT AND TRANSPORT (ET3) DOCUMENTATION OF TELEHEALTH VISIT Date / Time: 08/08/2022 / 1199 Name: Mikhail Menon : 1950 SSN: (Not on file) EMS Agency: [facility] [x] Verbal consent obtained [...] Disposition Reported: Same ET3 Encounter Completed by: [facility] Glucose Poct Glucometerson 33-15-2726Unjvtok7Mqu4: Cleaned MeterNoMercy Health Clermont HospitalComment on above:Result Comment: PERFORMED BY: [facility] [address] [place] [address] PATHOLOGIST FAIRING MAN BULMARO HALL M.D.Performed By: #### GLULS #### Point of Care testing ,Glucose [Mass/Vol]179 mg/dLCommunity Regional Medical CenterComment on above:Result Comment: Random Glucose Reference Range is dependent on time and content of last meal. Glucose of more than 200 mg/dL in a nonstressed, ambulatory subject supports the diagnosis of Diabetes Mellitus.Performed By: #### GLULS #### Point of Care testing ,Glucose [Mass/Vol]198 mg/dLCommunity Regional Medical CenterComment on above:Result Comment: Random Glucose Reference Range is dependent on time and content of last meal. Glucose of more than 200 mg/dL in a nonstressed, ambulatory subject supports the diagnosis of Diabetes Mellitus. PERFORMED BY: [address] [place] [address] PATHOLOGIST FAIRING MAN BULMARO HALL M.D.Performed By: #### GLULS #### Point of Care testing ,COVID-19 Antigenon 44-05-5877GCQHP-19 AntigenHealthcare Worker?: N Reference Range: Negative Negative results, [...] developed and its performance characteristic determined by [employer] and validated at [facility]. This test has not been FDA [...] for SARS Antigen by DOROTHEA PERFORMED BY: [place] [address] PATHOLOGIST FAIRING MAN BULMARO HALL M.D.Community Regional Medical CenterComment on above: Performed By: #### COVID-19 CAMILA, SOFIANEG #### [place] [address] USACOVID-19 SOFIAOrdered By: Christian Montana on 05-16-2022 SARS-CoV+SARS-CoV-2 (COVID-19) Ag IA.rapid Ql (Resp)NegativeNegativeAultman Alliance Community HospitalComment on above:This is a duplicate Camila SARS Antigen (DOROTHEA) result to be used for statistical tracking purpose only.No Panel InformationOrdered By: Christian Montana on 49-28-2425BIYI Antigen (LFIA)[facility] Memorial Hospitalofia Ag Negativeon 54-08-4263Qlgnq Ag NegativeNegative NormalNegCleveland Clinic Mercy HospitalComment on above:Result Comment: This is a duplicate Camila SARS Antigen (DOROTHEA) result to be used for statistical tracking purpose only. PERFORMED BY: [place] [address] PATHOLOGIST FAIRING MAN BULMARO HALL M.D.Performed By: #### COVID-19 CAMILA, SOFIANEG #### [facility] [address] [id number] [facility] AUTO DIFFon 43-32-3462WNNP #0.1 103/ulNormal0.0-0.1The [facility] Md, Cancer CenterComment on above:Performed By: #### CBC #### [facility] [address] [address] [address] Bucky GoldBasophils/100 WBC (Bld)1.3 %Normal0.2-2.0[facility] Comment on above:Performed By: #### CBC #### [facility] [address] [address] [address] Bucky Burks #0.7 103/ulNormal0.0-0.7The [facility] Md, Cancer CenterComment on above: Performed By: #### CBC #### [facility] [address] [address] [address] Bucky Youngosinophils/100 WBC (Bld)12.1 %Critically high0.9-7.0The [facility] Md, Cancer CenterComment on above:Performed By: #### CBC #### [facility] [address] [address] [address] Bucky Youngrythrocyte distribution width (RBC) [Ratio]12.1 %Ctbmay68.0-15.0 [facility] Centerment on above:Performed By: #### CBC #### [facility] [address] [address] [address] Bucky GoldHematocrit (Bld) [Volume fraction]38.0 %Critically low42.0-54.0 [facility] Centerment on above:Performed By: #### CBC #### [facility] [address] [address] [address] Bucky GoldHemoglobin (Bld) [Mass/Vol]12.7 g/dLCritically low14.0-18.0The [facility] Medical Centerment on above:Performed By: #### CBC #### [facility] [address] [address] [address] Bucky Spaulding #0.01 10e3/ulNormal0.00-0.03The [facility] Md, Cancer CenterComment on above:Performed By: #### CBC #### [facility] [address] [address] [address] Bucky Spaulding %0.2 %Normal0.0-0.5The [facility] Md, Cancer CenterComment on above: Performed By: #### CBC #### [facility] [address] [address] [address] Bucky Phillip #1.0 103/ulCritically low1.2-3.8The [facility] Comment on above:Performed By: #### CBC #### [facility] [address] [address] [address] Bucky Mitchellhocytes/100 WBC (Bld)18.4 %Critically low20.5-60.0The [facility], Cancer CenterComment on above:Performed By: #### CBC #### [facility] [address] [address] [address] Bucky Humphries DIFF REQNONormalThe [facility], Cancer CenterComment on above: Performed By: #### CBC #### [facility] [address] [address] [address] Bucky Zimmer (RBC) [Entitic mass]32.8 amRwgqhk47.9-34.0The [facility], Cancer CenterComment on above:Performed By: #### CBC #### [facility] [address] [place] [address] Dr. Bucky Ahn (RBC) [Mass/Vol]33.4 g/fBQmqjas52.9-35.2The [facility], Cancer CenterComment on above:Performed By: #### CBC #### [facility] [address] [place] [address] Dr. Bucky Menezes (RBC) [Entitic vol]98.2 fLCritically high80.0-94.0The [facility], Cancer CenterComment on above:Performed By: #### CBC #### [facility] [address] [place] [address] Dr. Bucky Jon #0.4 103/ulNormal0.3-0.8The [facility] Md, Cancer CenterComment on above:Performed By: #### CBC #### [facility] [address] [place] [address] Dr. Bucky Alvaocytes/100 WBC (Bld)6.8 %Normal1.7-12.0The [facility] Comment on above:Performed By: #### CBC #### [facility] [address] [place] [address] Dr. Bucky London #3.4 103/ulNormal1.4-6.5The [facility], Cancer CenterComment on above:Performed By: #### CBC #### [facility] [address] [place] [address] Dr. Bucky Barnardutrophils/100 WBC (Bld)61.2 %Zabocl33.0-75.0The [facility], Cancer CenterComment on above:Performed By: #### CBC #### [facility] [address] [place] [address] Dr. Bucky Avilalet mean volume (Bld) [Entitic vol]10.1 fLNormal9.5-13.5The [facility], Cancer CenterComment on above:Performed By: #### CBC #### [facility] [address] [place] [address] Dr. Bucky GoldPLT154 103/esLnrald072-490Ges [facility], Cancer CenterComment on above: Performed By: #### CBC #### [facility] [address] [place] [address] Dr. Bucky GoldRBC3.87 106/ulCritically low4.70-6.10The [facility], Cancer CenterComment on above:Performed By: #### CBC #### [facility] [address] [place] [address] Dr. Bucky GoldWBC5.6 103/ulNormal4.0-11.0The [facility], Cancer CenterComment on above: Performed By: #### CBC #### [facility] [address] [place] [address] Dr. Bucky GoldCHATUGE [facility] GLUCOSEon 78-08-5353Ryruaab [Mass/Vol]214 mg/dL Critically ghyz08-181Dlx [facility], [facility] CenterComment on above:Performed By: #### POCGLUC #### [facility] [address] [place] [address] Dr. Bucky GoldPROF CHEM 8 (BAS METB)on 02-49-4338Rgzxs gap [Moles/Vol]10.4 mmol/LNormalThe [facility], Cancer CenterComment on above:Performed By: #### BMP #### [facility] [address] [place] [address] Dr. Bucky GoldCalcium [Mass/Vol]8.3 mg/dLCritically low8.5-10.1The [facility], Cancer CenterComment on above:Performed By: #### BMP #### [facility] [address] [place] [address] Dr. Bucky GoldChloride [Moles/Vol]104 mmol/DTocanx14-289Kgc [facility] Comment on above:Performed By: #### BMP #### [facility] [address] [place] [address] Dr. Bucky GoldCO2 [Moles/Vol]25.5 mmol/XPegjlg85.0-32.0The [facility] Comment on above:Performed By: #### BMP #### [facility] [address] [place] [address] Dr. Bucky GoldCreatinine [Mass/Vol]0.89 mg/dLNormal0.70-1.30The [facility], Cancer CenterComment on above:Performed By: #### BMP #### [facility] [address] [place] [address] Dr. Bucky YoungGFR-AF SOMALI>60Normal>=60The [facility], Cancer CenterComment on above:Performed By: #### BMP #### [facility] [address] [place] [address] Dr. Lawler ChangEGFR-NON AF SOMALI>60Normal>=60The [facility], Cancer CenterComment on above:Performed By: #### BMP #### [facility] [address] [place] [address] Dr. Bucky GoldGlucose [Mass/Vol]138 mg/dLCritically pjlz61-364Qtn [facility] CenterComment on above:Performed By: #### BMP #### [facility] [address] [place] [address] Dr. Bucky GoldPotassium [Moles/Vol]3.9 mmol/LNormal3.5-5.1The [facility] Comment on above:Performed By: #### BMP #### [facility] [address] [place] [address] Dr. Bucky GoldSodium [Moles/Vol]136 mmol/XXdilgm687-594Cen [facility] Comment on above:Performed By: #### BMP #### [facility] [address] [place] [address] Dr. Bucky GoldUrea nitrogen [Mass/Vol]12.0 mg/dLNormal7.0-18.0The [facility], Cancer CenterComment on above:Performed By: #### BMP #### [facility] [address] [place] [address] Dr. Bucky Wilkins nitrogen/Creatinine [Mass ratio]13.5 mg/mgNormalThDayton Children's HospitalComment on above:Performed By: #### BMP #### [facility] [address] [place] [address] Dr. Bucky Barrett W MANUAL DIFFon 03-22-3308YCZKIDND LYMPH #NormalSelect Medical Specialty Hospital - CantonComment on above:Performed By: #### CBCMAN #### [facility] [address] [place] [address] Dr. Bucky GoldATYPICAL LYMPH %NormalThe [facility], Cancer CenterComment on above: Performed By: #### CBCMAN #### [facility] [address] [place] [address] Dr. Bucky Vale #Normal0.0-0.3The [facility], Cancer CenterComment on above: Performed By: #### CBCMAN #### [facility] [address] [place] [address] Dr. Bucky Vale %Normal0-5The [facility], Cancer CenterComment on above:Performed By: #### CBCMAN #### [facility] [address] [address] [address] Bucky Loera #0.00 103/ulNormal0.00-0.10The [facility], Cancer CenterComment on above:Performed By: #### CBCJONATHAN #### [facility] [address] [address] [address] Bucky Loera %0.0 %Critically low0.2-2.0The [facility], Cancer CenterComment on above:Performed By: #### CBCJONATHAN #### [facility] [address] [address] [address] Bucky Whipple #NormalThe [facility], Cancer CenterComment on above:Performed By: #### WADE #### [facility] [address] [place] [address] Dr. Bucky Whipple %NormalThe [facility], Cancer CenterComment on above:Performed By: #### WADE #### [facility] [address] [place] [address] Dr. Bucky GoldCORRECTED WBCNormal4.0-11.0The [facility] Md, Cancer CenterComment on above: Performed By: #### WADE #### [facility] [address] [place] [address] Dr. Bucky Montenegro #0.00 103/ulNormal0.00-0.70The [facility], Cancer CenterComup health system on above:Performed By: #### WADE #### [facility] [address] [place] [address] Dr. Bucky Montenegro%0.0 %Critically low0.9-7.0The [facility], Cancer CenterComment on above:Performed By: #### WADE #### [facility] [address] [place] [address] Dr. Bucky GoldHCT32.5 %Critically low42.0-54.0The [facility], Cancer CenterComment on above:Performed By: #### WADE #### [facility] [address] [place] [address] Dr. Bucky GoldHGB10.8 g/dlCritically low14.0-18.0The [facility] HospitalComment on above:Performed By: #### WADE #### [facility] [address] [address] [address] Bucky Alvarez #0.55 103/ulCritically low1.20-3.80The [facility] Comment on above:Performed By: #### WADE #### [facility] [address] [address] [address] Bucky Alvarez%14.0 %Critically low20.5-60.0The [facility], Cancer CenterComment on above:Performed By: #### WADE #### [facility] [address] [address] [address] Bucky AhnH33.0 diTfqlpv01.9-34.0The [facility], Cancer CenterComment on above: Performed By: #### WADE #### [facility] [address] [address] [address] Bucky AhnHC33.2 g/svKastyu20.9-35.2The [facility], Cancer CenterComment on above:Performed By: #### WADE #### [facility] [address] [address] [address] Bucky AhnV99.4 fLCritically high80.0-94.0The [facility], Cancer CenterComment on above:Performed By: #### WADE #### [facility] [address] [address] [address] Bucky GallagherOCYTE #NormalThe [facility], Cancer CenterComment on above: Performed By: #### WADE #### [facility] [address] [address] [address] Bucky GallagherOCYTE %NormalThe [facility], Cancer CenterComment on above: Performed By: #### WADE #### [facility] [address] [address] [address] Bucky Madden#0.12 103/ulCritically low0.30-0.80The [facility] Comment on above:Performed By: #### WADE #### [facility] [address] [address] [address] Bucky Madden%3.0 %Normal1.7-12.0The [facility], Cancer CenterComment on above: Performed By: #### WADE #### [facility] [address] [address] [address] Bucky GoldMPV10.5 fLNormal9.5-13.5The [facility], Cancer CenterComment on above: Performed By: #### CBCJONATHAN #### [facility] [address] [address] [address] Bucky Delacruz #NormalSelect Medical Specialty Hospital - CantonComment on above:Performed By: #### WADE #### [facility] [address] [place] [address] Dr. Bucky Delacruz %NormalSelect Medical Specialty Hospital - CantonComment on above:Performed By: #### WADE #### [facility] [address] [place] [address] Dr. Bucky GoldNRBCNormalThe [facility], Cancer CenterComment on above:Performed By: #### WADE #### [facility] [address] [place] [address] Dr. Bucky GaticaT143 103/ulCritically ftl421-450Bch [facility] CenterComment on above:Performed By: #### WADE #### [facility] [address] [place] [address] Dr. Bucky GoldRBC3.27 106/ulCritically low4.70-6.10The [facility], Cancer CenterComment on above:Performed By: #### WADE #### [facility] [address] [place] [address] Dr. Bucky GoldRDW12.0 %Ujyhss32.0-15.0The [facility], Cancer CenterComment on above: Performed By: #### WADE #### [facility] [address] [place] [address] Dr. Bucky Rodriguez #3.24 103/ulNormal1.40-6.50The [facility], Cancer CenterComment on above:Performed By: #### WADE #### [facility] [address] [address] [address] Bucky Rodriguez %83.0 %Critically high43.0-75.0The [facility] Centerment on above:Performed By: #### WADE #### [facility] [address] [address] [address] Bucky GoldWBC3.9 103/ulCritically low4.0-11.0The [facility] Centerment on above:Performed By: #### WADE #### [facility] [address] [address] [address] Bucky GoldCT HEAD WO CONon [id number] HEAD WO CONEXAMINATION: CT HEAD WO CON, 02/01/2022 10:26 AM [...] Electronically authenticated by: ROEL TRAN Date: 2022-02-01 10:57NoMercy Health St. Charles HospitalCovid-19 PCR (CVDTBH)on 03-01-9299FXHW-CoV-2 (COVID-19) RNA ROSIBEL+probe Ql (Unsp spec)DetectedCritically abnormalNOT DETECTEDThe [facility] on above:Result Comment: This test is not yet approved or cleared by the [place] FDA. When there are no FDA-approved or cleared tests available, and other criteria are met, FDA can make tests available under an emergency access mechanism called an Emergency Use Authorization (EUA). The EUA for this test is supported by the B2[employer] Sales Manager of Health and Human Service's declaration that circumstances exist to justify the emergency use of in vitro diagnostics for the detection and/or diagnosis of the virusthat causes COVID-19. This EUA will remain in effect for the duration of the COVID-19 declaration ju stifying emergency of IVDs, unless it is terminated or revoked by the FDA (after which the test mayno longer be used).Performed By: #### BMP, HSTROPN #### [facility] [address] [place] [address] Dr. Bucky Rios LIMITED STUDYon [id number] LIMITED STUDYPatient: MIKHAIL MENON Exam Date: 02/01/2022 : 1950 Gender:M Ordering : DR BELKIS YU . Admission #: [id number] Family : DR ULISSES YU M.D. Order #: [id number] CLICK HERE TO VIEW EXAM ECHOCARDIOGRAM REPORT [...] by: Ryan Amin M.D. on 02/01/2022 at 18:43[facility] HospitalPOINT OF CARE GLUCOSEon 59-11-7381Laztfjq [Mass/Vol]209 mg/dLCritically arjh87-521Ylz [facility] CenterComment on above:Performed By: #### POCGLUC #### [facility] [address] [place] [address] Dr. Bucky BorgesF CHEM 8 (BAS METB)on 52-04-3343Ctzvg gap [Moles/Vol]11.8 mmol/LNormalThe [facility] CenterComment on above:Performed By: #### BMP, HSTROPN #### [facility] [address] [place] [address] Dr. Bucky GoldCalcium [Mass/Vol]7.8 mg/dLCritically low8.5-10.1The [facility], Cancer CenterComment on above:Performed By: #### BMP, HSTROPN #### [facility] [address] [place] [address] Dr. Bucky GoldChloride [Moles/Vol]104 mmol/DRsdngm30-025Sbi [facility] Comment on above:Performed By: #### BMP, HSTROPN #### [facility] [address] [place] [address] Dr. Bucky GoldCO2 [Moles/Vol]24.1 mmol/BBlxhoo28.0-32.0[facility] Comment on above:Performed By: #### BMP, HSTROPN #### [facility] [address] [place] [address] Dr. Bucky GoldCreatinine [Mass/Vol]1.36 mg/dLCritically high0.70-1.30The [facility], Cancer CenterComment on above:Performed By: #### BMP, HSTROPN #### [facility] [address] [place] [address] Dr. Bucky YoungGFR-AF SOMALI>60Normal>=60The [facility], Cancer CenterComment on above:Performed By: #### BMP, HSTROPN #### [facility] [address] [address] [address] Bucky YoungGFR-NON AF AMLQGVKO77 mL/min/1.47w0Mzdohvnstt low>=60The [facility], Cancer CenterComment on above:Performed By: #### BMP, HSTROPN #### [facility] [address] [address] [address] Bucky GoldGlucose [Mass/Vol]211 mg/dLCritically rxuh79-057Abj [facility] CenterComment on above:Performed By: #### BMP, HSTROPN #### [facility] [address] [address] [address] Bucky GoldPotassium [Moles/Vol]3.9 mmol/LNormal3.5-5.1The [facility] Comment on above:Performed By: #### BMP, HSTROPN #### [facility] [address] [place] [address] Dr. Bucky GoldSodium [Moles/Vol]136 mmol/VRghbae632-906Ldy [facility] Comment on above:Performed By: #### BMP, HSTROPN #### [facility] [address] [address] [address] Bucky GoldUrea nitrogen [Mass/Vol]16.0 mg/dLNormal7.0-18.0The [facility], Cancer CenterComment on above:Performed By: #### BMP, HSTROPN #### [facility] [address] [place] [address] Dr. Bucky GoldUrea nitrogen/Creatinine [Mass ratio]11.8 mg/mgNormalThe [facility] CenterComment on above:Performed By: #### BMP, HSTROPN #### [facility] [address] [place] [address] Dr. Bucky Vegas, HIGH SENSITIVITYon 59-96-7247AUWZBP87.5 pg/mLNormal 4.0-76.1The [facility] CenterComup health system on above:Result Comment: CUT-OFF POINTS HAVE BEEN ESTABLISHED BASED ON THE FOURTH UNIVERSAL DEFINITIONS OF MYOCARDIAL INFARCTION. THE UPPER REFERENCE LIMIT (URL) OF TROPONIN, DEFINED THE 99TH PERCENTILE OF cTnI DISTRIBUTION IN A REFERENCE POPULATION, HAS BEEN CONFIRMED THE DECISION THRESHOLD FOR VT DIAGNOSIS.Performed By: #### BMP, HSTROPN #### [facility] [address] [place] [address] Dr. Bucky Haas CAROTID ART BILon [id number] CAROTID ART BILEXAMINATION: US CAROTID ART REGIS HISTORY: Syncope COMPARISON: [...] Electronically authenticated by: ROEL TRAN Date: 2022-02-01 15:02[facility] HospitalComplete Blood Count with Auto Diffon 23-58-3196Xlarkxtdd (Bld) [#/Vol]0.08 10*3/uLNormal0.00-0.20Northern [facility] Mary'S HospitalComment on above:Performed By: #### CBCAD, CMP #### [facility] [address], [place] [id number]/100 WBC (Bld)1.6 %NormalNorthern Saint Mary'S HospitalComment on above:Performed By: #### CBCAD, CMP #### [facility] [address] [place], [place] [id number] (Bld) [#/Vol]0.28 10*3/uLNormal0.02-0.50[facility] [place] [facility] SpecialistComment on above:Performed By: #### CBCAD, CMP #### [facility] [address] [place], [place] [id number]/100 WBC (Bld)5.8 %NormalEast [facility] Hospital SpecialistComment on above:Performed By: #### CBCAD, CMP #### [facility] [address] [place], [place] [id number] distribution width (RBC) [Ratio]11.8 %Normal 11.0-15.0[facility] SpecialistComment on above:Performed By: #### CBCAD, CMP #### [facility] [address] [place], [place] [id number] (Bld) [Volume fraction]41.4 %Mwnjnc55.5-50.0 [facility] SpecialistComment on above:Performed By: #### CBCAD, CMP #### [facility] [address] [place], [place] [id number] (Bld) [Mass/Vol]14.1 g/fJEklowm49.0-17.1NorthT[facility] SpecialistComment on above:Performed By: #### CBCAD, CMP #### [facility] [address] [place], [place] [id number] (Bld) [#/Vol]1.2 10*3/uLNormal0.9-3.9[facility] SpecialistComment on above:Performed By: #### CBCAD, CMP #### [facility] [address] [place], [place] [id number]/100 WBC (Bld)24.3 %NormalEast [facility] Hospital SpecialistComment on above:Performed By: #### CBCAD, CMP #### [facility] [address] [place], [place] [id number] (RBC) [Entitic mass]31.2 zmKhncks64.0-33.0[facility] SpecialistComment on above:Performed By: #### CBCAD, CMP #### [facility] [address] [place], [place] [id number] (RBC) [Mass/Vol]34.1 g/xHLcdamw37.0-36.0NoSelect [facility] SpecialistComment on above:Performed By: #### CBCAD, CMP #### [facility] [address] [place], [place] [id number] (RBC) [Entitic vol]92 eYMppbkv46-505Ydkahshv [facility] SpecialistComment on above:Performed By: #### CBCAD, CMP #### [facility] [address] [place], [place] [id number] (Bld) [#/Vol]0.3 10*3/uLNormal0.2-0.9NoSelect [facility] SpecialistComment on above:Performed By: #### CBCAD, CMP #### [facility] [address] [place], [place] [id number]/100 WBC (Bld)5.6 %NormalNoSelect Medical [facility] SpecialistComment on above:Performed By: #### CBCAD, CMP #### [facility] [address] [place], [place] [id number] (Bld) [#/Vol]3.0 10*3/uLNormal1.5-7.8NoSelect [facility] SpecialistComment on above:Performed By: #### CBCAD, CMP #### [facility] [address] [place], [place] [id number]/100 WBC (Bld)62.5 %NormalNoSelect Medical [facility] SpecialistComment on above:Performed By: #### CBCAD, CMP #### [facility] [address] [place], [place] [id number] mean volume (Bld) [Entitic vol]11.30 fLNormal 7.50-12.50NoSelect [facility] SpecialistComment on above:Performed By: #### CBCAD, CMP #### [facility] [address] [place], [place] [id number] (Bld) [#/Vol]218 10*3/bZBkshlv540-127Yeoeeftw [facility] SpecialistComment on above:Performed By: #### CBCYEE, CMP #### [facility] [address] [place], [place] [id number] (Bld) [#/Vol]4.52 10*6/uLNormal4.20-5.80NortTriHealth McCull[facility]-Hyde [facility] Hospital SpecialistComment on above:Performed By: #### CBCYEE, CMP #### [facility] [address] [place], [place] [id number]-CV26.6 lOHbcwaj45.0-50.0NoSelect [facility] Specialist Comment on above:Performed By: #### CBCYEE, CMP #### [facility] [address] [place], [place] [id number] (Bld) [#/Vol]4.9 10*3/uLNormal3.8-11.0NortTriHealth McCullough-Hyde Memorial Hospital SpecialistComment on above:Performed By: #### CBCYEE, CMP #### [facility] [address] [place], [place] [id number] Metabolic Panelon 65-10-2938Uwzzhzu [Mass/Vol] 4.3 g/dLNormal3.6-5.1[facility] SpecialistComment on above:Performed By: #### CBCYEE, CMP #### [facility] [address] [place], [place] [id number]/Globulin [Mass ratio]1.7 {ratio}Normal1.0-2.5NoSelect [facility] SpecialistComment on above:Performed By: #### CBCYEE, CMP #### [facility] [address] [place], [place] [id number] [Catalytic activity/Vol]73 U/PRqwndu73-494Lcyuuzar [facility] SpecialistComment on above:Performed By: #### CBCAD, CMP #### [facility] [address] [place], [place] [id number] [Catalytic activity/Vol]19 U/LNormal9-46NortTriHealth McCull[facility]-Hyde [facility] Hospital SpecialistComment on above:Result Comment: 06/20/2021 Female reference range changed.Performed By: #### CBCAD, CMP #### [facility] [address] [place], [place] [id number] gap [Moles/Vol]18 mmol/MImppja20-69Ewaquvsl [facility] SpecialistComment on above:Result Comment: Effective 07/26/2019 reference range changed.Performed By: #### CBCAD, CMP #### [facility] [address] [place], [place] [id number] [Catalytic activity/Vol]27 U/TBenzua24-92Vraeajzn [facility] SpecialistComment on above:Result Comment: Specimen is hemolyzed. Results may be affected.Performed By: #### CBCAD, CMP #### [facility] [address] [place], [place] [id number]/CREA21 RatioNormal6-22NoSelect [facility] Specialist Comment on above:Performed By: #### CBCAD, CMP #### [facility] [address] [place], [place] [id number] [Mass/Vol]9.4 mg/dLNormal8.6-10.2[facility] SpecialistComment on above:Performed By: #### CBCAD, CMP #### [facility] [address] [place], [place] [id number] [Moles/Vol]109 mmol/WJtje00-853Zodkraqj [facility] SpecialistComment on above:Performed By: #### CBCAD, CMP #### [facility] [address] [place], [place] [id number] [Moles/Vol]18 mmol/WUof32-83Btacklix [facility] SpecialistComment on above:Performed By: #### CBCAD, CMP #### [facility] [address] [place], [place] [id number] [Mass/Vol]0.9 mg/dLNormal0.7-1.4NortTriHealth McCull[facility] SpecialistComment on above:Performed By: #### CBCAD, CMP #### [facility] [address] [place], [place] [id number] mL/min/1.01w4Itcxoj>60NortTriHealth McCull[facility] SpecialistComment on above:Performed By: #### CBCYEE, CMP #### [facility] [address] [place], [place] [id number] mL/min/1.86k5Ptfpgg>60NortTriHealth [facility] SpecialistComment on above:Performed By: #### CBCYEE, CMP #### [facility] [address] [place], [place] [id number] (S) [Mass/Vol]2.6 g/dLNormal1.9-3.7NortTriHealth [facility] SpecialistComment on above:Performed By: #### CBCYEE, CMP #### [facility] [address] [place], [place] [id number] [Mass/Vol]203 mg/fIRlor90-72Jxggslwt [facility] SpecialistComment on above:Result Comment: For FASTING Glucose --- ADA reference ranges: Normal 65-99 mg/dl Prediabetes 100-125 Diabetes >/= 126Performed By: #### CBCAD, CMP #### [facility] [address] [place], [place] [id number] [Moles/Vol]4.5 mmol/LNormal3.5-5.5NoSelect [facility] SpecialistComment on above:Result Comment: Specimen is hemolyzed. Results may be affected.Performed By: #### CBCYEE, CMP #### [facility] [address] [place], [place] [id number] [Mass/Vol]6.9 g/dLNormal6.1-8.1NortherSt. Rita's Hospital SpecialistComment on above:Performed By: #### CBCAD, CMP #### [facility] [address] [place], [place] [id number] [Moles/Vol]140 mmol/CGffjvy466-743Dowbilcc [facility] SpecialistComment on above:Performed By: #### CBCAD, CMP #### [facility] [address] [place], [place] [id number]<0.3NormalNortTriHealth McCullough-Hyde Memorial Hospital SpecialistComment on above:Performed By: #### CBCAD, CMP #### [facility] [address] [place], [place] [id number] nitrogen [Mass/Vol]20 mg/dLNormal7-25[facility] SpecialistComment on above:Performed By: #### CBCAD, CMP #### [facility] [address] [place], [place] [id number] Vital Signs Date TimeVital SignValuePerforming GibtsxnuoCgkybzzf34-55-0391 14:51-0400Body gotzrh489.64 cmTika Uriostegui GROUP BILLING COORDINATOR Work Phone: [phone] [place], [place] 2643809-11-2025 14:51-0400 Body mass index (BMI) [Ratio]27.7 kg/k3UbhqxdknTika Uriostegui GROUP BILLING COORDINATOR Work Phone: [phone] [place], [place] 2643809-11-2025 14:51-0400 Body rsetkvyyvei09.4 [degF]Tika Uriostegui APRN Work Phone: [phone] [place], [place] 2643809-11-2025 14:51-0400 Body .01 kgTika Uriostegui GROUP BILLING COORDINATOR Work Phone: [phone] [place], [place] 2643809-11-2025 14:51-0400 Diastolic blood mm[Hg]Tika Uriostegui GROUP BILLING COORDINATOR Work Phone: [phone]09-11-2025 14:51-0400 Heart rate84 /minTika Uriostegui GROUP BILLING COORDINATOR Work Phone: [phone] [place], [place] 2643809-11-2025 14:51-0400 SaO2% (BldA) [Mass fraction]95 %Tika Uriostegui GROUP BILLING COORDINATOR Work Phone: [phone]09-11-2025 14:51-0400 Systolic blood sumnmmyu434 mm[Hg]Tika Uriostegui GROUP BILLING COORDINATOR Work Phone: [phone] [place], [place] 2643801-19-2023 12:00-0500 Diastolic blood pfxnmpfa87 mm[Hg]Et3 LsvttkohEhtqgZxvumo48-96-9023 12:00-0500 Heart rate91 /minEt3 CjgvxswfNvzcrXtszcv13-46-0629 12:00-0500Respiratory rate16 /minEt3 UxheqiqlPziwsTfonvn75-60-4985 12:00-2141NoQ8% (BldA) [Mass fraction]97 % Et3 NpkvinesHkwtoQoedrl20-38-2592 12:00-0500Systolic blood lsqsrsik197 mm[Hg]Et3 [facility] Encounters Encounter DateEncounter TypeCare ProviderFacilityStart: 03-31-2025 End: 63-46-7460kujqvqnngoXmpwbrvc Rohrbacher APRN Work Phone: [facility] Work Phone: Start: 03-31-2025 End: 91-11-6741Flhngvd encounter procedureTika Uriostegui APRN CONVERSION DEVELOPER-[facility] Work Phone: Start: 50-76-6681Gxv-patient / Non-visitCatherine Ian AQUARIUM SPECIALIST-[facility] Work Phone: Start: 90-81-9011Cgy-patient / Non-visitDaryl Deb Hooper MD-[facility] Work Phone: Start: 12-18-2024 End: 16-52-2957GbxwyoXuyem M Alda MD Work Phone: [facility] POPULATION HEALTHComment on above:Type 2 diabetes mellitus with other specified complication, without long-term current use of insulinStart: 06-12-2024 End: 14-49-2474QzujjdLwqyj M Alda MD Work Phone: [facility] POPULATION HEALTHComment on above:Benign hypertension (CMS/HCC)Start: 03-14-2024 End: 66-52-3440YjleyvLbxlnGerda CUTLER Work Phone: [facility] POPULATION HEALTHComment on above:Type 2 diabetes mellitus with diabetic neuropathy, without long-term current use of insulin (CMS/HCC)Start: 10-28-2023 End: 61-40-2602vevojrheswCFCFVTiarra Lynch AvailableStart: 09-09-2023 End: 69-79-0768sznefxxsgvQOPBO M HEMMERNot AvailableStart: 39-52-2411Amnyy Kristine Edgar Taylor CUTLER Work Phone: [facility] FMStart: 38-27-5117Icsxm bryanKaela Hernández Taylor CUTLER Work Phone: [facility] FMStart: 06-24-2023 End: 19-14-4846rttuooynlmGLPKC Edgar HEMMERNot AvailableStart: 08-08-2022 End: 65-18-8154ikyfifnkguIg2 ResourceMetroHealth Emergency Triage, Treat and TransportStart: 08-08-2022 End: 95-46-8858Ztxsduobe department patient visitEt3 [facility] Emergency Triage, Treat and TransportComment on above:ArrivedStart: 05-20-2022 End: 09-59-7909mytjguesrzEjbeca VargasFacility:[facility] Start: 05-16-2022 End: 68-97-3011fdcfjmrwjiJvezzj VargasFacility:[facility] Start: 05-16-2022 End: 46-13-0254rxybrzonqrTP Edward J Hemeyer Work Phone: [facility] Work Phone: Start: 05-16-2022 End: 01-13-4431Hchjdpr encounter procedureMD Jonathon Isbell Work Phone: [facility] Wpu-Etv-Pmbhgjgr Testing Start: 02-01-2022 End: 51-41-7341orxlexinuvCZ RUGEN ALDAFacility:D5Hbixo: 02-15-2021 End: 81-38-2136fujrntbxiuPS RUGEN ALDAFacility:H1 Procedures DateProcedureProcedure DetailPerforming ClinicianStart: 02-24-2020H/O: artificial jointAftercare following joint replacement surgeryKaela CUTLER Work Phone: SARS Antigen (LFIA)MD Jonathon Isbell Work Phone: Plan of Treatment DateCare ActivityDetailAuthorStart: 03-56-2586Izjymqlc screeningDiabetes: Retinopathy ScreeningNOAL HealthcareStart: 09-91-5277Kkyxgav [facility] Work Phone: Start: 12-52-2760Xhxeddebw vaccinationInfluenza Vaccine (Season Ended)[facility] HealthcareStart: 84-42-9103Sjaxg screening for proteinDiabetes: Urine Protein ScreeningNOMS HealthcareStart: 10-23-2024Medicare Annual Wellness (AWV)Medicare Annual Wellness (AWV)[facility] HealthcareStart: 76-54-1509Hvbgdhsfwcwk Vaccine: 65+ Years (1 - PCV)Pneumococcal Vaccine: 65+ Years (1 - PCV)[facility] HealthcareComment on above:Postponed from 1957 (Patient Refused)Start: 47-86-8709Xxkbp screening for proteinDiabetes: Urine Protein ScreeningNOMS HealthcareStart: 88-53-0370Nnbuhsqsn vaccinationInfluenza Vaccine (#1)[facility] HealthcareStart: 12-30-3912Ptkrixtzw vaccinationInfluenza Vaccine (#1)[facility] HealthcareComment on above:Postponed from 03/21/2023 (Patient Refused)Start: 15-58-7812Kleqtdonnz A1c measurementDiabetes: Hemoglobin Q1QALGM HealthcareStart: 09-02-2023 End: 12-62-9550Fhncbyx encounter qckygfogn01/13/2024 11:00 AM EST Office Visit [facility] [address] [facility] [address] [place] [address] Kaela Milton PA [address] [facility] [address] [place] [address] [facility] CI FMStart: 08-26-2023 End: 21-59-2807Dxwfvku encounter krbcolwdu16/06/2024 10:30 AM EST Office Visit [facility] [address] [facility] [address] [place] [address] Kaela Mliton PA [address] [facility] [address] [place] [address] [facility] FMStart: 22-71-8587Bghjqwmwel A1c measurement Diabetes: Hemoglobin M8RWGJZ HealthcareStart: 53-86-4050Mriccnesp vaccination Influenza Vaccine (#1)MetroHealthStart: 70-94-3415Sqywehckljnd vaccination Pneumococcal Vaccine(s) (65+ yrs) (1 - PCV)MetroHealthStart: 2001 Measurement of occult blood in single stool specimenFITMetroHealthStart: 19-07-3771Lamtfnudw for malignant neoplasm of colonCRC ScreeningMetroHealth Start: 34-04-5980Svkxkzhd (RZV) Vaccine (1 of 2)Shingles (RZV) Vaccine (1 of 2) MetroHealthStart: 20-05-2919Ujmug panelCholesterolMetroHealthStart: 1970 Pneumococcal Vaccine: 65+ Years (1 of 2 - PCV)Pneumococcal Vaccine: 65+ Years (1 of 2 - PCV)NOM HealthcareStart: 81-82-4108Pbxjhpbjp C screeningHepatitis C AntibodyMetroHealthStart: 35-29-0534Nsymevl + diphtheria + acellular pertussis vaccine (product)Tdap BoosterMetroHealthStart: 56-91-2441Qbnmfmmj screening Diabetes: Retinopathy ScreeningNOAL HealthcareStart: 07-88-6095Rfklarklcihc Vaccine: 65+ Years (1 of 2 - PCV)Pneumococcal Vaccine: 65+ Years (1 of 2 - PCV) [facility] HealthcareStart: 69-73-2138TZJJH-19 Vaccine (#1)COVID-19 Vaccine (#1) MetroHealthStart: 81-08-8658Qoyxqadsj for malignant neoplasm of colonColonoscopy MetroHealthPatient referralNationwide Children'S Hospital Work Phone: [facility] Payers DatePayer CategoryPayerPolicy [id number] Health InsuranceUNITED HEALTHCARE [id number] 2023Medicare (Managed Care)[employer] Member Subscriber Plan / Payer (Effective 2022-Present) Name: Mikhail Menon Farhan Member ID: [id number] Relation to Subscriber: Self Name: SteveMikhail mayorga Subscriber ID: [id number] Payer ID: Not on file Group ID: Not on file Type: Not on file Address: [address] [place] [id number] [facility] [id number] 2022-Present [address] [place] [id number]-vgl [id number]FN56-21-4345Ecaxvix [id number] 2.840.1.188724.3.57[id number] 2.840.1.490820.3.57[id number] 2.840.1.554926.3.57[id number] 2.16.840.1.893212.3.57[id number] 2.840.1.489280.3.579.2.7[id number] 2.16.840.1.723029.3.57[id number] Health InsuranceAeContra [facility] Regional Medical Center [id number]/HFA/FAP Active [id number]-gk5w-[id number] 2.16.840.1.9[id number] 2..840.1.923857.3.579.2.531 Social History DateTypeDetailFacilityStart: 01-16-2022 End: 35-84-5163Gshamiu smoking status NHISEx-smoker (finding)[facility] Hospitaltart: 03-92-7079Pxp Assigned At BirthMalMercy Health St. [facility] HospitalTobacco smoking status NHISTobacco smoking consumption unknown MetroHealthStart: 28-98-8247Vme Assigned At BirthNot on fileMetroHealth End: 12-01-7084Quqdeze of tobacco useCurrent smokerNOMS Healthcare End: 90-35-3329Ycmfgtr of tobacco useCigarette SmokerNOMS HealthcareStart: 34-33-9997Upbhxoc use and exposureSmokeless tobacco non-userNOMS Healthcare Start: 06-24-2023 End: 49-98-4480Idgjksq intakeCurrent drinker of alcohol (finding)[facility] Start: 04-29-2023 End: 51-39-2030Sauzfek intakeNOMS HealthcareStart: 04-29-2023 End: 61-51-0767Zcyqyctkohp, Afraid, Rape, and Kick questionnaire [HARK][facility]S HealthcareWithin the last year, have you been afraid of your partner or ex-partner?NoNOMS HealthcareDo you belong to any clubs or organizations such as christian groups, unions, fraternal or athletic groups, or school groups?YesNOMS HealthcareAre you now , , , , never or living with a partner?RefusedNOMS HealthcareHow often to you have a drink containing alcohol?4 or more times a weekNOMS HealthcareHow many standard drinks containing alcohol do you have on a typical day?5 or 6NOMS HealthcareHow often do you have 6 or more drinks on 1 occasion?NeverNOMS HealthcareHow hard is it for you to pay for the very basics like food, housing, medical care, and heating Not hard at allNOMS HealthcareDo you feel stress - tense, restless, nervous, or anxious, or unable to sleep at night because yourmind is troubled all the time - these days [OSQ]Only a littleNOMS Healthcare(I/We) worried whether (my/our) food would run out before (I/we) got money to buy more.Never trueNOMS Healthcare Start: 01-59-1404Pgydpet CommentLast smoked : > 10 yearsNOAL HealthcareStart: 15-34-0178Heetrtz Comment3 or 4 drinks 4 or more times/week. Caffeine intake : 1-2 cups per day coffeeNOAL HealthcareStart: 70-42-5832Dvkowpm CommentCaffeine intake : 1-2 cups per day coffeeJORDAN VALLEY [facility] HealthcareSexMale (finding)[facility] Medical Equipment Procedure CodeEquipment CodeEquipment Original TextEquipment IdentifierDates Multiple peripheral artery stent, bare-metal ([id number] FDAStart: 28-22-512088268347Ooqbt: 73-23-1742Qeh to inject 1-4 times daily as directed.[id number]: 11-14-2023 End: 69-78-4774Mspad Sugar Diagnostic stripStart: 09-08-0920Frbthdq Syringe- Needle U-100 ([employer] Syringes) 0.3 mL 30 gauge x 5/16 syringeStart: 09-74-6286Cfakwwo (Onetouch Delica Plus Lancet) 30 gauge miscStart: 02-09-2025 Lancets miscStart: 15-56-6463Fjafy Sugar Diagnostic stripStart: 06-03-2024 End: 28-69-9668Wmv Needle, Diabetic (Sure-Fine Pen [place]) 29 gauge x 1/2 needleStart: 06-02-2024 End: 92-52-5362Nmy Needle, Diabetic (Sure-Fine Pen [place]) 29 gauge x 1/2 needleStart: 06-02-2024 End: 04-01-5728Sfg Needle, Diabetic (Sure-Fine Pen [place]) 29 gauge x 1/2 needleStart: 06-03-2024 End: 51-98-0722Rcm Needle, Diabetic (Sure-Fine Pen [place]) 29 gauge x 1/2 needleStart: 02-03-2025 End: 02-09-2025 Telephone encounter Note 03-15-2024 Note Date & FumtEqenFhbocjcx83-23-3079 Telephone encounter Note* Telephone Encounter - HE Ramos - 03/15/2024 9:38 AM EDT No longer our pt [facility] Note 03-15-2024 Note Date & XinaVasbJsxtttwh30-00-9026 Miscellaneous Notes* Telephone Encounter - HE Ramos - 03/15/2024 9:38 AM EDT No longer our pt documented in this encounterNOMS Healthcare History of Present illness Narrative 08-08-2022 Note Date & WnqyJhzlQnfunhxh26-39-6672 History of Present illness Narrative* Lei Wolf MD - 08/08/2022 12:24 PM EST Images from the original note were not included. EMERGENCY TRIAGE, TREAT AND TRANSPORT (ET3) DOCUMENTATION OF TELEHEALTH VISIT Date / Time: 08/08/20221199 Name: Mikhail Menon : 1950 SSN: (Not on file) EMS Agency: [facility] [x] Verbal consent obtained [...] medication including does not take any insulin. Hedoes not check his blood sugars at home [...] neck pain, back pain,lightheadedness, chest pain, cough, difficultybreathing, fever, nausea/vomiting, dysuria, leg pain or swelling, [...] dizziness of unclear etiology. It may be relatedto his hyperglycemia although it is difficult to [...] I asked patient to contact 911 if hestarted feeling further dizziness, chest pain, weakness, or any other things that are concerning tohim. There were no further questions from the patient or the EMS team. Disposition Supported by Telehealth Assessment: ET3 transport decisions: Refused transport EMS Disposition Reported: Same ET3 Encounter Completed by: Lei Wolf MD documented in this encounterMetroHealth Evaluation note Note Date & TypeNoteFacilityEvaluation noteNo assessment information available [facility] Work Phone: Evaluation note Note Date & TypeNoteFacilityEvaluation note* Diagnosis Dizziness- Primary Dizziness and giddiness Hyperglycemia Other abnormal glucose Noncompliance with medications Personal history of noncompliance with medical treatment, presenting hazards to health documented in this encounter [facility] Evaluation note Note Date & TypeNoteFacilityEvaluation note* Diagnosis Benign hypertension (CMS/HCC) Essential hypertension, benign documented in this encounter [facility] Evaluation note Note Date & TypeNoteFacilityEvaluation note* Diagnosis Type 2 diabetes mellitus with diabetic neuropathy, without long-term current use of insulin ([facility]) documented in this encounter [facility] Evaluation note Note Date & TypeNoteFacilityEvaluation note* Diagnosis Type 2 diabetes mellitus with other specified complication, without long-term current use of insulin documented in this encounter [facility] Healthcare Evaluation note Note Date & TypeNoteFacilityEvaluation note* Diagnosis Onset Date Resolution Status Admit Date HTN (hypertension) acuteSept2024 2:49pmHyperlipidemiaacuteSept2024 2:49pm NeuropathyacuteSept2024 2:49pmScreening for prostate canceracute March 31, 2025 2:49pmDiabetes mellituschronicSept2024 2:49pm [facility] Work Phone: Hospital Discharge instructions Note Date & TypeNoteFacilityHospital Discharge instructionsAmbulatory Orders* Referral to Endocrinology Location: None Selected [facility] Work Phone: Summary Purpose Family History Relationship [...] section and content) DATE CREATED AUTHOR 07/12/2021 [facility] [employer] Assistant DATE CREATED AUTHOR AUTHOR'S ORGANIZ ATION 02/07/2022 [facility] DATE CREATED AUTHOR AUTHOR'S ORGANIZ ATION 08/22/2022 [facility] DATE CREATED AUTHOR AUTHOR'S ORGANIZ ATION 03/22/2023 [facility] DATE CREATED AUTHOR AUTHOR'S ORGANIZ ATION 10/29/2023 [facility] EPIC Care Teams (unrecognized sec tion and content) Team Status: Inactive Member Role Status Dates Jonathon Isbell MD Primary Care Provider Active Sweta Rios ProviderActive Team Status: Active Member Role Status Dates Jonathon Isbell MD Primary Care Provider Active Team MemberRelationshipSpecialtyStart DateEnd Date Ulisses Yu MD [address] [address] PCP - GeneralFamily Medicine12/20/22 Jonathon Isbell MD [address] [place] [address] PCP - [employer]12/19/22Team MemberRelationshipSpecialtyStart DateEnd Date Ulisses Yu MD [address] [facility] [address] [place] [address] PCP - [employer]02/19/24Team MemberRelationshipSpecialtyStart DateEnd Date Unallocated, [facility] Provider, [address] [place] [address] [facility]CP - [facility]10/05/24 Team Status: Active Member Role Status Dates Tika Uriostegui APRN ISO COORDINATOR-C Primary Care Provider Active Team Status: Active Member Role Status Dates Tika Uriostegui APRN ISO COORDINATOR-C Primary Care Provider Active Start: March 262024 Raul Hooper MDAttosmar ProviderActiveStart: March 26, 2025 Team Status: Active Member Role Status Dates Tika Uriostegui APRN ISO COORDINATOR-C Primary Care Provider Active Start: March 282024 Kalina Sosa CMAAttosmar ProviderActiveStart: March 28, 2025 Team Status: Inactive Member Role Status Dates Tika Uriostegui APRN ISO COORDINATOR-C Primary Care Provider Active Start: March 212024 End: March 31, 2025Tika Uriostegui APRN ISO COORDINATOR-CAttending ProviderActive Start: March 31, 2025 End: March 31, 2025 Goals (unrecognized section and content) Goals may be documented in a n alternate sectionGoals may be documented in an alternate sectionGoals may be documented in an alternate section Reason for Visit (unrecogniz ed section and content) ReasonCommentsDizzinessReasonCommentsMed Refill FOR RECORDS PERTAINING TO PATIENTS WHO [...] BE BASED ON THE PRIMARY CLINICAL RECORDS. [facility]. provides no warranty or guarantee of the accuracy or completeness of information in this document.
--- OUTSIDE RECORDS SUMMARY | 2025-06-09 08:32 | XMS_ITS | Patient Health Record ---
Author Organization [facility] [place] Address [address] [place] [address] Care Team Providers Care Efficiency Analyst Name Role Phone JerichoJosé ghosh Primary Care Provider Allergies No Known Allergies Reason For Referral No Information Medications Medication SIG (Take, Route, Frequency, Duration) Notes Start Date End Date Status One Touch Ultra Test Strips - 5ActivePantoprazole Sodium 40 MG1 tablet 1/2 to 1 hour before morning meal Orally Once a day5ActiveGabapentin 300 MG1 capsule Orally qhs; Duration: 30 days5ActiveNovoLIN R FlexPen 100 UNIT/MLInject subQ per sliding scaleActiveOne Touch Delica LancetsActiveLisinopril 10 MG1 tablet Orally Once a day5ActiveCarvedilol 12.5 MG1 tablet with food Orally Twice a day5ActiveLantus SoloStar 100 UNIT/MLInject 10 units Subcutaneous at vpeiirt31/19/2025ActivePlavix 75 MG1 tablet Orally Once a dayActiveAtorvastatin Calcium 80 MG1 tablet Orally Once a day5ActivePen Stanton 32G X 4 MMas ednxsaki59/19/2025ActivePioglitazone HCl 15 MG1 tablet Orally Once a day 5Active Social History Tobacco Use: Social History Observation Description Date Details (start date - stop date) Former Smoker 05/21/1967 - 05/21/1995 Tobacco Control (Standard) Question Answer Notes Tobacco use: Former smoker When did you start smoking?05/21/1967When did you stop smoking?05/21/1995How long has it been since you last smoked?Greater than 10 yearsAdditional Findings: Tobacco zjr-ptiaVh-mkkvsvht cigarette smoker (10-19/day)AUDIT-C (Standard) Question Answer Notes Did you have [...] to 4 times a month (2 points) Pgcics7YafyqdrpkmqkhqYxikjnzf Problems Problem Type SNOMED Code ICD Code Onset Dates Problem Status W/U Status Risk Notes Problem Hypertension (60517858) Hypertension (I10 ) ActiveconfirmedProblemGastroesophageal reflux disease (714679204)GERD (gastroesophageal reflux disease) (K21.9)ActiveconfirmedProblemIrritable bowel syndrome (56979698)IBS (irritable bowel syndrome) (K58.9)ActiveconfirmedProblem Peripheral arterial disease (462881886)Peripheral arterial disease (I73.9)Active confirmedProblemMalignant tumor of colon (426261266)Colon cancer (C18.9)Active confirmedProblemType II diabetes mellitus without complication (210333898) Diabetes (E11.9)ActiveconfirmedProblemAnxiety (53568789)Anxiety (F41.9)Active confirmed Vital Signs Blood pressure diastolic 66 mm Hg 06/08/2025 Rdvdqy68 in06/08/2025lood pressure giescgly908 mm Hg06/08/20254235Gahggu714.4 lbs 06/08/2025BMI27.63 kg/m206/08/2025 Procedures Procedure Date Ordered Date Performed Result Body Sit e BEKAH Segmental Pressure Study of Lower Extremity 06/08/2025 N/A Encounters Encounter Location Date Provider Diagnosis [facility] [address] [place] [address] 06/08/2025 José Hoy Hypertension I10 ; G ERD (gastroesophageal reflux disease) K21.9 ; Colon cancer C18.9 ; Diabetes E11.9 and Peripheral arterial disease I73.9 Assessments Encounter Date Diagnosis (ICD Code) Assessment Notes Treatment Notes Treatment Clinical Notes Section Notes 06/08/2025 Hypertension (ICD-10 - I10) 06/08/2025GERD (gastroesophageal reflux disease) (ICD-10 - K21.9)06/08/2025olon cancer (ICD-10 - C18.9)06/08/2025Diabetes (ICD-10 - E11.9)06/08/2025Peripheral arterial disease (ICD-10 - I73.9) Plan Of Treatment Pending Test Test Name Order Date HEMOGLOBIN A1C (GLYCO) 06/08/2025 INSULIN, TOTAL 06/08/2025 LIPID PANEL (CHOL/TRIG/HDL/LDL) 06/08/20 25 URIC ACID 06/08/2025 PT - INR 06/08/2025 AMMONIA 06/08/2025 PTT 06/08/2025 XR CHEST 2 V 06/08/2025 THYROID PANEL (T4/TSH/FREE T3) PSA, SCREENING 06/08/2025 BEKAH Segmental Pressure Study of Lower Ex tremity 06/08/2025 CMP (COMP MET EDEN) w/eGFR CKD-EPI 2024 CBC WITH DIFF 06/08/2025 Insurance Providers Payer Name Payer Address Payer Phone Subscriber Number Group Number Insured Name Patient Relationship to Insured Coverage Start Date Coverage End Date [employer] [address] [place] [phone] Frank Cordova - patient is the insured Medical (General) History Medical History History ICD Code Anxiety F41.9 Depression F32.A Diabetes E11.9 GERD (gastroesophageal reflux disease) K 21.9 Hypertension I10 IBS (irritable bowel syndrome) K58.9 Colon cancer C18.9 Surgical History Surgery Date(Month/Year) Colon Cancer- resection Hospitalization History Reason Date(Month/Year) Cracked Rib- Fall on Ice 2023 Coloncancer
--- OUTSIDE RECORDS SUMMARY | 2025-06-09 08:32 | XMS_ITS | Clinical Summary ---
Author Organization [facility] Address [address] [place] [address] Care Team Providers Care Personnel Worker Name Role Phone Unavailable Primary Care Provider Unavailabl e Social History Tobacco UseTypesPacks/DayYears UsedDateSmoking Tobacco: Never AssessedUT Safety & EnvironmentAnswerDate RecordedFear of Current or Ex-PartnerNot on file 09/11/2023Emotionally AbusedNot on file09/11/2023hysically AbusedNot on file 09/11/2023Sexually AbusedNot on file09/11/2023hysically or Sexually AbusedNot on file09/11/2023Sex and Gender InformationValueDate RecordedSex Assigned at BirthNot on fileLegal RzeRmhk0903/08/2022 8:50 AM EDTGender IdentityNot on file Sexual OrientationNot on file Plan of Treatment Not on file
--- OUTSIDE RECORDS SUMMARY | 2025-06-09 08:32 | XMS_ITS | Clinical Summary ---
Author Organization [facility] Address [address] [facility] [place] [address] Care Team Providers Care Pelt Inspector Name Role Phone Unavailable Primary Care Provider Unavailabl e Source Comments The following information is NOT included in Care Everywhere downloads:Psychiatric notes, ECG results, Cardiac Rehab notes, Pulmonary Function notes, data from [employer] (includes but not limited toPregnancy data,audiograms, eye exams, pre-surgical evaluation notes, well-child exam data).[facility] Social History Tobacco UseTypesPacks/DayYears UsedDateSmoking Tobacco: Never AssessedSex and Gender InformationValueDate RecordedSex Assigned at BirthNot on fileLegal Sex Male08/08/2022 12:22 PM ESTGender IdentityNot on fileSexual OrientationNot on file Last Filed Vital Signs Vital SignReadingTime TakenCommentsBlood Vhnbrjks682/69008/08/2022 12:00 PM EST Ljvvg950108/08/2022 12:00 PM ESTTemperature--Respiratory Fyuh478508/08/2022 12:00 PM ESTOxygen Mzhubydqkn39%08/08/2022 12:00 PM ESTInhaled Oxygen Concentration-- Weight--Height--Body Mass Index-- Plan of Treatment Health MaintenanceDue DateLast MxbiNolpgxyzUatkinuzhtd1950Hepatitis C Acbninty72/18/1969Tdap Qmxouim8502/04/1969Hepatitis A (HAV) Vaccine (optional start 19+ years)02/04/19706882Blbtpeqgwfj70/18/1986CRC Gpjrxojah15/18/1996Cologuard (Stool DNA)02/05/1996FIT02/05/1996Pneumococcal Vaccine(s) (50+ yrs) (1 of 1 - PCV)2001Shingles (RZV) Vaccine (1 of 2)2001Hepatitis B (HBV) Vaccine (optional start 60+ years)2011COVID-19 Vaccine ( - 2024- season) 2025Influenza Vaccine (#1)2025RSV vaccine (adult) (1 - 1-dose 75+ series)2026
--- NOTE | 2025-06-09 09:11 | XR_ITS ---
[facility] [place] [id number] Patient Name: PEDRO MENON MRN: [id number] date: 1950 Sex: M Assigned Patient Location: LAB Current Patient Location: LAB Accession/Order Number: [id number] Exam Date: 06/09/2025 09:20 Report Date: 06/09/2025 09:45 At the request of: CECE MORENO MD Procedure: XR chest 2V PA AND LATERAL CHEST: CLINICAL HISTORY: Hypertension COMPARISON: 05/08/[address] 09/01/2024 There is mild hyperinflation. There is no focal parenchymal consolidation, effusion or pneumothorax. The cardiac, hilar and mediastinal silhouettes are within normal limits. There is no vascular congestion. The bony structures are osteopenic. Old right rib fractures are visualized. There is levoscoliotic curvature and minor degenerative change at the spine. XR/XR chest 2V IMPRESSION: NO ACUTE CARDIOPULMONARY ABNORMALITY. Impression dictated by: Kaela Culver M.D. 06/09/2025 9:45 AM Dictation Location: [place] [address] Electronically authenticated by: [id number] Date: 06/09/2025 09:45
[2025-06-09 09:15] LABS: Hematocrit 43.9 % (42.0-54.0); Hemoglobin 15.1 g/dL (14.0-18.0); Immature Granulocytes Abs Auto 0.02 10^3/uL (0.00-0.03); Immature Granulocytes Pct Auto 0.4 % (0.0-0.5); Lymphocytes Absolute Auto 1.5 10^3/uL (1.2-3.8); Mean Corpuscular HGB Conc 34.4 g/dL (29.9-35.2); Mean Corpuscular Hemoglobin 31.2 pg (25.9-34.0); Mean Corpuscular Volume 90.7 fL (80.0-94.0); Platelet Count 288 10^3/uL (150-450); Red Blood Count 4.84 10^6/uL (4.70-6.10); White Blood Count 5.6 10^3/uL (4.0-11.0)
[2025-06-09 09:26] LABS: Ammonia <10 umol/L (11-32)
[2025-06-09 09:32] LABS: INR 0.99; Partial Thromboplastin Time 27.6 sec (22.3-36.2); Prothrombin Time 10.5 sec (9.0-11.6)
[2025-06-09 09:55] LABS: Alanine Aminotransferase 23 U/L (16-63); Albumin Globulin Ratio 0.9; Albumin Level 3.5 g/dL (3.4-5.0); Alkaline Phosphatase 83 U/L (46-116); Anion Gap 14.4; Aspartate Amino Transferase 18 U/L (15-37); Blood Urea Nitrogen 19.0 mg/dL (7.0-18.0); Calcium 9.0 mg/dL (8.5-10.1); Carbon Dioxide 25.9 mmol/L (21.0-32.0); Chloride 101 mmol/L (98-107); Cholesterol 246 mg/dL (<=200); Estimated GFR (African America >60 (>=60 mL/min/1.73m^2); Estimated GFR (Non-African Ame >60 (>=60 mL/min/1.73m^2); Free T3 2.56 pg/mL (2.18-3.98); Globulin 3.9 g/dL; Glucose 280 mg/dL (74-106); HDL Cholesterol 55 mg/dL (40-60); Potassium 4.3 mmol/L (3.5-5.1); Sodium 137 mmol/L (136-145); Thyroid Stimulating Hormone 7.279 uIU/mL (0.358-3.740); Total Protein 7.4 g/dL (6.4-8.2); Triglycerides 318 mg/dL (<=150); Uric Acid 5.2 mg/dL (3.5-7.2); VLDL CHOLESTEROL 63.6 mg/dL
== END 2025-06-09 08:23 | disposition home or self-care (01) ==
LOC: LAB 08:27
PROVIDERS: PCP Family Medicine; Visit Provider Family Medicine
DX: E78.5 Hyperlipidemia, unspecified (principal); I10 Essential (primary) hypertension; K21.9 Gastro-esophageal reflux disease without esophagitis; C18.9 Malignant neoplasm of colon, unspecified; E11.9 Type 2 diabetes mellitus without complications; R53.83 Other fatigue; Z12.5 Encounter for screening for malignant neoplasm of prostate; T14.8XXA Other injury of unspecified body region, initial encounter
CPT/HCPCS: 36415; 71046; 80053; 80061; 82140; 83036; 83525; 84436; 84443; 84481; 84550; 85025; 85610; 85730; G0103

== ENCOUNTER 2025-06-21 12:52 | Outpatient (OUT) | payer OTHER, SELFPAY ==
--- OUTSIDE RECORDS SUMMARY | 2025-06-21 12:55 | XMS_ITS | Clinical Summary ---
Author Organization [facility] Address [address] [place] [address] Care Team Providers Care Merchant Tailor Name Role Phone Unallocated, Noms Provider Primary Care Provi martina Allergies Active AllergyReactionsCriticalityNoted EsooUtwmseeaDwtolerkzfVyezewui13/05/2023 Medications MedicationSigDispense QuantityRefillsLast FilledStart DateEnd DateStatus lisinopril 5 MG tablet Indications:Benign hypertensionTake 1 tablet (5 mg) by mouth in the morning. 100 tablet ctive BD Pen Needle Micro U/F 32G X 6 MM misc Inject 1 each under the skin Daily Use with Exfadjjb39/28/2024ctive glipiZIDE (Glucotrol) 10 MG tablet Indications:Type 2 diabetes mellitus with diabetic neuropathy, without long-term current use of insulin ([facility])Take 1 tablet (10 mg) by mouth Daily 100 tablet ctive insulin glargine (Basaglar KwikPen) 100 UNIT/ML pen Indications:Type 2 diabetes mellitus with diabetic neuropathy, without long-term current use of insulin ([facility])Inject 20 Units under the skin at ikrjqhk6910/28/2023 Active carvedilol (Coreg) 12.5 MG tablet Indications:Benign hypertensionTake 1 tablet (12.5 mg) by mouth in the morning and 1 tablet (12.5 mg) in the evening. Take with meals. 200 tablet ctive insulin regular (NovoLIN R) 100 UNIT/ML injection Indications:Type 2 diabetes mellitus with other specified complication, without long-term current use of insulin (HCC)Inject 0.1 mL (10 Units) under the skin in the morning and 0.1 mL (10 Units) at noon and 0.1 mL (10Units) in the evening. Inject with meals. 27 mL 4Active clopidogrel (Plavix) 75 MG tablet Indications:Peripheral vascular disease, unspecifiedTAKE 1 TABLET BY MOUTH EVERY DAY FOR 90 DAYS 90 tablet 4Active pantoprazole (ProtoNix) 40 MG EC tablet Indications:Gastroesophageal reflux disease without esophagitisTake 1 tablet (40 mg) by mouth in the morning. Patient needs an appointment before next refill. 30 tablet 5Active pioglitazone (Actos) 15 MG tablet Indications:Type 2 diabetes mellitus with diabetic neuropathy, without long-term current use of insulin ([facility])Take 1 tablet (15 mg) by mouth Daily Patient needs an appointment before next vist 30 tablet 5Active atorvastatin (Lipitor) 80 MG tablet Indications:Mixed hyperlipidemiaTake 1 tablet (80 mg) by mouth at bedtime 30 tablet 5Active Active Problems ProblemNoted DateDiagnosed DateDiabetic polyneuropathy associated with type 2 diabetes xjfawfts48/09/2024laudication of lower hfnzspuqi71/01/2024Status post qdyafetaq67/01/2024lcohol abuse, daily use10/20/2023Solitary pulmonary nodule on lung CT10/20/2023Frequent falls05/01/2023lcohol abuse12/19/2022nemia 12/19/2022bnormal feces12/19/2022enign xfvwexqdixtz27/01/2023Erectile mcurqcgreav15/01/2023astroesophageal reflux jawgdul5312/19/2022Hammer toe 12/19/2022Incontinence of feces12/19/2022Malignant neoplasm of sigmoid colon 12/19/2022AD (peripheral artery disease)12/19/2022Status post total hip replacement, right12/19/2022Type 2 diabetes mellitus with other specified /01/2023Spinal cord /01/2023Unilateral primary osteoarthritis, right hip02/25/2020Other specified anxiety /06/2020 Aftercare following joint replacement bwrvysn2302/24/2020Difficulty in walking, not elsewhere evfzuqyfsc37/06/2020Pain in right hip02/24/2020Muscle weakness (generalized)02/24/2020Lumbago with sciatica, right side02/24/2020Insomnia, zklixsvpwhz94/06/2020Illiteracy and low-level rglwtwtu73/06/2020Hyperlipidemia, klbuabrwnny57/06/2020Patient's other noncompliance with medication regimen for other kjrntl5002/24/2020Right knee pain02/22/2020 Resolved Problems ProblemNoted DateDiagnosed DateResolved DateChemotherapy-induced diarrhea Other acute postprocedural painiabetic cffdwfrsif69Type 2 diabetes mellitus with diabetic neuropathy, without long-term current use of jqoknhk46/03/2024Syncope and collapse ody mass index (BMI) 27.0-27.9, adult Acute bronchitis due to Mycoplasma ndvfzxbozd42ermatitis, thajykpooqe78Unspecified osteoarthritis, unspecified site Family History RelationNameStatusCommentsFatherDeceasedMotherDeceased Social History Tobacco UseTypesPacks/DayYears UsedDateSmoking Tobacco: FormerCigarettesQuit: 2010Smokeless Tobacco: Never Comments:Last smoked : > 10 years Alcohol UseStandard Drinks/HfpoGwuhrwauKmz95 (1 standard drink = 0.6 oz pure alcohol)Caffeine intake : 1-2 cups per day coffeeHumiliation, Afraid, Rape, and Kick questionnaireAnswerDate RecordedWithin the last year, have you been afraid of your partner or ex-partner?No04/29/2023Within the last year, have you been humiliated or emotionally abused in other ways by your partner or ex-partner?No 04/29/2023Within the last year, have you been kicked, hit, slapped, or otherwise physically hurt by your partner or ex-partner?No04/29/2023Within the last year, have you been raped or forced to have any kind of sexual activity by your part ner or ex-partner?No04/29/2023Social Connection and Isolation PanelAnswerDate RecordedIn a typical week, how many times do you talk on the phone with family, friends, or neighbors?Once a week04/29/2023How often do you get together with friends or relatives?Once a week04/29/2023How often do you attend bahai or restorationism services?Never04/29/2023o you belong to any clubs or organizations such as bahai groups, unions, fraCookapp or athletic groups, or school groups? Yes04/29/2023How often do you attend meetings of the clubs or organizations you belong to?More than 4 times per year04/29/2023re you , , , , never , or living with a partner?Patient declined 04/29/2023UDIT-CAnswerDate RecordedQ1: How often do you have a drink containing alcohol?4 or more times a week04/29/2023Q2: How many drinks containing alcohol do you have on a typical day when you are drinking?5 or Q3: How often do you have six or more drinks on one occasion?Never04/29/2023Overall Financial Resource Strain (CARDIA)AnswerDate RecordedHow hard is it for you to pay for the very basics like food, housing, medical care, and heating?Not hard at all 04/29/2023HQ-2AnswerDate RecordedPatient Health Questionnaire-2 Score0 05/12/2023[facility] [place] [facility] Occupational Health - Occupational Stress QuestionnaireAnswerDate RecordedDo you feel stress - tense, restless, nervous, or anxious, or unable to sleep at night because yourmind is troubled all the time - these days?Only a jnilfa2404/29/2023Exercise Vital SignAnswerDate Recorded On average, how many days per week do you engage in moderate to strenuous exercise (like a brisk walk)?7 days04/29/2023On average, how many minutes do you engage in exercise at this level?20 min04/29/2023Hunger Vital SignAnswerDate RecordedWithin the past 12 months, you worried that your food would run out before you got the money to buymore.Never true04/29/2023Within the past 12 months, the food you bought just didn't last and you didn't have money to get more.Never true04/29/2023RAPARE - TransportationAnswerDate RecordedIn the past 12 months, has lack of transportation kept you from medical appointments or from getting medications?No04/29/2023In the past 12 months, has lack of transportation kept you from meetings, work, or from getting things needed for daily living?No04/29/2023Housing Stability Vital SignAnswerDate RecordedIn the last 12 months, was there a time when you were not able to pay the mortgage or rent on time?No04/29/2023In the last 12 months, how many places have you lived?1 04/29/2023In the last 12 months, was there a time when you did not have a steady place to sleep or slept in [facility] (including now)?No04/29/2023Sex and Gender InformationValueDate RecordedSex Assigned at BirthNot on fileLegal SexMale 10/02/2022 6:43 PM EDTGender IdentityNot on fileSexual OrientationNot on file Last Filed Vital Signs Vital SignReadingTime TakenCommentsBlood Mmwlkjnw200/7604 3:11 PM EDT Mnfbq5126 3:11 PM EDTTemperature--Respiratory Bzpq0569 3:11 PM EDTOxygen Lulubkjscc67%10/28/2023 3:11 PM EDTInhaled Oxygen Concentration-- Mokzmy27.1 kg (189 lb 12.8 oz)10/28/2023 3:11 PM UAKZghbkw221.2 cm (5' 7 ) 05/12/2023 4:24 PM EDTBody Mass Index29.7305/12/2023 4:24 PM EDT Plan of Treatment Health MaintenanceDue DateLast DoneCommentsPneumococcal Vaccine: 65+ Years (1 of 2 - PCV)1970Diabetes: Hemoglobin A1C/, 05/12/2023, 2023, Additional history existsDiabetes: Urine Protein Cnsmxiide62/12/2024 05/01/2023OVID-19 Vaccine ( season)2025Influenza Vaccine (#1) 2025Diabetes: Retinopathy Xcpoqbuhd17/22/35426809/11/2023FIT-DNADiscontinued 11/17/2020, 11/04/20205576PkotlpuasvxTdjdbystcumg31/31/2022, 05/20/2022, 03/21/2021 Colorectal Cancer ScreeningDiscontinuedCT ColonographyDiscontinuedFIT DiscontinuedFOBTDiscontinuedSigmoidoscopyDiscontinued Procedures Procedure NamePriorityDate/TimeAssociated DiagnosisCommentsDIABETIC RETINOPATHY SCREENING - OU - BOTH WLRJEgqdsuu58/22/2024 POCT GLYCATED HEMOGLOBIN, PADEJBiumpar19/20/2024 2:05 PM EST Type 2 diabetes mellitus with diabetic neuropathy, without long-term current use of insulin (HCC) MICROALBUMIN / CREATININE URINE KEKSQOksrwrn61/12/2023 1:24 PM EDT Type 2 diabetes mellitus with other specified complication, without long-term current use of insulin (HCC) Benign hypertension PUBZAZUAVAAZubdjaf59/31/2022 12:00 PM EDT LAB COLOGUARD?? COLON CANCER MHRPVEGncwtcg85/30/2021 from Last 3 Months or Most Recently Relevant to Health Maintenance Results * Diabetic Retinopathy Screening - OU - Both Eyes (09/11/2023)ComponentValueRef RangeTest MethodAnalysis TimePerformed AtPathologist SignatureRESULTSnormal Anatomical RegionLateralityModalityHeadOtherSpecimen (Source)Anatomical Location / LateralityCollection Method / VolumeCollection TimeReceived Time 09/11/2023 Narrative 09/11/2023 3:03 PM EST normal Authorizing ProviderResult TypeResult StatusUlisses Montalvo MDOPH PHOTOGRAPHY Final Result * (ABNORMAL) POCT Glycated hemoglobin, total (09/09/2023 2:05 PM EST)Component ValueRef RangeTest MethodAnalysis TimePerformed AtPathologist Signature Hemoglobin A1C9.6Specimen (Source)Anatomical Location / LateralityCollection Method / VolumeCollection TimeReceived HltyXliek12/20/2024 2:05 PM EST Narrative Authorizing ProviderResult TypeResult Kaylynn Vazquez PAPOINT OF CARE TEST ENTER/EDIT ORDERABLESFinal Result * Microalbumin / creatinine, urine ratio (05/01/2023 1:24 PM EDT)ComponentValue Ref RangeTest MethodAnalysis TimePerformed AtPathologist SignatureCREATININE, RANDOM OSZTD8857 - 320 mg/dLQUESTALBUMIN, URINE0.3See Note: mg/dLQUESTComment: Reference Range: Reference Range Not established ALBUMIN/CREATININE RATIO, RANDOM URINE7<30 mcg/mg creatQUESTComment: The ADA defines abnormalities in albumin excretion as follows: Albuminuria Category ?Result (mcg/mg creatinine) Normal to Mildly increased <30 Moderately increased ? 30-299 Severely increased > OR = 300 The ADA recommends that at least two of three specimens collected within a 3-6 month period be abnormal before considering a patient to be within a diagnostic category. Specimen (Source)Anatomical Location / LateralityCollection Method / Volume Collection TimeReceived TimeUrineUrine specimen obtained by clean catch procedure / Dlffdpl3805/01/2023 1:24 PM EDT1 1:24 PM EDT Narrative Resulting Agency Comment Performing Organization Information ?Site ID: QPT ?Name: [facility] [employer] ?Address: [address] [place] [phone] ?Director: Eliezer Shah MD Authorizing ProviderResult TypeResult Kaylynn Vazquez PALAB URINE ORDERABLESFinal ResultPerforming OrganizationAddressCity/State/ZIP CodePhone Number [facility] * Colonoscopy (05/20/2022 12:00 PM EDT)Anatomical RegionLateralityModality EndoscopySpecimen (Source)Anatomical Location / LateralityCollection Method / VolumeCollection TimeReceived Time05/20/2022 12:00 PM EDT Narrative 05/20/2022 12:00 PM EDT PERFORMED AT [facility] LOCATION:[id number] Normal Procedure Note CONVERSION, GENERIC - 12/04/2022 PERFORMED AT [facility] LOCATION:[id number] Normal Authorizing ProviderResult TypeResult StatusUlisses Montalvo MDENDOSCOPY PROCEDURE ORDERABLESFinal Result * (ABNORMAL) Cologuard?? colon cancer screening (11/17/2020)ComponentValueRef RangeTest MethodAnalysis TimePerformed AtPathologist SignatureCOLOGUARD RESULT REPORTABLEPositive(A)Not ApplicableNOMS LEGACY EXTERNAL LABComment: It is recommended that a positive Cologuard [...] individuals at average risk for colorectal cancer whowere screened with both Cologuard and colonoscopy. (Table 3, Oralia Boyd. et al, N Engl J Med 2014;370(14):0633-7383.) The normal value (reference range) for this assay is negative. TEST TYPE: Composite algorithmic analysis of stool DNA-biomarkers with hemoglobin immunoassay. ??Quantitative values of individual biomarkers are not reportable and are not associated with individualbiomarker result reference ranges. PRECAUTIONS AND LIMITATIONS: Cologuard is intended for colorectal cancer screening of adults of either sex, 45 years or older, who are at average-risk for colorectal cancer (CRC). Cologuard has been approved for use by the U.S. FDA. Cologuard may produce a false negative or false positive result. Anegative Cologuard test result does not guarantee the absence of CRC or advanced adenoma (pre-cancer). Patients with a negative Cologuard test result should be advised to continue participating in a colorectal cancer screening program. The screening interval for Cologuard is currently recommended at an interval of every 3 years by the [place] [employer] and U.S. Multi-Society Task Force. A false positive result occurs when Cologuard produces a positive result, even though a colonoscopy maynot find colorectal cancer or precancerous polyps. The [...] can be accessed at the following location: [email or web address]. Additional description of the Cologuard test process, warnings and precautions can be found at [email or web address]. Rx only. Specimen (Source)Anatomical Location / LateralityCollection Method / Volume Collection TimeReceived Time11/17/2020 Narrative Authorizing ProviderResult TypeResult StatusUlisses [facility] ORDERABLESFinal ResultPerforming OrganizationAddressCity/State/ZIP CodePhone Number [facility] from Last 3 Months or Most Recently Relevant to Health Maintenance Insurance Care Teams Team MemberRelationshipSpecialtyStart DateEnd Date Unallocated, Noms MD Paulina [address] [place] [address] PCP - GeneralFamily Medicine10/05/24
--- OUTSIDE RECORDS SUMMARY | 2025-06-21 12:55 | XMS_ITS | Clinical Summary ---
Author Organization [employer] [facility] tem Address [id number] [place] [address] Care Team Providers Care Community Nurse Name Role Phone Betsey Mays REPAIRER-MOLDER LABELS Primary Care Provider Allergies No known active allergies Medications MedicationSigDispense QuantityRefillsLast FilledStart DateEnd DateStatus aspirin 81 mg Take 81 mg by mouth daily.Active omeprazole (PriLOSEC) 20 mg capsule Take 40 mg by mouth daily.Active lisinopril (PRINIVIL,ZESTRIL) 2.5 mg tablet Take 2.5 mg by mouth daily.Active carvedilol (COREG) 3.125 mg tablet Take 3.125 mg by mouth 2 (two) times a day with meals.Active atorvastatin (LIPITOR) 80 mg tablet Take 80 mg by mouth daily.Active glipiZIDE (GLUCOTROL) 10 mg tablet Take 10 mg by mouth 2 (two) times a day before meals.Active SITagliptin (JANUVIA) 100 mg tablet Take 100 mg by mouth daily.Active gabapentin (NEURONTIN) 600 mg tablet Take 600 mg by mouth 3 (three) times a day.Active ferrous sulfate 325 (65 FE) mg tablet Take 325 mg by mouth daily with breakfast.Active Active Problems ProblemNoted DateDiagnosed DateRight knee pain02/22/2020 Family History Medical HistoryRelationNameCommentsNo Known ProblemsFatherHeart diseaseMother ' maker RelationNameStatusCommentsFatherDeceasedMotherDeceased Social History Tobacco UseTypesPacks/DayYears UsedDateSmoking Tobacco: FormerSmokeless Tobacco: Never Comments:quit at age 44 Alcohol UseStandard Drinks/WeekCommentsYes0 (1 standard drink = 0.6 oz pure alcohol)6 beers and 4 shots of liquor daily, sometimes moreOverall Financial Resource Strain (CARDIA)AnswerDate RecordedHow hard is it for you to pay for the very basics like food, housing, medical care, and heating?Somewhat hard 02/22/2020PHQ-2AnswerDate RecordedTotal Weliv747PRAPARE - Transportation AnswerDate RecordedIn the past 12 months, has lack of transportation kept you from medical appointments or from getting medications?No02/22/2020In the past 12 months, has lack of transportation kept you from meetings, work, or from getting things needed for daily living?No02/22/2020ChildcareAnswerDate RecordedChildcare Runsyei7012/30/2018EmploymentAnswerDate IpvwcbcvRjbbszufanTubxbzj02/12/2019Purpose - LifeAnswerDate RecordedPurpose and direction in uadoPtqugkm85/11/2021Sex and Gender InformationValueDate RecordedSex Assigned at BirthNot on fileLegal Sex Male02/23/2015 12:14 PM EDTGender IdentityNot on fileSexual OrientationNot on file Last Filed Vital Signs Vital SignReadingTime TakenCommentsBlood Exalculq007/54002/24/2020 9:04 AM EDT Ryjie128302/24/2020 9:04 AM VUXNufthcitgnr50.7 ??C (98 ??F)02/24/2020 6:41 AM EDT Respiratory Yveh004002/24/2020 6:41 AM EDTOxygen Ygdriczcsh65%02/24/2020 6:41 AM EDTInhaled Oxygen Concentration--Jopwog89.4 kg (190 lb 7.6 oz)02/23/2020 6:00 AM HPVDqncuz282.2 cm (5' 7.01 )02/22/2020 12:52 PM EDTBody Mass Index29.83 02/22/2020 12:52 PM EDT Plan of Treatment Health MaintenanceDue DateLast DoneCommentsDepression Ljhuhzdwn90/18/1963Tobacco Nyraizreu16/18/1963Adult BMI Jybwivkew04/18/1969DTaP,Tdap and Td Vaccines (1 - Tdap)1970Zoster (Shingles) Vaccine (1 of 2)2001Fall Risk Screening 02/05/2016Influenza Dhjqbpd5903/21/2025RSV ( or age 60+ yrs) (1 - 1-dose 75+ series)2026 Goals GoalPatient Goal TypeAssociated ProblemsRecent ProgressPatient-Stated?Author DC to SNF for short term rehab & then home Lauren Montalvo LSW Note: Evaluation of progress towards goal: had PT evaluation & was up & out of bed Medical Devices ImplantedTypeAreaManufacturerDevice IdentifierShelf Expiration DateModel / Serial / LotCup Actb 52mm Pncl Sect Hip - [id number] - [id number] Implanted:Qty: 1 on 02/22/2020 by Ryan Persaud Jr., DO at [facility] ImplantRight: HipJJ QONZYCMOAUDG64/31/2029 [id number] / [id number] / [id number] Std Size 11 - [id number] - [id number] Implanted:Qty: 1 on 02/22/2020 by Ryan Persaud Jr., DO at [facility] ImplantRight: HipJJ NDUNHWQLPUNN25/31/2024 [id number] / [id number] / [id number] Actb 52mm 36mm Altrx Hip - [id number] - [id number] Implanted:Qty: 1 on 02/22/2020 by Ryan Persaud Jr., DO at [facility] ImplantRight: HipJJ LGYMICRERZXJ49/31/2025 [id number] / [id number] / [id number] Fem 36mm -2mm 07/03 Tpr - [id number] - [id number] Implanted:Qty: 1 on 02/22/2020 by Ryan Persaud Jr., DO at [facility] ImplantRight: HipJJ EBDXBUWTSAGF83/31/2025 [id number] / [id number] / Elmntr Hl Drlc Pncl Hip Mrthn - [id number] - [id number] Implanted:Qty: 1 on 02/22/2020 [facility] Im[facility]Right: HipJJ JBBLHWOZCUOH78/28/2030 [id number] / [id number] / [id number] Canc Hip Cnn Gription 20mm - [id number] - [id number] Implanted:Qty: 1 on 02/22/2020 [facility] HipJJ [id number]/31/[id number] / [id number] / [id number]vuciFipqrn IdentifierShelf Expiration Date Model / Serial / LotImpl Hip Mop All Sz Construct Rpl [id number] - Sna - [id number] Explanted:Q[facility]: HipJJ [id number] / NA / NA Insurance * Guarantor: Mikhail Wilson EAccount TypeRelation to PatientDate of BirthPhone Billing AddressPersonal/XrzeftEbic[address] [place] [address] Advance Directives * Full Code (Latest Code Status on File) Date ActivatedDate InactivatedComments02/23/2020 8:13 AM02/24/2020 6:28 PM Care Teams Team MemberRelationshipSpecialtyStart DateEnd Date Betsey Mays, REPAIRER-MOLDER LABELS PCP - GeneralNurse Practitioner08/24/19
--- OUTSIDE RECORDS SUMMARY | 2025-06-21 12:55 | XMS_ITS | Clinical Summary ---
Author Organization [facility] Address [address] [place] [address] Phone Care Team Providers Care Tuft Machine Operator Name Role Phone Unavailable Primary Care Provider Unavailabl e Social History Tobacco UseTypesPacks/DayYears UsedDateSmoking Tobacco: Never AssessedSex and Gender InformationValueDate RecordedSex Assigned at BirthNot on fileLegal Sex Male06/14/2022 6:29 PM ESTGender IdentityNot on fileSexual OrientationNot on file Plan of Treatment Not on file
--- OUTSIDE RECORDS SUMMARY | 2025-06-21 12:55 | XMS_ITS | Clinical Summary ---
Author Organization [facility] Address [address] [place] [address] Care Team Providers Care Estimating Manager Name Role Phone Unavailable Primary Care Provider Unavailabl e Social History Tobacco UseTypesPacks/DayYears UsedDateSmoking Tobacco: Never AssessedUT Safety & EnvironmentAnswerDate RecordedFear of Current or Ex-PartnerNot on file 09/11/2023Emotionally AbusedNot on file09/11/2023hysically AbusedNot on file 09/11/2023Sexually AbusedNot on file09/11/2023hysically or Sexually AbusedNot on file09/11/2023Sex and Gender InformationValueDate RecordedSex Assigned at BirthNot on fileLegal IvyByif7803/08/2022 8:50 AM EDTGender IdentityNot on file Sexual OrientationNot on file Plan of Treatment Not on file
--- OUTSIDE RECORDS SUMMARY | 2025-06-21 12:55 | XMS_ITS | Clinical Summary ---
Author Organization [facility] Address [address] [facility] [place] [address] Care Team Providers Care Auto Club Travel Counselor Name Role Phone Unavailable Primary Care Provider Unavailabl e Source Comments The following information is NOT included in Care Everywhere downloads:Psychiatric notes, ECG results, Cardiac Rehab notes, Pulmonary Function notes, data from SmartSHERPANDIPITYs (includes but not limited toPregnancy data,audiograms, eye exams, pre-surgical evaluation notes, well-child exam data).[facility] Social History Tobacco UseTypesPacks/DayYears UsedDateSmoking Tobacco: Never AssessedSex and Gender InformationValueDate RecordedSex Assigned at BirthNot on fileLegal Sex Male08/08/2022 12:22 PM ESTGender IdentityNot on fileSexual OrientationNot on file Last Filed Vital Signs Vital SignReadingTime TakenCommentsBlood Gyusevqk847/69008/08/2022 12:00 PM EST Pxqfd857508/08/2022 12:00 PM ESTTemperature--Respiratory Zhtu809208/08/2022 12:00 PM ESTOxygen Klalqbiloc04%08/08/2022 12:00 PM ESTInhaled Oxygen Concentration-- Weight--Height--Body Mass Index-- Plan of Treatment Health MaintenanceDue DateLast PmzyTrhaxnmfWgwfnbbaoab1950Hepatitis C Iejhtofl50/18/1969Tdap Bwkldro6902/04/1969Hepatitis A (HAV) Vaccine (optional start 19+ years)02/04/19708057Fkqqemqvxru28/18/1986CRC Wcdaqmugg29/18/1996Cologuard (Stool DNA)02/05/1996FIT02/05/1996Pneumococcal Vaccine(s) (50+ yrs) (1 of 1 - PCV)2001Shingles (RZV) Vaccine (1 of 2)2001Hepatitis B (HBV) Vaccine (optional start 60+ years)2011COVID-19 Vaccine ( - 2024- season) 2025Influenza Vaccine (#1)2025RSV vaccine (adult) (1 - 1-dose 75+ series)2026
--- OUTSIDE RECORDS SUMMARY | 2025-06-21 12:55 | XMS_ITS | CCD ---
Author Organization [facility] Care Team Providers Care Chemist Pharmaceutical Name Role Phone AIMEE, DR DOWLING Primary [...] Primary Care Provider Jonathon Isbell MD Unavailable [phone] KAELA MILTON Attending Unavailable KAELA MILTON Attending Unavailable KAELA MILTON Attending Unavailable Ulisses Yu MD Unavailable Unavailable Primary Care Provider Unavailabl e Unallocatquoc HOLBROOK, [place] Provider Primary Care Provi martina Tika Uriostegui APRN Primary Care Provider Raul Hooper MD Attending Provider Kalina Sosa CMA Attending Provider UnavailTika Bright APRN Attending Provider Allergies Allergy ClassificationReported Allergen(s)Allergy TypeDate of OnsetReaction(s) Facility (5 sources)gabapentinDrug Rnphmce15-09-2811NqoplfvpLZSL [facility] Work Phone: Medications Current Medications MedicationDrug Class(es)DatesSig (Normalized)Sig (Original)aspirin 81 mg delayed release oral tablet (7 sources)Platelet Aggregation Inhibitor, Nonsteroidal Anti-inflammatory Drug Start: 03-28-2021 End: 66-45-1211conz 1 tablet by mouth once dailyaspirin 81 MG EC tablet Indications: Type 2 diabetes mellitus with diabetic neuropathy, without long- term current use of insulin (CMS/HCC) Take 1 tablet (81 mg) by mouth 1 (one) time each day at the same time. 100 tablet 3 05/27/2023 06/30/2024 Active atorvastatin 80 mg oral tablet (9 sources)HMG-CoA Reductase InhibitorStart: 49-29-4965hcar 1 tablet by mouth once dailyAtorvastatin 80 mg tablet Active 80 MG PO Daily 90 February 03, 2025 9:22am Complies with drug therapyStart: 03-28-2021 End: 46-00-3705fssq 1 tablet by mouth at bedtimeatorvastatin (Lipitor) 80 MG tablet Indications: Mixed hyperlipidemia (CMS/HCC) Take 1 tablet (80 mg) by mouth at bedtime 100 tablet 3 10/28/2023 ActiveBlood-Glucose Meter kit (1 source)Start: 92-60-8158Oqrdc-Glucose Meter kit Active 0 .Route 1 June 01, 2024 1:00am As directedcarvedilol 12.5 mg oral tablet (9 sources)alpha-Adrenergic Elio, beta-Adrenergic BlockerStart: 02-03-2025 take 1 tablet by mouth twice daily at mealtimeCarvedilol 12.5 mg tablet Active 12.5 MG PO Twice daily 180 February 03, 2025 12:00am must administerwith a meal/food Complies with drug therapyStart: 03-28-2021 End: 31-04-0316bvsk 1 tablet by mouth in the morningcarvedilol (Coreg) 12.5 MG tablet Indications: Benign hypertension (CMS/HCC) Take 1 tablet (12.5 mg) by mouth in the morning and 1 tablet (12.5 mg) in the evening. Take with meals. 200 tablet 3 10/28/2023 Activeclopidogrel 75 mg oral tablet (8 sources)P2Y12 Platelet InhibitorStart: 21-76-9340lvcl 1 tablet by mouth once dailyclopidogrel (Plavix) 75 MG tablet Indications: Peripheral vascular disease, unspecified (CMS/HCC) TAKE 1 TABLET BY MOUTH EVERY DAY FOR 90 DAYS 90 tablet 3 11/19/2023 ActiveStart: 60-90-7486urkp 1 tablet by mouth once dailyclopidogrel (Plavix) 75 MG tablet Indications: Peripheral vascular disease, unspecified (CMS/HCC) TAKE 1 TABLET BY MOUTH EVERY DAY FOR 90 DAYS 90 tablet 3 08/11/2023 Activegabapentin 100 mg oral capsule (4 sources)Anti-epileptic AgentStart: 07-15-5899uenr 1 capsule by mouth three times dailyGabapentin 100 mg capsule Active 100 MG PO Three times daily 90 30 March 31, 2025 12:00am Complies with drug therapyStart: 03-28-2021 End: 06-38-7912wvpd 1 tablet by mouth three times dailyGabapentin 600 mg tablet Discontinued 600 MG PO Three times daily March 28, 2021 12:00am June 01, 2024 12:56pmglipiZIDE 10 mg oral tablet (8 sources)SulfonylureaStart: 18-88-0024syva 1 tablet by mouth once daily glipiZIDE (Glucotrol) 10 MG tablet Indications: Type 2 diabetes mellitus with diabetic neuropathy, without long-term current use of insulin ([facility]) Take 1 tablet (10 mg) by mouth Daily 100 tablet ActiveStart: 03-28-2021 End: 99-07-5605bvvv 1 tablet by mouth twice dailyGlipizide 10 mg tablet Discontinued 10 MG PO Twice daily March 28, 2021 12:00am May 12:56pm3 ml insulin glargine 100 unt/ml pen injector (4 sources)Insulin AnalogStart: 69-77-6076ttzvhl 10 [IU] by subcutaneous injection once daily in the eveningInsulin Glargine (Lantus Solostar U-100 Insulin) 100 unit/mL (3 mL) insulin pen Active 10 UNIT SUBCUT Every evening March 31, 2025 12:00am Complies with drug therapyStart: 70-46-6641rzmhbrj glargine (Basaglar KwikPen) 100 UNIT/ML pen Indications: Type 2 diabetes mellitus with diabetic neuropathy, without long-term current use of insulin ([facility]) Inject 20 Units under the skin at bedtime 10/28/2023 Active3 ml insulin, regular, human 100 unt/ml pen injector (5 sources)InsulinStart: 10-52-3175Wrqxuha Regular Human (Novolin R Flexpen) 100 unit/mL (3 mL) insulin pen Active 1 sliding scale dose SUBCUT Use as Directed March 31, 2025 12:00am 0-150 - No insulin 151-200 - 2 units 201-250 -- 4 units 251-300- 6 units 301 -350 - 8 units 351-400 - 10 units 401-500-- 15 units >500 - call doctor Complies with drug therapyStart: 92-86-1182ntpcyx 10 [IU] by subcutaneous injection three times dailyInsulin Regular Human (Novolin R Regular U100 Insulin) 100 unit/mL solution Active 10 UNIT SUBCUT Three times daily February 03, 2025 12:00am Complies with drug therapyStart: 11-14-2023 End: 80-94-0859zlhhiso regular (NovoLIN R) 100 UNIT/ML injection Indications: [...] oral tablet (9 sources)Angiotensin Converting Enzyme InhibitorStart: 76-46-9646jtfj 1 tablet by mouth once dailyLisinopril 10 mg tablet Active 10 MG PO Daily September 17, 2024 1:52pm Complies with drug therapyStart: 08-02-2021 End: 64-72-8136comh 1 tablet by mouth in the morninglisinopril 5 MG tablet Indications: Benign hypertension (CMS/[facility]) Take 1 tablet (5 mg) by mouth in the morning. 100 tablet 3 05/27/2023 Activepantoprazole 40 mg delayed release oral tablet (5 sources)Proton Pump InhibitorStart: 10-28-2023 End: 72-11-8995fqyl 1 tablet by mouth once dailyPantoprazole 40 mg tablet,delayed release (DR/EC) Active 40 MG PO Daily 90 February 03, 2025 9:21am Complies with drug therapypioglitazone 15 mg oral tablet (7 sources)Peroxisome Proliferator Receptor alpha Agonist, Peroxisome Proliferator Receptor gamma Agonist, ThiazolidinedioneStart: 10-28-2023 End: 21-58-7236fnpr 1 tablet by mouth once dailyPioglitazone 15 mg tablet Active 15 MG PO Daily 90 February 03, 2025 9:22am Complies with drug therapyStart: 47-55-4222uchb 1 tablet by mouth in the morningpioglitazone (Actos) 15 MG tablet Indications: Type 2 diabetes mellitus with diabetic neuropathy, without long- term current use of insulin (CMS/[facility]) Take 1 tablet (15 mg) by mouth in the morning. 90 tablet 3 02/05/2023 Activetriamcinolone acetonide 1 mg/ml topical cream (1 source)CorticosteroidStart: 78-26-5202Qtgappefiiacy Acetonide 0.1 % cream Active 1 APPLIC TOPICAL Twice daily 80 June 01, 2024 1:00am Complies with drug therapy Completed/Discontinued Medications MedicationDrug Class(es)DatesSig (Normalized)Sig (Original)acetaminophen 325 mg / HYDROcodone bitartrate 5 mg oral tablet (3 sources)Opioid AgonistStart: 05-01-2021 End: 30-93-0347dnpr 1 tablet by mouth every six hours as needed for pain Hydrocodone-Acetaminophen 5-325 mg Tablet Discontinued 1 TAB PO Q6H as needed for Pain 28 7 2020June 01, 2024 12:39pmcapecitabine 500 mg oral tablet (9 sources)Nucleoside Metabolic InhibitorStart: 05-31-2021 End: 57-85-5666lpsz 1 tablet by mouth twice dailyCapecitabine (Xeloda) 500 mg Tablet Discontinued 2000 MG PO Twice daily 80 September 26, 2021 4:27pm January 31, 2022 10:08am Take only on M-F 2 weeks on one week offInsulin Regular Human 150 unit/1.5 mL syringe (1 source)Start: 06-01-2024 End: 52-68-2157Ybaqfqi Regular Human 150 unit/1.5 mL syringe Discontinued 10 UNIT .Route Three times daily June 01, 2024 1:00am February 03, 2025 9:42am Inject 10 units every morning, at noon, and evening with meals.lidocaine 0.05 mg/mg medicated patch (1 source)Antiarrhythmic, Amide Local AnestheticStart: 09-15-2024 End: 20-73-0356uxvrm 1 dose topically once dailyLidocaine (Lidoderm) 5 % adhesive patch,medicated Discontinued 1 PATCH TOPICAL Daily September 15, 2024 1:00am March 31, 2025 3:24pm leave on most painful area for up to 12 hrsomeprazole 40 mg delayed release oral capsule (5 sources)Proton Pump InhibitorStart: 03-28-2021 End: 22-88-2736osqe 1 capsule by mouth once dailyOmeprazole 40 mg capsule,delayed release(DR/EC) Discontinued 40 MG PO Daily March 28, 2021 12:00am June 01, 2024 12:55pmondansetron 8 mg oral tablet (3 sources)Serotonin-3 Receptor AntagonistStart: 07-04-2021 End: 77-92-7220bgpw 1 tablet by mouth every eight hours as needed for nausea Ondansetron Hcl 8 mg Tablet Discontinued 8 MG PO Q8H as needed for Nausea July 04, 2021 4:18pm June 01, 2024 12:56pmSITagliptin 100 mg oral tablet (3 sources)Dipeptidyl Peptidase 4 InhibitorStart: 03-28-2021 End: 80-94-6817vbnk 1 tablet by mouth once dailySitagliptin Phosphate (Januvia) 100 mg Tablet Discontinued 100 MG PO Daily March 28, 2021 12:00am June 01, 2024 12:56pm Problems Active Problems Problem ClassificationProblemDateDocumented DateEpisodic/ChronicAcquired foot deformities (5 sources)Hammer toe; Translations: [Other hammer toe(s) (acquired), unspecified foot]Onset: 838906-74-2141RkhdwsyJprznqf-gpoyusj disorders (11 sources)Nondependent alcohol abuse, continuous; Translations: [Alcohol abuse, uncomplicated]Onset: 851537-34-2685CpymdyvLymznrkm reactions (8 sources)Acral erythema due to cytotoxic therapy; Translations: [Localized skin eruption due to drugs and medicaments taken internally]Onset: 02-24-2020 Resolved: 715053-29-6108VeaxhpdlNrysrzw disorders (5 sources)Anxiety disorder; Translations: [Other specified anxiety disorders] Onset: 597575-51-6839RazarwwKfuogr of colon (8 sources)Malignant tumor of sigmoid colon; Translations: [Malignant neoplasm of sigmoid colon]Onset: 006526-74-5083GsrbyeoFrzukg of colon (1 source)History of malignant neoplasm of colon; Translations: [Personal history of other malignant neoplasmof large intestine]04-18-0390Rbfncshz Conditions associated with dizziness or vertigo (1 source)Dizziness; Translations: [Dizziness and giddiness]EpisodicDiabetes mellitus with complications (20 sources)Type 2 diabetes mellitus with hyperglycemia; Translations: [Type 2 diabetes mellitus with diabetic neuropathy, unspecified]Onset: 02-21-2021 Resolved: 725879-27-8617ExqjscfZyqvkmsq mellitus without complication (6 sources)Diabetes mellitus; Translations: [Type 2 diabetes mellitus without complications]67-40-1890UiughhqLskheviu mellitus without complication (1 source)Hyperglycemia; Translations: [Hyperglycemia, unspecified]Episodic Disorders of lipid metabolism (8 sources)Hyperlipidemia, unspecified; Translations: [Hyperlipidemia]Onset: 473375-05-3735CmzcebcAkfcenescn disorders (6 sources)Gastro-esophageal reflux disease without esophagitis; Translations: [Gastroesophageal reflux disease]Onset: 860418-22-5502ZlghgxoSobuhupjg hypertension (11 sources)Hypertensive disorder; Translations: [Essential (primary) hypertension]Onset: 208434-23-9055UdzjmkcFetokdcxlloo injury (1 source)Personal history of traumatic brain injury; Translations: [PERSONAL HX TRAUMATIC BRAIN INJURY]Onset: 00-62-9062QqfzfrvuPgaknfnbelj chemotherapy; radiotherapy (3 sources)Patient encounter status; Translations: [Encounter for antineoplastic chemotherapy]33-56-6652CntwzaoEzdcnjkrujtahi (10 sources)Osteoarthritis of right hip joint; Translations: [Unilateral primary osteoarthritis, right hip]Onset: 02-24-2020 Resolved: 870419-94-9504ImdbaplLbzha aftercare (1 source)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; Translations: [CUSTODIAL USE ORAL HYPOGLYCEMIC DX]Onset: 73-89-4965SccqywksKjnzj aftercare (1 source)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; Translations: [OTH CUSTODIAL CURRENT DRUG THERAPY]Onset: 97-77-2487VgnewdlySkesa circulatory disease (1 source)Personal history of transient ischemic attack (TIA), and cerebral infarction without residual deficits; Translations: [PERS HX TIA AND CI NO RESID DEFICIT]Onset: 83-65-5817VozitsobWuvkg connective tissue disease (5 sources)History of total hip arthroplasty; Translations: [Presence of right artificial hip joint]Onset: 656410-70-5281AztmpoaIoppk fractures (1 source)Fracture of left rib; Translations: [Fracture of one rib, left side, initial encounter for closed fracture]78-19-1910MsnegnaeOhjkc gastrointestinal disorders (6 sources)Diarrhea due to drug; Translations: [Toxic gastroenteritis and colitis]Onset: 10-20-2023 Resolved: 243326-67-0772TwapndcrUimzt lower respiratory disease (6 sources)Solitary nodule of lung; Translations: [Solitary pulmonary nodule] Onset: 851149-50-7970XlithxhfAsruc male genital disorders (5 sources)Male erectile dysfunction, unspecified; Translations: [Impotence of organic origin]Onset: 245029-59-8833TbusmfkUoorg nervous system disorders (5 sources)Spinal cord disease; Translations: [Disease of spinal cord, unspecified]Onset: 741670-70-7095AgtirfdLskau nervous system disorders (5 sources)Difficulty walking; Translations: [Difficulty in walking, not elsewhere classified]Onset: 094320-06-6432GdeavyvAlvux nervous system disorders (2 sources)Neuropathy; Translations: [Polyneuropathy, unspecified]03-31-2025 ChronicOther nervous system disorders (6 sources)Acute postoperative pain; Translations: [Other acute postprocedural pain]Onset: 10-20-2023 Resolved: 701246-99-9091WlwxjfqcAjxii screening for suspected conditions (not mental disorders or infectious disease) (3 sources)Abnormal findings on diagnostic imaging of skull and head, not elsewhere classified; Translations: [Patient encounter status]Onset: 02-06-2022 99-56-9711VdtaelreMoiyv skin disorders (1 source)Eruption; Translations: [Rash and other nonspecific skin eruption] 95-41-9897ZczcqasiYidmbbjgfm and visceral atherosclerosis (17 sources)Peripheral vascular disease, unspecified; Translations: [Intermittent claudication]Onset: 30-38-5020LaorxwsFrldctyy codes; unclassified (1 source)Obstructive sleep apnea (adult) (pediatric); Translations: [OBSTRUCTIVE SLEEP APNEA]Onset: 20-13-4711AhdharnEgtylvkl codes; unclassified (6 sources)History of colectomy; Translations: [Acquired absence of other specified parts of digestive tract]Onset: 120754-16-3873PgyvfbczPucxjfln codes; unclassified (3 sources)Stopped drinking alcohol; Translations: [Personal history of other specified conditions]21-51-3801VjmyezmsNrexaaxsctqe (1 source)Encounter for follow-up examination after completed treatment for malignant neoplasm; Translations:[Encounter for follow-up examination after completed treatment for malignant neoplasm]Onset: 09-87-2467Uoanoerbuard (1 source)Encounter for preprocedural laboratory examination; Translations: [Encounter for preprocedural laboratory examination]Onset: 05-16-2022 Unclassified (1 source)E11.9 - Type 2 diabetes mellitus without complicationsViral infection (1 source)COVID-19; Translations: [COVID-19]Onset: 02-06-2022 Past or Other Problems Problem ClassificationProblemDateDocumented DateEpisodic/ChronicAcute bronchitis (5 sources)Acute mycoplasmal bronchitis; Translations: [Acute bronchitis due to Mycoplasma pneumoniae]Onset: 02-24-2020 Resolved: 647750-56-6787MdphtozkQynheknbkmhhhr/social admission (5 sources)Literacy problems; Translations: [Illiteracy and low-level literacy] Onset: 189220-60-1460OxgpaaddKnrhqzylqv and other anemia (5 sources)Anemia; Translations: [Anemia, unspecified]Onset: 12-19-2022 13-97-1756TkqxnwwyZtnj disorders (5 sources)Mood disordersOnset: Other connective tissue disease (5 sources)Muscle weakness; Translations: [Muscle weakness (generalized)]Onset: 488455-80-4641UzcbogurCwedp connective tissue disease (5 sources)Recurrent falls ; Translations: [Repeated falls]Onset: 05-01-2023 69-77-0367CmmgwdtnXfgug gastrointestinal disorders (5 sources)Abnormal feces; Translations: [Other fecal abnormalities]Onset: 823911-44-7803PljzlpzlWdapv gastrointestinal disorders (5 sources)Incontinence of feces; Translations: [Full incontinence of feces] Onset: 850540-94-5960YkfjvhbzWaxac non-traumatic joint disorders (5 sources)Pain in right knee; Translations: [Pain in joint, lower leg]Onset: 544762-82-6439WsecntajOeqxy non-traumatic joint disorders (3 sources)Pain in right hip joint; Translations: [Pain in right hip]Onset: 046600-28-5538ZvxlzzstCtewg non-traumatic joint disorders (2 sources)Hip pain; Translations: [Pain in right hip]Onset: 02-24-2020 59-89-6551BuxjgounOqkga nutritional; endocrine; and metabolic disorders (5 sources)Overweight in adulthood with body mass index of 25 or more but less than 30; Translations: [Body mass index (BMI) 27.0-27.9, adult]Onset: 02-24-2020 Resolved: 027013-03-1247BljtanupVowpbxhx codes; unclassified (4 sources)Noncompliance with medication regimen; Translations: [Patient's other noncompliance with medicationregimen]Onset: 76-74-8438XybjmxpzKkxksqao codes; unclassified (5 sources)Insomnia; Translations: [Insomnia, unspecified]Onset: 02-24-2020 43-50-6640DgqeoksjLqnqjovorjh; intervertebral disc disorders; other back problems (5 sources)Lumbago co-occurrent with right-side sciatica; Translations: [Lumbago with sciatica, right side]Onset: 494907-85-5417VmuybkdjUzggjww (9 sources)Syncope and collapse; Translations: [Syncope and collapse]Onset: 02-24-2020 Resolved: 75-98-8247Wscbuksj Results Test NameValueInterpretationReference RangeFacilityBasophils Auto (Bld) [#/Vol] Ordered By: Raul Hooper on 88-52-7420Msqrhexdk (Bld) [#/Vol]0.1 10 3/uL0.0-0.1 [facility] HospitalBasophils/100 WBC Auto (Bld)Ordered By: Raul Hooper on 15-44-5689Ythmdpgav/100 WBC (Bld)1.8 %0.2-2.0[facility] HospitalEosinophils/100 WBC Auto (Bld)Ordered By: Raul Hooper on 62-08-9882Uxkrkcdyznl/100 WBC (Bld)6.9 %0.9-7.0[facility] Erythrocyte distribution width Auto (RBC) [Ratio]Ordered By: Raul Hooper on 24-36-6149Fwotpfntzgb distribution width (RBC) [Ratio]12.3 %11.0-15.0[facility] HospitalGlobulin Calc (S) [Mass/Vol]Ordered By: Tika Uriostegui on 89-90-3017Nixjdygf (S) [Mass/Vol]4.2 g/dLAultman HospitalGlomerular filtration rate (GFR) estimation in non- AmericanOrdered By: Tika Uriostegui on 56-30-4134SET/1.73 sq M.predicted among non-blacks MDRD (S/P/Bld) [Vol rate/Area]mL/min/{1.73_m2}>=60 mL/min/1.73m 2FUniversity Hospitals Beachwood Medical CenterHematocrit Auto (Bld) [Volume fraction]Ordered By: Raul Hooper on 67-37-6697Rbfphzcwwp (Bld) [Volume fraction]39.8 %Low 42.0-54.0[facility] HospitalHemoglobin [Mass/volume] in Blood Ordered By: Raul Hooper on 21-28-5846Qvzwpeqdlb (Bld) [Mass/Vol]14.0 g/dL 14.0-18.0[facility] HospitalLaboratory - Chemistry and Chemistry - challengeOrdered By: Raul Hooper on 82-59-9084Xpiqankln Ql (U)NegativeNEGATIVE [facility] HospitalGlucose (U) [Mass/Vol]mg/dLAbnormalNEGATIVE [facility] HospitalKetones Ql (U)NegativeNEGATIVEAultman HospitalpH (U)5.5 [pH]5.0-9.0[facility] Specific gravity (U) [Rel density]1.0151.005-1.025A[facility] HospitalUrobilinogen Qn (U)0.2 {Cynthia'U}/dL0.2-1.0[facility] HospitalLaboratory - Chemistry and Chemistry - challengeOrdered By: Tika Uriostegui on 38-68-9513Lmpasvb [Mass/Vol]3.2 g/dLLow3.4-5.0[facility] HospitalALP [Catalytic activity/Vol]92 U/K79-383OkhceskbnAultman HospitalALT [Catalytic activity/Vol]28 U/V07-19TymmqycrkAultman Hospital AST [Catalytic activity/Vol]19 U/X97-00SazgqpgjxAultman Hospital Bilirubin [Mass/Vol]0.5 mg/dL0.2-1.0[facility] HospitalCalcium [Mass/Vol]9.7 mg/dL8.5-10.1FUniversity Hospitals Beachwood Medical CenterChloride [Moles/Vol] 100 mmol/Z04-760ZrjmzxezgAultman HospitalCO2 [Moles/Vol]25.5 mmol/L 21.0-32.0[facility] HospitalCreatinine [Mass/Vol]1.16 mg/dL 0.70-1.30[facility] HospitalGFR/1.73 sq M.predicted MDRD (S/P/Bld) [Vol rate/Area]mL/min/{1.73_m2}>=60 mL/min/1.73m 2FUniversity Hospitals Beachwood Medical CenterGlucose [Mass/Vol]338 mg/vWWhbu50-676AwbweodtfAultman Hospital Potassium [Moles/Vol]4.2 mmol/L3.5-5.1FUniversity Hospitals Beachwood Medical CenterProtein [Mass/Vol]7.4 g/dL6.4-8.2FRiverview Health Instituteodium [Moles/Vol]135 mmol/XLtp434-393VcanrqrsdAultman HospitalUrea nitrogen [Mass/Vol]28.0 mg/dLHigh7.0-18.0[facility] HospitalUrea nitrogen/Creatinine [Mass ratio]24.1 mg/mgAultman HospitalLaboratory - Hematology and Cell countsOrdered By: Raul Hooper on 76-45-5918Aczqwkrh granulocytes/100 WBC (Bld)0.3 %0.0-0.5FUniversity Hospitals Beachwood Medical CenterLaboratory - Specimen informationOrdered By: Raul Hooper on 32-86-5274Rdebolpfrt (U)CLEARCLEAR [facility] HospitalColor (U)LT. YELLOWYELLOWAultman HospitalLaboratory - UrinalysisOrdered By: Raul Hooper on 03-26-2025 Leukocyte esterase Test strip Ql (U)NegativeNEGMartins Ferry HospitalMucus Ql (Urine sed)NONE SEENNONE SEENAultman Hospital Nitrite Ql (U)NegativeNEGATIVEAultman HospitalProtein Ql (U) NegativeNEG/TRACEAultman HospitalLeukocytes [#/volume] corrected for nucleated erythrocytes in Blood by Automated counOrdered By: Raul Hooper on 50-31-4662OJR corrected for nucl RBC Auto (Bld) [#/Vol]6.2 10 3/uL 4.0-11.0[facility] HospitalLymphocytes Auto (Bld) [#/Vol]Ordered By: Raul Hooper on 55-43-3133Afpugfzrwzl (Bld) [#/Vol]1.3 10 3/uL1.2-3.8 [facility] HospitalLymphocytes/100 WBC Auto (Bld)Ordered By: Raul Hooper on 61-75-0593Ohqodkgusif/100 WBC (Bld)20.1 %Low20.5-60.0[facility] Auto (RBC) [Entitic mass]Ordered By: Raul Hooper on 57-97-5522UZS (RBC) [Entitic mass]30.5 pg25.9-34.0[facility] HospitalMCHC Auto (RBC) [Mass/Vol]Ordered By: Raul Hooper on 47-69-8185USEQ (RBC) [Mass/Vol]35.2 g/dL29.9-35.2FUniversity Hospitals Beachwood Medical CenterMCV Auto (RBC) [Entitic vol]Ordered By: Raul Hooper on 55-28-5607TGE (RBC) [Entitic vol]86.7 fL80.0-94.0[facility] HospitalMonocytes Auto (Bld) [#/Vol]Ordered By: Raul Hooper on 75-70-8684Kfgvzqagm (Bld) [#/Vol]0.6 10 3/uL0.3-0.8[facility] HospitalMonocytes/100 WBC Auto (Bld)Ordered By: Raul Hooper on 09-84-8910Nahqwhumd/100 WBC (Bld)9.0 %1.7-12.0[facility] Neutrophils Auto (Bld) [#/Vol]Ordered By: Raul Hooper on 15-34-5649Boqvoxtgvdy (Bld) [#/Vol]3.9 10 3/uL1.4-6.5FUniversity Hospitals Beachwood Medical CenterNeutrophils/100 WBC Auto (Bld)Ordered By: Raul Hooper on 22-86-1551Qholuwkicji/100 WBC (Bld) 61.9 %43.0-75.0[facility] HospitalNo Panel InformationOrdered By: Raul Hooper on 59-59-9344Mfzet BacteriaTRACE #/HPFAbnormalNONE [facility] HospitalUrine Culture ReflexedNOAultman Hospital Urine Occult BloodNegativeNEGATIVEAultman HospitalUrine Other CastsNONE SEEN #/LPFNONE [facility] HospitalUrine Other CrystalsNone Seen #/HPFNone [facility] SpringfieldUrine RBCNONE SEEN #/HPF0-2FUniversity Hospitals Beachwood Medical CenterUrine Squamous Epithelial Cells RARE #/LPFNONE/RAREAultman HospitalUrine WBC0-2 #/HPFAbnormal NONE SEENAultman HospitalEosinophils # (Auto)0.4 10 3/uL0.0-0.7 [facility] HospitalImmature Granulocyte # (Auto)0.02 10 3/uL 0.00-0.03[facility] HospitalPlatelet mean volume Auto (Bld) [Entitic vol]Ordered By: Raul Hooper on 94-69-6971Kflsjtdg mean volume (Bld) [Entitic vol]10.9 fL9.5-13.5FUniversity Hospitals Beachwood Medical CenterPlatelets Auto (Bld) [#/Vol]Ordered By: Raul Hooper on 35-35-6609Mjmzxqsas (Bld) [#/Vol]246 10 3/dC037-471JarwrfvqeAultman HospitalRBC Auto (Bld) [#/Vol]Ordered By: Raul Hooper on 73-46-8632SJZ (Bld) [#/Vol]4.59 10 6/uLLow4.70-6.10[facility] Hospitalerum or plasma albumin/globulin mass ratioOrdered By: Tika Uriostegui on 08-79-4505Qbljpxu/Globulin [Mass ratio]0.8 {ratio} [facility] Hospitalerum or plasma anion gap determinationOrdered By: Tika Uriostegui on 75-10-2945Gmmho gap [Moles/Vol]13.7 mmol/LFUniversity Hospitals Beachwood Medical CenterProgress Noteson 11-80-7222Lyfeopfftgqbn Authentication Interface Message TextEMERGENCY TRIAGE, TREAT AND TRANSPORT (ET3) DOCUMENTATION OF TELEHEALTH VISIT Date / Time: 08/08/2022 / 1199 Name: Mikhail Menon : 1950 SSN: (Not on file) EMS Agency: [facility] [x] Verbal consent obtained [] [...] by: [facility] Glucose Poct Glucometerson 03-42-4684Oedhucp3Cvz5: Cleaned MeterNoMercy Health Allen HospitalComment on above:Result Comment: PERFORMED BY: [facility] [address] [place] [address] PATHOLOGIST PROFESSOR OF RELIGIOUS STUDIES BULMARO HALL M.D.Performed By: #### GLULS #### Point of Care testing ,Glucose [Mass/Vol]179 mg/dLProMedica Flower HospitalComment on above:Result Comment: Random Glucose Reference Range is dependent on time and content of last meal. Glucose of more than 200 mg/dL in a nonstressed, ambulatory subject supports the diagnosis of Diabetes Mellitus.Performed By: #### GLULS #### Point of Care testing ,Glucose [Mass/Vol]198 mg/dLProMedica Flower HospitalComment on above:Result Comment: Random Glucose Reference Range is dependent on time and content of last meal. Glucose of more than 200 mg/dL in a nonstressed, ambulatory subject supports the diagnosis of Diabetes Mellitus. PERFORMED BY: [address] [address] PATHOLOGIST PROFESSOR OF RELIGIOUS STUDIES BULMARO HALL M.D.Performed By: #### GLULS #### Point of Care testing ,COVID-19 Antigenon [id number]-19 AntigenHealthcare Worker?: N Reference Range: Negative Negative [...] developed and its performance characteristic determined by [employer] and validated at [facility]. This test has not been FDA [...] for SARS Antigen by DOROTHEA PERFORMED BY: [place] [address] PATHOLOGIST PROFESSOR OF RELIGIOUS STUDIES BULMARO HALL M.D.ProMedica Flower HospitalComment on above: Performed By: #### COVID-19 CAIMLA, SOFIANEG #### [place] [address] USACOVID-19 SOFIAOrdered By: Christian Montana on 05-16-2022 SARS-CoV+SARS-CoV-2 (COVID-19) Ag IA.rapid Ql (Resp)NegativeNegativeAultman HospitalComment on above:This is a duplicate Camila SARS Antigen (DOROTHEA) result to be used for statistical tracking purpose only.No Panel InformationOrdered By: Christian Montana on 72-68-0940OZNX Antigen (LFIA)[facility] Hospitalofia Ag Negativeon 91-18-2555Lzwnw Ag NegativeNegative NormalNegKettering Health Behavioral Medical CenterComment on above:Result Comment: This is a duplicate Camila SARS Antigen (DOROTHEA) result to be used for statistical tracking purpose only. PERFORMED BY: [place] [address] PATHOLOGIST PROFESSOR OF RELIGIOUS STUDIES BULMARO HALL M.D.Performed By: #### COVID-19 CAMILA, SOFIANEG #### [facility] [address] [id number] [facility] AUTO DIFFon [id number] #0.1 103/ulNormal0.0-0.1The [facility] HospitalComment on above:Performed By: #### CBC #### [facility] [address] [address] [address] Bucky GoldBasophils/100 WBC (Bld)1.3 %Normal0.2-2.0[facility] Comment on above:Performed By: #### CBC #### [facility] [address] [address] [address] Bucky Burks #0.7 103/ulNormal0.0-0.7The [facility] HospitalComment on above: Performed By: #### CBC #### [facility] [address] [address] [address] Bucky Youngosinophils/100 WBC (Bld)12.1 %Critically high0.9-7.0The [facility] HospitalComment on above:Performed By: #### CBC #### [facility] [address] [address] [address] Bucky Youngrythrocyte distribution width (RBC) [Ratio]12.1 %Jklzqm58.0-15.0 Kindred Healthcarement on above:Performed By: #### CBC #### [facility] [address] [address] [address] Bucky GoldHematocrit (Bld) [Volume fraction]38.0 %Critically low42.0-54.0 Kindred Healthcarement on above:Performed By: #### CBC #### [facility] [address] [address] [address] Bucky GoldHemoglobin (Bld) [Mass/Vol]12.7 g/dLCritically low14.0-18.0The [facility] Hospitalment on above:Performed By: #### CBC #### [facility] [address] [address] [address] Bucky Spaulding #0.01 10e3/ulNormal0.00-0.03The [facility] HospitalComment on above:Performed By: #### CBC #### [facility] [address] [address] [address] Bucky Spaulding %0.2 %Normal0.0-0.5The [facility] HospitalComment on above: Performed By: #### CBC #### [facility] [address] [address] [address] Bucky Phillip #1.0 103/ulCritically low1.2-3.8The [facility] Comment on above:Performed By: #### CBC #### [facility] [address] [address] [address] Bucky Mitchellhocytes/100 WBC (Bld)18.4 %Critically low20.5-60.0The [facility] HospitalComment on above:Performed By: #### CBC #### [facility] [address] [address] [address] Bucky Humphries DIFF REQNONormalThe [facility] HospitalComment on above: Performed By: #### CBC #### [facility] [address] [address] [address] Bucky Zimmer (RBC) [Entitic mass]32.8 fqQgtzqc27.9-34.0The [facility] HospitalComment on above:Performed By: #### CBC #### [facility] [address] [place] [address] Dr. Bucky Ahn (RBC) [Mass/Vol]33.4 g/yJJykgkd10.9-35.2The [facility] HospitalComment on above:Performed By: #### CBC #### [facility] [address] [place] [address] Dr. Bucky Menezes (RBC) [Entitic vol]98.2 fLCritically high80.0-94.0The [facility] HospitalComment on above:Performed By: #### CBC #### [facility] [address] [place] [address] Dr. Bucky Jon #0.4 103/ulNormal0.3-0.8The [facility] HospitalComment on above:Performed By: #### CBC #### [facility] [address] [place] [address] Dr. Bucky Alvaocytes/100 WBC (Bld)6.8 %Normal1.7-12.0The [facility] Comment on above:Performed By: #### CBC #### [facility] [address] [place] [address] Dr. Bucky London #3.4 103/ulNormal1.4-6.5The [facility] HospitalComment on above:Performed By: #### CBC #### [facility] [address] [place] [address] Dr. Bucky Barnardutrophils/100 WBC (Bld)61.2 %Jrbter07.0-75.0The [facility] HospitalComment on above:Performed By: #### CBC #### [facility] [address] [place] [address] Dr. Bucky Avilalet mean volume (Bld) [Entitic vol]10.1 fLNormal9.5-13.5The [facility] HospitalComment on above:Performed By: #### CBC #### [facility] [address] [place] [address] Dr. Bucky GoldPLT154 103/utUjthvi800-764Ioc [facility] HospitalComment on above: Performed By: #### CBC #### [facility] [address] [place] [address] Dr. Bucky GoldRBC3.87 106/ulCritically low4.70-6.10The [facility] HospitalComment on above:Performed By: #### CBC #### [facility] [address] [place] [address] Dr. Bucky GoldWBC5.6 103/ulNormal4.0-11.0The [facility] HospitalComment on above: Performed By: #### CBC #### [facility] [address] [place] [address] Dr. Bucky GoldDONALSONVILLE [facility] GLUCOSEon 51-91-1090Rbvzmdo [Mass/Vol]214 mg/dL Critically oxrl80-126Ksp [facility] HospitalComment on above:Performed By: #### POCGLUC #### [facility] [address] [place] [address] Dr. Bucky GoldPROF CHEM 8 (BAS METB)on 92-28-7629Sberm gap [Moles/Vol]10.4 mmol/LNormalThe [facility] HospitalComment on above:Performed By: #### BMP #### [facility] [address] [place] [address] Dr. Bucky GoldCalcium [Mass/Vol]8.3 mg/dLCritically low8.5-10.1The [facility] HospitalComment on above:Performed By: #### BMP #### [facility] [address] [place] [address] Dr. Bucky GoldChloride [Moles/Vol]104 mmol/VSnnlnl89-880Wyx [facility] Comment on above:Performed By: #### BMP #### [facility] [address] [place] [address] Dr. Bucky GoldCO2 [Moles/Vol]25.5 mmol/SXxjxmf94.0-32.0The [facility] Comment on above:Performed By: #### BMP #### [facility] [address] [place] [address] Dr. Bucky GoldCreatinine [Mass/Vol]0.89 mg/dLNormal0.70-1.30The [facility] HospitalComment on above:Performed By: #### BMP #### [facility] [address] [place] [address] Dr. Bucky YoungGFR-AF AFGHAN>60Normal>=60The [facility] HospitalComment on above:Performed By: #### BMP #### [facility] [address] [place] [address] Dr. Lawler ChangEGFR-NON AF AFGHAN>60Normal>=60The [facility] HospitalComment on above:Performed By: #### BMP #### [facility] [address] [place] [address] Dr. Bucky GoldGlucose [Mass/Vol]138 mg/dLCritically czah58-776Gni [facility] HospitalComment on above:Performed By: #### BMP #### [facility] [address] [place] [address] Dr. Bucky GoldPotassium [Moles/Vol]3.9 mmol/LNormal3.5-5.1The [facility] Comment on above:Performed By: #### BMP #### [facility] [address] [place] [address] Dr. Bucky GoldSodium [Moles/Vol]136 mmol/UYhvtwj591-189Tki [facility] Comment on above:Performed By: #### BMP #### [facility] [address] [place] [address] Dr. Bucky GoldUrea nitrogen [Mass/Vol]12.0 mg/dLNormal7.0-18.0The [facility] HospitalComment on above:Performed By: #### BMP #### [facility] [address] [place] [address] Dr. Bucky Wilkins nitrogen/Creatinine [Mass ratio]13.5 mg/mgNormalThKettering Health MiamisburgComment on above:Performed By: #### BMP #### [facility] [address] [place] [address] Dr. Bucky Barrett W MANUAL DIFFon 13-74-7539PVEIHZFC LYMPH #NormalUpper Valley Medical CenterComment on above:Performed By: #### CBCMAN #### [facility] [address] [place] [address] Dr. Bucky GoldATYPICAL LYMPH %NormalThe [facility] HospitalComment on above: Performed By: #### CBCMAN #### [facility] [address] [place] [address] Dr. Bucky Vale #Normal0.0-0.3The [facility] HospitalComment on above: Performed By: #### CBCMAN #### [facility] [address] [place] [address] Dr. Bucky Vale %Normal0-5The [facility] HospitalComment on above:Performed By: #### CBCMAN #### [facility] [address] [address] [address] Bucky Loera #0.00 103/ulNormal0.00-0.10The [facility] HospitalComment on above:Performed By: #### CBCJONATHAN #### [facility] [address] [address] [address] Bucky Loera %0.0 %Critically low0.2-2.0The [facility] HospitalComment on above:Performed By: #### CBCJONATHAN #### [facility] [address] [address] [address] Bucky Whipple #NormalThe [facility] HospitalComment on above:Performed By: #### WADE #### [facility] [address] [place] [address] Dr. Bucky Whipple %NormalThe [facility] HospitalComment on above:Performed By: #### WADE #### [facility] [address] [place] [address] Dr. Bucky GoldCORRECTED WBCNormal4.0-11.0The [facility] HospitalComment on above: Performed By: #### WADE #### [facility] [address] [place] [address] Dr. Bucky Montenegro #0.00 103/ulNormal0.00-0.70The [facility] HospitalComformerly [facility] on above:Performed By: #### WDAE #### [facility] [address] [place] [address] Dr. Bucky Montenegro%0.0 %Critically low0.9-7.0The [facility] HospitalComment on above:Performed By: #### WADE #### [facility] [address] [place] [address] Dr. Bucky GoldHCT32.5 %Critically low42.0-54.0The [facility] HospitalComment on above:Performed By: #### WADE #### [facility] [address] [place] [address] Dr. Bucky GoldHGB10.8 g/dlCritically low14.0-18.0The [facility] HospitalComment on above:Performed By: #### WADE #### [facility] [address] [address] [address] Bucky Alvarez #0.55 103/ulCritically low1.20-3.80The [facility] Comment on above:Performed By: #### WADE #### [facility] [address] [address] [address] Bucky Alvarez%14.0 %Critically low20.5-60.0The [facility] HospitalComment on above:Performed By: #### WADE #### [facility] [address] [address] [address] Bucky AhnH33.0 svIcvium40.9-34.0The [facility] HospitalComment on above: Performed By: #### WADE #### [facility] [address] [address] [address] Bucky AhnHC33.2 g/ceNttsfc85.9-35.2The [facility] HospitalComment on above:Performed By: #### WADE #### [facility] [address] [address] [address] Bucky AhnV99.4 fLCritically high80.0-94.0The [facility] HospitalComment on above:Performed By: #### WADE #### [facility] [address] [address] [address] Bucky GallagherOCYTE #NormalThe [facility] HospitalComment on above: Performed By: #### WADE #### [facility] [address] [address] [address] Bucky GallagherOCYTE %NormalThe [facility] HospitalComment on above: Performed By: #### WADE #### [facility] [address] [address] [address] Bucky Madden#0.12 103/ulCritically low0.30-0.80The [facility] Comment on above:Performed By: #### WADE #### [facility] [address] [address] [address] Bucky Madden%3.0 %Normal1.7-12.0The [facility] HospitalComment on above: Performed By: #### WADE #### [facility] [address] [address] [address] Bucky GoldMPV10.5 fLNormal9.5-13.5The [facility] HospitalComment on above: Performed By: #### CBCJONATHAN #### [facility] [address] [address] [address] Bucky Delacruz #NormalUpper Valley Medical CenterComment on above:Performed By: #### WADE #### [facility] [address] [place] [address] Dr. Bucky Delacruz %NormalUpper Valley Medical CenterComment on above:Performed By: #### WADE #### [facility] [address] [place] [address] Dr. Bucky GoldNRBCNormalThe [facility] HospitalComment on above:Performed By: #### WADE #### [facility] [address] [place] [address] Dr. Bucky GaticaT143 103/ulCritically nfl929-339Gdf [facility] HospitalComment on above:Performed By: #### WADE #### [facility] [address] [place] [address] Dr. Bucky GoldRBC3.27 106/ulCritically low4.70-6.10The [facility] HospitalComment on above:Performed By: #### WADE #### [facility] [address] [place] [address] Dr. Bucky GoldRDW12.0 %Lpogdp69.0-15.0The [facility] HospitalComment on above: Performed By: #### WADE #### [facility] [address] [place] [address] Dr. Bucky Rodriguez #3.24 103/ulNormal1.40-6.50The [facility] HospitalComment on above:Performed By: #### WADE #### [facility] [address] [address] [address] Bucky Rodriguez %83.0 %Critically high43.0-75.0The [facility] Hospitalment on above:Performed By: #### WADE #### [facility] [address] [address] [address] Bucky GoldWBC3.9 103/ulCritically low4.0-11.0The [facility] Hospitalment on above:Performed By: #### WADE #### [facility] [address] [address] [address] Bucky GoldCT HEAD WO CONon [id number] HEAD WO CONEXAMINATION: CT HEAD WO CON, [...] Electronically authenticated by: ROEL TRAN Date: 2022-02-01 10:57NoSouthern [facility] Medical CenterCovid-19 PCR (CVDTBH)on 86-89-3099UDHT-CoV-2 (COVID-19) RNA ROSIBEL+probe Ql (Unsp spec)DetectedCritically abnormalNOT DETECTEDThe [facility] on above:Result Comment: This test is not yet approved or cleared by the [place] FDA. When there are no FDA-approved or cleared tests available, and other criteria are met, FDA can make tests available under an emergency access mechanism called an Emergency Use Authorization (EUA). The EUA for this test is supported by the [employer] of Health and Human Service's declaration that [...] be used).Performed By: #### BMP, HSTROPN #### [facility] [address] [place] [address] Dr. Bucky Rios LIMITED STUDYon [id number] LIMITED STUDYPatient: MIKHAIL MENON Exam Date: 02/01/2022 : 1950 Gender:M Ordering : DR BELKIS YU . Admission #: [id number] Family : DR ULISSES YU M.D. Order #: [id number] CLICK HERE TO VIEW EXAM ECHOCARDIOGRAM REPORT [...] M.D. on 02/01/2022 at 18:39 Approved by: Rayn Amin M.D. on 02/01/2022 at 18:43[facility] MemorialPOINT OF CARE GLUCOSEon 27-82-3012Zjbxmnf [Mass/Vol]209 mg/dLCritically paec06-850Eyh [facility] HospitalComment on above:Performed By: #### POCGLUC #### [facility] [address] [place] [address] Dr. Bucky BorgesF CHEM 8 (BAS METB)on 67-12-6638Kacnb gap [Moles/Vol]11.8 mmol/LNormalThe [facility] HospitalComment on above:Performed By: #### BMP, HSTROPN #### [facility] [address] [place] [address] Dr. Bucky GoldCalcium [Mass/Vol]7.8 mg/dLCritically low8.5-10.1The [facility] HospitalComment on above:Performed By: #### BMP, HSTROPN #### [facility] [address] [place] [address] Dr. Bucky GoldChloride [Moles/Vol]104 mmol/WLowulm28-145Def [facility] Comment on above:Performed By: #### BMP, HSTROPN #### [facility] [address] [place] [address] Dr. Bucky GoldCO2 [Moles/Vol]24.1 mmol/TTgscsf02.0-32.0[facility] Comment on above:Performed By: #### BMP, HSTROPN #### [facility] [address] [place] [address] Dr. Bucky GoldCreatinine [Mass/Vol]1.36 mg/dLCritically high0.70-1.30The [facility] HospitalComment on above:Performed By: #### BMP, HSTROPN #### [facility] [address] [place] [address] Dr. Bucky YoungGFR-AF AFGHAN>60Normal>=60The [facility] HospitalComment on above:Performed By: #### BMP, HSTROPN #### [facility] [address] [address] [address] Bucky YoungGFR-NON AF OWSPYSSP67 mL/min/1.71a7Spkxsoagtl low>=60The [facility] HospitalComment on above:Performed By: #### BMP, HSTROPN #### [facility] [address] [address] [address] Bucky GoldGlucose [Mass/Vol]211 mg/dLCritically okza79-073Lyk [facility] HospitalComment on above:Performed By: #### BMP, HSTROPN #### [facility] [address] [address] [address] Bucky GoldPotassium [Moles/Vol]3.9 mmol/LNormal3.5-5.1The [facility] Comment on above:Performed By: #### BMP, HSTROPN #### [facility] [address] [place] [address] Dr. Bucky GoldSodium [Moles/Vol]136 mmol/GYkykeu210-353Rzh [facility] Comment on above:Performed By: #### BMP, HSTROPN #### [facility] [address] [address] [address] Bucky GoldUrea nitrogen [Mass/Vol]16.0 mg/dLNormal7.0-18.0The [facility] HospitalComment on above:Performed By: #### BMP, HSTROPN #### [facility] [address] [place] [address] Dr. Bucky GoldUrea nitrogen/Creatinine [Mass ratio]11.8 mg/mgNormalThe [facility] HospitalComment on above:Performed By: #### BMP, HSTROPN #### [facility] [address] [place] [address] Dr. Bucky Vegas, HIGH SENSITIVITYon 74-15-5298GSNKVW59.5 pg/mLNormal 4.0-76.1The [facility] HospitalComformerly [facility] on above:Result Comment: CUT-OFF POINTS HAVE BEEN ESTABLISHED BASED ON THE FOURTH UNIVERSAL DEFINITIONS OF MYOCARDIAL INFARCTION. THE UPPER REFERENCE LIMIT (URL) OF TROPONIN, DEFINED THE 99TH PERCENTILE OF cTnI DISTRIBUTION IN A REFERENCE POPULATION, HAS BEEN CONFIRMED THE DECISION THRESHOLD FOR AR DIAGNOSIS.Performed By: #### BMP, HSTROPN #### [facility] [address] [place] [address] Dr. Bucky Haas CAROTID ART BILon [id number] CAROTID ART BILEXAMINATION: US CAROTID ART REGIS [...] Electronically authenticated by: ROEL TRAN Date: 2022-02-01 15:02[facility] MemorialComplete Blood Count with Auto Diffon 03-78-8104Ezludxcoc (Bld) [#/Vol]0.08 10*3/uLNormal0.00-0.20[facility]inai HospitalComment on above:Performed By: #### CBCAD, CMP #### [facility] [address] [place], [place] [id number]/100 WBC (Bld)1.6 %NormalNorthern Mt. Sinai HospitalComment on above:Performed By: #### CBCAD, CMP #### [facility] [address] [place], [place] [id number] (Bld) [#/Vol]0.28 10*3/uLNormal0.02-0.50[facility] SpecialistComment on above:Performed By: #### CBCAD, CMP #### [facility] [address] [place], [place] [id number]/100 WBC (Bld)5.8 %NormalPike Community Hospital SpecialistComment on above:Performed By: #### CBCAD, CMP #### [facility] [address] [place], [place] [id number] distribution width (RBC) [Ratio]11.8 %Normal 11.0-15.0[facility] SpecialistComment on above:Performed By: #### CBCAD, CMP #### [facility] [address] [place], [place] [id number] (Bld) [Volume fraction]41.4 %Lmjmuf79.5-50.0 [facility] SpecialistComment on above:Performed By: #### CBCAD, CMP #### [facility] [address] [place], [place] [id number] (Bld) [Mass/Vol]14.1 g/fJJjndvg03.0-17.1NorthMiami Valley Hospital SpecialistComment on above:Performed By: #### CBCAD, CMP #### [facility] [address] [place], [place] [id number] (Bld) [#/Vol]1.2 10*3/uLNormal0.9-3.9[facility] SpecialistComment on above:Performed By: #### CBCAD, CMP #### [facility] [address] [place], [place] [id number]/100 WBC (Bld)24.3 %NormalPike Community Hospital SpecialistComment on above:Performed By: #### CBCAD, CMP #### [facility] [address] [place], [place] [id number] (RBC) [Entitic mass]31.2 mpQrnwax28.0-33.0[facility] SpecialistComment on above:Performed By: #### CBCAD, CMP #### [facility] [address] [place], [place] [id number] (RBC) [Mass/Vol]34.1 g/jADiidhe35.0-36.0NoFirelands Regional Medical Center SpecialistComment on above:Performed By: #### CBCAD, CMP #### [facility] [address] [place], [place] [id number] (RBC) [Entitic vol]92 tZDfyfjy99-218Utwhtcni [place] [facility] SpecialistComment on above:Performed By: #### CBCAD, CMP #### [facility] [address] [place], [place] [id number] (Bld) [#/Vol]0.3 10*3/uLNormal0.2-0.9NoFirelands Regional Medical Center SpecialistComment on above:Performed By: #### CBCAD, CMP #### [facility] [address] [place], [place] [id number]/100 WBC (Bld)5.6 %NormalNoFirelands Regional Medical Center SpecialistComment on above:Performed By: #### CBCAD, CMP #### [facility] [address] [place], [place] [id number] (Bld) [#/Vol]3.0 10*3/uLNormal1.5-7.8NoFirelands Regional Medical Center SpecialistComment on above:Performed By: #### CBCAD, CMP #### [facility] [address] [place], [place] [id number]/100 WBC (Bld)62.5 %NormalNoFirelands Regional Medical Center SpecialistComment on above:Performed By: #### CBCAD, CMP #### [facility] [address] [place], [place] [id number] mean volume (Bld) [Entitic vol]11.30 fLNormal 7.50-12.50NoFirelands Regional Medical Center SpecialistComment on above:Performed By: #### CBCAD, CMP #### [facility] [address] [place], [place] [id number] (Bld) [#/Vol]218 10*3/bHKoypaf862-310Kmvnisjq [place] [facility] SpecialistComment on above:Performed By: #### CBCYEE, CMP #### [facility] [address] [place], [place] [id number] (Bld) [#/Vol]4.52 10*6/uLNormal4.20-5.80NortKindred Hospital Dayton SpecialistComment on above:Performed By: #### CBCYEE, CMP #### [facility] [address] [place], [place] [id number]-NP34.6 eERvohsq88.0-50.0NoFirelands Regional Medical Center Specialist Comment on above:Performed By: #### CBCYEE, CMP #### [facility] [address] [place], [place] [id number] (Bld) [#/Vol]4.9 10*3/uLNormal3.8-11.0NortKindred Hospital Dayton SpecialistComment on above:Performed By: #### CBCYEE, CMP #### [facility] [address] [place], [place] [id number] Metabolic Panelon 20-40-7061Wbohpzr [Mass/Vol] 4.3 g/dLNormal3.6-5.1[facility] SpecialistComment on above:Performed By: #### CBCYEE, CMP #### [facility] [address] [place], [place] [id number]/Globulin [Mass ratio]1.7 {ratio}Normal1.0-2.5NoFirelands Regional Medical Center SpecialistComment on above:Performed By: #### CBCYEE, CMP #### [facility] [address] [place], [place] [id number] [Catalytic activity/Vol]73 U/XFgsbik91-447Sarfdbia [place] [facility] SpecialistComment on above:Performed By: #### CBCAD, CMP #### [facility] [address] [place], [place] [id number] [Catalytic activity/Vol]19 U/LNormal9-46[facility] SpecialistComment on above:Result Comment: 06/20/2021 Female reference range changed.Performed By: #### CBCAD, CMP #### [facility] [address] [place], [place] [id number] gap [Moles/Vol]18 mmol/VIszjdi95-82Jdhimekv [place] [facility] SpecialistComment on above:Result Comment: Effective 07/26/2019 reference range changed.Performed By: #### CBCAD, CMP #### [facility] [address] [place], [place] [id number] [Catalytic activity/Vol]27 U/GTxzznp29-85Vtwouzjm [place] [facility] SpecialistComment on above:Result Comment: Specimen is hemolyzed. Results may be affected.Performed By: #### CBCAD, CMP #### [facility] [address] [place], [place] [id number]/CREA21 RatioNormal6-22NoFirelands Regional Medical Center Specialist Comment on above:Performed By: #### CBCAD, CMP #### [facility] [address] [place], [place] [id number] [Mass/Vol]9.4 mg/dLNormal8.6-10.2[facility] SpecialistComment on above:Performed By: #### CBCAD, CMP #### [facility] [address] [place], [place] [id number] [Moles/Vol]109 mmol/ODvcp07-047Xljdfumg [place] [facility] SpecialistComment on above:Performed By: #### CBCAD, CMP #### [facility] [address] [place], [place] [id number] [Moles/Vol]18 mmol/USmx26-06Qloxuqhw [place] [facility] SpecialistComment on above:Performed By: #### CBCAD, CMP #### [facility] [address] [place], [place] [id number] [Mass/Vol]0.9 mg/dLNormal0.7-1.4[facility] SpecialistComment on above:Performed By: #### CBCAD, CMP #### [facility] [address] [place], [place] [id number] mL/min/1.82q4Okerce>60[facility] SpecialistComment on above:Performed By: #### CBCYEE, CMP #### [facility] [address] [place], [place] [id number] mL/min/1.27g3Mbpgwl>60[facility] SpecialistComment on above:Performed By: #### CBCYEE, CMP #### [facility] [address] [place], [place] [id number] (S) [Mass/Vol]2.6 g/dLNormal1.9-3.7[facility]ort[facility] SpecialistComment on above:Performed By: #### CBCYEE, CMP #### [facility] [address] [place], [place] [id number] [Mass/Vol]203 mg/qASrpg38-57Qrlypvop [place] [facility] SpecialistComment on above:Result Comment: For FASTING Glucose --- ADA reference ranges: Normal 65-99 mg/dl Prediabetes 100-125 Diabetes >/= 126Performed By: #### CBCAD, CMP #### [facility] [address] [place], [place] [id number] [Moles/Vol]4.5 mmol/LNormal3.5-5.5NoFirelands Regional Medical Center SpecialistComment on above:Result Comment: Specimen is hemolyzed. Results may be affected.Performed By: #### CBCYEE, CMP #### [facility] [address] [place], [place] [id number] [Mass/Vol]6.9 g/dLNormal6.1-8.1[facility]herMer[facility] SpecialistComment on above:Performed By: #### CBCAD, CMP #### [facility] [address] [place], [place] [id number] [Moles/Vol]140 mmol/HHgetja823-932Povkmhqs [place] [facility] SpecialistComment on above:Performed By: #### CBCAD, CMP #### [facility] [address] [place], [place] [id number]<0.3NormalNortKindred Hospital Dayton SpecialistComment on above:Performed By: #### CBCAD, CMP #### [facility] [address] [place], [place] [id number] nitrogen [Mass/Vol]20 mg/dLNormal7-25[facility] SpecialistComment on above:Performed By: #### CBCAD, CMP #### [facility] [address] [place], [place] [id number] Vital Signs Date TimeVital SignValuePerforming KjqbjxcncTrsxdfsw50-57-7097 14:51-0400Body lgsnve284.64 cmTika Uriostegui EMPLOYMENT OFFICE CLERK Work Phone: [phone] [place], [place] 044[address]09-11-2025 14:51-0400 Body mass index (BMI) [Ratio]27.7 kg/x8VymtvkwlTika Uriostegui EMPLOYMENT OFFICE CLERK Work Phone: [phone] [place], [place] 0441209-11-2025 14:51-0400 Body sogsttrgvnw13.4 [degF]Tika Uriostegui APRN Work Phone: [phone] [place], [place] 044[address]09-11-2025 14:51-0400 Body xxygcv28.01 kgTika Uriostegui EMPLOYMENT OFFICE CLERK Work Phone: [phone] [place], [place] 0[address]09-11-2025 14:51-0400 Diastolic blood gvypgreg86 mm[Hg]Tika Uriostegui EMPLOYMENT OFFICE CLERK Work Phone: [phone]09-11-2025 14:51-0400 Heart rate84 /minTika Uriostegui EMPLOYMENT OFFICE CLERK Work Phone: [phone] [place], [place] [address]09-11-2025 14:51-0400 SaO2% (BldA) [Mass fraction]95 %Tika Uriostegui EMPLOYMENT OFFICE CLERK Work Phone: [phone]09-11-2025 14:51-0400 Systolic blood fayuskqg144 mm[Hg]Tika Uriostegui EMPLOYMENT OFFICE CLERK Work Phone: [phone] [place], [place] [address]01-19-2023 12:00-0500 Diastolic blood nxkgriej04 mm[Hg]Et3 RpcqqlxzLdvvbAbvrkb71-60-1963 12:00-0500 Heart rate91 /minEt3 RlwkknyyBxezpYywnhs60-93-2088 12:00-0500Respiratory rate16 /minEt3 QwkvtdyhTkghwLkhmam73-31-9056 12:00-1550MfB0% (BldA) [Mass fraction]97 % Et3 QglyankvUzywaLkdaur61-06-0733 12:00-0500Systolic blood kplxzijt597 mm[Hg]Et3 [facility] Encounters Encounter DateEncounter TypeCare ProviderFacilityStart: 03-31-2025 End: 38-27-1030ptxgeyfduwEqqwvkyq Rohrbacher APRN Work Phone: [facility] Work Phone: Start: 03-31-2025 End: 26-82-6630[place] encounter procedureTika Uriostegui APRN MANAGER ENTRY-FPG [facility] Work Phone: Start: 70-05-0591Pop-patient / Non-visitCatherine Ian AIR BRUSH ARTIST-FPG [facility] Work Phone: Start: 56-48-6730Ehh-patient / Non-visitDaryl Deb Hooper MD-[facility]ly [facility] [employer] Work Phone: Start: 12-18-2024 End: 84-49-9649GyxxhpWnemb M Alda MD Work Phone: [facility] POPULATION HEALTHComment on above:Type 2 diabetes mellitus with other specified complication, without long-term current use of insulinStart: 06-12-2024 End: 69-54-8077KtvlkxFztmp M Alda MD Work Phone: [facility] POPULATION HEALTHComment on above:Benign hypertension (CMS/HCC)Start: 03-14-2024 End: 91-33-5623QfuerdGgabnGerda CUTLER Work Phone: [facility] POPULATION HEALTHComment on above:Type 2 diabetes mellitus with diabetic neuropathy, without long-term current use of insulin (CMS/HCC)Start: 10-28-2023 End: 03-61-4776airjlecgtvZHNSKTiarra Lynch AvailableStart: 09-09-2023 End: 34-86-8483xgcnvwlomqERCDX M HEMMERNot AvailableStart: 15-57-2143Doqby Kristine Edgar Taylor CUTLER Work Phone: [facility] FMStart: 18-28-2835Ufebw bryanKaela Hernández Taylor CUTLER Work Phone: [facility] FMStart: 06-24-2023 End: 32-43-3958oymrfcnhzaDEUUE Edgar HEMMERNot AvailableStart: 08-08-2022 End: 96-25-1845ilcitefttuXu4 [facility]Met[facility] Emergency Triage, Treat and TransportStart: 08-08-2022 End: 14-85-3817Ouxshsfyh department patient visitEt3 [facility]Reg[facility] Emergency Triage, Treat and TransportComment on above:ArrivedStart: 05-20-2022 End: 33-44-7928quqsxoceesQxrzwc VargasFacility:[facility] Start: 05-16-2022 End: 44-87-5371iiewmuotbpVhqzfl VargasFacility:[facility] Start: 05-16-2022 End: 83-40-3129wnzcpnahmoYQ Edward J Hemeyer Work Phone: [facility] Work Phone: Start: 05-16-2022 End: 77-70-4651Iknkkdf encounter procedureMD Jonathon Isbell Work Phone: [facility] Piv-Jnr-Cbxzwriw Testing Start: 02-01-2022 End: 66-52-0039oortwgqrboWN RUGEN ALDAFacility:X2Qjmte: 02-15-2021 End: 35-31-8728pcmhqvchvlXG RUGEN ALDAFacility:H1 Procedures DateProcedureProcedure DetailPerforming ClinicianStart: 02-24-2020H/O: artificial jointAftercare following joint replacement surgeryKaela CUTLER Work Phone: SARS Antigen (LFIA)MD Jonathon Isbell Work Phone: Plan of Treatment DateCare ActivityDetailAuthorStart: 83-69-9558Ljtjfdyw screeningDiabetes: Retinopathy ScreeningNOTX HealthcareStart: 65-49-3238Ijozwre [facility] Work Phone: Start: 91-46-3785Mwfndbsdp vaccinationInfluenza Vaccine (Season Ended)[facility] HealthcareStart: 38-88-1804Thudb screening for proteinDiabetes: Urine Protein ScreeningNOMS HealthcareStart: 10-23-2024Medicare Annual Wellness (AWV)Medicare Annual Wellness (AWV)[facility] HealthcareStart: 76-57-4802Ukhdwnxgfwsr Vaccine: 65+ Years (1 - PCV)Pneumococcal Vaccine: 65+ Years (1 - PCV)[facility] HealthcareComment on above:Postponed from 1957 (Patient Refused)Start: 05-35-9107Wcdwb screening for proteinDiabetes: Urine Protein ScreeningNOMS HealthcareStart: 27-30-4128Djhdaszvo vaccinationInfluenza Vaccine (#1)[facility] HealthcareStart: 09-49-0589Ulcugamzx vaccinationInfluenza Vaccine (#1)[facility] HealthcareComment on above:Postponed from 03/21/2023 (Patient Refused)Start: 27-13-0639Wddvezdzbx A1c measurementDiabetes: Hemoglobin X5MJPLO HealthcareStart: 09-02-2023 End: 36-54-1232Aimkdij encounter pnzquyfdi56/13/2024 11:00 AM EST Office Visit [facility] [address] [facility] [address] [place] [address] Kaela Milton PA [address] [facility] [address] [place] [address] [facility] FMStart: 08-26-2023 End: 24-11-0328Uelgsdc encounter rcftdyudj95/06/2024 10:30 AM EST Office Visit [facility] [address] [facility] [address] [place] [address] Kaela Milton PA [address] [facility] [address] [place] [address] [facility] FMStart: 51-19-4916Uodugombww A1c measurement Diabetes: Hemoglobin J0TDQSQ HealthcareStart: 03-26-0516Wdjdujzay vaccination Influenza Vaccine (#1)MetroHealthStart: 51-26-6595Aatducvcoaaq vaccination Pneumococcal Vaccine(s) (65+ yrs) (1 - PCV)MetroHealthStart: 2001 Measurement of occult blood in single stool specimenFITMetroHealthStart: 01-91-1363Qslwcikqd for malignant neoplasm of colonCRC ScreeningMetroHealth Start: 52-96-4104Vglkisyp (RZV) Vaccine (1 of 2)Shingles (RZV) Vaccine (1 of 2) MetroHealthStart: 28-33-6061Vameh panelCholesterolMetroHealthStart: 1970 Pneumococcal Vaccine: 65+ Years (1 of 2 - PCV)Pneumococcal Vaccine: 65+ Years (1 of 2 - PCV)NOM HealthcareStart: 82-38-2978Sqndznvxm C screeningHepatitis C AntibodyMetroHealthStart: 65-37-5084Yqjqsow + diphtheria + acellular pertussis vaccine (product)Tdap BoosterMetroHealthStart: 92-79-5816Tgqybgue screening Diabetes: Retinopathy ScreeningNOTX HealthcareStart: 23-72-7824Vuckgcbshnax Vaccine: 65+ Years (1 of 2 - PCV)Pneumococcal Vaccine: 65+ Years (1 of 2 - PCV) [facility] HealthcareStart: 90-35-3509GJMZU-19 Vaccine (#1)COVID-19 Vaccine (#1) MetroHealthStart: 47-70-6155Drshwpfus for malignant neoplasm of colonColonoscopy MetroHealthPatient referralGalion Hospital Work Phone: [facility] Payers DatePayer CategoryPayerPolicy [id number] Health InsuranceUNITED HEALTHCARE [id number] 2023Medicare (Managed Care)[employer] Member Subscriber Plan / Payer (Effective 2022-Present) Name: Mikhail Menon Farhan Member ID: [id number] Relation to Subscriber: Self Name: SteveMikhail mayorga Subscriber ID: [id number] Payer ID: Not on file Group ID: Not on file Type: Not on file Address: [address] [place] [id number] [facility] [id number] 2022-Present [address] [place] [id number]-nsg [id number]-[id number]IF23WQ00-88-9188Lwiswax [id number] 2.840.1.195422.3.57[id number] 2.840.1.535945.3.579.2.41783-45-6237Ahesaiw988063027 2.840.1.949645.3.57[id number] 2.16.840.1.376501.3.579.2.[id number] 2.840.1.917549.3.579.2.228201-42-1428Nyuvjtp892052 2.16.840.1.476148.3.57[id number] Health InsuranceAeSeton Medical Center [id number]-41mi3mvt9vriEpjpsxrMEUU/HFA/FAP Active [id number] 32x11a16-42g7-3a71-eu2e-[id number] 2.16.840.1.840980.3.579.2.126Uxjnszv84920995 2..840.1.473817.3.579.2.531 Social History DateTypeDetailFacilityStart: 01-16-2022 End: 88-74-4190Awgmbvm smoking status NHISEx-smoker (finding)[facility] Hospitaltart: 11-42-1665Rup Assigned At BirthMalCleveland Clinic Fairview HospitalTobacco smoking status NHISTobacco smoking consumption unknown MetroHealthStart: 81-81-0547Efj Assigned At BirthNot on fileMetroHealth End: 14-34-6098Ukxslew of tobacco useCurrent smokerN[facility]S Healthcare End: 71-44-8807Dpongfk of tobacco useCigarette SmokerNOMS HealthcareStart: 06-76-8528Skskgua use and exposureSmokeless tobacco non-userNOMS Healthcare Start: 06-24-2023 End: 63-34-5424Vvtqldq intakeCurrent drinker of alcohol (finding)[facility] Start: 04-29-2023 End: 75-50-5231Hfsbzsn intakeNOMS HealthcareStart: 04-29-2023 End: 52-94-6891Ceepgqoobdm, Afraid, Rape, and Kick questionnaire [HARK][facility] HealthcareWithin the last year, have you been afraid of your partner or ex-partner?NoNOMS HealthcareDo you belong to any clubs or organizations such as yarsani groups, unions, fraternal or athletic groups, or [...] money to buy more.Never trueNOMS Healthcare Start: 71-13-7997Zomqvzy CommentLast smoked : > 10 yearsNOTX HealthcareStart: 97-91-3857Cglkvsv Comment3 or 4 drinks 4 or more times/week. Caffeine intake : 1-2 cups per day coffeeNOTX HealthcareStart: 13-29-7853Gfhtrdl CommentCaffeine intake : 1-2 cups per day coffeeSPANISH FORK HOSPITAL HealthcareSexMale (finding)[facility] Medical Equipment Procedure CodeEquipment CodeEquipment Original TextEquipment IdentifierDates Multiple peripheral artery stent, bare-metal ([id number] FDAStart: 79-57-247528440302Iwmdy: 27-22-6968Kac to inject 1-4 times daily as directed.[id number]: 11-14-2023 End: 52-53-4531Dpxst Sugar Diagnostic stripStart: 41-10-7612Fjwirsi Syringe- Needle U-100 (Advocate Syringes) 0.3 mL 30 gauge x 5/16 syringeStart: 15-15-9137Anmdkmq (Onetouch Delica Plus Lancet) 30 gauge miscStart: 02-09-2025 Lancets miscStart: 08-56-0592Nzgak Sugar Diagnostic stripStart: 06-03-2024 End: 67-16-8994Cdt Needle, Diabetic (Sure-Fine Pen [place]) 29 gauge x 1/2 needleStart: 06-02-2024 End: 20-32-7570Kum Needle, Diabetic (Sure-Fine [place]) 29 gauge x 1/2 needleStart: 06-02-2024 End: 19-94-1079Kdz Needle, Diabetic (Sure-Fine [place]) 29 gauge x 1/2 needleStart: 06-03-2024 End: 81-35-0023Wkc Needle, Diabetic (Sure-Fine [place]) 29 gauge x 1/2 needleStart: 02-03-2025 End: 02-09-2025 Telephone encounter Note 03-15-2024 Note Date & QndxNivtDftqghpa00-63-4916 Telephone encounter Note* Telephone Encounter - HE Ramos - 03/15/2024 9:38 AM EDT No longer our pt [facility] Note 03-15-2024 Note Date & GecuWmanDcqjwgbe80-60-4100 Miscellaneous Notes* Telephone Encounter - HE Ramos - 03/15/2024 9:38 AM EDT No longer our pt documented in this encounterNOMS Healthcare History of Present illness Narrative 08-08-2022 Note Date & IsegSbbhMpqbotdj86-02-4594 History of Present illness Narrative* Lei Wolf MD - 08/08/2022 12:24 PM EST Images from the original note were not included. EMERGENCY TRIAGE, TREAT AND TRANSPORT (ET3) DOCUMENTATION OF TELEHEALTH VISIT Date / Time: 08/08/20221199 Name: Mikhail Menon : 1950 SSN: (Not on file) EMS Agency: [facility] [x] Verbal consent obtained [] [...] Date & TypeNoteFacilityEvaluation noteNo assessment information available [facility] Work Phone: Evaluation note Note Date [...] neuropathy, without long-term current use of insulin ([facility]) documented in this encounter [facility] Healthcare Evaluation note Note Date & TypeNoteFacilityEvaluation note* Diagnosis Type 2 diabetes mellitus with other specified complication, without long-term current use of insulin documented in this encounter [facility] Healthcare Evaluation note Note Date & TypeNoteFacilityEvaluation note* Diagnosis Onset Date Resolution Status Admit Date HTN (hypertension) acuteSept2024 2:49pmHyperlipidemiaacuteSept2024 2:49pm NeuropathyacuteSept2024 2:49pmScreening for prostate canceracute March 31, 2025 2:49pmDiabetes mellituschronicSept2024 2:49pm [facility] Work Phone: Hospital Discharge instructions Note Date & TypeNoteFacilityHospital Discharge instructionsAmbulatory Orders* Referral to Endocrinology Location: None Selected [facility] Work Phone: Summary Purpose Family History [...] section and content) DATE CREATED AUTHOR 07/12/2021 [facility] Education Liaison DATE CREATED AUTHOR AUTHOR'S ORGANIZ ATION 02/07/2022 [facility] DATE CREATED AUTHOR AUTHOR'S ORGANIZ ATION 08/22/2022 [facility] DATE CREATED AUTHOR AUTHOR'S ORGANIZ ATION 03/22/2023 [facility] DATE CREATED AUTHOR AUTHOR'S ORGANIZ ATION 10/29/2023 [facility] Medical Specialists EPIC Care Teams (unrecognized sec tion and content) Team Status: Inactive Member Role Status Dates Jonathon Isbell MD Primary Care Provider Active Sweta Rios ProviderActive Team Status: Active Member Role Status Dates Jonathon Isbell MD Primary Care Provider Active Team MemberRelationshipSpecialtyStart DateEnd Date Ulisses Yu MD [address] [address] PCP - GeneralFamily Medicine12/20/22 Jonathon Isbell MD [address] [place] [address] PCP - [employer]12/19/22Team MemberRelationshipSpecialtyStart DateEnd Date Ulisses Yu MD [address] [facility] [address] [place] [address] PCP - [employer]02/19/24Team MemberRelationshipSpecialtyStart DateEnd Date Unallocated, [facility], [address] [place] [address] PCP - GeneralOsceola Regional Health Centerly Medicine10/05/24 Team Status: Active Member Role Status Dates Tika Uriostegui APRN TABLE GAMES SHIFT MANAGER-C Primary Care Provider Active Team Status: Active Member Role Status Dates Tika Uriostegui APRN TABLE GAMES SHIFT MANAGER-C Primary Care Provider Active Start: March 262024 Raul Hooper MDAttosmar ProviderActiveStart: March 26, 2025 Team Status: Active Member Role Status Dates Tika Uriostegui APRN TABLE GAMES SHIFT MANAGER-C Primary Care Provider Active Start: March 282024 Kalina Sosa CMAAttosmar ProviderActiveStart: March 28, 2025 Team Status: Inactive Member Role Status Dates Tika Uriostegui APRN TABLE GAMES SHIFT MANAGER-C Primary Care Provider Active Start: March 212024 End: March 31, 2025Tika Uriostegui APRN TABLE GAMES SHIFT MANAGER-CAttending ProviderActive Start: March 31, 2025 End: March [...] BE BASED ON THE PRIMARY CLINICAL RECORDS. [facility]. provides no warranty or guarantee of the accuracy or completeness of information in this document.
--- NOTE | 2025-06-21 13:00 | CA_ITS ---
[facility] Test Date: 2025-06-21 Pat Name: PEDRO MENON Department: Room: - Gender: Male Sole Filler: Yumi French : 1950 Requested By: CECE MORENO Order Number: [id number] Reading MD: ARIANA STEEL M.D. Interpretive Statements Summary of the findings: Right leg: BEKAH= 0.71; TBI= 0.33. Doppler waveforms demonstrate biphasic flow at the posterior tibial and dorsalis pedis arteries. Left leg: BEKAH= 0.70; TBI= 0.29. Doppler waveforms demonstrate monophasic flow at the posterior tibial and dorsalis pedis arteries. Segmental pressures: Segmental pressures show calcified bilateral femoral arteries with significant bilateral infrapopliteal disease. Pulse volume recordings: PVRs at the high thigh, below knee, and ankle levels show normal waveforms. Conclusion: Right and left ankle-brachial indices are suggestive of reduced overall arterial flow at rest. Toe-brachial indices are suggestive of PAD. Segmental pressures calcified bilateral femoral arteries with significant bilateral infrapopliteal disease. The study shows evidence of PAD with reduced overall arterial flow at rest. Electronically Signed On 06-21-2025 19:57:23 EST by ARIANA STEEL M.D.
== END 2025-06-21 12:53 | disposition home or self-care (01) ==
LOC: CARD 12:52
PROVIDERS: PCP Family Medicine; Visit Provider Family Medicine
DX: I73.9 Peripheral vascular disease, unspecified (principal)
CPT/HCPCS: 93923